=== PATIENT | female | born 1950 | race Caucasian/White ===

== ENCOUNTER → 2018-05-05 | Outpatient (CLI) | payer MEDICARE, OTHER ==
--- NOTE | 2018-05-05 17:38 | Diagnostic Imaging Report ---
INDICATION: Routine screening. COMPARISON: Comparison is made with prior mammograms from 05/06/2016 and 05/01/2015. TECHNIQUE: 2D and 3D bilateral screening mammography was performed with computer-aided detection (CAD) system. FINDINGS: Scattered fibroglandular densities are identified bilaterally. Benign-appearing intraparenchymal lymph node in the outer right breast posterior depth appears stable. No new mass or malignant appearing microcalcifications are seen. The axillae are unremarkable. IMPRESSION: No mammographic features suspicious for malignancy are identified. ACR BI-RADS Category 2: Benign findings. Result letter will be mailed to the patient. Note: At least 10% of breast cancer is not imaged by mammography. Dictated by: Dictated on workstation # [id number]
== END ==
LOC: RAD 10:16
PROVIDERS: ATTEND Nurse Practitioner Family
DX: Z12.31 Encounter for screening mammogram for malignant neoplasm of breast (principal)
CPT/HCPCS: 77067

== ENCOUNTER → 2019-04-18 | Outpatient (CLI) | payer MEDICARE, OTHER ==
--- NOTE | 2019-04-18 11:06 | Diagnostic Imaging Report ---
INDICATION: Low back pain and left hip pain. Time of exam 10:26 a.m. FINDINGS: Three views of the lumbar spine were obtained. Curvature and alignment of the lumbar spine is normal. Vertebral body heights are maintained. No acute compression fracture is seen. There is generalized degenerative disc and facet disease. Abdominal aorta is heavily calcified. IMPRESSION: Lumbar spondylosis. No acute bony abnormality is detected. Dictated by: Dictated on workstation # [id number]
--- NOTE | 2019-04-18 11:06 | Diagnostic Imaging Report ---
INDICATION: Pelvic pain and back and left hip pain. TIME OF EXAM: 10:27 a.m. FINDINGS: AP view of the pelvis and two views of the left hip were obtained. Femoroacetabular alignment is normal bilaterally. There are significant osteoarthritic changes involving bilateral hips. Right hip does show complete loss of the superior joint space. There is moderate narrowing of the superior joint space on the left as well. Femoral heads and necks are intact. No fractures are seen. Rami are intact. SI joints and symphysis are not widened. Both SI joints do demonstrate some degenerative changes with some sclerosis along the inferior aspects bilaterally. IMPRESSION: Degenerative changes. No acute bony abnormality is detected. Dictated by: Dictated on workstation # [id number]
== END ==
LOC: RAD 09:51
PROVIDERS: ATTEND Nurse Practitioner Family
DX: M47.816 Spondylosis without myelopathy or radiculopathy, lumbar region (principal); M16.12 Unilateral primary osteoarthritis, left hip
CPT/HCPCS: 72100

== ENCOUNTER → 2019-05-16 | Outpatient (CLI) | payer MEDICARE, OTHER ==
--- NOTE | 2019-05-17 10:35 | Diagnostic Imaging Report ---
INDICATION: Routine screening. Comparison is made with prior mammogram from 05/05/2018 and 05/06/2016. 2-D and 3-D bilateral screening mammography was performed with CAD. The current study was also evaluated with a Computer Aided Detection (CAD) system. 3-D tomosynthesis was also performed and reviewed. Scattered fibroglandular densities are identified bilaterally. Benign-appearing tiny nodules both breasts again noted and appear stable. No spiculated mass or malignant appearing microcalcifications are seen. Axillae are unremarkable. IMPRESSION: No mammographic features suspicious for malignancy are identified. ACR BI-RADS Category 2: Benign findings. Result letter will be mailed to the patient. Note: At least 10% of breast cancer is not imaged by mammography. Dictated by: Dictated on workstation # [id number]
== END ==
LOC: RAD 14:06
PROVIDERS: ATTEND Nurse Practitioner Family
DX: Z12.31 Encounter for screening mammogram for malignant neoplasm of breast (principal)
CPT/HCPCS: 77067

== ENCOUNTER → 2020-05-19 | Outpatient (CLI) | payer MEDICARE, OTHER ==
--- NOTE | 2020-05-19 16:05 | Diagnostic Imaging Report ---
INDICATION: Routine screening. COMPARISON: 05/16/2019 and 05/05/2018. TECHNIQUE: 2D and 3D bilateral screening mammography was performed with CAD. FINDINGS: Scattered fibroglandular densities are identified bilaterally. A benign nodule in the outer right breast is stable. No new mass or malignant appearing microcalcifications are seen. The axillae are unremarkable. IMPRESSION: No mammographic features suspicious for malignancy are identified. ACR BI-RADS Category 2: Benign findings. Result letter will be mailed to the patient. Note: At least 10% of breast cancer is not imaged by mammography. Dictated by: Dictated on workstation # [id number]
== END ==
LOC: RAD 08:45
PROVIDERS: ATTEND Family Medicine
DX: Z12.31 Encounter for screening mammogram for malignant neoplasm of breast (principal)
CPT/HCPCS: 77063; 77067

== ENCOUNTER 2020-07-04 11:31 | Emergency (ER) | payer MEDICARE, OTHER ==
[~2020-07-04] VITALS: Ht 167.7 cm; Wt 89.8 kg
--- NOTE | 2020-07-04 12:25 | ED Upper Extremity ---
General Chief Complaint: Trauma-Non Activation Nursing Triage Note: PT AMB TO [facility] WITH COMPLAINT OF FALL. STATES WAS SPREADING ICE MELT AND SLIPPED DOWN [employer] STAIRS. PT HAS ABRAISION/SKIN TEAR TO RIGHT ARM. PT IS ALSO COMPLAINING OF LEFT ANKLE. Nursing Sepsis Screen: No Definite Risk Source: patient Exam Limitations: no limitations History of Present Illness Date Seen by Provider: Jul 04, 2020 Time Seen by Provider: 12:10 Initial Comments This is a 70 yo female who presented to the ED with c/o fall just prior to arrival. States she was putting down dry ice and slipped in the slush injuring her right forearm and left ankle. States she was able to get up and walk back inside. Covered wound with a clean kitchen towel. Denies hitting head or LOC. No other injuries reported. Last tetanus greater than 10 years ago. Onset: just prior to arrival Allergies and Home Medications Allergies Coded Allergies: Penicillins (Verified Allergy, Unknown, 07/04/20) hydrocodone (Verified Allergy, Unknown, 07/04/20) Home Medications Cephalexin 500 Mg Capsule, 500 MG PO TID Prescribed by: SHILOH GUTIERREZ on 07/04/20 1328 Patient Home Medication List Home Medication List Reviewed: Yes Review of Systems Constitutional: no symptoms reported EENTM: no symptoms reported Respiratory: no symptoms reported Cardiovascular: no symptoms reported Gastrointestinal: no symptoms reported Genitourinary: no symptoms reported Musculoskeletal: see HPI Skin: see HPI Psychiatric/Neurological: No Symptoms Reported Past Vnendnz-Lvonbb-Sgzpqd Hx Patient Social History Alcohol Use: Denies Use Recreational Drug Use: No Smoking Status: Current Everyday Smoker Type Used: Cigarettes Recent Foreign Travel: No Contact w/Someone Who Travel: No Recent Infectious Disease Expo: No Recent Hopitalizations: No Immunizations Up To Date Tetanus Booster (TDap): More than 5yrs PED Vaccines UTD: Yes Seasonal Allergies Seasonal Allergies: No Past Medical History Surgeries: Yes Hysterectomy Respiratory: No Cardiac: Yes Hypertension Neurological: No Gastrointestinal: No Musculoskeletal: No Endocrine: Yes Hypothyroidsim HEENT: No Cancer: No Psychosocial: No Integumentary: No Blood Disorders: No Physical Exam Vital Signs Vital Signs - First Documented 07/04/20 11:43 Pulse 72 Resp 16 B/P (MAP) 148/78 (101) Pulse Ox 96 O2 Delivery Room Air Capillary Refill : Less Than 3 Seconds Height, Weight, BMI Height: '" Weight: lbs. oz. kg; 31.00 BMI Method: General Appearance: WD/WN, no apparent distress HEENT: PERRL/EOMI, normal ENT inspection, TMs normal, pharynx normal Neck: non-tender, full range of motion, supple, normal inspection Cardiovascular: normal peripheral pulses, regular rate, rhythm, no murmur Respiratory: chest non-tender, lungs clear, normal breath sounds, no res piratory distress Gastrointestinal: normal bowel sounds, non tender, soft Back: normal inspection, no vertebral tenderness; No decreased range of motion Shoulder: normal inspection, non-tender, no evidence of injury, normal ROM Elbow/Forearm: abrasions (2 Skin tears on lateral forearm with softissue swelling and bruising. ), ecchymosis, pain, soft tissue tenderness Wrist: Yes normal inspection, Yes non-tender, Yes no evidence of injury, Yes normal ROM Hand: normal inspection, non-tender, no evidence of injury, normal ROM Neurologic/Tendon: normal sensation, normal motor functions, normal tendon functions, responds to pain Neurologic/Psychiatric: no motor/sensory deficits, alert, normal mood/affect, oriented x 3 Skin: normal color, warm/dry Progress/Results/Core Measures Results/Orders My Orders Orders - SHILOH GUTIERREZ [employer] RES[employer] MANAGER Ankle, Left, 3 Views (07/04/20 12:19) Forearm, Right, 2 Views (07/04/20 12:19) Ketorolac Injection (Toradol Injection) (07/04/20 14:00) Orphenadrine Inj (Ed Only) (Norflex Inje (07/04/20 14:00) Dipht,Pertuss(Acell),Tet Adult (Boostrix (07/04/20 14:00) Medications Given in ED Current Medications Medications Dose Ordered Sig/Laxmi Route Start Time Stop Time Status Last Admin Dose Admin Diphtheria/ Tetanus/Acell Pertussis 0.5 ml ONCE ONCE IM 07/04/20 14:00 07/04/20 14:01 DC 07/04/20 14:06 0.5 ML Ketorolac Tromethamine 30 mg ONCE ONCE IM 07/04/20 14:00 07/04/20 14:01 DC 07/04/20 14:05 30 MG Orphenadrine Citrate 30 mg ONCE ONCE IM 07/04/20 14:00 07/04/20 14:01 DC 07/04/20 14:05 30 MG Vital Signs/I&O 07/04/20 14:47 Pulse 72 Resp 16 B/P (MAP) 148/78 (101) Pulse Ox 96 Blood Pressure Mean: 101 Progress Progress Note : Progress Note Skin tears were cleansed with sterile saline and chlorahexadine wash. Pressure irrigated wounds with 100ml sterile saline. Dried with sterile 4x4. Steri-strips used to approximate skin tears as best as able, close approximation achieved (distal skin tear apx 2cm wide, proximal skin tear apx. 1cm wide) Covered with xeroform, non adherent telfa and casi-bandage. Tolerated well. Reviewed findings of radiographs which no acute fractures. Reviewed her POC and she is agreeable with plan. Applied casi wrap to left ankle. Given Norflex 30mg IM and Toradol 30mg IM for pain. Diagnostic Imaging Diagonstic Imaging: Xray Plain Films/CT/US/NM/MRI: forearm Comments NAME: ALTAGRACIA GORE [email or web address] REC#: [id number] PT STATUS: REG ER : 1950 PHYSICIAN: SHILOH GUTIERREZ APRN ADMIT DATE: 07/04/20/ER Signed Date of Exam:07/04/20 FOREARM, RIGHT, 2 VIEWS INDICATION: Right forearm injury from a fall. 2 views of the right forearm show no fracture or dislocation. IMPRESSION: Negative right forearm Dictated by: Dictated on workstation # [id number] Dict: 07/04/20 1309 Trans: 07/04/20 1352 [facility] [id number] Interpreted by: FEI GRANADOS MD Electronically signed by: FEI GRANADOS MD 07/04/20 1357 Diagonstic Imaging: Xray Plain Films/CT/US/NM/MRI: ankle Comments NAME: ALTAGRACIA GORE [email or web address] REC#: [id number] PT STATUS: DEP ER : 1950 PHYSICIAN: SHILOH GUTIERREZ APRN ADMIT DATE: 07/04/20/ER Signed Date of Exam:07/04/20 ANKLE, LEFT, 3 VIEWS Indication: Fall with left ankle injury. Time of exam: 12:54 PM 3 views of the left ankle were obtained. Alignment is normal. There is some soft tissue swelling about the lateral ankle. Ankle mortise is maintained. No definite fracture or dislocation is seen. Large plantar and posterior calcaneal spurs are noted. IMPRESSION: Lateral soft tissue swelling. No acute bony abnormality is detected. Dictated by: Dictated on workstation # [id number] Dict: 07/04/20 1309 Trans: 07/04/20 1503 CVB [id number] Interpreted by: VIC HARRIS MD Electronically signed by: VIC HARRIS MD 07/04/20 1503 Departure Impression Primary Impression: Fall Additional Impression: Skin tear of forearm without complication Disposition: HOME, SELF-CARE Condition: Improved Departure-Patient Inst. Decision time for Depature: 13:24 Referrals: YVONNE LYNN MD (PCP/Family) Primary Care Physician Patient Instructions: Wound Care Add. Discharge Instructions: Plan: 1. Discharge home. 2. Rest, ice 20 minutes at a time every couple of hours for swelling and pain, use casi wrap over the next 3 days, and keep elevated above your heart as much as possible. The most swelling will occur over the next 48-72 hours. 3. May take Tylenol or Ibuprofen as needed for pain per package directions. Do not take more than directed. 4. Keep dressing in place for the next 24 hours. May remove after 24 hours and change white gauze pain and yellow xeroform dressing. Leave steri-strips in place and allow them to fall off by themselves. Do not twist or pick off. May leave open to air after 72 hours. 5. Monitor or signs of infection such as fevers, redness, yellow greenish drainage. 6. Your tetanus was updated today. Take antibiotics as directed. 7. Follow up with your primary care provider if symptoms persist. All discharge instructions reviewed with patient and/or family. Voiced unders tanding. Scripts Cephalexin (Keflex) 500 Mg Capsule 500 MG PO TID for 5 Days, #15 CAP 0 Refills Prov: SHILOH GUTIERREZ [employer] MANAGER 07/04/20 SHILOH GUTIERREZ [employer] RESOURCES MANAGER Jul 04, 2020 12:25
--- NOTE | 2020-07-04 13:13 | Diagnostic Imaging Report ---
INDICATION: Right forearm injury from a fall. 2 views of the right forearm show no fracture or dislocation. IMPRESSION: Negative right forearm Dictated by: Dictated on workstation # [id number]
--- NOTE | 2020-07-04 13:13 | Diagnostic Imaging Report ---
Indication: Fall with left ankle injury. Time of exam: 12:54 PM 3 views of the left ankle were obtained. Alignment is normal. There is some soft tissue swelling about the lateral ankle. Ankle mortise is maintained. No definite fracture or dislocation is seen. Large plantar and posterior calcaneal spurs are noted. IMPRESSION: Lateral soft tissue swelling. No acute bony abnormality is detected. Dictated by: Dictated on workstation # [id number]
[2020-07-04] MEDS ORDERED: CEPH-507 PO (13:28)
[2020-07-04] MEDS ORDERED: KETOROLAC 60 MG/2 ML VIAL IM ONE (14:00)
[2020-07-04] MEDS ORDERED: ORPHENADRINE 60 MG/2 ML (NORFLEX) AMP (ED ONLY) IM ONE (14:00)
[2020-07-04] MEDS ORDERED: TETANUS,DIPTH,PERTUSS P/F (BOOSTRIX) 0.5 ML VIAL IM ONE (14:00)
[2020-07-04 14:47] VITALS: BP 148/78
== END 2020-07-04 14:47 | disposition home or self-care (01) ==
LOC: EDUNIT# 11:31 → ER 11:34
DX: S51.811A Laceration without foreign body of right forearm, initial encounter (principal); F17.210 Nicotine dependence, cigarettes, uncomplicated; Z88.0 Allergy status to penicillin; Z88.5 Allergy status to narcotic agent; Z23 Encounter for immunization; W01.0XXA Fall on same level from slipping, tripping and stumbling without subsequent striking against object, initial encounter
CPT/HCPCS: 12002; 73090; 73610; 90715

== ENCOUNTER → 2020-07-14 | Outpatient (CLI) | payer MEDICARE, OTHER ==
[~2020-07-14] MED LIST: CEPH-507 PO
--- NOTE | 2020-07-14 15:30 | Diagnostic Imaging Report ---
EXAMINATION: Ultrasound of the head and neck. INDICATION: Lymphadenopathy. There are no prior studies available for comparison. By history the patient has a palpable abnormality just anterior to the mid ear on the right. The ultrasound examination of this area does show a 2.1 x 1.4 x 1.2 cm predominantly cystic lesion. There does appear to be a small solid component to this lesion. This finding is of uncertain etiology. This could be related to an inflammatory/infectious process. A neoplastic lesion would be less likely but still possible. If further imaging is desired, then CT of the neck with intravenous contrast would be recommended. IMPRESSION: There is a complex solid and predominantly cystic mass in the area of the patient's palpable abnormality just superior to the right parotid gland. Considerations and recommendations as above. Dictated by: Dictated on workstation # [id number]
== END ==
LOC: RAD 13:16
PROVIDERS: ATTEND Nurse Practitioner Family
DX: R22.0 Localized swelling, mass and lump, head (principal)
CPT/HCPCS: 76536

== ENCOUNTER → 2020-07-21 | Outpatient (CLI) | payer MEDICARE, OTHER ==
[~2020-07-21] MED LIST changes: +CATHETER FLUSH 10 ML SYR IV PRN; +HOLD METFORMIN - RECEIVED CONTRAST 20 ML VIAL IV SCH; +IOHEXOL 350 MG/ML 100 ML (OMNIPAQUE 350) VIAL IV ONE; +NS 100 ML (IVPB) BAG IV ONE
[2020-07-21 14:49] LABS: BUN/CREATININE RATIO 18; CREATININE SERUM 0.77 MG/DL (0.60-1.30); GFR ESTIMATED > 60
--- NOTE | 2020-07-21 15:46 | Diagnostic Imaging Report ---
PROCEDURE: CT neck soft tissue with contrast. TECHNIQUE: Multiple contiguous axial images were obtained through the neck after the administration of contrast. Auto Exposure Controls were utilized during the CT exam to meet ALARA standards for radiation dose reduction. INDICATION: Mass in the right parotid gland. COMPARISON: 07/14/2020. FINDINGS: A peripherally enhancing mixed hypo and hyperattenuating lesion is seen in the superficial right parotid gland just anterior to the auricle measuring 1.7 x 1.2 cm and 2.0 cm craniocaudal. No masses are seen in the left parotid gland. The submandibular glands and thyroid gland are unremarkable. No pathologically enlarged lymphadenopathy is seen in the neck. The posterior nasopharynx and oropharynx demonstrate appropriate symmetry. There is no displacement of the parapharyngeal fat planes. There is no abnormal process evident within the prevertebral or retropharyngeal space. There is no evidence of abnormal thickening of the epiglottis or aryepiglottic folds. The vocal folds appear symmetric. The vascular structures the neck demonstrate no evidence of high-grade stenosis on this nondedicated exam. The visualized lung apices are clear. The visualized intracranial contents demonstrate no evidence of pathologic intracranial enhancement or intracranial mass effect. Visualized orbital contents are unremarkable. The visualized paranasal sinuses are clear. The mastoids and middle ears are clear. No acute osseous abnormality in the cervical spine. IMPRESSION: 1. Redemonstration of the mass within the right parotid gland. This may represent benign lesions such as pleomorphic adenoma and Warthin tumor or malignant parotid lesions such as adenoid cystic carcinoma or mucoepidermoid carcinoma. ENT consultation for surgical resection is recommended. The left parotid gland is unremarkable. No pathologically enlarged lymphadenopathy is seen in the neck. 2. No evidence of mass or fluid collection in the aerodigestive tract. No evidence of airway compromise. Dictated by: Dictated on workstation # [id number]
== END ==
LOC: RAD 14:20
PROVIDERS: ATTEND Family Medicine
DX: K11.8 Other diseases of salivary glands (principal)
CPT/HCPCS: 36415; 70491; 82565; 84520

== ENCOUNTER → 2021-07-01 | Outpatient (CLI) | payer MEDICARE, OTHER ==
[~2021-07-01] MED LIST changes: -CATHETER FLUSH 10 ML SYR IV PRN; -HOLD METFORMIN - RECEIVED CONTRAST 20 ML VIAL IV SCH; -IOHEXOL 350 MG/ML 100 ML (OMNIPAQUE 350) VIAL IV ONE; -NS 100 ML (IVPB) BAG IV ONE
--- NOTE | 2021-07-01 11:12 | Diagnostic Imaging Report ---
INDICATION: Increasing back pain. TIME OF EXAM: 10:58 AM. TECHNIQUE: Three views of the lumbar spine were obtained. FINDINGS: The curvature and alignment are normal. The vertebral body heights are well-maintained. No acute compression fracture is seen. There is generalized degenerative disc disease with variable disc space narrowing and marginal spurring. There is also lower lumbar facet arthropathy. The overall appearance is similar to the lumbar spine radiographs from 04/18/2019. The aorta is heavily calcified. Calcific densities overlie the right renal shadow, likely representing renal calculi. IMPRESSION: Spondylosis. No acute bony abnormality is detected. Dictated by: Dictated on workstation # [id number]
--- NOTE | 2021-07-01 11:14 | Diagnostic Imaging Report ---
INDICATION: Increasing pelvic pain. TIME OF EXAM: 10:59 AM. TECHNIQUE: An AP view of the pelvis and two views of each hip were obtained. FINDINGS: The femoroacetabular alignment is normal bilaterally. Severe osteoarthritic changes of the right hip are noted with complete loss of the superior joint space. There are fairly significant osteoarthritic changes of the left hip as well. Spurring at the femoral head/neck junctions bilaterally is noted. Both femoral heads and necks are intact without evidence of fracture. The rami are intact. The SI joints and symphysis are not widened. IMPRESSION: Severe osteoarthritic changes involving the bilateral hips. No acute fracture is seen. Dictated by: Dictated on workstation # [id number]
== END ==
LOC: RAD 10:05
PROVIDERS: ATTEND Nurse Practitioner Family
DX: M16.0 Bilateral primary osteoarthritis of hip (principal); M47.816 Spondylosis without myelopathy or radiculopathy, lumbar region
CPT/HCPCS: 72100; 73523

== ENCOUNTER → 2021-07-03 | Outpatient (CLI) | payer MEDICARE, OTHER ==
--- NOTE | 2021-07-03 09:16 | Diagnostic Imaging Report ---
PROCEDURE: MR imaging left lower extremity without contrast. TECHNIQUE: Multiplanar, multisequence non contrast enhanced MR imaging of the left lower extremity was accomplished. INDICATION: Hip pain COMPARISON: There are no prior MRI examinations available for comparison. FINDINGS: The plain film examination of the pelvis and hips performed on 07/01/2021 noted severe osteoarthritic changes involving both hips but failed to show any sign of an acute abnormality. On the coronal STIR series of this exam, there is again evidence of severe degenerative disease involving the left hip. There is marked narrowing of the joint space with subchondral cyst formation throughout the articular surface of the femoral head. There is a little subchondral cyst formation in the acetabulum. The anterior superior labrum is not well visualized and I suspect that the labrum is partially torn. There is also a small joint effusion present. There is no other abnormal signal arising from the bony pelvis to suggest an acute abnormality. The severe degenerative changes involving the right hip joint seen on the MRI right hip exam performed in conjunction with this study are again evident. There is no pelvic mass or free fluid collection noted. The urinary bladder is grossly unremarkable. The uterus is either atrophic or surgically absent. IMPRESSION: There is severe degenerative disease involving the left hip joint. There is no acute abnormality identified nor is there any sign of avascular necrosis. Dictated by: Dictated on workstation # [id number]
--- NOTE | 2021-07-03 09:21 | Diagnostic Imaging Report ---
PROCEDURE: MRI right joint lower extremity without contrast. TECHNIQUE: Multiplanar, multisequence non contrast-enhanced MRI of the right lower extremity was accomplished. INDICATION: Hip pain There are no prior MRI examinations available for comparison. The plain film examination of the hips and pelvis performed on 07/01/2021 did note severe osteoarthritic changes involving the hips. There was no acute abnormality identified. On this study, there is no fracture, dislocation or acute bony abnormality of the right hip. On the coronal STIR series, there is increased signal in the subarticular region of the lateral aspect of the acetabulum. I suspect this is more likely due to degenerative bone edema than to an acute injury or a stress fracture. There is severe degenerative disease of the hip joint. The joint space is narrowed and there are subchondral cysts along the opposing surfaces of the femoral head and acetabulum. The anterosuperior labrum has an indistinct appearance, most likely the labrum has been torn and has partially degenerated. There is also a small joint effusion present. There is no acute bony abnormality of the visualized pelvis noted otherwise. There is severe degenerative disease of the left hip joint. MRI of the left hip is pending for further study. IMPRESSION: There is severe degenerative disease of the right hip but there is no sign of an acute abnormality or of avascular necrosis. Dictated by: Dictated on workstation # [id number]
== END ==
LOC: RAD 08:00
PROVIDERS: ATTEND Nurse Practitioner Family
DX: M16.0 Bilateral primary osteoarthritis of hip (principal)
CPT/HCPCS: 73721

== ENCOUNTER 2021-10-01 15:00 | Outpatient (CLI) | payer MEDICARE, OTHER ==
[~2021-10-01] VITALS: Ht 177 cm; Wt 89.8 kg
[~2021-10-01 15:00] MED LIST changes: +NS IV 1000 ML 1,000 ML IV ONE
[2021-10-01] MEDS ORDERED: ONDANSETRON 4 MG/2 ML (SDV) Z0FRAN ONE (15:17)
[2021-10-01] MEDS ORDERED: NS IV 1000 ML 1,000 ML ONE (15:17)
[2021-10-01 15:40] LABS: HEMATOCRIT 39 % (35-52); HEMOGLOBIN 12.9 g/dL (11.5-16.0); MEAN CORPUSCULAR HEMOGLOBIN 31 pg (25-34); MEAN CORPUSCULAR HGB CONC 33 g/dL (32-36); MEAN CORPUSCULAR VOLUME 93 fL (80-99); MEAN PLATELET VOLUME 10.9 fL (9.0-12.2); PLATELET COUNT 486 10^3/uL (130-400); WHITE BLOOD COUNT 15.9 10^3/uL (4.3-11.0)
[2021-10-01] MEDS ORDERED: PROMETHAZINE INJ 25 MG/ML (PHENERGAN) AMP IV PRN (16:00)
[2021-10-01] MEDS ORDERED: ONDANSETRON 4 MG/2 ML (SDV) Z0FRAN IV ONE (16:00)
[2021-10-01 16:45] VITALS: BP 135/85
[2021-10-01 16:48] LABS: ALBUMIN 3.7 GM/DL (3.2-4.5)
[2021-10-01 16:49] LABS: BILIRUBIN,URINE NEGATIVE (NEGATIVE); CLARITY,URINE CLEAR; COLOR,URINE ORANGE; GLUCOSE, URINE (UA) NEGATIVE (NEGATIVE); KETONES,URINE TRACE (NEGATIVE); LEUKOCYTE ESTERASE ,URINE NEGATIVE (NEGATIVE); NITRITE,URINE NEGATIVE (NEGATIVE); PROTEIN,URINE 1+ (NEGATIVE)
[2021-10-01 16:50] LABS: CALCIUM 9.4 MG/DL (8.5-10.1)
[2021-10-01 16:51] LABS: TOTAL PROTEIN 7.3 GM/DL (6.4-8.2)
[2021-10-01 16:53] LABS: BILIRUBIN,TOTAL 1.2 MG/DL (0.1-1.0)
[2021-10-01 16:55] LABS: CREATININE SERUM 0.92 MG/DL (0.60-1.30)
[2021-10-01 17:02] LABS: AMORPHOUS SEDIMENT,UR FEW AMOR PHOSPHATE /LPF; BACTERIA,URINE FEW /HPF; RBC,URINE 0-2 /HPF; SQUAMOUS EPITHELIAL CELL,UR 0-2 /HPF
== END 2021-10-01 16:45 ==
LOC: SDC 15:00
PROVIDERS: ATTEND Nurse Practitioner Family
DX: Z51.81 Encounter for therapeutic drug level monitoring (principal)
CPT/HCPCS: 36415; 80053; 81000; 85027; 87088; 96360; 96374

== ENCOUNTER → 2021-10-06 | Outpatient (CLI) | payer MEDICARE, OTHER ==
[~2021-10-06] MED LIST changes: -NS IV 1000 ML 1,000 ML IV ONE
[2021-10-06 14:34] LABS: HEMATOCRIT 41 % (35-52); HEMOGLOBIN 13.2 g/dL (11.5-16.0); MEAN CORPUSCULAR HEMOGLOBIN 30 pg (25-34); MEAN CORPUSCULAR HGB CONC 32 g/dL (32-36); MEAN CORPUSCULAR VOLUME 93 fL (80-99); MEAN PLATELET VOLUME 10.4 fL (9.0-12.2); PLATELET COUNT 583 10^3/uL (130-400); WHITE BLOOD COUNT 17.1 10^3/uL (4.3-11.0)
--- NOTE | 2021-10-06 14:45 | Diagnostic Imaging Report ---
PROCEDURE: CT abdomen and pelvis without contrast. TECHNIQUE: Multiple contiguous axial images were obtained through the abdomen and pelvis without the use of intravenous contrast. Auto Exposure Controls were utilized during the CT exam to meet ALARA standards for radiation dose reduction. INDICATION: Abdominal pain with nausea, vomiting, and diarrhea. FINDINGS: The lung bases are clear. There is a moderate-sized pericardial effusion. The liver and gallbladder are unremarkable. No biliary ductal dilatation is seen. The pancreas and spleen are unremarkable. No adrenal mass is detected. Multiple nonobstructing calculi in the right kidney are noted, largest 3-4 mm in size. Aorta is ectatic and calcified but nonaneurysmal. The small and large bowel loops are normal in caliber. There is diverticulosis of the sigmoid but no evidence of acute diverticulitis. There is no free fluid or fluid collection. The bladder is decompressed. The bony structures are nonacute. There are postop changes to the left hip. IMPRESSION: 1. Moderate pericardial effusion. 2. Uncomplicated diverticulosis. 3. Nonobstructing right-sided nephrolithiasis. Dictated by: Dictated on workstation # [id number]
[2021-10-06 15:11] LABS: ALBUMIN 3.8 GM/DL (3.2-4.5)
[2021-10-06 15:12] LABS: POTASSIUM 3.9 MMOL/L (3.6-5.0)
[2021-10-06 15:13] LABS: CALCIUM 9.4 MG/DL (8.5-10.1)
[2021-10-06 15:14] LABS: TOTAL PROTEIN 7.1 GM/DL (6.4-8.2)
[2021-10-06 15:16] LABS: BILIRUBIN,TOTAL 0.9 MG/DL (0.1-1.0)
[2021-10-06 15:18] LABS: CREATININE SERUM 1.22 MG/DL (0.60-1.30)
== END ==
LOC: RAD 14:00
PROVIDERS: ATTEND Nurse Practitioner Family
DX: R10.9 Unspecified abdominal pain (principal); R11.2 Nausea with vomiting, unspecified; R19.7 Diarrhea, unspecified; E87.6 Hypokalemia
CPT/HCPCS: 36415; 74176; 80053; 82150; 83690; 85027

== ENCOUNTER → 2021-10-18 | Outpatient (CLI) | payer OTHER, MEDICARE ==
[~2021-10-18] MED LIST changes: +AMLO-251 PO; +APIX5TAB PO; +IPRA3AMP31 IH; +LEVO25TA5 PO; +LISI20TA26 PO; +NAPR-915 PO; +ONDA-105 PO; +OXYC5TAB PO; +PANT40TA52 PO; +POTA-160 PO; +SIMV20TA26 PO; +SUCR1TAB36 PO; +TRAM50TA3 PO
[2021-10-18 07:30] LABS: ALBUMIN 2.4 GM/DL (3.2-4.5)
[2021-10-18 07:31] LABS: POTASSIUM 3.5 MMOL/L (3.6-5.0)
[2021-10-18 07:32] LABS: CALCIUM 7.9 MG/DL (8.5-10.1)
[2021-10-18 07:33] LABS: TOTAL PROTEIN 4.2 GM/DL (6.4-8.2)
[2021-10-18 07:35] LABS: BILIRUBIN,TOTAL 1.1 MG/DL (0.1-1.0)
[2021-10-18 07:37] LABS: CREATININE SERUM 0.58 MG/DL (0.60-1.30)
== END ==
LOC: LABNPT 07:07
PROVIDERS: ATTEND Internal Medicine
DX: Z01.89 Encounter for other specified special examinations (principal)
CPT/HCPCS: 80053

== ENCOUNTER → 2021-10-19 | Outpatient (CLI) | payer OTHER, MEDICARE ==
[2021-10-19 07:43] LABS: ALBUMIN 2.3 GM/DL (3.2-4.5); BILIRUBIN,TOTAL 0.7 MG/DL (0.1-1.0); CALCIUM 7.7 MG/DL (8.5-10.1); CREATININE SERUM 0.55 MG/DL (0.60-1.30); POTASSIUM 3.7 MMOL/L (3.6-5.0); TOTAL PROTEIN 4.1 GM/DL (6.4-8.2)
== END ==
LOC: LABNPT 07:08
PROVIDERS: ATTEND Internal Medicine
DX: Z01.89 Encounter for other specified special examinations (principal)
CPT/HCPCS: 80053

== ENCOUNTER 2021-10-21 12:28 | Inpatient (IN) | payer MEDICARE, OTHER ==
[~2021-10-21] VITALS: Ht 170 cm; Wt 81.9 kg
--- NOTE | 2021-10-21 12:09 | PM&R Post Admission Assessment ---
PM&R HP Date of Visit: Oct 21, 2021 Time of Visit: 12:30 History of Present Illness Chief complaint: Debility History of present illness: This is a 71-year-old white female of Dr. Clifford who was moved over from [facility] following small bowel obstruction requiring surgical intervention and identifying ischemic bowel with slow but final return of bowel function following postop ileus who is in need of aggressive rehab to build strength and return to independent living at home. She has a recent history of left hip replacement uncomplicated by Dr. Alonso but did have a longer postoperative course with ileus and wheezing both completely resolving at time of discharge but she became more weak and was assessed by PCP to have UTI placed on antibiotic and CT scan obtained due to shortness of breath revealing pericardial effusion requiring transfer to [facility] which did not require any surgical intervention of pericardiocentesis. She then returned back home from [facility] in 1 day later suffered a fall with partial dehiscence of the left hip replacement incision status post incision and drainage per Dr. ALONSO the day after admission. She then suffered from abdominal pain requiring surgical consultation by Dr. Nguyen requiring CT scan and bowel rest but conservative management unsuccessful requiring surgical intervention with resection of ischemic bowel. NG tube was finally discontinued 2 days ago and clear liquid diet has been advanced. Upon arrival she reports she does not feel well and having some vague right-sided chest pain and considering her pericardial effusion recently cardiology was consulted and EKG showed no evidence of any ST elevation but right bundle branch block with no changes from preop in prior EKGs. Past Swqsdrq-Mjgcza-Epznqd Hx Past Med/Social Hx: Reviewed Nursing Past Med/Soc Hx, Reviewed and Corrections made Patient Social History Marrital Status: Employed/Student: retired Alcohol Use: Denies Use Smoking Status: Former Smoker Type Used: Cigarettes Recent Hopitalizations: No Immunizations Up To Date Tetanus Booster (TDap): More than 5yrs Pediatric: Yes Seasonal Allergies Seasonal Allergies: No Past Medical History Surgeries: Abdominal, Hysterectomy, Orthopedic Respiratory: COPD Cardiac: High Cholesterol, Hypertension Gastrointestinal: Obstructive Bowel Musculoskeletal: Arthritis, Chronic Back Pain Endocrine: Hypothyroidsim History of Blood Disorders: No PM&R Allergy/Meds/Data Review Allergies Coded Allergies: Penicillins (Verified Allergy, Unknown, 07/04/20) hydrocodone (Verified Allergy, Unknown, 07/04/20) Uncoded Allergies: LARGE DOSES OF ASPIRIN (Adverse Reaction, Unknown, 10/21/21) LOOP DIURETIC (Adverse Reaction, Unknown, 10/21/21) Home Medications Scheduled Amlodipine Besylate (Amlodipine Besylate), 10 MG PO DAILY, (Reported) Apixaban (Eliquis), 5 MG PO BID, (Reported) Ipratropium/Albuterol Sulfate (Iprat-Albut 0.5-3(2.5) mg/3 ml), 3 ML IH QID, (Reported) Levothyroxine Sodium (Levothyroxine Sodium), 25 MCG PO DAILY, (Reported) Lisinopril (Lisinopril), 20 MG PO DAILY, (Reported) Naproxen (Naproxen), 500 MG PO BID, (Reported) Pantoprazole Sodium (Pantoprazole Sodium), 40 MG PO DAILY, (Reported) Potassium Chloride (Klor-Con 10), 10 MEQ PO BID, (Reported) Simvastatin (Simvastatin), 20 MG PO HS, (Reported) Scheduled PRN Ondansetron HCl (Ondansetron HCl), 4 MG PO Q4H PRN for NAUSEA/VOMITING-1ST LINE, (Reported) Oxycodone HCl (Oxycodone HCl), 5-10 MG PO Q4H PRN for PAIN-SEVERE (8-10), (Reported) Sucralfate (Carafate), 1 GM PO ACHS PRN for ULCERS, (Reported) Tramadol HCl (Tramadol HCl), 50 MG PO Q6H PRN for PAIN-MODERATE (5-7), (Reported) Discontinued Medications Cephalexin (Keflex), 500 MG PO TID Discontinued Reason: No Longer Taking Current Medications Current Medications Reviewed Review of Systems Constitutional: see HPI, dizziness, malaise, weakness EENTM: no symptoms reported Respiratory: no symptoms reported Cardiovascular: no symptoms reported Gastrointestinal: abdominal pain, loss of appetite, nausea Genitourinary: no symptoms reported Musculoskeletal: no symptoms reported Skin: no symptoms reported Psychiatric/Neurological: No Symptoms Reported All Other Systems Reviewed Negative Unless Noted: Yes Physical Exam Physical Exam Vital Signs Capillary Refill : Height, Weight, BMI Height: '" Weight: lbs. oz. kg; 31.00 BMI Method: General Appearance: No Apparent Distress, WD/WN, Chronically ill Eyes: Bilateral Eye Normal Inspection, Bilateral Eye PERRL HEENT: PERRL/EOMI, Normal ENT Inspection, Pharynx Normal Neck: Full Range of Motion, Normal Inspection, Non Tender, Supple, Carotid Bruit Respiratory: Chest Non Tender, Lungs Clear, Normal Breath Sounds, No Accessory Muscle Use, No Respiratory Distress Cardiovascular: Regular Rate, Rhythm, No Edema, No Gallop, No JVD, No Murmur, Normal Peripheral Pulses Gastrointestinal: Normal Bowel Sounds, No Organomegaly, No Pulsatile Mass, Non Tender, Soft Back: Normal Inspection, No CVA Tenderness, No Vertebral Tenderness Extremity: Normal Capillary Refill, Normal Inspection, Normal Range of Motion, Non Tender, No Calf Tenderness, No Pedal Edema Neurologic/Psychiatric: Alert, Oriented x3, production supervisor off shift II-XII Norm as Tested, Abnormal Gait, Depressed Affect, Motor Weakness (Generalized) Skin: Normal Color, Warm/Dry Lymphatic: No Adenopathy PM&R Medical Assessment & Plan REHAB/MEDICAL ASSESSMENT AND PLAN: REHAB IMPAIRMENT GROUP: Debility ETIOLOGIC DIAGNOSIS: Debility The comorbidities that impact the patients function and/or functional outcome by: Recent left hip replacement with small bowel obstruction from ischemic bowel and generalized severe weakness REHAB PLAN: The patient is being admitted to our comprehensive inpatient rehabilitation facility and can tolerate the intensity of service consisting of at least: 180 minutes of therapy a day, 5 out of 7 days a week Rehab treatment will consist of: PT and OT will focus on regaining function with the use of assistive devices in order to regain function for independence in order to return back home The patient/family has a good understanding of our discharge process and will benefit from an interdisciplinary inpatient rehabilitation program. The patient has potential to make improvement and is in need of at least two of the following multidisciplinary therapies including but not limited to physical, occupational, speech, and prosthetics and orthotics. Additionally the patient will need services from respiratory, nutritional services, wound care, psychology, etc. (Customize this to each patient). Given the patients complex condition and risk of further medical complications, rehabilitation services cannot be safely or effectively provided at a lower level of care such as a snf facility. BARRIERS TO DISCHARGE: Severe weakness ESTIMATED LOS: 10 days DISPOSITION: Home RELEVANT CHANGES SINCE PREADMISSION SCREENING: I have compared the patients medical and functional status at the time of the preadmission screening and there are: no changes PROGNOSIS: Good REHABILITATION GOALS: 1. PT and OT will focus on regaining function with the use of assistive devices in order to regain function for independence in order to return back home All the above goals were reviewed with the patient and he/she is in agreement. By signing this document, I acknowledge that I have personally performed a full physical examination on this patient within [facility] and have determined the patient to be able to tolerate the above course of treatment at an intensive level for a reasonable period of time. I will be completing a detailed individualized Plan of Care for this patient by day #4 of the patients stay based upon the Preadmission Screen, the Post-Admission Evaluation, and the therapy evaluations. Admission Dx/Comorbidities: (1) Fall Status: Acute ICD Codes: W19.XXXA - Unspecified fall, initial encounter (2) SBO (small bowel obstruction) ICD Codes: K56.609 - Unspecified intestinal obstruction, unspecified as to partial versus complete obstruction Assessment/Plan Assessment and Plan Assess & Plan/Chief Complaint Assessment: Severe debility Recent small bowel obstruction due to ischemic bowel status post resection by Dr. Patrick Snyder postop ileus COPD Current smoker Recent UTI Pericardial effusion transferred to [facility] but no pericardiocentesis required Hypothyroidism Hypertension Recent fall Hip repair incision dehiscence status post I&D by Dr. Alonso Plan: Inpatient rehab protocol Pain control Monitor bowel function MONIKA TODD DO Oct 21, 2021 12:09
[2021-10-21 12:23] VITALS: BP 131/70
[~2021-10-21 12:28] MED LIST changes: +ACETAMINOPHEN 325 MG TABLET PO PRN; +ALPRAZolam 0.25 MG (XANAX) TAB PO PRN; +BISACODYL 10 MG SUPP (DULCOLAX) PR PRN; +FLEET ENEMA ADULT 1 EA BTL PR PRN; +LACTULOSE SYRUP 10GM/15ML (ENULOSE) 30ML UDC PO PRN; +LOPERAMIDE 2 MG (IMODIUM) TABLET PO PRN; +MELATONIN 3 MG TABLET PO PRN; +ONDANSETRON 4 MG (ZOFRAN) ORAL DISSOLVE TAB PO PRN; +diphenhydrAMINE 25 MG TAB (BENADRYL) PO PRN; +guaiFENesin/CODEINE (ROBITUSSIN AC) 10ML UDC PO PRN
[2021-10-21 12:30] VITALS: BP 131/70
[2021-10-21] MEDS ORDERED: NON-FORMULARY MEDICATION 1 EA EA (Ondansetron HCl 4 MG) PO PRN (12:30)
--- NOTE | 2021-10-21 13:18 | Occupational Therapy Eval ---
OT Evaluation-General/PLF Medical Diagnosis Admission Date Oct 21, 2021 at 12:28 Medical Diagnosis: s/p bowel resection; debility Onset Date: Oct 21, 2021 Therapy Diagnosis Therapy Diagnosis: decreased ADL status, weakness Weight Bear Status Weight Bearing Restriction: Weight Bearing/Tolerated Location Restriction: L LE Referral Physician: Estrada Nguyen Reason: Evaluation/Treatment Medical History Additional Medical History hypothyroidism, HTN, OA, hyperlipidemia Current History L hip replacement 09/26/21, discharge home, admit to [facility] 10/06-10/09 with dehydration and fluid around her heart. Pt discharged home, then had a fall, landing on L hip. dehiscence of incision s/p I&D, diverticulitis/SBO with ex lap resulting in bowel resection. Social History Home: Single Level Current Living Status: Spouse Entry Into Home: Stairs With Railing Steps Into Home: 6 ADL-Prior Level of Function SCALE: Activities may be completed with or without assistive devices. 8-Wofztwauqx-ojzhpcu completes the activity by him/herself with no assistance from a helper. 5-Set-up or Clean-up Assistance-helper sets up or cleans up; patient completes activity. [place] assists only prior to or following the activity. 4-Supervision or Touching Assistance-helper provides verbal cues and/or touching/steadying and/or contact guard assistance as patient completes activit y. Assistance may be provided throughout the activity or intermittently. 3-Partial/Moderate Assistance-helper does LESS THAN HALF the effort. [place] lifts, holds or supports trunk or limbs, but provides less than half the effort. 2-Substantial/Maximal Assistance-helper does MORE THAN HALF the effort. [place] lifts or holds trunk or limbs and provides more than half the effort. 3-Gjrmemssa-jkzxvl does ALL the effort. Patient does none of the effort to complete the activity. Or, the assistance of 2 or more helpers is required for the patient to complete the activity. If activity was not attempted, code reason: 7-Patient Refused. 9-Not Applicable-not attempted and the patient did not perform the activity before the current illness, exacerbation or injury. 10-Not Attempted due to Environmental Limitations-(lack of equipment, weather restraints, etc.). 88-Not Attempted due to Medical Conditions or Safety Concerns. ADL PLOF Comments Prior to hip replacement, pt was independent with ADLs and functional mobility, without AD. After hip replacement, pt has been using FWW, requiring some assistance with ADLs. she has a tub/shower, no SC but plans on using BSC as a SC. Self Care: Independent Functional Cognition: Independent DME/Equipment: Bedside Commode, Shower, Tub/Shower OT Current Status Subjective Pt agreeable to OT evaluation, reports 9/10 pain in stomach and L hip, 3/10 chest pain on R side of chest. Nurse present and aware of situation. Mental Status/Objective Patient Orientation: Person, Place, Time, Situation Current Upper Extremity ROM WFL, BUE shoulder flexion to approx 150 degrees Upper Extremity Coordination WFL Upper Extremity Sensation WFL Upper Extremity Strength grossly 3/5, not formally tested due to abdominal pain. ADL-Treatment Eating (QC): 7 Oral Hygiene (QC): 7 Shower/Bathe Self (QC): 7 Upper Body Dressing (QC): 5 (pt able to doff jacket, set up assist) Lower Body Dressing (QC): 7 On/Off Footwear (QC): 7 Toileting Hygiene (QC): 7 Other Treatments OT evaluation complete, pt provided information about PLOF and home set up and participated in UE screen. Post eval, pt in bed, nurse present, all needs met, call light in reach. Education OT Patient Education: Correct positioning, Energy conservation, Modified ADL techniques, Progress toward Goal/Update tx plan, Purpose of tx/functional activities, Rehab process Teaching Recipient: Patient Teaching Methods: Discussion Response to Teaching: Verbalize Understanding OT Short Term Goals Short Term Goals Time Frame: November 11, 2021 Shower/bathe self: 4 Upper body dressin Lower body dressin Putting on/taking off footwear: 4 OT Correction Goals [employer]els Plant Manager Goals Time Frame: November 20, 2021 Eating (QC): 6 Oral Hygiene (QC): 6 Toileting Hygiene (QC): 6 Shower/Bathe Self (QC): 6 Upper Body Dressing (QC): 6 Lower Body Dressing (QC): 6 On/Off Footwear (QC): 6 Additional Goals: 1-Demonstrate ADL Tasks, 2-Verbalize Understanding, 3-ImproveStrength/Maryann 1=Demonstrate adherence to instructed precautions during ADL tasks. 2=Patient will verbalize/demonstrate understanding of assistive devices/modifications for ADL. 3=Patient will improve strength/tolerance for activity to enable patient to per form ADL's. OT Education/Plan Problem List/Assessment Assessment: Decreased Activ Tolerance, Decreased UE Strength, Impaired Funct Balance, Impaired I ADL's, Impaired Self-Care Skills Discharge Recommendations Plan/Recommendations: Continue POC Treatment Plan/Plan of Care Patient would benefit from OT for education, treatment and training to promote independence in ADL's, mobility, safety and/or upper extremity function for ADL's. Plan of Care: ADL Retraining, Functional Mobility, Group Exercise/Act as Ind, UE Funct Exercise/Act Treatment Duration: November 20, 2021 Frequency: At least 5 of 7 days/Wk (IRF) Estimated Hrs Per Day: 1.5 hours per day Agreement: Yes Rehab Potential: Good Time/GCodes Start Time: 12:15 Stop Time: 12:25 Total Time Billed (hr/min): 10 Billed Treatment Time 1BROCK ADDISON OT Oct 21, 2021 13:18
--- NOTE | 2021-10-21 13:19 | Physical Therapy Evaluation ---
PT Evaluation-General Medical Diagnosis Admission Date Oct 21, 2021 at 12:28 Medical Diagnosis: left MICHELET, SBO with ex lap Onset Date: Sep 26, 2021 Therapy Diagnosis Therapy Diagnosis: impaired mobility, strength, endurance Referral Physician: Arpita Dorado DO Reason for Referral: Evaluation/Treatment Medical History Additional Medical History Past Medical History Surgeries: Hysterectomy Cardiac: Hypertension Endocrine: Hypothyroidsim Reviewed History: Yes Social History Current Living Status: Spouse Entry Into Home: Stairs With Railing PT Steps Into Home: 6 Prior Prior Level of Function SCALE: Activities may be completed with or without assistive devices. 4-Mlqrdsrdfn-isovhrb completes the activity by him/herself with no assistance from a helper. 5-Set-up or Clean-up Assistance-helper sets up or cleans up; patient completes activity. [place] assists only prior to or following the activity. 4-Supervision or Touching Assistance-helper provides verbal cues and/or touc david/steadying and/or contact guard assistance as patient completes activity. Assistance may be provided throughout the activity or intermittently. 3-Partial/Moderate Assistance-helper does LESS THAN HALF the effort. [place] lifts, holds or supports trunk or limbs, but provides less than half the effort. 2-Substantial/Maximal Assistance-helper does MORE THAN HALF the effort. [place] lifts or holds trunk or limbs and provides more than half the effort. 8-Wlgbmcxch-xrsojk does ALL the effort. Patient does none of the effort to complete the activity. Or, the assistance of 2 or more helpers is required for the patient to complete the activity. If activity was not attempted, code reason: 7-Patient Refused. 9-Not Applicable-not attempted and the patient did not perform the activity before the current illness, exacerbation or injury. 10-Not Attempted due to Environmental Limitations-(lack of equipment, weather restraints, etc.). 88-Not Attempted due to Medical Conditions or Safety Concerns. Bed Mobility: 6 Transfers (B,C,W/C): 6 Gait: 6 Stairs: 6 Indoor Mobility (Ambulation): Independent Stairs: Independent Prior Devices Use: None PT Evaluation-Current Subjective Patient in family vehicle pre tx, agrees to PT, has 7/10 pain in left hip and abdomen. Patient states she has been having some chest pain, nurse notified. Patient states she feels very ill also and very tired. Pt/Family Goals to be independent at home Objective Patient Orientation: Person, Place, Situation ROM/Strength ROM Lower Extremities WNL Sensory Hearing: Functional Transfers Roll Left & Right (QC): 3 Sit to Lying (QC): 2 Lying to Sitting/Side of Bed(Q: 2 Sit to Stand (QC): 3 Chair/Lby-km-Fukha Xfer(QC): 3 Toilet Transfer (QC): 3 Car Transfer (QC): 3 Patient performs rolling with min assist, supine <-> sit max assist, sit <-> stand and transfers min assist, car transfer min assist. Gait Does the Patient Walk?: Yes Mode of Locomotion: Walk Anticipated Mode of Locomotion: Walk Walk 10 feet (QC): 88 Walk 50 ft with 2 Turns(QC): 88 Walk 150 ft (QC): 88 Walking 10ft/uneven surface-QC: 88 Distance: 5' Gait Assistive Device: FWW Wheelchair Training Wheel 50 ft with 2 turns (QC): 1 Wheel 150 ft (QC): 1 Stairs 1 Step (curb) (QC): 88 4 Steps (QC): 88 12 Steps (QC): 88 Balance Sitting Static: Normal Sitting Dynamic: Normal Standing Static: Fair Standing Dynamic: Fair Picking up an Object (QC): 88 Assessment/Needs Patient has impaired mobility, strength, endurance. She needs max assist for supine <-> sit but just min assist for transfers. She is having a lot of pain and feels ill, nurse notified. Rehab Potential: Fair PT Short Term Goals Short Term Goals Time Frame: Oct 28, 2021 Roll Left & Right: 4 Sit to lyin Lying to sitting on side of be: 3 Sit to stand: 4 Chair/whh-je-svjnf transfer: 4 Walk 10 feet: 4 Walk 50 feet with two turns: 4 PT Hydraulic Riveter Goals Hydraulic Riveter Goals PT [facility] Goals Time Frame: November 11, 2021 Roll Left & Right (QC): 6 Sit to Lying (QC): 4 Lying-Sitting on Side/Bed(QC): 4 Sit to Stand (QC): 6 Chair/Isf-ld-Geiiv Xfer(QC): 6 Toilet Transfer (QC): 6 Car Transfer (QC): 6 Does the Patient Walk: Yes Walk 10 feet (QC): 6 Walk 50ft with 2 Turns (QC): 6 Walk 150 ft (QC): 6 Walking 10ft on Uneven Surface: 6 1 Step (curb) (QC): 4 4 Steps (QC): 4 12 Steps (QC): 88 Picking up an Object (QC): 4 Wheel 50 feet with 2 turns (QC: 9 Wheel 150 feet: 9 PT Plan Problem List Problem List: Activity Tolerance, Functional Strength, Safety, Balance, Gait, Transfer, Bed Mobility, ROM Treatment/Plan Treatment Plan: Continue Plan of Care Treatment Plan: Bed Mobility, Education, Functional Activity Maryann, Functional Strength, Group Therapy, Gait, Safety, Therapeutic Exercise, Transfers Treatment Duration: November 11, 2021 Frequency: At least 5 of 7 days/Wk (IRF) Estimated Hrs Per Day: 1.5 hours per day Patient and/or Family Agrees t: Yes Safety Risks/Education Patient Education: Gait Training, Transfer Techniques, Correct Positioning, W/C Management, Safety Issues Teaching Recipient: Patient Teaching Methods: Demonstration, Discussion Response to Teaching: Reinforcement Needed Discharge Recommendations Plan Patient will perform bed mobility and transfer training, balance and endurance training, functional strengthening, stair training, gait training, and education, to improve functional mobility and independence at home. Therapy Discharge Recommendati: Home & Family, Post Acute PT Time/GCodes Time In: 1205 Time Out: 1215 Total Billed Treatment Time: 10 Total Billed Treatment 1 visit JULIANA MENDOZA PT Oct 21, 2021 13:19
[2021-10-21] MEDS: SUCRALFATE 1 GM (CARAFATE) TAB PO PRN (13:27)
--- NOTE | 2021-10-21 14:17 | Occupational Ther Daily Note ---
OT Current Status-Daily Note Subjective Pt alert, laying in bed when PEDROZA entered. Pt reported 10/10 pain at beginning of treatment, nursing already notified and meds were taken. senior care through treatment pt pain decreased to 7/10. Mental Status/Objective Patient Orientation: Person, Place, Time, Situation ADL-Treatment Co treat with PT ([id number]) due to skills clinicals required which a rehabilitation supervisor could not perform in order to coordinate UE/LEs, pain management, bed mobility and due to pt's limitations in strength, and safety. PT focusing on LE placement, bed mobility, and LE exercises while OT focuses on ADLs, UE placement, and UE exercises. Due to pt experiencing increase pain, pt completed sponge bath at this date. Pt transferred from supine to EOB with Min A to swing LLE off of bed. Once at EOB, pt demonstrated good dynamic sitting balance. Pt doffed UB dressing with supervision. Pt sit-stand from EOB and required Max A to doff LB dressing due to poor dynamic standing balance. Pt performed sponge bath, was able to cleanse UB, chest, and abdomen. Pt then requested to wear hospital gown at this time. Pt donned hospital gown. Pt requested to lay down in bed, required assist to bring LLE onto bed. Pt then required max A to cleanse upper/lower legs while laying in bed. After set up, pt completed oral care while laying in bed. Therapy Code Descriptions/Definitions Functional [place] Measure: 0=Not Assessed/NA 4=Minimal Assistance 1=Total Assistance 5=Supervision or Setup 2=Maximal Assistance 6=Modified [place] 3=Moderate Assistance 7=Complete IndependenceSCALE: Activities may be completed with or without assistive devices. 4-Mlepdsjhdz-gcqjyvk completes the activity by him/herself with no assistance from a helper. 5-Set-up or Clean-up Assistance-helper sets up or cleans up; patient completes activity. [place] assists only prior to or following the activity. 4-Supervision or Touching Assistance-helper provides verbal cues and/or touching/steadying and/or contact guard assistance as patient completes activity. Assistance may be provided throughout the activity or intermittently. 3-Partial/Moderate Assistance-helper does LESS THAN HALF the effort. [place] lifts, holds or supports trunk or limbs, but provides less than half the effort. 2-Substantial/Maximal Assistance-helper does MORE THAN HALF the effort. [place] lifts or holds trunk or limbs and provides more than half the effort. 6-Qpqbymgha-hlkjos does ALL the effort. Patient does none of the effort to complete the activity. Or, the assistance of 2 or more helpers is required for the patient to complete the activity. If activity was not attempted, code reason: 7-Patient Refused. 9-Not Applicable-not attempted and the patient did not perform the activity before the current illness, exacerbation or injury. 10-Not Attempted due to Environmental Limitations-(lack of equipment, weather restraints, etc.). 88-Not Attempted due to Medical Conditions or Safety Concerns. Oral Hygiene (QC): 5 Bathing Location: L Arm, R Arm, Chest, Abdomen Shower/Bathe Self (QC): 3 Upper Body Dressing (QC): 4 (Pt able to doff UB dressing with supervision.) Lower Body Dressing (QC): 2 (Pt required Max A to doff LB dressing.) Due to increase pain throughout treatment, pt required increase time to complete tasks. Other Treatment Pt required skilled instruction of against gravity BUE exercises. Pt completed x2 sets of 10 reps of BUE against gravity exercises to increase BUE ROM for improved independence in ADLs. Pt completed shoulder flexion, shoulder abduction/adduction, elbow flexion, wrist flexion, and reaching across midline to tap therapist hand. Pt required physical demonstration of each exercise. Post demonstration, pt completed exercises with good technique. Pt required resting break due to decreased activity tolerance. Education OT Patient Education: Correct positioning, Energy conservation, Exercise program, Home exercise program, Modified ADL techniques, Purpose of tx/ functional activities, Reviewed precautions Teaching Recipient: Patient Teaching Methods: Demonstration, Discussion Response to Teaching: Verbalize Understanding, Return Demonstration OT Short Term Goals Short Term Goals Time Frame: November 11, 2021 Shower/bathe self: 4 Upper body dressin Lower body dressin Putting on/taking off footwear: 4 OT Payroll Professional Goals Payroll Professional Goals Time Frame: November 20, 2021 Eating (QC): 6 Oral Hygiene (QC): 6 Toileting Hygiene (QC): 6 Shower/Bathe Self (QC): 6 Upper Body Dressing (QC): 6 Lower Body Dressing (QC): 6 On/Off Footwear (QC): 6 Additional Goals: 1-Demonstrate ADL Tasks, 2-Verbalize Understanding, 3- ImproveStrength/Maryann 1=Demonstrate adherence to instructed precautions during ADL tasks. 2=Patient will verbalize/demonstrate understanding of assistive devices/modifications for ADL. 3=Patient will improve strength/tolerance for activity to enable patient to perform ADL's. OT Education/Plan Problem List/Assessment Assessment: Decreased Activ Tolerance, Decreased UE Strength Discharge Recommendations Plan/Recommendations: Continue POC Treatment Plan/Plan of Care Patient would benefit from OT for education, treatment and training to promote independence in ADL's, mobility, safety and/or upper extremity function for ADL's. Plan of Care: ADL Retraining, Functional Mobility, Group Exercise/Act as Ind, UE Funct Exercise/Act Treatment Duration: November 20, 2021 Frequency: At least 5 of 7 days/Wk (IRF) Estimated Hrs Per Day: 1.5 hours per day Agreement: Yes Rehab Potential: Good Time/GCodes Start Time: 13:00 Stop Time: 14:20 Total Time Billed (hr/min): 80 Billed Treatment Time 1 visit- ADL 3(49 mins) EX 2 (31 mins) Co- treat ([id number]) DENISE COBOS Oct 21, 2021 14:17
--- NOTE | 2021-10-21 14:25 | Physical Therapy Daily Note ---
PT Daily Note-Current Subjective Pt agrees to PT/OT cotreat. Upon arrival of PT/OT, nursing in room performing an EKG on pt due to pt's complaint of chest pain. Pt reported pain at 10/10 beginning of tx, pain decreased to 7/10 by the end of tx after receiving pain medication. Mental Status Patient Orientation: Normal For Age Transfers SCALE: Activities may be completed with or without assistive devices. 0-Mqqsftqrqy-uedowqv completes the activity by him/herself with no assistance from a helper. 5-Set-up or Clean-up Assistance-helper sets up or cleans up; patient completes activity. [place] assists only prior to or following the activity. 4-Supervision or Touching Assistance-helper provides verbal cues and/or touching/steadying and/or contact guard assistance as patient completes activity. Assistance may be provided throughout the activity or intermittently. 3-Partial/Moderate Assistance-helper does LESS THAN HALF the effort. [place] lifts, holds or supports trunk or limbs, but provides less than half the effort. 2-Substantial/Maximal Assistance-helper does MORE THAN HALF the effort. [place] lifts or holds trunk or limbs and provides more than half the effort. 4-Hgwophdbq-pnyohg does ALL the effort. Patient does none of the effort to complete the activity. Or, the assistance of 2 or more helpers is required for the patient to complete the activity. If activity was not attempted, code reason: 7-Patient Refused. 9-Not Applicable-not attempted and the patient did not perform the activity before the current illness, exacerbation or injury. 10-Not Attempted due to Environmental Limitations-(lack of equipment, weather restraints, etc.). 88-Not Attempted due to Medical Conditions or Safety Concerns. Lying to Sitting/Side of Bed(Q: 3 Sit to Stand (QC): 4 Exercises Supine Ex: Ankle pumps, Quad Set, Glut sets, Heel Slides, Straight leg raise, Hip abd/add Supine Reps: 10 (x2 sets) Treatments Co treat with PT ([id number]) due to skills clinicals required which a appraisal technician could not perform in order to coordinate UE/LEs, pain management, bed mobility and due to pt's limitations in strength, and safety. PT focusing on LE placement, bed mobility, and LE exercises while OT focuses on ADLs, UE placement, and UE exercises. Due to pt experiencing increase pain, pt completed sponge bath at this date. Pt TF from supine to EOB with min assist and then performed sit to stand with CGA to phan/doff clothing. Pt completed UE and LE EX with PT and OT. All needs met, call light in hand. Assessment Current Status: Fair Progress Pt complains of a lot of pain and soreness in L hip and abdomen. After receiving pain medication, pt seemed to be getting better while doing EX. PT Short Term Goals Short Term Goals Time Frame: Oct 28, 2021 Roll Left & Right: 4 Sit to lyin Lying to sitting on side of be: 3 Sit to stand: 4 Chair/mmw-pg-tommz transfer: 4 Walk 10 feet: 4 Walk 50 feet with two turns: 4 PT Adobe Developer Goals Intermediate Goals PT Intermediate Goals Time Frame: November 11, 2021 Roll Left & Right (QC): 6 Sit to Lying (QC): 4 Lying-Sitting on Side/Bed(QC): 4 Sit to Stand (QC): 6 Chair/Sox-lt-Nisnu Xfer(QC): 6 Toilet Transfer (QC): 6 Car Transfer (QC): 6 Does the Patient Walk: Yes Walk 10 feet (QC): 6 Walk 50ft with 2 Turns (QC): 6 Walk 150 ft (QC): 6 Walking 10ft on Uneven Surface: 6 1 Step (curb) (QC): 4 4 Steps (QC): 4 12 Steps (QC): 88 Picking up an Object (QC): 4 Wheel 50 feet with 2 turns (QC: 9 Wheel 150 feet: 9 PT Plan Treatment/Plan Treatment Plan: Continue Plan of Care Treatment Plan: Bed Mobility, Education, Functional Activity Maryann, Functional Strength, Group Therapy, Gait, Safety, Therapeutic Exercise, Transfers Treatment Duration: November 11, 2021 Frequency: At least 5 of 7 days/Wk (IRF) Estimated Hrs Per Day: 1.5 hours per day Patient and/or Family Agrees t: Yes Safety Risks/Education Patient Education: Reviewed Precautions Teaching Recipient: Patient Teaching Methods: Discussion Response to Teaching: Verbalize Understanding Time/GCodes Time In: 1300 Time Out: 1420 Total Billed Treatment Time: 80 Total Billed Treatment 1, FA x3 (50 min), EX (30 min) co-treat w/OT for 80m LETY MARTIN ANIMAL CARE SUPERVISOR Oct 21, 2021 14:25
--- NOTE | 2021-10-21 15:25 | Consultation-Cardiology ---
HPI-Cardiology Cardiology Consultation Date of Consultation 10/21/21 Date of Admission Time Seen by Provider: 15:20 Indication: chest pain HPI Patient is a 71 y/o female with history of HTN, HLP. Underwent left hip replacement with Dr. Alonso at end of September 2021. Was discharged home and several days later had some increased dyspnea at home. Underwent CT chest showing pericardial effusion and was transferred to [facility] [place] [facility]. Patient reports no intervention done at [facility], did not need pericardial window, was discharged home. Unfortunately, she sustained a fall at home and had dehiscence of the left hip surgical incision requiring surgical repair. Patient then developed bowel obstruction and underwent small bowel resection with Dr. Nguyen on 10/16/21. Currently in IRF d/t generalized debility/weakness. C/o some right sided chest and shoulder pain. Denies any dyspnea, dizziness or lightheadeness. Home Medications & Allergies Allergies: Coded Allergies: Penicillins (Verified Allergy, Unknown, 07/04/20) hydrocodone (Verified Allergy, Unknown, 07/04/20) Home Medication List Reviewed: Yes OQG-Hmowlp-Vvvfkb Hx Patient Social History Type Used: Cigarettes Recent Hopitalizations: No Immunizations Up To Date Tetanus Booster (TDap): More than 5yrs Past Medical History HTN, HLP, COPD, Tobaccoism Review of Systems-General Review of Systems Constitutional: see HPI; No malaise; weakness EENTM: see HPI; No blurred vision, No double vision Respiratory: see HPI; No cough, No dyspnea on exertion, No short of breath Cardiovascular: see HPI, chest pain (right sided); No Hx of Intervention, No palpitations Gastrointestinal: abdominal pain Musculoskeletal: No joint pain ECG Impression ECG Initial ECG Rhythm: Normal Sinus Physical Exam Physical Exam Vital Signs Vital Signs - First Documented 10/21/21 10/21/21 12:23 15:27 Temp 36.6 Pulse 86 Resp 22 B/P (MAP) 131/70 (90) Pulse Ox 96 O2 Delivery Room Air O2 Flow Rate 0.00 Capillary Refill : Height, Weight, BMI Height: '" Weight: lbs. oz. kg; 31.00 BMI Method: General Appearance: No Apparent Distress, WD/WN HEENT: TMs Normal, Pharynx Normal Neck: Non Tender, Supple Respiratory: Chest Non Tender, Lungs Clear, Normal Breath Sounds, No Accessory Muscle Use, No Respiratory Distress Cardiovascular: Regular Rate, Rhythm, No Edema, No Gallop, No JVD, No Murmur Gastrointestinal: Soft, Tenderness, Other (incision C/D/I) Back: No CVA Tenderness A/P-Cardiology Admission Diagnosis Chest pain Pericardial effusion HTN HLP Assessment/Plan Chest pain, nonspecific etiology, atypical in presentation. C/o right sided chest pain radiating to shoulder, now resolved. EKG showing so acute ST changes, will continue to monitor. Pericardial effusion, reported small pericardial effusion of unknown etiology, discovered during CT abdomen. Workup was done at [place] including 2D Echo. I will try to obtain records for further review. HTN, restart home blood pressure medications and continue to monitor. HLP, maintained on statin. Continue to monitor as outpatient. s/p L hip replacement with Dr. Alonso September 2021 with incisional wound dehiscence secondary to fall, s/p repair. SBO with small bowel resection with Dr. Nguyen. Generalized debility/weakness, continue with PT/OT. Thank you for allowing us to participate in the management of Ms. Murry. This is Raven Salas PA-C, as a scribe for Dr. Butt. This is Dr. Butt, I have seen and evaluated the patient with Raven, examined the patient and discussed the management plan with Raven. I agree with the current scribed note In summary this is a 71-year-old lady transferred for acute rehab after having small bowel obstruction surgery and hip surgery She was reportedly had pericardial effusion noted on CT scan transfer to [facility] and did not require any pericardiocentesis On my evaluation she was feeling better, had some chest pain mainly on the right upper chest. No active shortness of breath. EKG was reviewed did not show any acute abnormality I have reassured her at this time. Restart home medication monitor blood pressure, monitor lipids. RAVEN CALDWELL Oct 21, 2021 15:25 GREGORY BUTT MD Oct 21, 2021 16:01
[2021-10-21] MEDS: RT-ALBUTEROL/IPRATROPIUM 3 ML (DUONEB) VIAL IH SCH ×2 (15:27→18:53)
[2021-10-21] MEDS: DOCUSATE SODIUM 100 MG (COLACE) CAP PO SCH ×2 (17:36→21:34)
[2021-10-21] MEDS: SENNA W/DOCUSATE (SENOKOT S) TABLET PO SCH ×2 (17:36→21:35)
[2021-10-21] MEDS: polyethylene glycoL POWDER 17 GM (MIRALAX) PACK PO SCH ×2 (17:36→21:34)
[2021-10-21] MEDS ORDERED: KCL 10 MEQ TAB (MICRO K) PO SCH (18:00)
[2021-10-21] MEDS: ONDANSETRON 4 MG (ZOFRAN) ORAL DISSOLVE TAB PO PRN ×2 (18:38→23:32)
[2021-10-21 19:55] VITALS: BP 148/70
[2021-10-21] MEDS: APIXABAN 5 MG (ELIQUIS) TABLET PO SCH (21:34)
[2021-10-21] MEDS: SIMvastatin 20 MG (ZOCOR) TAB PO SCH (21:35)
[2021-10-22 06:00] LABS: BASOPHILS % (AUTO) 0 % (0-10); EOSINOPHILS % (AUTO) 0 % (0-10); HEMATOCRIT 30 % (35-52); HEMOGLOBIN 9.6 g/dL (11.5-16.0); LYMPHOCYTES # (AUTO) 0.8 10^3/uL (1.0-4.0); LYMPHOCYTES % (AUTO) 11 % (12-44); MEAN CORPUSCULAR HEMOGLOBIN 30 pg (25-34); MEAN CORPUSCULAR HGB CONC 33 g/dL (32-36); MEAN CORPUSCULAR VOLUME 91 fL (80-99); MEAN PLATELET VOLUME 10.7 fL (9.0-12.2); MONOCYTES # (AUTO) 0.6 10^3/uL (0.0-1.0); MONOCYTES % (AUTO) 7 % (0-12); NEUTROPHILS # (AUTO) 5.9 10^3/uL (1.8-7.8); NEUTROPHILS % (AUTO) 76 % (42-75); PLATELET COUNT 343 10^3/uL (130-400); WHITE BLOOD COUNT 7.7 10^3/uL (4.3-11.0)
[2021-10-22 06:01] LABS: SMEAR SCAN COMMENT YES
[2021-10-22 06:17] LABS: ALBUMIN 2.6 GM/DL (3.2-4.5); POTASSIUM 3.3 MMOL/L (3.6-5.0)
--- NOTE | 2021-10-22 06:19 | Individualized Plan of Care ---
Individualized Plan of Care Rehab Nursing IPOC Order Admission Date Oct 21, 2021 at 12:28 Current Orders Orders Admission Order(Inpt,Obs,Sdc) (10/21/21 06:58) Vital Signs: Per Unit Policy ( 08,16,00 (10/21/21 06:58) Khalif Lin , (10/21/21 06:58) Sequential Compression Device (10/21/21 06:58) Finish Remover-Inpt Rehab Con (10/21/21 06:58) Rehab Nursing Orders-Ipoc (10/21/21 06:58) Physical Therapy Rehab Orders (10/21/21 06:58) Occupational Therapy Rehab Ord (10/21/21 06:58) Speech Therapy Rehab Orders (10/21/21 06:58) Cbc With Automated Diff (10/22/21 06:00) Comprehensive Metabolic Panel (10/22/21 06:00) Precautions (Aru) (10/21/21 06:58) Weekly Weight WEEK (10/21/21 06:58) Rehab-Intensity Of Therapy (10/21/21 06:58) Initiate Admission Nursing Pro .admission (10/21/21 06:58) Alprazolam Tablet (Xanax Tablet) (10/21/21 07:00) Calcium Carbonate Chew Tablet (Antacid C (10/21/21 07:00) Diphenhydramine Tablet (Benadryl Tablet) (10/21/21 07:00) Docusate Sodium Capsule (Colace Capsule) (10/21/21 09:00) Bisacodyl Suppository (Dulcolax Supposit (10/21/21 07:00) Lactulose Oral Solution (Enulose Oral So (10/21/21 07:00) Na Phos/Na Biphos Enema (Fleet Enema Lawson (10/21/21 07:00) Guaifenesin/Codeine Syrup (Robitussin Ac (10/21/21 07:00) Loperamide Tablet (Imodium Tablet) (10/21/21 07:00) Melatonin Tablet (Melatonin Tablet) (10/21/21 07:00) Polyethylene Glycol Powder Pkt (Miralax (10/21/21 09:00) Ondansetron Oral Dissolve Tab (Zofran (10/21/21 07:00) Senna S Tablet (Senokot S Tablet) (10/21/21 09:00) Acetaminophen Tablet/Caplet (Tylenol T (10/21/21 07:00) Code/Resuscitation (10/21/21 06:58) Initiate Admission Nursing Pro .admission (10/21/21 06:58) Admission Arrival Bed Request (10/21/21 12:19) Apixaban Tablet (Eliquis Tablet) (10/21/21 21:00) Albuterol/Ipra Inhalation Soln (Duoneb I (10/21/21 15:00) Levothyroxine Tablet (Synthroid Tablet) (10/22/21 06:30) Oxycodone Immediate Rel Tablet (Oxyir Ta (10/21/21 12:30) Pantoprazole Tablet (Protonix Tablet) (10/22/21 09:00) Potassium Chloride (Tablet) (Klor Con Ta (10/21/21 18:00) Simvastatin Tablet (Zocor Tablet) (10/21/21 21:00) Sucralfate Tablet (Carafate Tablet) (10/21/21 12:30) Rx-Tramadol Hcl (Rx-Ultram) (10/21/21 12:30) (Nf) Ondansetron Hcl (10/21/21 12:30) Admission Arrival Bed Request (10/21/21 12:27) Ekg Tracing (10/21/21 12:52) Ekg-Prn For Chest Pain Or Rhyt (10/21/21 12:52) Ondansetron Oral Dissolve Tab (Zofran (10/21/21 13:15) Tramadol Tablet (Ultram Tablet) (10/21/21 13:15) Patient Visit (10/21/21 ) Pt Eval Moderate Complexity (10/21/21 ) Functional Activities, Ea 15 (10/21/21 ) Exercise Therap, Ea 15 Min (10/21/21 ) Clear Liquid (10/21/21 Dinner) Nursing Communication (Order) (10/21/21 20:19) Potassium Chloride (Tablet) (Klor Con Ta (10/22/21 08:00) Patient Visit (10/22/21 ) Speech Sound Lang Comp (10/22/21 ) Treat. Speech/Lang/Voice (10/22/21 ) Patient Visit (10/22/21 ) Exercise Therap, Ea 15 Min (10/22/21 ) Gait Training, Ea 15 Min (10/22/21 ) Consult General Surgery (10/22/21 12:21) Dys2 Mechanically Altered (10/22/21 Lunch) Patient Visit (10/22/21 ) Functional Activities, Ea 15 (10/22/21 ) Exercise Therap, Ea 15 Min (10/22/21 ) Rehab Nursing Orders: Ongoing Assess. of Cognitive Status, Ongoing Assess. of Function Status, Bladder Management, Bladder Scan, Bladder Training, Bowel Management, Bowel Training, Disease Management & Educaiton, DVT Prophylaxis, Fall Prevention, Fluid/Electrolyte/Nutrition Mgmt, Infection Prevention, Medication Management & Education, Management of Risks & Complications, Management of Skin Intergrity, Nutrition Management, Pain Management, Patient/Family Support, Safety Management, Weight Bearing Precaution, Wound Management Intensity of Therapy to be met Patient to be seen: Min.3h per day/5 of 7d PT IPOC Problem List: Activity Tolerance, Functional Strength, Safety, Balance, Gait, Transfer, Bed Mobility, ROM Treatment Plan: Continue Plan of Care Bed Mobility, Education, Functional Activity Maryann, Functional Strength, Group Therapy, Gait, Safety, Therapeutic Exercise, Transfers Treatment Duration: November 11, 2021 Frequency: At least 5 of 7 days/Wk (IRF) Estimated Hrs Per Day: 1.5 hours per day OT IPOC Problems: Decreased Activ Tolerance, Decreased UE Strength OT Treatment, Training and Edu: Yes Plan of Care: ADL Retraining, Functional Mobility, Group Exercise/Act as Ind, UE Funct Exercise/Act Treatment Duration: November 20, 2021 Frequency: At least 5 of 7 days/Wk (IRF) Estimated Hrs Per Day: 1.[address] IPOC Speech Therapy Treatment Plan: Discontinue ST Treatment Duration: Oct 22, 2021 Frequency: Modified Program (IRF) Estimated Hrs Per Day: Other Finish Remover/Case Mgmt Finish Remover/Case Managemen: Discharge Planning Dietitian/Candy Decorator Dietitian/Candy Decorator to monitor nutritional status and make changes and/or recommendations as needed and work with speech pathology on dietary upgrades as the occur. Physician IPOC Medical Issues being managed closely and that require the 24 hour availability of a physician: Recent complicated hospital courses following left hip replacement will require close monitoring to prevent recurrence of small bowel obstruction and left hip incision dehiscence wound care in order to return back to independent living Medical Issues: Bowel/Bladder Function, DVT Prophylaxis, Falls Precautions, Fluid/Electrolyte/Nutrition Balance, Infection Protection, Pain Management, Wound Care Brief Synthesis of Preadmission Screen, Post-Admission Evaluation, and Therapy Evaluations: PT and OT will focus on regaining function with use of assistive devices to increase stamina in order to return back to independent living with her spouse Medical Prognosis: Good Anticipated Length of Stay: 10 days MONIKA TODD DO Oct 22, 2021 06:19
--- NOTE | 2021-10-22 06:19 | PM&R Progress Note ---
Subjective HPI/CC On Admission Date Seen by Provider: Oct 22, 2021 Time Seen by Provider: 10:00 Subjective/Events-last exam 10/22/21: Patient doing a lot better Nausea is improved Walking with rest breaks Check meds and labs Clear liquid diet may be advanced if okay with Dr. Nguyen Overall improved but slow recovery Review of Systems General: Fatigue, Malaise Objective Exam Vital Signs Vital Signs Date Time Temp Pulse Resp B/P (MAP) Pulse Ox O2 Delivery O2 Flow Rate FiO2 10/22/21 21:30 98 Room Air 0.00 10/22/21 20:10 36.9 79 16 137/70 (92) Capillary Refill : General Appearance: No Apparent Distress, WD/WN, Chronically ill HEENT: PERRL/EOMI, Normal ENT Inspection, Pharynx Normal Neck: Full Range of Motion, Normal Inspection, Non Tender, Supple, Carotid Bruit Respiratory: Chest Non Tender, Lungs Clear, Normal Breath Sounds, No Accessory Muscle Use, No Respiratory Distress Cardiovascular: Regular Rate, Rhythm, No Edema, No Gallop, No JVD, No Murmur, Normal Peripheral Pulses Gastrointestinal: Normal Bowel Sounds, No Organomegaly, No Pulsatile Mass, Non Tender, Soft Back: Normal Inspection, No CVA Tenderness, No Vertebral Tenderness Extremity: Normal Capillary Refill, Normal Inspection, Normal Range of Motion, Non Tender, No Calf Tenderness, No Pedal Edema Neurologic/Psychiatric: Alert, Oriented x3, stable hand II-XII Norm as Tested, Abnormal Gait, Depressed Affect, Motor Weakness (Generalized) Skin: Normal Color, Warm/Dry Lymphatic: No Adenopathy Results/Procedures Lab Laboratory Tests 10/22/21 05:46 Patient resulted labs reviewed. FIM Transfers Therapy Code Descriptions/Definitions Functional [place] Measure: 0=Not Assessed/NA 4=Minimal Assistance 1=Total Assistance 5=Supervision or Setup 2=Maximal Assistance 6=Modified [place] 3=Moderate Assistance 7=Complete IndependenceSCALE: Activities may be completed with or without assistive devices. 7-Fvtsttfbcg-kqpkpyu completes the activity by him/herself with no assistance from a helper. 5-Set-up or Clean-up Assistance-helper sets up or cleans up; patient completes activity. [place] assists only prior to or following the activity. 4-Supervision or Touching Assistance-helper provides verbal cues and/or touching/steadying and/or contact guard assistance as patient completes activity. Assistance may be provided throughout the activity or intermittently. 3-Partial/Moderate Assistance-helper does LESS THAN HALF the effort. [place] lifts, holds or supports trunk or limbs, but provides less than half the effort. 2-Substantial/Maximal Assistance-helper does MORE THAN HALF the effort. [place] lifts or holds trunk or limbs and provides more than half the effort. 1-Tmbiygkhp-nvrywb does ALL the effort. Patient does none of the effort to complete the activity. Or, the assistance of 2 or more helpers is required for the patient to complete the activity. If activity was not attempted, code reason: 7-Patient Refused. 9-Not Applicable-not attempted and the patient did not perform the activity before the current illness, exacerbation or injury. 10-Not Attempted due to Environmental Limitations-(lack of equipment, weather restraints, etc.). 88-Not Attempted due to Medical Conditions or Safety Concerns. Roll Left to Right (QC): 3 Sit to Lying (QC): 2 Sit to Stand (QC): 4 Chair/Aef-ia-Qbbeg Xfer(QC): 3 Car Transfer (QC): 3 Gait Training Does the Patient Walk?: Yes Walk 10 feet (QC): 88 Walk 50 ft with 2 Turns(QC): 88 Walk 150 ft (QC): 88 Walking 10ft/uneven surface-QC: 88 Gait Assistive Device: FWW Wheelchair Training Wheel 50 ft with 2 turns (QC): 1 Wheel 150 ft (QC): 1 Stair Training 1 Step (curb) (QC): 88 4 Steps (QC): 88 12 Steps (QC): 88 Balance Picking up an Object (QC): 88 ADL-Treatment Eating (QC): 7 Oral Hygiene (QC): 5 Bathing Location: L Arm, R Arm, Chest, Abdomen Shower/Bathe Self (QC): 3 Upper Body Dressing (QC): 4 (Pt able to doff UB dressing with supervision.) Lower Body Dressing (QC): 2 (Pt required Max A to doff LB dressing.) On/Off Footwear (QC): 7 Toileting Hygiene (QC): 7 Assessment/Plan Assessment and Plan Assess & Plan/Chief Complaint Assessment: Severe debility Recent small bowel obstruction due to ischemic bowel status post resection by Dr. Patrick Snyder postop ileus COPD Current smoker Recent UTI Pericardial effusion transferred to [place] but no pericardiocentesis required Hypothyroidism Hypertension Recent fall Hip repair incision dehiscence status post I&D by Dr. Alonso Plan: Inpatient rehab protocol Pain control Monitor bowel function 10/22/2021: Supportive care Aggressive rehab Advance diet (1) Fall Status: Acute (2) SBO (small bowel obstruction) MONIKA TODD DO Oct 22, 2021 06:19
[2021-10-22 06:20] LABS: TOTAL PROTEIN 4.9 GM/DL (6.4-8.2)
[2021-10-22 06:21] LABS: BILIRUBIN,TOTAL 0.7 MG/DL (0.1-1.0)
[2021-10-22 06:23] LABS: CREATININE SERUM 0.53 MG/DL (0.60-1.30)
[2021-10-22] MEDS: LEVOTHYROXINE 25 MCG (LEVOTHROID) TAB PO SCH (06:47)
[2021-10-22] MEDS: ONDANSETRON 4 MG (ZOFRAN) ORAL DISSOLVE TAB PO PRN (06:48)
[2021-10-22] MEDS: RT-ALBUTEROL/IPRATROPIUM 3 ML (DUONEB) VIAL IH SCH ×4 (07:04→21:10)
[2021-10-22 07:31] VITALS: BP 134/66
--- NOTE | 2021-10-22 08:28 | Occupational Ther Daily Note ---
OT Current Status-Daily Note Subjective Pt up in recliner, agreeable to OT Tx. Pt reports she has been nauseous over night and unsure how her breakfast will sit. Mental Status/Objective Patient Orientation: Normal For Age ADL-Treatment Therapy Code Descriptions/Definitions Functional [place] Measure: 0=Not Assessed/NA 4=Minimal Assistance 1=Total Assistance 5=Supervision or Setup 2=Maximal Assistance 6=Modified [place] 3=Moderate Assistance 7=Complete IndependenceSCALE: Activities may be completed with or without assistive devices. 4-Vopbvysqpu-yuxoauf completes the activity by him/herself with no assistance from a helper. 5-Set-up or Clean-up Assistance-helper sets up or cleans up; patient completes activity. [place] assists only prior to or following the activity. 4-Supervision or Touching Assistance-helper provides verbal cues and/or touching/steadying and/or contact guard assistance as patient completes activity. Assistance may be provided throughout the activity or intermittently. 3-Partial/Moderate Assistance-helper does LESS THAN HALF the effort. [place] li fts, holds or supports trunk or limbs, but provides less than half the effort. 2-Substantial/Maximal Assistance-helper does MORE THAN HALF the effort. [place] lifts or holds trunk or limbs and provides more than half the effort. 9-Fnmqnttyc-ctgsta does ALL the effort. Patient does none of the effort to complete the activity. Or, the assistance of 2 or more helpers is required for the patient to complete the activity. If activity was not attempted, code reason: 7-Patient Refused. 9-Not Applicable-not attempted and the patient did not perform the activity before the current illness, exacerbation or injury. 10-Not Attempted due to Environmental Limitations-(lack of equipment, weather restraints, etc.). 88-Not Attempted due to Medical Conditions or Safety Concerns. Eating (QC): 6 (IND with clear liquid diet) On/Off Footwear: 2 (Pt able to doff gripper socks using cement mixer driver, unable to recall how to use sock aide, requiring total assist to don TedHose and compression socks.) Toileting Hygiene (QC): 4 (SBA, pt able to manage hygiene and clothing) Toilet Transfer (QC): 4 (SBA on/off BSC over toilet.) Other Treatment Pt up in recliner, agreeable to OT Tx. Pt completed footwear at recliner, then SBA transfer from recliner to w/c. Pt propelled w/c to therapy gym, SBA. OT tx focused on increasing BUE strength and activity tolerance. Pt completed x10 mins on arm bike, 10 Watt resistance, 1 rest break. Pt then removed beads from moderate resistance (red) theraputty, able to locate all beads without cues. Pt completed pegboard task, placing/removing 1" pegs from foam pegboard, alternating hands, x100 pegs. Pt propelled w/c back to her room, transferred to [facility] over toilet using FWW, SBA. Pt completed toileting, then used FWW to transfer from bathroom to EOB. Min A sit to supine (assistance LLE). Post tx, pt in bed, call light in reach and all needs met. Education OT Patient Education: Correct positioning, Energy conservation, Exercise program, Modified ADL techniques, Progress toward Goal/Update tx plan, Purpose of tx/functional activities, Rehab process Teaching Recipient: Patient Teaching Methods: Discussion Response to Teaching: Verbalize Understanding OT Short Term Goals Short Term Goals Time Frame: November 11, 2021 Shower/bathe self: 4 Upper body dressin Lower body dressin Putting on/taking off footwear: 4 OT Network Administrator Goals [facility] Goals Time Frame: November 20, 2021 Eating (QC): 6 Oral Hygiene (QC): 6 Toileting Hygiene (QC): 6 Shower/Bathe Self (QC): 6 Upper Body Dressing (QC): 6 Lower Body Dressing (QC): 6 On/Off Footwear (QC): 6 Additional Goals: 1-Demonstrate ADL Tasks, 2-Verbalize Understanding, 3- ImproveStrength/Maryann 1=Demonstrate adherence to instructed precautions during ADL tasks. 2=Patient will verbalize/demonstrate understanding of assistive devices/modifications for ADL. 3=Patient will improve strength/tolerance for activity to enable patient to perform ADL's. OT Education/Plan Problem List/Assessment Assessment: Decreased Activ Tolerance, Decreased UE Strength, Impaired Funct Balance, Impaired I ADL's, Impaired Self-Care Skills Discharge Recommendations Plan/Recommendations: Continue POC Treatment Plan/Plan of Care Patient would benefit from OT for education, treatment and training to promote independence in ADL's, mobility, safety and/or upper extremity function for ADL's. Plan of Care: ADL Retraining, Functional Mobility, Group Exercise/Act as Ind, UE Funct Exercise/Act Treatment Duration: November 20, 2021 Frequency: At least 5 of 7 days/Wk (IRF) Estimated Hrs Per Day: 1.5 hours per day Agreement: Yes Rehab Potential: Good Time/GCodes Start Time: 08:00 Stop Time: 09:15 Total Time Billed (hr/min): 75 Billed Treatment Time 1, ADL (15'), EX (15'), FA 3 (45') AILYN MITCHELL OT Oct 22, 2021 08:28
--- NOTE | 2021-10-22 08:48 | Cardiology Progress Note ---
Subjective Date Seen by Provider: Oct 22, 2021 Time Seen by Provider: 08:15 Subjective/Events-last exam Patient with PT, c/o nausea this morning. Denies any chest pain Objective-Cardiology Exam Last Set of Vital Signs Vital Signs 10/22/21 10/22/21 10/22/21 07:31 09:55 10:33 Temp 36.6 Pulse 79 Resp 18 B/P (MAP) 134/66 (88) Pulse Ox 91 O2 Delivery Room Air O2 Flow Rate 0.00 General: Alert, Oriented X3 Lungs: Clear to Auscultation, Normal Air Movement Heart: Regular Rate, Normal S1, Normal S2 Abdomen: Normal Bowel Sounds, Soft Skin: No Rashes, No Breakdown Results Lab Laboratory Tests 10/22/21 05:46 A/P-Cardiology Admission Diagnosis Chest pain Pericardial effusion HTN HLP Assessment/Plan Chest pain, nonspecific etiology, atypical in presentation. C/o right sided chest pain radiating to shoulder, now resolved. EKG showing so acute ST changes, will continue to monitor. Pericardial effusion, reported small pericardial effusion of unknown etiology, discovered during CT abdomen. Workup was done at [facility] including 2D Echo. I will try to obtain records for further review. HTN, controlled, continue to monitor. HLP, maintained on statin. Continue to monitor as outpatient. s/p L hip replacement with Dr. Alonso September 2021 with incisional wound dehiscence secondary to fall, s/p repair. SBO with small bowel resection with Dr. Nguyen. Generalized debility/weakness, continue with PT/OT. Hypokalemia, replace and continue to monitor. Supervisory-Addendum Brief Supervisory Addendum Participated in pt care: history, MDM, physical Personally performed: exam, history, MDM Care discussed with: ANJELICA Results interpretation: Verified all documentation Notes: Patient was seen and evaluated with Kelsey, examination performed, management plan was discussed, agree with the current scribed note, I made few changes to the note using Italic font Patient was seen during physical therapy session, she was doing well. No chest pain was reported Had some nausea earlier, reporting improvement Continue on current medications and monitor KELSEY CALDWELL Oct 22, 2021 08:48 GREGORY BOYER MD Oct 22, 2021 12:34
[2021-10-22] MEDS: polyethylene glycoL POWDER 17 GM (MIRALAX) PACK PO SCH ×2 (09:24→21:25)
[2021-10-22] MEDS: APIXABAN 5 MG (ELIQUIS) TABLET PO SCH ×2 (09:24→21:18)
[2021-10-22] MEDS: DOCUSATE SODIUM 100 MG (COLACE) CAP PO SCH ×2 (09:24→21:25)
[2021-10-22] MEDS: PANTOPRAZOLE 40 MG (PROTONIX) TAB PO SCH (09:24)
[2021-10-22] MEDS: KCL 10 MEQ TAB (MICRO K) PO SCH ×3 (09:24→17:40)
[2021-10-22] MEDS: SENNA W/DOCUSATE (SENOKOT S) TABLET PO SCH ×2 (09:24→21:25)
--- NOTE | 2021-10-22 10:31 | ST Cognitive Linguistic Eval ---
Speech Evaluation-General Medical Diagnosis s/p bowel resection; debility Onset Date: Oct 21, 2021 Therapy Diagnosis Therapy Diagnosis: Intact Neurocognitive Skills Precautions Precautions: Fall Precautions/Isolations: Fall Prevention, Standard Precautions Referral Referring Physician: Dr. Dorado Reason for Referral: Evaluation/Treatment Medical History Current History The patient is a 71 year-old female with a past medical history of COPD, high cholesterol and HTN, who presented to the acute rehabilitation unit following a fall with partial dehiscence of a left hip replacement incision. Additionally, the patient recently underwent a small bowel resection and is receiving a clear liquid diet. Reviewed History: Yes Social History Current Living Status: Spouse Speech PLF-Current Status Prior Level of Function The patient denied prior or current concerns with her speech, language, or cognition. Subjective The patient was seated upright in bed, awake and alert upon entrance to her room by the clinician. The patient greeted the clinician appropriately and was agreeable to participation in the cognitive linguistic assessment. Language Eval: Auditory Comprehends Simple Yes/No Ques: Functional Indent/Objects Multiple Iss[place]: Functional Ident/Pics in Multiple Issa: Functional Follows 1-Step Commands: Functional Follows Complex Directions: Functional Follows General Conversations: Functional Language Eval: Verbal Language Completes Spontaneous Greeting: Functional Produces Auto, Serial Info: Functional Imitates Simple Words/Phrases: Functional Word Finding: Functional Requests Basic Needs: Functional States Basic Personal Info: Functional Expresses Complex Ideas: Functional Language Evaluation: Reading Follows Simple Written Direct: Functional Language Evaluation: Writing Writes to Simple Dictation: Functional Cognitive Patient Orientation The patient was independently oriented to self, location, month, day of week, date, and year. Objective Cognitive Domain Attention: WNL Memory: WNL Problem Solving: Functional Executive Functions: WNL Visuospatial Skills: WNL Composite Severity Rating: WNL Clock Drawing Severity Rating: WNL Objective Formal/Standardized Tests [facility] Mental Status Exam (UMS) Results The patient demonstrated a result of +30/30 on the SLUMS correlating to neurocognitive skills within normal limits. Oral Motor/Speech Production The patient does not display dysarthria or apraxia of speech. The patient is 100% intelligible in known and unknown contexts. Impression The patient demonstrated neurocognitive skills within normal limits. Speech Patient Assess Expression of Ideas/Wants: Expression (4) Understanding Verbal Content: Understands (4) Brief Interview-Mental Status: Yes Repetition of Three Words: Three (3) Temporal Orientation: Year: Correct (3) Temporal Orientation: Month: Accurate within 5 days(2) Temporal Orientation: Day: Correct (1) Recall : Wear to say "Sock": Yes, no cue required (2) Recall : Color: Yes, no cue required (2) Recall : Bed: Yes, no cue required (2) Memory/Recall Ability: Current season, Staff names and faces, That he or she is in a hsp/hsp unit Speech-Plan Treatment Plan Speech Therapy Treatment Plan: Discontinue ST Treatment Duration: Oct 22, 2021 Frequency: 1 time per week Estimated Hrs Per Day: .5 hour per day Rehab Potential: Good Pt/Family Agrees to Plan: Yes Safety Risks/Education Teaching Recipient: Patient Teaching Methods: Discussion Response to Teaching: Verbalize Understanding Education Topics Provided: Results of ZARA, Plan of Care Time Speech Therapy Time In: 09:30 Speech Therapy Time Out: 10:00 Total Billed Time: 30 Billed Treatment Time 1, ELSA SANTILLAN [facility] Oct 22, 2021 10:31
--- NOTE | 2021-10-22 10:56 | Physical Therapy Daily Note ---
PT Daily Note-Current Subjective Pt agrees to PT. Pt states she had pain medication about 20 minutes before PT arrived. Pt doesn't complain of much pain today and does not rate it. Mental Status Patient Orientation: Normal For Age Transfers SCALE: Activities may be completed with or without assistive devices. 4-Fprnefmcsb-hpfizuu completes the activity by him/herself with no assistance from a helper. 5-Set-up or Clean-up Assistance-helper sets up or cleans up; patient completes activity. [place] assists only prior to or following the activity. 4-Supervision or Touching Assistance-helper provides verbal cues and/or touching/steadying and/or contact guard assistance as patient completes activity. Assistance may be provided throughout the activity or intermittently. 3-Partial/Moderate Assistance-helper does LESS THAN HALF the effort. [place] lifts, holds or supports trunk or limbs, but provides less than half the effort. 2-Substantial/Maximal Assistance-helper does MORE THAN HALF the effort. [place] lifts or holds trunk or limbs and provides more than half the effort. 7-Eyvepnzdu-rhqluw does ALL the effort. Patient does none of the effort to complete the activity. Or, the assistance of 2 or more helpers is required for the patient to complete the activity. If activity was not attempted, code reason: 7-Patient Refused. 9-Not Applicable-not attempted and the patient did not perform the activity before the current illness, exacerbation or injury. 10-Not Attempted due to Environmental Limitations-(lack of equipment, weather restraints, etc.). 88-Not Attempted due to Medical Conditions or Safety Concerns. Roll Left & Right (QC): 5 Sit to Lying (QC): 3 Lying to Sitting/Side of Bed(Q: 3 Sit to Stand (QC): 4 Gait Training Does the Patient Walk?: Yes Distance: 175' Walk 10 feet (QC): 4 Walk 50 ft with 2 Turns(QC): 4 Walk 150 ft (QC): 4 Gait Persons Needed: 1 Gait Assistive Device: FWW Exercises Supine Ex: Ankle pumps, Quad Set, Glut sets, Heel Slides, Straight leg raise, Hip abd/add Supine Reps: 10 Seated Therapy Exercises: Ankle pumps, Sit to stand, Long arc quads, Hip flexion Seated Reps: 10 Treatments Pt laying supine in bed upon arrival of PT. Pt completes supine EX then TF to EOB to perform sit to stand TF. Pt amb. in hallway and returns to room to use BR. Pt sits EOB to perform seated EX then TF to laying supine in bed. All needs met, call light in hand. Assessment Current Status: Fair Progress Pt gets fatigued very quickly while walking. Pt does not complain of as much pain today compared to yesterday. PT Short Term Goals Short Term Goals Time Frame: Oct 28, 2021 Roll Left & Right: 4 Sit to lyin Lying to sitting on side of be: 3 Sit to stand: 4 Chair/jmo-tm-kcwpp transfer: 4 Walk 10 feet: 4 Walk 50 feet with two turns: 4 PT Longterm Goals Longterm Goals PT Acetylene Torch Solderer Goals Time Frame: November 11, 2021 Roll Left & Right (QC): 6 Sit to Lying (QC): 4 Lying-Sitting on Side/Bed(QC): 4 Sit to Stand (QC): 6 Chair/Nvl-ox-Wfsrq Xfer(QC): 6 Toilet Transfer (QC): 6 Car Transfer (QC): 6 Does the Patient Walk: Yes Walk 10 feet (QC): 6 Walk 50ft with 2 Turns (QC): 6 Walk 150 ft (QC): 6 Walking 10ft on Uneven Surface: 6 1 Step (curb) (QC): 4 4 Steps (QC): 4 12 Steps (QC): 88 Picking up an Object (QC): 4 Wheel 50 feet with 2 turns (QC: 9 Wheel 150 feet: 9 PT Plan Treatment/Plan Treatment Plan: Continue Plan of Care Treatment Plan: Bed Mobility, Education, Functional Activity Maryann, Functional Strength, Group Therapy, Gait, Safety, Therapeutic Exercise, Transfers Treatment Duration: November 11, 2021 Frequency: At least 5 of 7 days/Wk (IRF) Estimated Hrs Per Day: 1.5 hours per day Patient and/or Family Agrees t: Yes Time/GCodes Time In: 1000 Time Out: 1045 Total Billed Treatment Time: 45 Total Billed Treatment 1, EX x2 (30 min) GT (15 min) LETY MARTIN FIREBOAT OPERATOR Oct 22, 2021 10:56
--- NOTE | 2021-10-22 13:36 | Consultation - Surgery ---
CYRIL BYRD 10/22/21 1336: History of Present Illness History of Present Illness Patient Consulted On(sarah/time) 10/22/21 13:31 Date Seen by Provider: Oct 22, 2021 Time Seen by Provider: 13:31 Reason for Visit: s/p bowel resection History of Present Illness Ms. Murry is 6 days s/p exploratory laparotomy with small bowel resection due to ischemic bowel. She is at inpatient rehab here at [facility]. She is tolerating her diet well. She reports a bowel movement yesterday and has passed flatus today. She says her abdomen and incision is sore but is not nearly as painful as it was before surgery. Before her abdominal surgery she had a hip replacement and I&D at [facility]. Allergies and Home Medications Allergies Coded Allergies: Penicillins (Verified Allergy, Unknown, 07/04/20) hydrocodone (Verified Allergy, Unknown, 07/04/20) Uncoded Allergies: LARGE DOSES OF ASPIRIN (Adverse Reaction, Unknown, 10/21/21) LOOP DIURETIC (Adverse Reaction, Unknown, 10/21/21) Patient Home Medication List Amlodipine Besylate (Amlodipine Besylate) 10 Mg Tablet, 10 MG PO DAILY, (Reported) Entered as Reported by: GER ABDULLAHI on 10/21/211210 Last Action: Held Apixaban (Eliquis) 5 Mg Tablet, 5 MG PO BID, (Reported) Entered as Reported by: GER ABDULLAHI on 10/21/211210 Last Action: Continued Ipratropium/Albuterol Sulfate (Iprat-Albut 0.5-3(2.5) mg/3 ml) 0.5 Mg-3 Mg (2.5 Mg Base)/3 Ml Ampul.neb, 3 ML IH QID, (Reported) Entered as Reported by: GER ABDULLAHI on 10/21/211210 Last Action: Continued Levothyroxine Sodium (Levothyroxine Sodium) 25 Mcg Tablet, 25 MCG PO DAILY, (Reported) Entered as Reported by: GER ABDULLAHI on 10/21/211210 Last Action: Continued Lisinopril (Lisinopril) 20 Mg Tablet, 20 MG PO DAILY, (Reported) Entered as Reported by: GER ABDULLAHI on 10/21/211210 Last Action: Held Naproxen (Naproxen) 500 Mg Tablet, 500 MG PO BID, (Reported) Entered as Reported by: GER ABDULLAHI on 10/21/211210 Last Action: Held Ondansetron HCl (Ondansetron HCl) 4 Mg Tablet, 4 MG PO Q4H PRN for NAUSEA/VOMITING-1ST LINE, (Reported) Entered as Reported by: GER ABDULLAHI on 10/21/211210 Last Action: Converted Oxycodone HCl (Oxycodone HCl) 5 Mg Tablet, 5-10 MG PO Q4H PRN for PAIN-SEVERE (8-10), (Reported) Entered as Reported by: GER ABDULLAHI on 10/21/211210 Last Action: Continued Pantoprazole Sodium (Pantoprazole Sodium) 40 Mg Tablet.dr, 40 MG PO DAILY, (Reported) Entered as Reported by: GER ABDULLAHI on 10/21/211210 Last Action: Continued Potassium Chloride (Klor-Con 10) 10 Meq Tablet.er, 10 MEQ PO BID, (Reported) Entered as Reported by: GER ABDULLAHI on 10/21/211210 Last Action: Continued Simvastatin (Simvastatin) 20 Mg Tablet, 20 MG PO HS, (Reported) Entered as Reported by: GER ABDULLAHI on 10/21/211210 Last Action: Continued Sucralfate (Carafate) 1 Gram Tablet, 1 GM PO ACHS PRN for ULCERS, (Reported) Entered as Reported by: GER ABDULLAHI on 10/21/211210 Last Action: Continued Tramadol HCl (Tramadol HCl) 50 Mg Tablet, 50 MG PO Q6H PRN for PAIN-MODERATE (5- 7), (Reported) Entered as Reported by: GER ABDULLAHI on 10/21/211210 Last Action: Continued Discontinued Medications Cephalexin (Keflex) 500 Mg Capsule, 500 MG PO TID Discontinued Reason: No Longer Taking Prescribed by: SHILOH GUTIERREZ on 07/04/20 1328 Last Action: Discontinued Past Tecjjff-Eipslj-Vbcthh Hx Patient Social History Smoking Status: Former Smoker Type Used: Cigarettes Recent Hopitalizations: No Alcohol Use?: No Have you traveled recently?: No Immunizations Up To Date Tetanus Booster (TDap): More than 5yrs PED Vaccines UTD: Yes Seasonal Allergies Seasonal Allergies: No Surgeries History of Surgeries: Yes Surgeries: Abdominal, Hysterectomy, Orthopedic Respiratory History of Respiratory Disorde: No Cardiovascular History of Cardiac Disorders: Yes Cardiac Disorders: High Cholesterol, Hypertension Neurological History of Neurological Disord: No Gastrointestinal History of Gastrointestinal Di: No Gastrointestinal Disorders: Obstructive Bowel Musculoskeletal History of Musculoskeletal Dis: No Musculoskeletal Disorders: Arthritis, Chronic Back Pain Endocrine History of Endocrine Disorders: Yes Endocrine Disorders: Hypothyroidsim HEENT History of HEENT Disorders: No Cancer History of Cancer: No Psychosocial History of Psychiatric Problem: No Integumentary History of Skin or Integumenta: No Blood Transfusions History of Blood Disorders: No Review of Systems-General Constitutional: No chills, No fever Respiratory: No cough, No dyspnea on exertion Cardiovascular: chest pain; No palpitations Gastrointestinal: abdominal pain; No constipation Psychiatric/Neurological: Denies Numbness, Denies Paresthesia Physical Exam-General Problems Physical Exam Vital Signs Vital Signs - First Documented 10/21/21 10/21/21 12:23 15:27 Temp 36.6 Pulse 86 Resp 22 B/P (MAP) 131/70 (90) Pulse Ox 96 O2 Delivery Room Air O2 Flow Rate 0.00 Capillary Refill : General Appearance: WD/WN, no apparent distress HEENT: PERRL/EOMI, normal ENT inspection Neck: supple, normal inspection Respiratory: chest non-tender, no respiratory distress, no accessory muscle use Cardiovascular: no edema, no JVD Gastrointestinal: soft, other (Abdominal dressing in tact. Wound is clean with moody and without drainage.) Extremities: non-tender, normal inspection Neurologic/Psychiatric: alert, normal mood/affect, oriented x 3 Skin: normal color, warm/dry Data Review Labs Laboratory Tests 10/22/21 05:46: White Blood Count 7.7, Red Blood Count 3.24L, Hemoglobin 9.6L, Hematocrit 30L, Mean Corpuscular Volume 91, Mean Corpuscular Hemoglobin 30, Mean Corpuscular Hemoglobin Concent 33, Red Cell Distribution Width 13.4, Platelet Count 343, Mean Platelet Volume 10.7, Immature Granulocyte % (Auto) 6, Neutrophils (%) (Auto) 76H, Lymphocytes (%) (Auto) 11L, Monocytes (%) (Auto) 7, Eosinophils (%) (Auto) 0, Basophils (%) (Auto) 0, Neutrophils # (Auto) 5.9, Lymphocytes # (Auto) 0.8L, Monocytes # (Auto) 0.6, Eosinophils # (Auto) 0.0, Basophils # (Auto) 0.0, Immature Granulocyte # (Auto) 0.4H, Sodium Level 137, Potassium Level 3.3L, Chloride Level 101, Carbon Dioxide Level 23, Anion Gap 13, Blood Urea Nitrogen 6L, Creatinine 0.53L, Estimat Glomerular Filtration Rate 98, BUN/Creatinine Ratio 11, Glucose Level 97, Calcium Level 8.0L, Corrected Calcium 9.1, Total Bi lirubin 0.7, Aspartate Amino Transf (AST/SGOT) 18, Alanine Aminotransferase (ALT/SGPT) 25, Alkaline Phosphatase 88, Total Protein 4.9L, Albumin 2.6L, Smear Scan YES Assessment/Plan Assessment/Plan Assessment/Plan Assessment: Severe debility - s/p 3 recent surgeries - Hip replacement, wound I&D, and ex-lap Abdominal pain - s/p exploratory laparotomy with small bowel resection d/t ischemic bowel on 10/16/2021 at [facility] Recent fall Hip repair incision dehiscence - s/p I&D with Dr. Celeste Snyder postop ileus COPD Current smoker Recent UTI Pericardial effusion Hypothyroidism Hypertension Plan: Work with PT/OT Supportive care and pain control as needed Cardiology following for chest pain Monitor bowel function. Advance diet as tolerated and continue to monitor KARL CHAIREZ DO 10/23/211917: History of Present Illness History of Present Illness History of Present Illness Patient s/p exlap with small bowel resection from [facility]. Doing well. Having bowel function. Tolerating clear liquids. Pain controlled. No new complaints. Denies n/v fever sweats chills shortness of breath or chest pain. Allergies and Home Medications Allergies Coded Allergies: Penicillins (Verified Allergy, Unknown, 07/04/20) hydrocodone (Verified Allergy, Unknown, 07/04/20) Uncoded Allergies: LARGE DOSES OF ASPIRIN (Adverse Reaction, Unknown, 10/21/21) LOOP DIURETIC (Adverse Reaction, Unknown, 10/21/21) Patient Home Medication List Home Medication List Reviewed: Yes Amlodipine Besylate (Amlodipine Besylate) 10 Mg Tablet, 10 MG PO DAILY, (Reported) Entered as Reported by: GER ABDULLAHI on 10/21/21 1211 Last Action: Held Apixaban (Eliquis) 5 Mg Tablet, 5 MG PO BID, (Reported) Entered as Reported by: GER ABDULLAHI on 10/21/211210 Last Action: Continued Ipratropium/Albuterol Sulfate (Iprat-Albut 0.5-3(2.5) mg/3 ml) 0.5 Mg-3 Mg (2.5 Mg Base)/3 Ml Ampul.neb, 3 ML IH QID, (Reported) Entered as Reported by: GER ABDULLAHI on 10/21/211210 Last Action: Continued Levothyroxine Sodium (Levothyroxine Sodium) 25 Mcg Tablet, 25 MCG PO DAILY, (Reported) Entered as Reported by: GER ABDULLAHI on 10/21/211210 Last Action: Continued Lisinopril (Lisinopril) 20 Mg Tablet, 20 MG PO DAILY, (Reported) Entered as Reported by: GER ABDULLAHI on 10/21/211210 Last Action: Held Naproxen (Naproxen) 500 Mg Tablet, 500 MG PO BID, (Reported) Entered as Reported by: GER ABDULLAHI on 10/21/211210 Last Action: Held Ondansetron HCl (Ondansetron HCl) 4 Mg Tablet, 4 MG PO Q4H PRN for NAUSEA/VOMITING-1ST LINE, (Reported) Entered as Reported by: GER ABDULLAHI on 10/21/211210 Last Action: Converted Oxycodone HCl (Oxycodone HCl) 5 Mg Tablet, 5-10 MG PO Q4H PRN for PAIN-SEVERE (8-10), (Reported) Entered as Reported by: GER ABDULLAHI on 10/21/211210 Last Action: Continued Pantoprazole Sodium (Pantoprazole Sodium) 40 Mg Tablet.dr, 40 MG PO DAILY, (Reported) Entered as Reported by: GER ABDULLAHI on 10/21/211210 Last Action: Continued Potassium Chloride (Klor-Con 10) 10 Meq Tablet.er, 10 MEQ PO BID, (Reported) Entered as Reported by: GER ABDULLAHI on 10/21/211210 Last Action: Continued Simvastatin (Simvastatin) 20 Mg Tablet, 20 MG PO HS, (Reported) Entered as Reported by: GER ABDULLAHI on 10/21/211210 Last Action: Continued Sucralfate (Carafate) 1 Gram Tablet, 1 GM PO ACHS PRN for ULCERS, (Reported) Entered as Reported by: GER ABDULLAHI on 10/21/21 1211 Last Action: Continued Tramadol HCl (Tramadol HCl) 50 Mg Tablet, 50 MG PO Q6H PRN for PAIN-MODERATE (5- 7), (Reported) Entered as Reported by: GER ABDULLAHI on 10/21/21 1211 Last Action: Continued Discontinued Medications Cephalexin (Keflex) 500 Mg Capsule, 500 MG PO TID Discontinued Reason: No Longer Taking Prescribed by: SHILOH GUTIERREZ on 07/04/20 1328 Last Action: Discontinued Past Qhzvdnt-Wwomal-Wafuco Hx Reviewed Nursing Assessment Reviewed/Agree w Nursing PMH: Yes Family Medical History Significant Family History: No Pertinent Family Hx Review of Systems-General Constitutional: No chills, No fever EENTM: No blurred vision, No double vision Respiratory: No cough, No dyspnea on exertion Cardiovascular: No chest pain, No palpitations Gastrointestinal: abdominal pain; No constipation, No nausea, No vomiting Genitourinary: No decreased output, No discharge Musculoskeletal: No back pain; joint pain (s/p left hip replacement) Skin: No change in color, No change in hair/nails Psychiatric/Neurological: Denies Anxiety, Denies Depressed, Denies Numbness, Denies Paresthesia All Other Systems Reviewed Negative Unless Noted: Yes (Negative excepted noted.) Physical Exam-General Problems Physical Exam General Appearance: WD/WN, no apparent distress HEENT: PERRL/EOMI, normal ENT inspection Neck: non-tender, supple, normal inspection Respiratory: chest non-tender, no respiratory distress, no accessory muscle use Cardiovascular: regular rate, rhythm, no JVD Gastrointestinal: soft, other ( Wound is clean with moody and without drainage on abdomen) Rectal: deferred Back: no CVA tenderness Extremities: non-tender, normal inspection Neurologic/Psychiatric: alert, normal mood/affect, oriented x 3 Skin: normal color, warm/dry Lymphatic: no adenopathy Assessment/Plan Assessment/Plan Assessment/Plan Severe debility - s/p 3 recent surgeries - Hip replacement, wound I&D, and ex-lap with small bowel resection Abdominal pain - s/p exploratory laparotomy with small bowel resection d/t ischemic bowel on 10/16/2021 at [facility] Recent fall Hip repair incision dehiscence - s/p I&D with Dr. Celeste Snyder postop ileus COPD Current smoker Recent UTI Pericardial effusion Hypothyroidism Hypertension Plan: Work with PT/OT Supportive care and pain control as needed Cardiology following for chest pain Monitor bowel function. Advance diet as tolerated and continue to monitor Supervisory-Addendum Brief Verification & Attestation Participated in pt care: history, MDM, physical Personally performed: exam, history, MDM, supervision of care Care discussed with: Medical Student Procedures: n/a Results interpretation: Verified all documentation Verification and Attestation of Medical Student E/M Service A medical student performed and documented this service in my presence. I reviewed and verified all information documented by the medical student and made modifications to such information, when appropriate. I personally performed the physical exam and medical decision making. Karl Chairez, Oct 22, 2021,19:18 CYRIL BYRD Oct 22, 2021 13:36 KARL CHAIREZ DO Oct 23, 2021 19:18
--- NOTE | 2021-10-22 14:20 | Physical Therapy Daily Note ---
PT Daily Note-Current Subjective Pt and family agree to PT. Pt has no complaints of pain this afternoon. Mental Status Patient Orientation: Normal For Age Transfers SCALE: Activities may be completed with or without assistive devices. 6-Ziynzlfszb-teackbs completes the activity by him/herself with no assistance from a helper. 5-Set-up or Clean-up Assistance-helper sets up or cleans up; patient completes activity. [place] assists only prior to or following the activity. 4-Supervision or Touching Assistance-helper provides verbal cues and/or touching/steadying and/or contact guard assistance as patient completes activity. Assistance may be provided throughout the activity or intermittently. 3-Partial/Moderate Assistance-helper does LESS THAN HALF the effort. [place] lifts, holds or supports trunk or limbs, but provides less than half the effort. 2-Substantial/Maximal Assistance-helper does MORE THAN HALF the effort. [place] lifts or holds trunk or limbs and provides more than half the effort. 0-Vievurria-gyihwu does ALL the effort. Patient does none of the effort to complete the activity. Or, the assistance of 2 or more helpers is required for the patient to complete the activity. If activity was not attempted, code reason: 7-Patient Refused. 9-Not Applicable-not attempted and the patient did not perform the activity before the current illness, exacerbation or injury. 10-Not Attempted due to Environmental Limitations-(lack of equipment, weather restraints, etc.). 88-Not Attempted due to Medical Conditions or Safety Concerns. Roll Left & Right (QC): 5 Sit to Lying (QC): 4 Lying to Sitting/Side of Bed(Q: 5 Sit to Stand (QC): 4 Toilet Transfer (QC): 4 Gait Training Does the Patient Walk?: Yes Distance: 10' x2 Walk 10 feet (QC): 4 Gait Assistive Device: Cane Large Base Quad Exercises Supine Ex: Ankle pumps, Quad Set, Glut sets, Heel Slides, Straight leg raise, Hip abd/add Supine Reps: 10 Seated Therapy Exercises: Ankle pumps, Long arc quads, Hip flexion, Glut set Seated Reps: 10 Treatments Pt laying supine in bed upon arrival of PT. Pt TF from supine to EOB then amb. to BR. Pt amb. back to EOB to perform seated EX then supine EX. All needs met, call light in hand. Assessment Current Status: Fair Progress Pt does not complain of much pain today during tx. Pt is motivated and pushes herself. PT Short Term Goals Short Term Goals Time Frame: Oct 28, 2021 Roll Left & Right: 4 Sit to lyin Lying to sitting on side of be: 3 Sit to stand: 4 Chair/dqe-ri-melhz transfer: 4 Walk 10 feet: 4 Walk 50 feet with two turns: 4 PT Linecasting Machine Keyboard Operator Goals Alf Goals PT Alf Goals Time Frame: November 11, 2021 Roll Left & Right (QC): 6 Sit to Lying (QC): 4 Lying-Sitting on Side/Bed(QC): 4 Sit to Stand (QC): 6 Chair/See-sj-Pnnqe Xfer(QC): 6 Toilet Transfer (QC): 6 Car Transfer (QC): 6 Does the Patient Walk: Yes Walk 10 feet (QC): 6 Walk 50ft with 2 Turns (QC): 6 Walk 150 ft (QC): 6 Walking 10ft on Uneven Surface: 6 1 Step (curb) (QC): 4 4 Steps (QC): 4 12 Steps (QC): 88 Picking up an Object (QC): 4 Wheel 50 feet with 2 turns (QC: 9 Wheel 150 feet: 9 PT Plan Treatment/Plan Treatment Plan: Continue Plan of Care Treatment Plan: Bed Mobility, Education, Functional Activity Maryann, Functional Strength, Group Therapy, Gait, Safety, Therapeutic Exercise, Transfers Treatment Duration: November 11, 2021 Frequency: At least 5 of 7 days/Wk (IRF) Estimated Hrs Per Day: 1.5 hours per day Patient and/or Family Agrees t: Yes Time/GCodes Time In: 1345 Time Out: 1415 Total Billed Treatment Time: 30 Total Billed Treatment 1, FA (10 min), EX (20 min) LETY MARTIN BODY WIRER Oct 22, 2021 14:20
[2021-10-22] MEDS: CALCIUM CARBONATE 500 MG (TUMS) TAB.CHEW PO PRN (17:44)
[2021-10-22 20:10] VITALS: BP 137/70
[2021-10-22] MEDS: SIMvastatin 20 MG (ZOCOR) TAB PO SCH (21:19)
[2021-10-23] MEDS: LEVOTHYROXINE 25 MCG (LEVOTHROID) TAB PO SCH (06:40)
--- NOTE | 2021-10-23 06:52 | PM&R Progress Note ---
Subjective HPI/CC On Admission Date Seen by Provider: Oct 23, 2021 Time Seen by Provider: 10:00 Subjective/Events-last exam 10/23/21: Patient improved except abdominal pain after a lot of gas and BM Updated Dr Nguyen and he will see the patient No falls Pain controlled Improved overall 10/22/21: Patient doing a lot better Nausea is improved Walking with rest breaks Check meds and labs Clear liquid diet may be advanced if okay with Dr. Nguyen Overall improved but slow recovery Review of Systems General: Fatigue, Malaise Pulmonary: Dyspnea Gastrointestinal: Abdominal Pain Objective Exam Vital Signs Vital Signs Date Time Temp Pulse Resp B/P (MAP) Pulse Ox O2 Delivery O2 Flow Rate FiO2 10/23/21 19:22 36.8 82 20 143/81 (101) 97 Room Air 10/22/21 21:30 0.00 Capillary Refill : General Appearance: No Apparent Distress, WD/WN, Chronically ill HEENT: PERRL/EOMI, Normal ENT Inspection, Pharynx Normal Neck: Full Range of Motion, Normal Inspection, Non Tender, Supple, Carotid Bruit Respiratory: Chest Non Tender, Lungs Clear, Normal Breath Sounds, No Accessory Muscle Use, No Respiratory Distress Cardiovascular: Regular Rate, Rhythm, No Edema, No Gallop, No JVD, No Murmur, Normal Peripheral Pulses Gastrointestinal: Normal Bowel Sounds, No Organomegaly, No Pulsatile Mass, Non Tender, Soft Back: Normal Inspection, No CVA Tenderness, No Vertebral Tenderness Extremity: Normal Capillary Refill, Normal Inspection, Normal Range of Motion, Non Tender, No Calf Tenderness, No Pedal Edema Neurologic/Psychiatric: Alert, Oriented x3, commercial or institutional cleaner II-XII Norm as Tested, Abnormal Gait, Depressed Affect, Motor Weakness (Generalized) Skin: Normal Color, Warm/Dry Lymphatic: No Adenopathy Results/Procedures Lab Patient resulted labs reviewed. FIM Transfers Therapy Code Descriptions/Definitions Functional Malin Measure: 0=Not Assessed/NA 4=Minimal Assistance 1=Total Assistance 5=Supervision or Setup 2=Maximal Assistance 6=Modified Malin 3=Moderate Assistance 7=Complete IndependenceSCALE: Activities may be completed with or without assistive devices. 5-Fsznvcfcxw-ilgguxu completes the activity by him/herself with no assistance from a helper. 5-Set-up or Clean-up Assistance-helper sets up or cleans up; patient completes activity. [place] assists only prior to or following the activity. 4-Supervision or Touching Assistance-helper provides verbal cues and/or touching/steadying and/or contact guard assistance as patient completes activity. Assistance may be provided throughout the activity or intermittently. 3-Partial/Moderate Assistance-helper does LESS THAN HALF the effort. [place] lifts, holds or supports trunk or limbs, but provides less than half the effort. 2-Substantial/Maximal Assistance-helper does MORE THAN HALF the effort. [place] lifts or holds trunk or limbs and provides more than half the effort. 7-Mtsacevjg-ueprbr does ALL the effort. Patient does none of the effort to complete the activity. Or, the assistance of 2 or more helpers is required for the patient to complete the activity. If activity was not attempted, code reason: 7-Patient Refused. 9-Not Applicable-not attempted and the patient did not perform the activity before the current illness, exacerbation or injury. 10-Not Attempted due to Environmental Limitations-(lack of equipment, weather restraints, etc.). 88-Not Attempted due to Medical Conditions or Safety Concerns. Roll Left to Right (QC): 5 Sit to Lying (QC): 4 Sit to Stand (QC): 4 Chair/Pdj-wf-Nzdgq Xfer(QC): 3 Car Transfer (QC): 3 Gait Training Does the Patient Walk?: Yes Distance: 10' x2 Walk 10 feet (QC): 4 Walk 50 ft with 2 Turns(QC): 4 Walk 150 ft (QC): 4 Walking 10ft/uneven surface-QC: 88 Gait Persons Needed: 1 Gait Assistive Device: Cane Large Base Quad Wheelchair Training Wheel 50 ft with 2 turns (QC): 1 Wheel 150 ft (QC): 1 Stair Training 1 Step (curb) (QC): 88 4 Steps (QC): 88 12 Steps (QC): 88 Balance Picking up an Object (QC): 88 ADL-Treatment Eating (QC): 6 (IND with clear liquid diet) Oral Hygiene (QC): 5 Bathing Location: L Arm, R Arm, Chest, Abdomen Shower/Bathe Self (QC): 3 Upper Body Dressing (QC): 4 (Pt able to doff UB dressing with supervision.) Lower Body Dressing (QC): 2 (Pt required Max A to doff LB dressing.) On/Off Footwear (QC): 2 (Pt able to doff gripper socks using hole puncher strap, unable to recall how to use sock aide, requiring total assist to don TedHose and compression socks.) Toileting Hygiene (QC): 4 (SBA, pt able to manage hygiene and clothing) Toilet Transfer (QC): 4 (SBA on/off BSC over toilet.) Assessment/Plan Assessment and Plan Assess & Plan/Chief Complaint Assessment: Severe debility Recent small bowel obstruction due to ischemic bowel status post resection by Dr. Nguyen Long postop ileus COPD Current smoker Recent UTI Pericardial effusion transferred to [place] but no pericardiocentesis required Hypothyroidism Hypertension Recent fall Hip repair incision dehiscence status post I&D by Dr. Alonso Plan: Inpatient rehab protocol Pain control Monitor bowel function 10/22/2021: Supportive care Aggressive rehab Advance diet 10/23/21: Improved overall Dr Nguyen to check on her (1) Fall Status: Acute (2) SBO (small bowel obstruction) MONIKA TODD DO Oct 23, 2021 06:52
[2021-10-23] MEDS: RT-ALBUTEROL/IPRATROPIUM 3 ML (DUONEB) VIAL IH SCH ×4 (07:27→19:03)
[2021-10-23] MEDS: CALCIUM CARBONATE 500 MG (TUMS) TAB.CHEW PO PRN (07:51)
[2021-10-23 07:53] VITALS: BP 128/66
[2021-10-23] MEDS: DOCUSATE SODIUM 100 MG (COLACE) CAP PO SCH ×2 (07:53→19:39)
[2021-10-23] MEDS: PANTOPRAZOLE 40 MG (PROTONIX) TAB PO SCH (07:53)
[2021-10-23] MEDS: SENNA W/DOCUSATE (SENOKOT S) TABLET PO SCH ×2 (07:53→19:40)
[2021-10-23] MEDS: APIXABAN 5 MG (ELIQUIS) TABLET PO SCH ×2 (07:53→20:29)
[2021-10-23] MEDS: KCL 10 MEQ TAB (MICRO K) PO SCH ×3 (07:54→17:37)
[2021-10-23] MEDS: polyethylene glycoL POWDER 17 GM (MIRALAX) PACK PO SCH ×2 (07:56→19:39)
[2021-10-23] MEDS: ONDANSETRON 4 MG (ZOFRAN) ORAL DISSOLVE TAB PO PRN (08:12)
--- NOTE | 2021-10-23 08:42 | Occupational Ther Daily Note ---
OT Current Status-Daily Note Subjective Pt rates pain 5/10 in her stomach area. She is agreeable to OT Tx Mental Status/Objective Patient Orientation: Person, Place, Time, Situation ADL-Treatment Therapy Code Descriptions/Definitions Functional [place] Measure: 0=Not Assessed/NA 4=Minimal Assistance 1=Total Assistance 5=Supervision or Setup 2=Maximal Assistance 6=Modified [place] 3=Moderate Assistance 7=Complete IndependenceSCALE: Activities may be completed with or without assistive devices. 0-Iuzkpwzicf-fzwxixs completes the activity by him/herself with no assistance from a helper. 5-Set-up or Clean-up Assistance-helper sets up or cleans up; patient completes activity. [place] assists only prior to or following the activity. 4-Supervision or Touching Assistance-helper provides verbal cues and/or touching/steadying and/or contact guard assistance as patient completes activity. Assistance may be provided throughout the activity or intermittently. 3-Partial/Moderate Assistance-helper does LESS THAN HALF the effort. [place] lifts, holds or supports trunk or limbs, but provides less than half the effort. 2-Substantial/Maximal Assistance-helper does MORE THAN HALF the effort. [place] lifts or holds trunk or limbs and provides more than half the effort. 3-Ueepajxnp-ttluik does ALL the effort. Patient does none of the effort to complete the activity. Or, the assistance of 2 or more helpers is required for the patient to complete the activity. If activity was not attempted, code reason: 7-Patient Refused. 9-Not Applicable-not attempted and the patient did not perform the activity before the current illness, exacerbation or injury. 10-Not Attempted due to Environmental Limitations-(lack of equipment, weather restraints, etc.). 88-Not Attempted due to Medical Conditions or Safety Concerns. Oral Hygiene (QC): 6 (IND seated at sink.) Shower/Bathe Self (QC): 4 (SBA, pt able to use LH sponge to wash LEs) Toileting Hygiene (QC): 4 (SBA, pt able to manage clothing and perform hygiene) Toilet Transfer (QC): 4 (SBA on/off [facility] over toilet. ) Other Treatment Pt in bed, transferred supine to sit EOB, min A with LLE. Pt used FWW to go into bathroom and transfer to [facility] over toilet, SBA. Pt completed toileting, then transferred to w/c, SBA. Pt completed sponge bath and grooming tasks seated at sink, declines putting on anything but a hospital gown due to not feeling well. OT tx focused on increasing BUE strength and activity tolerance. Pt propelled w/c to therapy gym, SBA. Pt completed arm bike, x10 raymundo, x10 mins, 1 rest break. Pt removed beads from moderate resistance (red) theraputty, able to locate all beads without cues. Pt c/o pain in abdominal area, but states it is better than it was this morning. Pt placed/removed x100 pegs from foam pegboard, alternating hands. Pt propelled w/c back to her room, SBA using FWW to transfer to EOB. Min A sit to supine, assist with LLE. Post tx, pt in bed, call light in reach and all needs met. Education OT Patient Education: Correct positioning, Energy conservation, Modified ADL techniques, Progress toward Goal/Update tx plan, Purpose of tx/functional activities, Rehab process Teaching Recipient: Patient Teaching Methods: Discussion Response to Teaching: Verbalize Understanding OT Short Term Goals Short Term Goals Time Frame: November 11, 2021 Shower/bathe self: 4 Upper body dressin Lower body dressin Putting on/taking off footwear: 4 OT Correction Goals Manager Database Goals Time Frame: November 20, 2021 Eating (QC): 6 Oral Hygiene (QC): 6 Toileting Hygiene (QC): 6 Shower/Bathe Self (QC): 6 Upper Body Dressing (QC): 6 Lower Body Dressing (QC): 6 On/Off Footwear (QC): 6 Additional Goals: 1-Demonstrate ADL Tasks, 2-Verbalize Understanding, 3- ImproveStrength/Maryann 1=Demonstrate adherence to instructed precautions during ADL tasks. 2=Patient will verbalize/demonstrate understanding of assistive devices/modifications for ADL. 3=Patient will improve strength/tolerance for activity to enable patient to perform ADL's. OT Education/Plan Problem List/Assessment Assessment: Decreased Activ Tolerance, Decreased UE Strength, Impaired Funct Balance, Impaired I ADL's, Impaired Self-Care Skills Discharge Recommendations Plan/Recommendations: Continue POC Treatment Plan/Plan of Care Patient would benefit from OT for education, treatment and training to promote independence in ADL's, mobility, safety and/or upper extremity function for ADL's. Plan of Care: ADL Retraining, Functional Mobility, Group Exercise/Act as Ind, UE Funct Exercise/Act Treatment Duration: November 20, 2021 Frequency: At least 5 of 7 days/Wk (IRF) Estimated Hrs Per Day: 1.5 hours per day Agreement: Yes Rehab Potential: Good Time/GCodes Start Time: 08:00 Stop Time: 09:30 Total Time Billed (hr/min): 90 Billed Treatment Time 1, ADL 2 (30'), EX (15'), FA 3 (45') AILYN MITCHELL OT Oct 23, 2021 08:42
--- NOTE | 2021-10-23 10:49 | Physical Therapy Daily Note ---
PT Daily Note-Current Subjective Pt agrees to PT. Pt complains of nausea and increase pain in her abdomen. Pt states she feels worse today compared to yesterday. Mental Status Patient Orientation: Normal For Age Transfers SCALE: Activities may be completed with or without assistive devices. 6-Prdhmsspmr-dlmgejk completes the activity by him/herself with no assistance from a helper. 5-Set-up or Clean-up Assistance-helper sets up or cleans up; patient completes activity. [place] assists only prior to or following the activity. 4-Supervision or Touching Assistance-helper provides verbal cues and/or touching/steadying and/or contact guard assistance as patient completes activity. Assistance may be provided throughout the activity or intermittently. 3-Partial/Moderate Assistance-helper does LESS THAN HALF the effort. [place] lifts, holds or supports trunk or limbs, but provides less than half the effort. 2-Substantial/Maximal Assistance-helper does MORE THAN HALF the effort. [place] lifts or holds trunk or limbs and provides more than half the effort. 6-Eiuztvqma-qzymrc does ALL the effort. Patient does none of the effort to complete the activity. Or, the assistance of 2 or more helpers is required for the patient to complete the activity. If activity was not attempted, code reason: 7-Patient Refused. 9-Not Applicable-not attempted and the patient did not perform the activity before the current illness, exacerbation or injury. 10-Not Attempted due to Environmental Limitations-(lack of equipment, weather restraints, etc.). 88-Not Attempted due to Medical Conditions or Safety Concerns. Roll Left & Right (QC): 6 Sit to Lying (QC): 4 Lying to Sitting/Side of Bed(Q: 4 Sit to Stand (QC): 4 Toilet Transfer (QC): 6 Gait Training Does the Patient Walk?: Yes Distance: 150' Walk 10 feet (QC): 4 Walk 50 ft with 2 Turns(QC): 4 Walk 150 ft (QC): 4 Gait Persons Needed: 1 Gait Assistive Device: FWW Treatments Pt laying supine in bed upon arrival of PT. Pt states she does not feel good today and will see how much she can do. Pt TF from supine to EOB then amb. to BR. Pt amb. in hallway and returns back to room in WC. Pt TF from WC to EOB then to supine in bed. SCHOOL COORDINATOR educates pt on EX she can do in bed. All needs met, call light in hand. Assessment Current Status: Fair Progress Pt's pain in abdomen and nausea limited her in therapy today. Pt is still motivated and wants to get better. PT Short Term Goals Short Term Goals Time Frame: Oct 28, 2021 Roll Left & Right: 4 Sit to lyin Lying to sitting on side of be: 3 Sit to stand: 4 Chair/ipo-cj-efyza transfer: 4 Walk 10 feet: 4 Walk 50 feet with two turns: 4 PT Software Engineering Specialist Goals Software Engineering Specialist Goals PT Software Engineering Specialist Goals Time Frame: November 11, 2021 Roll Left & Right (QC): 6 Sit to Lying (QC): 4 Lying-Sitting on Side/Bed(QC): 4 Sit to Stand (QC): 6 Chair/Ckr-cg-Ahlls Xfer(QC): 6 Toilet Transfer (QC): 6 Car Transfer (QC): 6 Does the Patient Walk: Yes Walk 10 feet (QC): 6 Walk 50ft with 2 Turns (QC): 6 Walk 150 ft (QC): 6 Walking 10ft on Uneven Surface: 6 1 Step (curb) (QC): 4 4 Steps (QC): 4 12 Steps (QC): 88 Picking up an Object (QC): 4 Wheel 50 feet with 2 turns (QC: 9 Wheel 150 feet: 9 PT Plan Treatment/Plan Treatment Plan: Continue Plan of Care Treatment Plan: Bed Mobility, Education, Functional Activity Maryann, Functional Strength, Group Therapy, Gait, Safety, Therapeutic Exercise, Transfers Treatment Duration: November 11, 2021 Frequency: At least 5 of 7 days/Wk (IRF) Estimated Hrs Per Day: 1.5 hours per day Patient and/or Family Agrees t: Yes Time/GCodes Time In: 1000 Time Out: 1100 Total Billed Treatment Time: 60 Total Billed Treatment 1, GT (15 min) FA x3 (45 min) LETY MARTIN SCHOOL COORDINATOR Oct 23, 2021 10:49
--- NOTE | 2021-10-23 14:26 | Physical Therapy Daily Note ---
PT Daily Note-Current Subjective Pt agrees to PT stating feeling much better than this morning. Pt laying supine in bed. Mental Status Patient Orientation: Person, Place, Time, Situation Transfers SCALE: Activities may be completed with or without assistive devices. 3-Cncusfomys-jufgboy completes the activity by him/herself with no assistance from a helper. 5-Set-up or Clean-up Assistance-helper sets up or cleans up; patient completes activity. [place] assists only prior to or following the activity. 4-Supervision or Touching Assistance-helper provides verbal cues and/or touching/steadying and/or contact guard assistance as patient completes activity. Assistance may be provided throughout the activity or intermittently. 3-Partial/Moderate Assistance-helper does LESS THAN HALF the effort. [place] lifts, holds or supports trunk or limbs, but provides less than half the effort. 2-Substantial/Maximal Assistance-helper does MORE THAN HALF the effort. [place] lifts or holds trunk or limbs and provides more than half the effort. 9-Dwsyvfugq-lhyhrh does ALL the effort. Patient does none of the effort to complete the activity. Or, the assistance of 2 or more helpers is required for the patient to complete the activity. If activity was not attempted, code reason: 7-Patient Refused. 9-Not Applicable-not attempted and the patient did not perform the activity before the current illness, exacerbation or injury. 10-Not Attempted due to Environmental Limitations-(lack of equipment, weather restraints, etc.). 88-Not Attempted due to Medical Conditions or Safety Concerns. Gait Training Does the Patient Walk?: Yes Distance: 10' Walk 10 feet (QC): 4 Gait Assistive Device: FWW Exercises Supine Ex: Ankle pumps, Quad Set, Glut sets, Heel Slides, Hip abd/add Supine Reps: 10 Treatments Pt laying supine upon arrival of PT. Pt completed supine EX the TF to EOB to amb. to BR. Pt amb. back to bed. All needs met, call light in hand. Assessment Current Status: Fair Progress Pt states she feels better this afternoon and is motivated to EX. PT Short Term Goals Short Term Goals Time Frame: Oct 28, 2021 Roll Left & Right: 4 Sit to lyin Lying to sitting on side of be: 3 Sit to stand: 4 Chair/jie-br-rofrn transfer: 4 Walk 10 feet: 4 Walk 50 feet with two turns: 4 PT Forest Fire Prevention Manager Goals Forest Fire Prevention Manager Goals PT Fdc Goals Time Frame: November 11, 2021 Roll Left & Right (QC): 6 Sit to Lying (QC): 4 Lying-Sitting on Side/Bed(QC): 4 Sit to Stand (QC): 6 Chair/Tyk-bh-Iugcx Xfer(QC): 6 Toilet Transfer (QC): 6 Car Transfer (QC): 6 Does the Patient Walk: Yes Walk 10 feet (QC): 6 Walk 50ft with 2 Turns (QC): 6 Walk 150 ft (QC): 6 Walking 10ft on Uneven Surface: 6 1 Step (curb) (QC): 4 4 Steps (QC): 4 12 Steps (QC): 88 Picking up an Object (QC): 4 Wheel 50 feet with 2 turns (QC: 9 Wheel 150 feet: 9 PT Plan Treatment/Plan Treatment Plan: Continue Plan of Care Treatment Plan: Bed Mobility, Education, Functional Activity Maryann, Functional Strength, Group Therapy, Gait, Safety, Therapeutic Exercise, Transfers Treatment Duration: November 11, 2021 Frequency: At least 5 of 7 days/Wk (IRF) Estimated Hrs Per Day: 1.5 hours per day Patient and/or Family Agrees t: Yes Time/GCodes Time In: 1400 Time Out: 1430 Total Billed Treatment Time: 30 Total Billed Treatment 1, FA (15 min) EX (15 min) LETY MARTIN BASKET TURNER Oct 23, 2021 14:26
--- NOTE | 2021-10-23 14:46 | Cardiology Progress Note ---
Subjective Date Seen by Provider: Oct 23, 2021 Time Seen by Provider: 14:44 Subjective/Events-last exam Patient was seen at bedside, feeling better at this afternoon, was complaining of generalized weakness. Complaining of abdominal discomfort Review of Systems General: No Chills, No Night Sweats; Fatigue, Malaise; No Appetite, No Other HEENT: No Head Aches, No Visual Changes, No Eye Pain, No Ear Pain, No Dysphasia, No Sinus Congestion, No Post Nasal Drip, No Sore Throat, No Other Pulmonary: No Dyspnea, No Cough, No Pleuritic Chest Pain, No Other Cardiovascular: No: Chest Pain, Palpitations, Orthopnea, Paroxysmal Noc. Dyspnea, Edema, Lt Headedness, Other Objective-Cardiology Exam Last Set of Vital Signs Vital Signs 10/22/21 10/23/21 21:30 07:53 Temp 36.4 Pulse 74 Resp 16 B/P (MAP) 128/66 (86) Pulse Ox 93 O2 Delivery Room Air O2 Flow Rate 0.00 General: Alert, Oriented X3 HEENT: Atraumatic Neck: Supple, No JVD Lungs: Clear to Auscultation, Normal Air Movement Heart: Regular Rate, Normal S1, Normal S2 Abdomen: Normal Bowel Sounds, Soft Skin: No Rashes, No Breakdown A/P-Cardiology Admission Diagnosis Chest pain Pericardial effusion HTN HLP Assessment/Plan Chest pain, nonspecific etiology, atypical in presentation. C/o right sided chest pain radiating to shoulder, now resolved. EKG showing so acute ST changes, will continue to monitor. Pericardial effusion, reported small pericardial effusion of unknown etiology, discovered during CT abdomen. Workup was done at [facility] including 2D Echo. I will try to obtain records for further review. HTN, controlled, continue to monitor. HLP, maintained on statin. Continue to monitor as outpatient. s/p L hip replacement with Dr. Alonso September 2021 with incisional wound dehiscence secondary to fall, s/p repair. SBO with small bowel resection with Dr. Nguyen. Generalized debility/weakness, continue with PT/OT. Hypokalemia, replace and continue to monitor. GREGORY BOYER MD Oct 23, 2021 14:46
[2021-10-23 19:22] VITALS: BP 143/81
--- NOTE | 2021-10-23 19:24 | Progress Note - Surgery ---
Subjective Date Seen by a Provider: Oct 23, 2021 Time Seen by a Provider: 19:19 Subjective/Events-last exam Had abdominal pain this morning. Patient had multiple bowel movements and then improved. Denies any new complaints. Feeling better. Denies n/v fever sweats chills shortness of breath or chest pain. Objective Exam Vital Signs Date Time Temp Pulse Resp B/P (MAP) Pulse Ox O2 Delivery O2 Flow Rate FiO2 10/23/21 19:03 98 Room Air 10/23/21 15:02 97 Room Air 10/23/21 08:14 Room Air 10/23/21 07:53 36.4 74 16 128/66 (86) 93 Room Air 10/23/21 07:29 97 Room Air 10/22/21 21:30 98 Room Air 0.00 10/22/21 21:10 95 Room Air 10/22/21 20:10 36.9 79 16 137/70 (92) 94 Room Air Capillary Refill : General Appearance: No Apparent Distress, WD/WN, Chronically ill HEENT: PERRL/EOMI, Normal ENT Inspection Neck: Normal Inspection, Non Tender, Supple Respiratory: Chest Non Tender, No Accessory Muscle Use, No Respiratory Distress Cardiovascular: Regular Rate, Rhythm, No JVD Gastrointestinal: soft, other ( Wound is clean with moody and without drainage on abdomen) Extremity: Normal Capillary Refill, Normal Inspection, Normal Range of Motion, Non Tender, No Calf Tenderness, No Pedal Edema Neurologic/Psychiatric: Alert, Oriented x3, Abnormal Gait, Depressed Affect Skin: Normal Color, Warm/Dry Lymphatic: No Adenopathy Assessment/Plan Assessment/Plan Assessment/Plan Severe debility - s/p 3 recent surgeries - Hip replacement, wound I&D, and ex-lap with small bowel resection Abdominal pain - s/p exploratory laparotomy with small bowel resection d/t ischemic bowel on 10/16/2021 at [facility] [place] Recent [place] Hip repair incision dehiscence - s/p I&D with Dr. Celeste Snyder postop ileus COPD Current smoker Recent UTI Pericardial effusion Hypothyroidism Hypertension Plan: Work with PT/OT Supportive care and pain control as needed Cardiology following for chest pain Monitor bowel function. Advance diet as tolerated and continue to monitor KARL CHAIREZ DO Oct 23, 2021 19:24
[2021-10-23] MEDS: SIMvastatin 20 MG (ZOCOR) TAB PO SCH (20:29)
[2021-10-24] MEDS: LEVOTHYROXINE 25 MCG (LEVOTHROID) TAB PO SCH (04:25)
--- NOTE | 2021-10-24 05:53 | PM&R Progress Note ---
Subjective HPI/CC On Admission Date Seen by Provider: Oct 24, 2021 Time Seen by Provider: 06:00 Subjective/Events-last exam 10/24/2021: Patient doing much better today Has crossed the threshold to improvement in recovery No pain reported Bowels are moving Slowly eating and advancing diet 10/23/21: Patient improved except abdominal pain after a lot of gas and BM Updated Dr Nguyen and he will see the patient No falls Pain controlled Improved overall 10/22/21: Patient doing a lot better Nausea is improved Walking with rest breaks Check meds and labs Clear liquid diet may be advanced if okay with Dr. Nguyen Overall improved but slow recovery Review of Systems General: Fatigue, Malaise Gastrointestinal: Nausea, Abdominal Pain Objective Exam Vital Signs Vital Signs Date Time Temp Pulse Resp B/P (MAP) Pulse Ox O2 Delivery O2 Flow Rate FiO2 10/24/21 11:26 97 Room Air 10/24/21 07:30 37.4 71 18 120/63 (82) 10/22/21 21:30 0.00 Capillary Refill : General Appearance: No Apparent Distress, WD/WN, Chronically ill HEENT: PERRL/EOMI, Normal ENT Inspection, Pharynx Normal Neck: Full Range of Motion, Normal Inspection, Non Tender, Supple, Carotid Bruit Respiratory: Chest Non Tender, Lungs Clear, Normal Breath Sounds, No Accessory Muscle Use, No Respiratory Distress Cardiovascular: Regular Rate, Rhythm, No Edema, No Gallop, No JVD, No Murmur, Normal Peripheral Pulses Gastrointestinal: Normal Bowel Sounds, No Organomegaly, No Pulsatile Mass, Non Tender, Soft Back: Normal Inspection, No CVA Tenderness, No Vertebral Tenderness Extremity: Normal Capillary Refill, Normal Inspection, Normal Range of Motion, Non Tender, No Calf Tenderness, No Pedal Edema Neurologic/Psychiatric: Alert, Oriented x3, manager dialysis II-XII Norm as Tested, Abnormal Gait, Depressed Affect, Motor Weakness (Generalized) Skin: Normal Color, Warm/Dry Lymphatic: No Adenopathy Results/Procedures Lab Patient resulted labs reviewed. FIM Transfers Therapy Code Descriptions/Definitions Functional [place] Measure: 0=Not Assessed/NA 4=Minimal Assistance 1=Total Assistance 5=Supervision or Setup 2=Maximal Assistance 6=Modified [place] 3=Moderate Assistance 7=Complete IndependenceSCALE: Activities may be completed with or without assistive devices. 6-Tnvjumllvl-xpguenz completes the activity by him/herself with no assistance from a helper. 5-Set-up or Clean-up Assistance-helper sets up or cleans up; patient completes activity. [place] assists only prior to or following the activity. 4-Supervision or Touching Assistance-helper provides verbal cues and/or touching/steadying and/or contact guard assistance as patient completes activity. Assistance may be provided throughout the activity or intermittently. 3-Partial/Moderate Assistance-helper does LESS THAN HALF the effort. [place] lifts, holds or supports trunk or limbs, but provides less than half the effort. 2-Substantial/Maximal Assistance-helper does MORE THAN HALF the effort. [place] lifts or holds trunk or limbs and provides more than half the effort. 8-Obalsyhfl-kiregg does ALL the effort. Patient does none of the effort to complete the activity. Or, the assistance of 2 or more helpers is required for the patient to complete the activity. If activity was not attempted, code reason: 7-Patient Refused. 9-Not Applicable-not attempted and the patient did not perform the activity before the current illness, exacerbation or injury. 10-Not Attempted due to Environmental Limitations-(lack of equipment, weather restraints, etc.). 88-Not Attempted due to Medical Conditions or Safety Concerns. Roll Left to Right (QC): 6 Sit to Lying (QC): 4 Sit to Stand (QC): 4 Chair/Umy-kt-Psbja Xfer(QC): 3 Car Transfer (QC): 3 Gait Training Does the Patient Walk?: Yes Distance: 10' Walk 10 feet (QC): 4 Walk 50 ft with 2 Turns(QC): 4 Walk 150 ft (QC): 4 Walking 10ft/uneven surface-QC: 88 Gait Persons Needed: 1 Gait Assistive Device: FWW Wheelchair Training Wheel 50 ft with 2 turns (QC): 1 Wheel 150 ft (QC): 1 Stair Training 1 Step (curb) (QC): 88 4 Steps (QC): 88 12 Steps (QC): 88 Balance Picking up an Object (QC): 88 ADL-Treatment Eating (QC): 6 (IND with clear liquid diet) Oral Hygiene (QC): 6 (IND seated at sink.) Bathing Location: L Arm, R Arm, Chest, Abdomen Shower/Bathe Self (QC): 4 (SBA, pt able to use LH sponge to wash LEs) Upper Body Dressing (QC): 4 (Pt able to doff UB dressing with supervision.) Lower Body Dressing (QC): 2 (Pt required Max A to doff LB dressing.) On/Off Footwear (QC): 2 (Pt able to doff gripper socks using consumer affairs director, unable to recall how to use sock aide, requiring total assist to don TedHose and compression socks.) Toileting Hygiene (QC): 4 (SBA, pt able to manage clothing and perform hygiene) Toilet Transfer (QC): 4 (SBA on/off BSC over toilet. ) Assessment/Plan Assessment and Plan Assess & Plan/Chief Complaint Assessment: Severe debility Recent small bowel obstruction due to ischemic bowel status post resection by Dr Farida Nguyen Long postop ileus COPD Current smoker Recent UTI Pericardial effusion transferred to [place] but no pericardiocentesis required Hypothyroidism Hypertension Recent fall Hip repair incision dehiscence status post I&D by Dr. Alonso Plan: Inpatient rehab protocol Pain control Monitor bowel function 10/22/2021: Supportive care Aggressive rehab Advance diet 10/23/21: Improved overall Dr Nguyen to check on her 10/24/2021: Advance diet Supportive care (1) Fall Status: Acute (2) SBO (small bowel obstruction) MONIKA TODD DO Oct 24, 2021 05:53
[2021-10-24 07:30] VITALS: BP 120/63
[2021-10-24] MEDS: RT-ALBUTEROL/IPRATROPIUM 3 ML (DUONEB) VIAL IH SCH ×4 (08:05→19:52)
[2021-10-24] MEDS: APIXABAN 5 MG (ELIQUIS) TABLET PO SCH ×2 (08:19→20:34)
[2021-10-24] MEDS: PANTOPRAZOLE 40 MG (PROTONIX) TAB PO SCH (08:20)
[2021-10-24] MEDS: SENNA W/DOCUSATE (SENOKOT S) TABLET PO SCH ×2 (08:23→20:36)
[2021-10-24] MEDS: polyethylene glycoL POWDER 17 GM (MIRALAX) PACK PO SCH ×2 (08:23→20:36)
[2021-10-24] MEDS: DOCUSATE SODIUM 100 MG (COLACE) CAP PO SCH ×2 (08:23→20:35)
[2021-10-24] MEDS: KCL 10 MEQ TAB (MICRO K) PO SCH ×3 (08:38→17:23)
--- NOTE | 2021-10-24 08:46 | Progress Note - Surgery ---
CYRIL BYRD 10/24/21 0846: Subjective Date Seen by a Provider: Oct 24, 2021 Time Seen by a Provider: 07:19 Subjective/Events-last exam Ms. Murry is 8 days s/p exploratory laparotomy with small bowel resection due to ischemic bowel. She is at inpatient rehab here at [facility]. She is tolerating her d iet well. She had an episode of abdominal pain yesterday but that has resolved. She reports bowel movements that are mostly liquid. She asked if she can have food that isn't cut up into small pieces. She says her moody do itch a little bit. She has no other complaints or concerns at this time. Review of Systems General: No Chills, No Fatigue HEENT: No Head Aches, No Visual Changes Pulmonary: No Dyspnea, No Cough Cardiovascular: No: Chest Pain, Palpitations Gastrointestinal: No: Nausea, Vomiting, Abdominal Pain Neurological: No: Weakness, Confusion Objective Exam Vital Signs Date Time Temp Pulse Resp B/P (MAP) Pulse Ox O2 Delivery O2 Flow Rate FiO2 10/24/21 08:24 Room Air 10/24/21 08:05 94 Room Air 10/24/21 07:30 37.4 71 18 120/63 (82) 97 Room Air 10/23/21 20:00 97 Room Air 10/23/21 19:22 36.8 82 20 143/81 (101) 97 Room Air 10/23/21 19:03 98 Room Air 10/23/21 15:02 97 Room Air I & O 10/24/21 07:00 Intake Total 1300 ml Balance 1300 ml Capillary Refill : General Appearance: No Apparent Distress, WD/WN HEENT: PERRL/EOMI; No Scleral Icterus (L), No Scleral Icterus (R) Neck: Normal Inspection, Non Tender, Supple Respiratory: Chest Non Tender, Lungs Clear, Normal Breath Sounds, No Accessory Muscle Use, No Respiratory Distress Cardiovascular: Regular Rate, Rhythm, No Edema, Normal Peripheral Pulses Peripheral Pulses: 2+ Radial Pulses (R), 2+ Radial Pulses (L) Gastrointestinal: non tender, soft, other ( Wound is clean with moody and without drainage on abdomen) Extremity: Normal Range of Motion, Non Tender, No Pedal Edema Neurologic/Psychiatric: Alert, Oriented x3, Normal Mood/Affect Skin: Normal Color, Warm/Dry Lymphatic: No Adenopathy (Head and neck) Assessment/Plan Assessment/Plan Assessment/Plan Severe debility - s/p 3 recent surgeries - Hip replacement, wound I&D, and ex-lap with small bowel resection Abdominal pain - s/p exploratory laparotomy with small bowel [place] [facility] [place] Hip repair incision dehiscence - s/p I&D with Dr. Celeste Snyder postop ileus COPD Current smoker Recent UTI Pericardial effusion Hypothyroidism Hypertension Plan: Work with PT/OT Supportive care and pain control as needed Cardiology following for chest pain Monitor bowel function. Advance diet as tolerated and continue to monitor KARL CHAIREZ DO 10/24/21 1657: Subjective Subjective/Events-last exam Patient states she is tolerating diet. Patient abdominal pain resolved. She is still with bowel function. Denies any new complaints. Denies nausea vomiting fever sweats chills shortness of breath or chest pain. Objective Exam General Appearance: No Apparent Distress, WD/WN HEENT: PERRL/EOMI Neck: Normal Inspection, Non Tender Respiratory: Chest Non Tender, No Accessory Muscle Use, No Respiratory Distress Cardiovascular: Regular Rate, Rhythm, No JVD Gastrointestinal: non tender, soft, other ( Wound is clean with moody and without drainage on abdomen) Neurologic/Psychiatric: Alert, Oriented x3 Skin: Normal Color, Warm/Dry Lymphatic: No Adenopathy (Head and neck) Assessment/Plan Assessment/Plan Assessment/Plan Severe debility - s/p 3 recent surgeries - Hip replacement, wound I&D, and ex-lap with small bowel resection Abdominal pain - s/p exploratory laparotomy with small bowel resection [place] [facility] [place] Hip repair incision dehiscence - s/p I&D with Dr. Celeste Snyder postop ileus COPD Current smoker Recent UTI Pericardial effusion Hypothyroidism Hypertension Work with PT/OT Supportive care and pain control as needed Cardiology following for chest pain Monitor bowel function. diet as tolerated Supervisory-Addendum Brief Verification & Attestation Participated in pt care: history, MDM, physical Personally performed: exam, history, MDM, supervision of care Care discussed with: Medical Student Procedures: n/a Results interpretation: Verified all documentation Verification and Attestation of Medical Student E/M Service A medical student performed and documented this service in my presence. I reviewed and verified all information documented by the medical student and made modifications to such information, when appropriate. I personally performed the physical exam and medical decision making. Karl Chairez, Oct 24, 2021,16:56 CYRIL BYRD Oct 24, 2021 08:46 KARL CHAIREZ DO Oct 24, 2021 16:57
[2021-10-24] MEDS: CALCIUM CARBONATE 500 MG (TUMS) TAB.CHEW PO PRN ×3 (09:48→18:16)
--- NOTE | 2021-10-24 09:52 | Physical Therapy Daily Note ---
PT Daily Note-Current Subjective Pt. in bed, states "my sausage is talking to me." Pt. requests a tums from nursing. Pt. says she is having a better day today than yesterday. She does agree to walk, "I need a few days of rest." Mental Status Patient Orientation: Person, Place, Time, Situation Transfers SCALE: Activities may be completed with or without assistive devices. 1-Flbsfpeuji-fqdvbqq completes the activity by him/herself with no assistance from a helper. 5-Set-up or Clean-up Assistance-helper sets up or cleans up; patient completes activity. [place] assists only prior to or following the activity. 4-Supervision or Touching Assistance-helper provides verbal cues and/or touching/steadying and/or contact guard assistance as patient completes activity. Assistance may be provided throughout the activity or intermittently. 3-Partial/Moderate Assistance-helper does LESS THAN HALF the effort. [place] lifts, holds or supports trunk or limbs, but provides less than half the effort. 2-Substantial/Maximal Assistance-helper does MORE THAN HALF the effort. [place] lifts or holds trunk or limbs and provides more than half the effort. 3-Gkrqmitdc-orngel does ALL the effort. Patient does none of the effort to complete the activity. Or, the assistance of 2 or more helpers is required for the patient to complete the activity. If activity was not attempted, code reason: 7-Patient Refused. 9-Not Applicable-not attempted and the patient did not perform the activity before the current illness, exacerbation or injury. 10-Not Attempted due to Environmental Limitations-(lack of equipment, weather restraints, etc.). 88-Not Attempted due to Medical Conditions or Safety Concerns. Sit to Lying (QC): 4 Lying to Sitting/Side of Bed(Q: 4 Sit to Stand (QC): 4 Gait Training Does the Patient Walk?: Yes Distance: 200 ft Walk 150 ft (QC): 4 Gait Persons Needed: 1 Gait Assistive Device: FWW Treatments transfers and gait training Assessment Current Status: Good Progress Pt. needs min A with L LE during supine to/from sit transfers, otherwise is SBA with transfers and ambulation using FWW. Pt. declined additional PT but states she is working on the leg exercises in bed during the day. Pt. in bed with call light and all needs met. PT Short Term Goals Short Term Goals Time Frame: Oct 28, 2021 Roll Left & Right: 4 Sit to lyin Lying to sitting on side of be: 3 Sit to stand: 4 Chair/tox-bm-yopks transfer: 4 Walk 10 feet: 4 Walk 50 feet with two turns: 4 PT Heat Treater Apprentice Goals Heat Treater Apprentice Goals PT Heat Treater Apprentice Goals Time Frame: November 11, 2021 Roll Left & Right (QC): 6 Sit to Lying (QC): 4 Lying-Sitting on Side/Bed(QC): 4 Sit to Stand (QC): 6 Chair/Rfb-qd-Eekei Xfer(QC): 6 Toilet Transfer (QC): 6 Car Transfer (QC): 6 Does the Patient Walk: Yes Walk 10 feet (QC): 6 Walk 50ft with 2 Turns (QC): 6 Walk 150 ft (QC): 6 Walking 10ft on Uneven Surface: 6 1 Step (curb) (QC): 4 4 Steps (QC): 4 12 Steps (QC): 88 Picking up an Object (QC): 4 Wheel 50 feet with 2 turns (QC: 9 Wheel 150 feet: 9 PT Plan Treatment/Plan Treatment Plan: Continue Plan of Care Treatment Plan: Bed Mobility, Education, Functional Activity Maryann, Functional Strength, Group Therapy, Gait, Safety, Therapeutic Exercise, Transfers Treatment Duration: November 11, 2021 Frequency: At least 5 of 7 days/Wk (IRF) Estimated Hrs Per Day: 1.5 hours per day Patient and/or Family Agrees t: Yes Time/GCodes Time In: 934 Time Out: 946 Total Billed Treatment Time: 12 Total Billed Treatment 1, GT 12' JOSEFINA BOUDREAUX PT Oct 24, 2021 09:52
[2021-10-24 20:29] VITALS: BP 122/76
[2021-10-24] MEDS: SUCRALFATE 1 GM (CARAFATE) TAB PO PRN (20:33)
[2021-10-24] MEDS: SIMvastatin 20 MG (ZOCOR) TAB PO SCH (20:34)
[2021-10-25] MEDS: ONDANSETRON 4 MG (ZOFRAN) ORAL DISSOLVE TAB PO PRN ×2 (01:06→17:50)
--- NOTE | 2021-10-25 06:02 | PM&R Progress Note ---
Subjective HPI/CC On Admission Date Seen by Provider: Oct 25, 2021 Time Seen by Provider: 06:00 Subjective/Events-last exam 10/25/21: Patient doing well Abdominal pain will be managed by general surgery Has good and bad days Lungs remain clear 10/24/2021: Patient doing much better today Has crossed the threshold to improvement in recovery No pain reported Bowels are moving Slowly eating and advancing diet 10/23/21: Patient improved except abdominal pain after a lot of gas and BM Updated Dr Nguyen and he will see the patient No falls Pain controlled Improved overall 10/22/21: Patient doing a lot better Nausea is improved Walking with rest breaks Check meds and labs Clear liquid diet may be advanced if okay with Dr. Nguyen Overall improved but slow recovery Review of Systems Gastrointestinal: Abdominal Pain Objective Exam Vital Signs Vital Signs Date Time Temp Pulse Resp B/P (MAP) Pulse Ox O2 Delivery O2 Flow Rate FiO2 10/25/21 11:24 98 Room Air 10/25/21 07:18 37.0 73 20 118/76 (90) 10/22/21 21:30 0.00 Capillary Refill : General Appearance: No Apparent Distress, WD/WN HEENT: PERRL/EOMI Neck: Normal Inspection, Non Tender Respiratory: Chest Non Tender, No Accessory Muscle Use, No Respiratory Distress Cardiovascular: Regular Rate, Rhythm, No JVD Gastrointestinal: Normal Bowel Sounds, No Organomegaly, No Pulsatile Mass, Non Tender, Soft Back: Normal Inspection, No CVA Tenderness, No Vertebral Tenderness Extremity: Normal Capillary Refill, Normal Inspection, Normal Range of Motion, Non Tender, No Calf Tenderness, No Pedal Edema Neurologic/Psychiatric: Alert, Oriented x3 Skin: Normal Color, Warm/Dry Lymphatic: No Adenopathy (Head and neck) Results/Procedures Lab Patient resulted labs reviewed. FIM Transfers Therapy Code Descriptions/Definitions Functional [place] Measure: 0=Not Assessed/NA 4=Minimal Assistance 1=Total Assistance 5=Supervision or Setup 2=Maximal Assistance 6=Modified [place] 3=Moderate Assistance 7=Complete IndependenceSCALE: Activities may be completed with or without assistive devices. 9-Kbencgokeu-bpmjzls completes the activity by him/herself with no assistance from a helper. 5-Set-up or Clean-up Assistance-helper sets up or cleans up; patient completes activity. [place] assists only prior to or following the activity. 4-Supervision or Touching Assistance-helper provides verbal cues and/or touching/steadying and/or contact guard assistance as patient completes activity. Assistance may be provided throughout the activity or intermittently. 3-Partial/Moderate Assistance-helper does LESS THAN HALF the effort. [place] lifts, holds or supports trunk or limbs, but provides less than half the effort. 2-Substantial/Maximal Assistance-helper does MORE THAN HALF the effort. [place] lifts or holds trunk or limbs and provides more than half the effort. 8-Ipetvgrtd-laockw does ALL the effort. Patient does none of the effort to complete the activity. Or, the assistance of 2 or more helpers is required for the patient to complete the activity. If activity was not attempted, code reason: 7-Patient Refused. 9-Not Applicable-not attempted and the patient did not perform the activity before the current illness, exacerbation or injury. 10-Not Attempted due to Environmental Limitations-(lack of equipment, weather restraints, etc.). 88-Not Attempted due to Medical Conditions or Safety Concerns. Roll Left to Right (QC): 6 Sit to Lying (QC): 4 Sit to Stand (QC): 4 Chair/Tzm-an-Reolv Xfer(QC): 3 Car Transfer (QC): 3 Gait Training Does the Patient Walk?: Yes Distance: 200 ft Walk 10 feet (QC): 4 Walk 50 ft with 2 Turns(QC): 4 Walk 150 ft (QC): 4 Walking 10ft/uneven surface-QC: 88 Gait Persons Needed: 1 Gait Assistive Device: FWW Wheelchair Training Wheel 50 ft with 2 turns (QC): 1 Wheel 150 ft (QC): 1 Stair Training 1 Step (curb) (QC): 88 4 Steps (QC): 88 12 Steps (QC): 88 Balance Picking up an Object (QC): 88 ADL-Treatment Eating (QC): 6 (IND with clear liquid diet) Oral Hygiene (QC): 6 (IND seated at sink.) Bathing Location: L Arm, R Arm, Chest, Abdomen Shower/Bathe Self (QC): 4 (SBA, pt able to use LH sponge to wash LEs) Upper Body Dressing (QC): 4 (Pt able to doff UB dressing with supervision.) Lower Body Dressing (QC): 2 (Pt required Max A to doff LB dressing.) On/Off Footwear (QC): 2 (Pt able to doff gripper socks using ophthalmic aide, unable to recall how to use sock aide, requiring total assist to don TedHose and compression socks.) Toileting Hygiene (QC): 4 (SBA, pt able to manage clothing and perform hygiene) Toilet Transfer (QC): 4 (SBA on/off BSC over toilet. ) Assessment/Plan Assessment and Plan Assess & Plan/Chief Complaint Assessment: Severe debility Recent small bowel obstruction due to ischemic bowel status post resection by Dr. Nguyen Long postop ileus COPD Current smoker Recent UTI Pericardial effusion transferred to [place] but no pericardiocentesis required Hypothyroidism Hypertension Recent fall Hip repair incision dehiscence status post I&D by Dr. Alonso Plan: Inpatient rehab protocol Pain control Monitor bowel function 10/22/2021: Supportive care Aggressive rehab Advance diet 10/23/21: Improved overall Dr Nguyen to check on her 10/24/2021: Advance diet Supportive care 10/25/2021: General surgery appreciated (1) Fall Status: Acute (2) SBO (small bowel obstruction) MONIKA TODD DO Oct 25, 2021 06:02
[2021-10-25] MEDS: LEVOTHYROXINE 25 MCG (LEVOTHROID) TAB PO SCH (06:51)
[2021-10-25 07:18] VITALS: BP 118/76
[2021-10-25] MEDS: RT-ALBUTEROL/IPRATROPIUM 3 ML (DUONEB) VIAL IH SCH ×4 (07:31→19:17)
[2021-10-25] MEDS: PANTOPRAZOLE 40 MG (PROTONIX) TAB PO SCH (08:58)
[2021-10-25] MEDS: APIXABAN 5 MG (ELIQUIS) TABLET PO SCH ×2 (08:58→20:51)
[2021-10-25] MEDS: KCL 10 MEQ TAB (MICRO K) PO SCH ×3 (08:58→17:41)
[2021-10-25] MEDS: CALCIUM CARBONATE 500 MG (TUMS) TAB.CHEW PO PRN ×2 (08:58→17:39)
[2021-10-25] MEDS: SENNA W/DOCUSATE (SENOKOT S) TABLET PO SCH ×2 (11:23→20:51)
[2021-10-25] MEDS: polyethylene glycoL POWDER 17 GM (MIRALAX) PACK PO SCH ×2 (11:23→20:51)
[2021-10-25] MEDS: DOCUSATE SODIUM 100 MG (COLACE) CAP PO SCH ×2 (11:23→20:51)
[2021-10-25 20:01] VITALS: BP 147/67
[2021-10-25] MEDS: SIMvastatin 20 MG (ZOCOR) TAB PO SCH (20:51)
[2021-10-26 05:37] LABS: BASOPHILS % (AUTO) 0 % (0-10); EOSINOPHILS # (AUTO) 0.1 10^3/uL (0.0-0.3); EOSINOPHILS % (AUTO) 1 % (0-10); HEMATOCRIT 27 % (35-52); HEMOGLOBIN 8.9 g/dL (11.5-16.0); LYMPHOCYTES # (AUTO) 1.5 10^3/uL (1.0-4.0); LYMPHOCYTES % (AUTO) 17 % (12-44); MEAN CORPUSCULAR HEMOGLOBIN 30 pg (25-34); MEAN CORPUSCULAR HGB CONC 33 g/dL (32-36); MEAN CORPUSCULAR VOLUME 91 fL (80-99); MEAN PLATELET VOLUME 10.8 fL (9.0-12.2); MONOCYTES # (AUTO) 0.6 10^3/uL (0.0-1.0); MONOCYTES % (AUTO) 7 % (0-12); NEUTROPHILS # (AUTO) 6.2 10^3/uL (1.8-7.8); NEUTROPHILS % (AUTO) 73 % (42-75); PLATELET COUNT 390 10^3/uL (130-400); WHITE BLOOD COUNT 8.5 10^3/uL (4.3-11.0)
[2021-10-26 05:49] LABS: ALBUMIN 2.6 GM/DL (3.2-4.5); POTASSIUM 3.9 MMOL/L (3.6-5.0)
[2021-10-26 05:50] LABS: CALCIUM 8.1 MG/DL (8.5-10.1)
[2021-10-26 05:51] LABS: TOTAL PROTEIN 4.8 GM/DL (6.4-8.2)
[2021-10-26 05:53] LABS: BILIRUBIN,TOTAL 0.6 MG/DL (0.1-1.0)
[2021-10-26 05:55] LABS: CREATININE SERUM 0.54 MG/DL (0.60-1.30)
--- NOTE | 2021-10-26 06:13 | PM&R Progress Note ---
Subjective HPI/CC On Admission Date Seen by Provider: Oct 26, 2021 Time Seen by Provider: 09:30 Subjective/Events-last exam 10/26/21: Having more abdominal pain Dr Nguyen and I discussed the issue so CT completed revealing significant stenosis of mesenteric arteries which needs intervention and stenting 60 years of smoking has caused severe PVD issues Andrew declined transfer so reaching out to No urgent but will need addressed tomorrow Patient on NOAC 10/25/21: Patient doing well Abdominal pain will be managed by general surgery Has good and bad days Lungs remain clear 10/24/2021: Patient doing much better today Has crossed the threshold to improvement in recovery No pain reported Bowels are moving Slowly eating and advancing diet 10/23/21: Patient improved except abdominal pain after a lot of gas and BM Updated Dr Nguyen and he will see the patient No falls Pain controlled Improved overall 10/22/21: Patient doing a lot better Nausea is improved Walking with rest breaks Check meds and labs Clear liquid diet may be advanced if okay with Dr. Nguyen Overall improved but slow recovery Review of Systems General: Fatigue, Malaise Gastrointestinal: Abdominal Pain Objective Exam Vital Signs Vital Signs Date Time Temp Pulse Resp B/P (MAP) Pulse Ox O2 Delivery O2 Flow Rate FiO2 10/26/21 21:15 Room Air 10/26/21 19:51 37.4 72 16 147/79 (101) 96 10/26/21 15:38 21 10/22/21 21:30 0.00 Capillary Refill : General Appearance: No Apparent Distress, WD/WN HEENT: PERRL/EOMI Neck: Normal Inspection, Non Tender Respiratory: Chest Non Tender, No Accessory Muscle Use, No Respiratory Distress Cardiovascular: Regular Rate, Rhythm, No JVD Gastrointestinal: Normal Bowel Sounds, No Organomegaly, No Pulsatile Mass, Non Tender, Soft Back: Normal Inspection, No CVA Tenderness, No Vertebral Tenderness Extremity: Normal Capillary Refill, Normal Inspection, Normal Range of Motion, Non Tender, No Calf Tenderness, No Pedal Edema Neurologic/Psychiatric: Alert, Oriented x3 Skin: Normal Color, Warm/Dry Lymphatic: No Adenopathy (Head and neck) Results/Procedures Lab Patient resulted labs reviewed. FIM Transfers Therapy Code Descriptions/Definitions Functional [place] Measure: 0=Not Assessed/NA 4=Minimal Assistance 1=Total Assistance 5=Supervision or Setup 2=Maximal Assistance 6=Modified [place] 3=Moderate Assistance 7=Complete IndependenceSCALE: Activities may be completed with or without assistive devices. 3-Lgiorhzxyn-jsaogir completes the activity by him/herself with no assistance from a helper. 5-Set-up or Clean-up Assistance-helper sets up or cleans up; patient completes activity. [place] assists only prior to or following the activity. 4-Supervision or Touching Assistance-helper provides verbal cues and/or touching/steadying and/or contact guard assistance as patient completes activity. Assistance may be provided throughout the activity or intermittently. 3-Partial/Moderate Assistance-helper does LESS THAN HALF the effort. [place] lifts, holds or supports trunk or limbs, but provides less than half the effort. 2-Substantial/Maximal Assistance-helper does MORE THAN HALF the effort. [place] lifts or holds trunk or limbs and provides more than half the effort. 2-Dibvspbwl-rzmyik does ALL the effort. Patient does none of the effort to complete the activity. Or, the assistance of 2 or more helpers is required for the patient to complete the activity. If activity was not attempted, code reason: 7-Patient Refused. 9-Not Applicable-not attempted and the patient did not perform the activity before the current illness, exacerbation or injury. 10-Not Attempted due to Environmental Limitations-(lack of equipment, weather restraints, etc.). 88-Not Attempted due to Medical Conditions or Safety Concerns. Roll Left to Right (QC): 6 Sit to Lying (QC): 4 Sit to Stand (QC): 4 Chair/Hha-st-Temje Xfer(QC): 3 Car Transfer (QC): 3 Gait Training Does the Patient Walk?: Yes Distance: 200 ft Walk 10 feet (QC): 4 Walk 50 ft with 2 Turns(QC): 4 Walk 150 ft (QC): 4 Walking 10ft/uneven surface-QC: 88 Gait Persons Needed: 1 Gait Assistive Device: FWW Wheelchair Training Wheel 50 ft with 2 turns (QC): 1 Wheel 150 ft (QC): 1 Stair Training 1 Step (curb) (QC): 88 4 Steps (QC): 88 12 Steps (QC): 88 Balance Picking up an Object (QC): 88 ADL-Treatment Eating (QC): 6 (IND with clear liquid diet) Oral Hygiene (QC): 6 (IND seated at sink.) Bathing Location: L Arm, R Arm, Chest, Abdomen Shower/Bathe Self (QC): 4 (SBA, pt able to use LH sponge to wash LEs) Upper Body Dressing (QC): 4 (Pt able to doff UB dressing with supervision.) Lower Body Dressing (QC): 2 (Pt required Max A to doff LB dressing.) On/Off Footwear (QC): 2 (Pt able to doff gripper socks using manufacturing coordinator, unable to recall how to use sock aide, requiring total assist to don TedHose and compression socks.) Toileting Hygiene (QC): 4 (SBA, pt able to manage clothing and perform hygiene) Toilet Transfer (QC): 4 (SBA on/off BSC over toilet. ) Assessment/Plan Assessment and Plan Assess & Plan/Chief Complaint Assessment: Severe debility Recent small bowel obstruction due to ischemic bowel status post resection by Dr. Nguyen then abdominal pain worsened prompting CT angiogram on 10/26/21 revealing significant mesenteric stenosis in need of intervention prompting transfer process currently pending Long postop ileus COPD Current smoker Recent UTI Pericardial effusion transferred to [place] but no pericardiocentesis required Hypothyroidism Hypertension Recent fall Hip repair incision dehiscence status post I&D by Dr. Alonso Plan: Inpatient rehab protocol Pain control Monitor bowel function 10/22/2021: Supportive care Aggressive rehab Advance diet 10/23/21: Improved overall Dr Nguyen to check on her 10/24/2021: Advance diet Supportive care 10/25/2021: General surgery appreciated 10/26/21: Transfer for mesenteric catherization with stenting (1) Fall Status: Acute (2) SBO (small bowel obstruction) MONIKA TODD DO Oct 26, 2021 06:12
[2021-10-26] MEDS: LEVOTHYROXINE 25 MCG (LEVOTHROID) TAB PO SCH (06:41)
[2021-10-26] MEDS: RT-ALBUTEROL/IPRATROPIUM 3 ML (DUONEB) VIAL IH SCH ×3 (07:10→14:37)
--- NOTE | 2021-10-26 08:14 | Progress Note - Surgery ---
CYRIL BYRD 10/26/21 0814: Subjective Date Seen by a Provider: Oct 26, 2021 Time Seen by a Provider: 07:05 Subjective/Events-last exam Ms. Murry is 10 days s/p exploratory laparotomy with small bowel resection due to ischemic bowel. She is at inpatient rehab here at [facility]. Over the weekend she has had periods of abdominal pain after eating meals. She is continuing to have liquid bowel movements. She denies pain around her incision. She reports her incision is slightly itchy at times. Review of Systems General: No Chills, No Fatigue HEENT: No Head Aches, No Visual Changes Pulmonary: No Dyspnea, No Cough Cardiovascular: No: Chest Pain, Palpitations Gastrointestinal: Abdominal Pain; No: Nausea, Vomiting Neurological: No: Weakness, Confusion Objective Exam Vital Signs Date Time Temp Pulse Resp B/P (MAP) Pulse Ox O2 Delivery O2 Flow Rate FiO2 10/25/21 20:52 Room Air 10/25/21 20:01 36.8 83 18 147/67 (93) 97 Room Air 10/25/21 19:18 97 Room Air 10/25/21 11:24 98 Room Air 10/25/21 08:47 Room Air Capillary Refill : General Appearance: No Apparent Distress, WD/WN HEENT: PERRL/EOMI; No Scleral Icterus (L), No Scleral Icterus (R) Neck: Normal Inspection, Non Tender Respiratory: Chest Non Tender, Lungs Clear, Normal Breath Sounds, No Accessory Muscle Use, No Respiratory Distress Cardiovascular: Regular Rate, Rhythm, No Edema, Normal Peripheral Pulses Peripheral Pulses: 2+ Radial Pulses (R), 2+ Radial Pulses (L) Gastrointestinal: non tender, soft, other ( Wound is clean with moody and without drainage on abdomen) Extremity: Normal Inspection, Normal Range of Motion Neurologic/Psychiatric: Alert, Oriented x3, No Motor/Sensory Deficits, Normal Mood/Affect Skin: Normal Color, Warm/Dry Lymphatic: No Adenopathy (Head and neck) Results Lab Laboratory Tests 10/26/21 05:19: White Blood Count 8.5, Red Blood Count 2.99L, Hemoglobin 8.9L, Hematocrit 27L, Mean Corpuscular Volume 91, Mean Corpuscular Hemoglobin 30, Mean Corpuscular Hemoglobin Concent 33, Red Cell Distribution Width 14.1, Platelet Count 390, Mean Platelet Volume 10.8, Immature Granulocyte % (Auto) 2, Neutrophils (%) (Auto) 73, Lymphocytes (%) (Auto) 17, Monocytes (%) (Auto) 7, Eosinophils (%) (Auto) 1, Basophils (%) (Auto) 0, Neutrophils # (Auto) 6.2, Lymphocytes # (Auto) 1.5, Monocytes # (Auto) 0.6, Eosinophils # (Auto) 0.1, Basophils # (Auto) 0.0, Immature Granulocyte # (Auto) 0.1, Sodium Level 137, Potassium Level 3.9, Chloride Level 107, Carbon Dioxide Level 19L, Anion Gap 11, Blood Urea Nitrogen 6L, Creatinine 0.54L, Estimat Glomerular Filtration Rate 97, BUN/Creatinine Ratio 11, Glucose Level 90, Calcium Level 8.1L, Corrected Calcium 9.2, Total Bilirubin 0.6, Aspartate Amino Transf (AST/SGOT) 11, Alanine Aminotransferase (ALT/SGPT) 18, Alkaline Phosphatase 79, Total Protein 4.8L, Albumin 2.6L Assessment/Plan Assessment/Plan Assessment/Plan Severe debility - s/p 3 recent surgeries - Hip replacement, wound I&D, and ex-lap with small bowel resection Abdominal pain - s/p exploratory laparotomy with small bowel resection d/t ischemic bowel on 10/16/2021 at [facility] Recent fall Hip repair incision dehiscence - s/p I&D with Dr. Celeste Snyder postop ileus COPD Current smoker Recent UTI Pericardial effusion Hypothyroidism Hypertension Plan: Work with PT/OT Supportive care and pain control as needed Cardiology following for chest pain Monitor bowel function. Diet as tolerated KARL CHAIREZ DO 10/26/212057: Subjective Subjective/Events-last exam Patient with worsening abdominal pain across lower portion of her abdomen. Worse after eating. Not wanting to eat or drink anything due to the pain. Pat ient states is continuing to worsen over the last day or 2. She is having bowel movements. Had some nausea no emesis. Feeling more distended. KUB demonstrating adynamic ileus with distended colonic and small bowel. Objective Exam General Appearance: No Apparent Distress, Anxious HEENT: PERRL/EOMI, Normal ENT Inspection Neck: Normal Inspection, Non Tender Respiratory: Chest Non Tender, No Accessory Muscle Use, No Respiratory Distress Cardiovascular: Regular Rate, Rhythm, No JVD Gastrointestinal: distended, tenderness (Increasing tenderness in the lower abdomen bilateral since my last exam), other ( Wound is clean with moody and without drainage on abdomen) Extremity: Normal Inspection (Incision left hip) Neurologic/Psychiatric: Alert, Oriented x3, Normal Mood/Affect Skin: Normal Color, Warm/Dry Lymphatic: No Adenopathy (Head and neck) Assessment/Plan Assessment/Plan Assessment/Plan Severe debility - s/p 3 recent surgeries - Hip replacement, wound I&D, and ex-lap with small bowel resection Abdominal pain - s/p exploratory laparotomy with small bowel resection d/t ischemic bowel on 10/16/2021 at [facility] Recent fall Hip repair incision dehiscence - s/p I&D with Dr. Celeste Snyder postop ileus COPD Current smoker Recent UTI Pericardial effusion Hypothyroidism Hypertension Work with PT/OT Supportive care and pain control as needed Cardiology following for chest pain Clear liquids at this time. Patient with worsening abdominal pain and consistent with exam. Due to recent ischemic bowel we will get a CTA of the abdomen pelvis to further evaluate. CTA obtained: 1. 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 2. 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 The inferior mesenteric artery is patent. 3. Diffuse abnormally dilated segments of both small and large bowel without pneumatosis or portal venous gas to specifically diagnose intestinal ischemia. 4. Single focus of free intraperitoneal air. There are midline anterior skin moody. Correlation with timing of any recent surgery is recommended. 5. Small to moderate pericardial effusion and bilateral pleural effusions. I feel due to the occlusion of the superior mesenteric artery this is likely causing a significant portion of her symptoms. I feel this is likely causing intermittent decreased blood flow causing ischemia which is likely causing her pain. If blood flow becomes compromised would cause entire bowel to be ischemic which no surgical intervention would be able to fix and patient would . Therefore we will try to transfer patient for angiography and possible intervention. I did discuss with Dr. Dorado who agrees with plan. I contacted [facility] feel she needs to be at a tertiary center since no one is available for this present leave there.. I have contacted [facility] and awaiting their input. Supervisory-Addendum Brief Verification & Attestation Participated in pt care: history, MDM, physical Personally performed: exam, history, MDM, supervision of care Care discussed with: Medical Student Procedures: n/a Results interpretation: Verified all documentation Verification and Attestation of Medical Student E/M Service A medical student performed and documented this service in my presence. I reviewed and verified all information documented by the medical student and made modifications to such information, when appropriate. I personally performed the physical exam and medical decision making. Karl Chairez, Oct 26, 2021,20:58 CYRIL BYRD Oct 26, 2021 08:14 KARL CHAIREZ DO Oct 26, 2021 20:58
[2021-10-26] MEDS: APIXABAN 5 MG (ELIQUIS) TABLET PO SCH ×2 (08:35→21:20)
[2021-10-26] MEDS: PANTOPRAZOLE 40 MG (PROTONIX) TAB PO SCH (08:35)
[2021-10-26] MEDS: KCL 10 MEQ TAB (MICRO K) PO SCH ×3 (08:35→17:35)
[2021-10-26] MEDS: SENNA W/DOCUSATE (SENOKOT S) TABLET PO SCH ×2 (08:36→21:21)
[2021-10-26] MEDS: polyethylene glycoL POWDER 17 GM (MIRALAX) PACK PO SCH ×2 (08:36→21:21)
[2021-10-26] MEDS: DOCUSATE SODIUM 100 MG (COLACE) CAP PO SCH ×2 (08:36→21:21)
[2021-10-26 09:28] VITALS: BP 96/58
--- NOTE | 2021-10-26 09:49 | Cardiology Progress Note ---
Subjective Date Seen by Provider: Oct 26, 2021 Time Seen by Provider: 08:15 Subjective/Events-last exam Patient is sitting up in bed, complaing of some diffuse abdominal discomfort, worse after BM. Denies any chest pain or dyspnea. Objective-Cardiology Exam Last Set of Vital Signs Vital Signs 10/22/21 10/26/21 10/26/21 10/26/21 21:30 09:28 10:02 15:38 Temp 36.8 Pulse 79 Resp 18 B/P (MAP) 139/62 (87) Pulse Ox 98 O2 Delivery Room Air O2 Flow Rate 0.00 FiO2 21 General: Alert, Oriented X3 HEENT: Atraumatic Neck: Supple, No JVD Lungs: Clear to Auscultation, Normal Air Movement Heart: Regular Rate, Normal S1, Normal S2 Abdomen: Normal Bowel Sounds, Soft Skin: No Rashes, No Breakdown Results Lab Laboratory Tests 10/26/21 05:19 A/P-Cardiology Admission Diagnosis Chest pain Pericardial effusion HTN HLP Assessment/Plan Chest pain, nonspecific etiology, atypical in presentation. C/o right sided chest pain radiating to shoulder, now resolved. EKG showing so acute ST changes, will continue to monitor. Pericardial effusion, reported small pericardial effusion of unknown etiology, discovered during CT abdomen. Workup was done at [facility] including 2D Echo. I will try to obtain records for further review. HTN, controlled, continue to monitor. HLP, maintained on statin. Continue to monitor as outpatient. s/p L hip replacement with Dr. Alonso September 2021 with incisional wound dehiscence secondary to fall, s/p repair. SBO with small bowel resection, complaining of some abdominal discomfort. Management by Dr. Nguyen. Generalized debility/weakness, continue with PT/OT. Hypokalemia, replaced, continue to monitor. Supervisory-Addendum Brief Supervisory Addendum Participated in pt care: history, MDM, physical Personally performed: exam, history, MDM Care discussed with: ANJELICA Results interpretation: Verified all documentation Notes: Patient was seen and evaluated with Kelsey, no new complaint, on examination lungs were clear to auscultation bilaterally, heart is regular rate and rhythm. I will continue on current medication, monitor blood pressure and lipids Patient was seen at bedside, laying down comfortably, still having mild abdominal discomfort No chest pain was noted. Continue current medication monitor KELSEY CALDWELL Oct 26, 2021 09:49 GREGORY OBYER MD Oct 26, 2021 16:39
--- NOTE | 2021-10-26 09:56 | Occupational Ther Daily Note ---
OT Current Status-Daily Note Subjective Pt in bed, agreeable to OT Tx. She indicates she had felt a little better this weekend, but then began having nausea and abdominal pain again. 4/10 pain in abdominal area during tx. Mental Status/Objective Patient Orientation: Normal For Age ADL-Treatment Therapy Code Descriptions/Definitions Functional [place] Measure: 0=Not Assessed/NA 4=Minimal Assistance 1=Total Assistance 5=Supervision or Setup 2=Maximal Assistance 6=Modified [place] 3=Moderate Assistance 7=Complete IndependenceSCALE: Activities may be completed with or without assistive devices. 8-Cckoayebyt-xhzgjmj completes the activity by him/herself with no assistance from a helper. 5-Set-up or Clean-up Assistance-helper sets up or cleans up; patient completes activity. [place] assists only prior to or following the activity. 4-Supervision or Touching Assistance-helper provides verbal cues and/or touching/steadying and/or contact guard assistance as patient completes activity. Assistance may be provided throughout the activity or intermittently. 3-Partial/Moderate Assistance-helper does LESS THAN HALF the effort. [place] lifts, holds or supports trunk or limbs, but provides less than half the effort. 2-Substantial/Maximal Assistance-helper does MORE THAN HALF the effort. [place] lifts or holds trunk or limbs and provides more than half the effort. 1-Rxccfklgh-lygdqd does ALL the effort. Patient does none of the effort to complete the activity. Or, the assistance of 2 or more helpers is required for the patient to complete the activity. If activity was not attempted, code reason: 7-Patient Refused. 9-Not Applicable-not attempted and the patient did not perform the activity before the current illness, exacerbation or injury. 10-Not Attempted due to Environmental Limitations-(lack of equipment, weather restraints, etc.). 88-Not Attempted due to Medical Conditions or Safety Concerns. Eating (QC): 6 Oral Hygiene (QC): 6 (seated at sink) Shower/Bathe Self (QC): 4 (SBA sponge bath) Upper Body Dressing (QC): 5 (set up anchor tack puller shirt.) Lower Body Dressing (QC): 4 (SBA LB dressing using AE) On/Off Footwear: 3 (Pt able to doff gripper socks using AE with set up, min A to don using sock aide.) Toileting Hygiene (QC): 4 (SBA, pt able to manage hygiene and complete toileting.) Toilet Transfer (QC): 4 (SBA on/off BSC over toilet.) Other Treatment Pt in bed, transferred supine to sit EOB, SBA. Pt used FWW to transfer into bathroom and onto toilet. Pt completed toileting, transferred to w/c to complete grooming, sponge bath, and dressing at w/c level. Pt declined full shower today due to not feeling well. Pt requests to use bathroom again, transferring to BSC over toilet, completed toileting, then transferred to recliner. Post tx, pt in recliner, call light in reach and all needs met. Education OT Patient Education: Correct positioning, Energy conservation, Modified ADL techniques, Progress toward Goal/Update tx plan, Purpose of tx/functional activities, Rehab process Teaching Recipient: Patient Teaching Methods: Discussion Response to Teaching: Verbalize Understanding OT Short Term Goals Short Term Goals Time Frame: November 11, 2021 Shower/bathe self: 4 Upper body dressin Lower body dressin Putting on/taking off footwear: 4 OT Halfway Goals Halfway Goals Time Frame: November 20, 2021 Eating (QC): 6 Oral Hygiene (QC): 6 Toileting Hygiene (QC): 6 Shower/Bathe Self (QC): 6 Upper Body Dressing (QC): 6 Lower Body Dressing (QC): 6 On/Off Footwear (QC): 6 Additional Goals: 1-Demonstrate ADL Tasks, 2-Verbalize Understanding, 3- ImproveStrength/Maryann 1=Demonstrate adherence to instructed precautions during ADL tasks. 2=Patient will verbalize/demonstrate understanding of assistive devices/modifications for ADL. 3=Patient will improve strength/tolerance for activity to enable patient to perform ADL's. OT Education/Plan Problem List/Assessment Assessment: Decreased Activ Tolerance, Decreased UE Strength, Impaired Funct Balance, Impaired I ADL's, Impaired Self-Care Skills Discharge Recommendations Plan/Recommendations: Continue POC Treatment Plan/Plan of Care Patient would benefit from OT for education, treatment and training to promote independence in ADL's, mobility, safety and/or upper extremity function for ADL's. Plan of Care: ADL Retraining, Functional Mobility, Group Exercise/Act as Ind, UE Funct Exercise/Act Treatment Duration: November 20, 2021 Frequency: At least 5 of 7 days/Wk (IRF) Estimated Hrs Per Day: 1.5 hours per day Agreement: Yes Rehab Potential: Good Time/GCodes Start Time: 09:00 Stop Time: 10:00 Total Time Billed (hr/min): 60 Billed Treatment Time 1, ADL 4 AILYN MITCHELL OT Oct 26, 2021 09:56
[2021-10-26 10:02] VITALS: BP 139/62
[2021-10-26] MEDS ORDERED: HYDROcodone/APAP 5 MG/325 MG (LORTAB) TAB PO PRN (10:45)
[2021-10-26] MEDS: ONDANSETRON 4 MG (ZOFRAN) ORAL DISSOLVE TAB PO PRN ×2 (10:53→16:25)
--- NOTE | 2021-10-26 10:58 | Physical Therapy Daily Note ---
PT Daily Note-Current Subjective Pt agrees to PT. Pt states her pain got worse tuesday night and hasn't got better. She states the pain is in her abdomen and she is still nauseous sometimes. Mental Status Patient Orientation: Person, Place, Time, Situation Transfers SCALE: Activities may be completed with or without assistive devices. 6-Ujpdbsigqt-pirpmjo completes the activity by him/herself with no assistance from a helper. 5-Set-up or Clean-up Assistance-helper sets up or cleans up; patient completes activity. [place] assists only prior to or following the activity. 4-Supervision or Touching Assistance-helper provides verbal cues and/or touching/steadying and/or contact guard assistance as patient completes activity. Assistance may be provided throughout the activity or intermittently. 3-Partial/Moderate Assistance-helper does LESS THAN HALF the effort. [place] lifts, holds or supports trunk or limbs, but provides less than half the effort. 2-Substantial/Maximal Assistance-helper does MORE THAN HALF the effort. [place] lifts or holds trunk or limbs and provides more than half the effort. 1-Cekfhrexc-urwmzv does ALL the effort. Patient does none of the effort to complete the activity. Or, the assistance of 2 or more helpers is required for the patient to complete the activity. If activity was not attempted, code reason: 7-Patient Refused. 9-Not Applicable-not attempted and the patient did not perform the activity before the current illness, exacerbation or injury. 10-Not Attempted due to Environmental Limitations-(lack of equipment, weather restraints, etc.). 88-Not Attempted due to Medical Conditions or Safety Concerns. Roll Left & Right (QC): 6 Sit to Lying (QC): 6 Lying to Sitting/Side of Bed(Q: 6 Sit to Stand (QC): 4 Chair/Kaa-gc-Ikzzm Xfer(QC): 6 Toilet Transfer (QC): 4 Car Transfer (QC): 5 Gait Training Does the Patient Walk?: Yes Distance: 150' x2 Walk 10 feet (QC): 4 Walk 50 ft with 2 Turns(QC): 4 Walk 150 ft (QC): 4 Walking 10ft/uneven surface-QC: 4 Gait Persons Needed: 1 Gait Assistive Device: FWW Wheelchair Training Does the Pt Use a Wheelchair?: Yes Wheel 50 ft with 2 turns (QC): 6 Wheel 150 ft (QC): 6 Type of Wheelchair: Manual Stair Training Stair Training: Handrails/: 2 handrails #of Steps: 4 1 Step (curb) (QC): 4 4 Steps (QC): 4 12 Steps (QC): 7 Stairs: Pattern: Step to Balance Picking up an Object (QC): 5 Treatments Pt sitting in chair upon arrival of PT. Pt completes QCs in room then amb. to gym to finish QCs. Pt performs WC mobility back to room and TF to BR then TF to laying supine in bed. All needs met, call light in hand. Assessment Current Status: Fair Progress Pt is motivated to get better but her pain limits her activity. PT Short Term Goals Short Term Goals Time Frame: Oct 28, 2021 Roll Left & Right: 4 Sit to lyin Lying to sitting on side of be: 3 Sit to stand: 4 Chair/paq-kd-vxvfm transfer: 4 Walk 10 feet: 4 Walk 50 feet with two turns: 4 PT Motion Picture Cameraman Goals Intermediate Goals PT Motion Picture Cameraman Goals Time Frame: November 11, 2021 Roll Left & Right (QC): 6 Sit to Lying (QC): 4 Lying-Sitting on Side/Bed(QC): 4 Sit to Stand (QC): 6 Chair/Mvy-wp-Sjlyq Xfer(QC): 6 Toilet Transfer (QC): 6 Car Transfer (QC): 6 Does the Patient Walk: Yes Walk 10 feet (QC): 6 Walk 50ft with 2 Turns (QC): 6 Walk 150 ft (QC): 6 Walking 10ft on Uneven Surface: 6 1 Step (curb) (QC): 4 4 Steps (QC): 4 12 Steps (QC): 88 Picking up an Object (QC): 4 Wheel 50 feet with 2 turns (QC: 9 Wheel 150 feet: 9 PT Plan Treatment/Plan Treatment Plan: Continue Plan of Care Treatment Plan: Bed Mobility, Education, Functional Activity Maryann, Functional Strength, Group Therapy, Gait, Safety, Therapeutic Exercise, Transfers Treatment Duration: November 11, 2021 Frequency: At least 5 of 7 days/Wk (IRF) Estimated Hrs Per Day: 1.5 hours per day Patient and/or Family Agrees t: Yes Safety Risks/Education Patient Education: Gait Training, Safety Issues Teaching Recipient: Patient Teaching Methods: Discussion Response to Teaching: Verbalize Understanding Time/GCodes Time In: 1000 Time Out: 1100 Total Billed Treatment Time: 60 Total Billed Treatment 1, FA x2 (30 min) GT x2 (30 min) LETY MARTIN OILER BANDER Oct 26, 2021 10:58
--- NOTE | 2021-10-26 11:09 | Progress Note ---
[place] AARON MED STUDENT 10/26/21 1109: Progress Note Miss Li is feeling better after having a rough weekend of feeling sick, nauseated and having abdominal pain. Overall, the improvement that she has noticed is her strength. She feels stronger, even though it is a very slow process. She is also seeing improvement in her eating. She ate one bite of chavez, one bite of pancakes and a fruit cup, this has been the most since she has been here. ARPITA TODD DO 10/26/212049: Supervisory-Addendum Brief Verification & Attestation Participated in pt care: history, MDM, physical Personally performed: exam, history, MDM, supervision of care Care discussed with: Medical Student Procedures: n/a Results interpretation: Verified all documentation Verification and Attestation of Medical Student E/M Service A medical student performed and documented this service in my presence. I reviewed and verified all information documented by the medical student and made modifications to such information, when appropriate. I personally performed the physical exam and medical decision making. Arpita Todd, Oct 26, 2021,20:50 [place] AARON MED STUDENT Oct 26, 2021 11:09 ARPITA TODD DO Oct 26, 2021 20:50
--- NOTE | 2021-10-26 12:14 | Diagnostic Imaging Report ---
INDICATION: Abdominal pain and distention. Postop. Comparison with previous CT scan abdomen for 10/06/2021. FINDINGS: Midline incision has been performed since previous CT. There is gaseous distention of several loops of small bowel as well as gaseous distention of the colon. No organomegaly. The lungs suggest hyperaeration with chronic interstitial disease. IMPRESSION: KUB suggesting adynamic ileus with distended large and small bowel loops. Dictated by: Dictated on workstation # [id number]
--- NOTE | 2021-10-26 13:22 | Occupational Ther Daily Note ---
OT Current Status-Daily Note Subjective Pt in bed, agreeable to OT tx. ADL-Treatment Therapy Code Descriptions/Definitions Functional [place] Measure: 0=Not Assessed/NA 4=Minimal Assistance 1=Total Assistance 5=Supervision or Setup 2=Maximal Assistance 6=Modified [place] 3=Moderate Assistance 7=Complete IndependenceSCALE: Activities may be completed with or without assistive devices. 3-Rwipuciorc-zweekek completes the activity by him/herself with no assistance from a helper. 5-Set-up or Clean-up Assistance-helper sets up or cleans up; patient completes activity. [place] assists only prior to or following the activity. 4-Supervision or Touching Assistance-helper provides verbal cues and/or touching/steadying and/or contact guard assistance as patient completes activity. Assistance may be provided throughout the activity or intermittently. 3-Partial/Moderate Assistance-helper does LESS THAN HALF the effort. Center lifts, holds or supports trunk or limbs, but provides less than half the effort. 2-Substantial/Maximal Assistance-helper does MORE THAN HALF the effort. [place] lifts or holds trunk or limbs and provides more than half the effort. 3-Ssnauwcnc-xkrfni does ALL the effort. Patient does none of the effort to complete the activity. Or, the assistance of 2 or more helpers is required for the patient to complete the activity. If activity was not attempted, code reason: 7-Patient Refused. 9-Not Applicable-not attempted and the patient did not perform the activity befo re the current illness, exacerbation or injury. 10-Not Attempted due to Environmental Limitations-(lack of equipment, weather re straints, etc.). 88-Not Attempted due to Medical Conditions or Safety Concerns. Other Treatment OT tx with focus on UE exercises in order to increase BUE strength and activity tolerance, pt completed 2x15 reps each: shoulder flexion, shoulder abduction/adduction, front punch, elbow flexion/extension. Post tx, pt in bed, nursing present providing medication, all needs met, call light in reach Education OT Patient Education: Correct positioning, Energy conservation, Modified ADL techniques, Progress toward Goal/Update tx plan, Purpose of tx/functional activities, Rehab process Teaching Recipient: Patient Teaching Methods: Discussion Response to Teaching: Verbalize Understanding OT Short Term Goals Short Term Goals Time Frame: November 11, 2021 Shower/bathe self: 4 Upper body dressin Lower body dressin Putting on/taking off footwear: 4 OT Mcc Goals Flocculator Operator Goals Time Frame: November 20, 2021 Eating (QC): 6 Oral Hygiene (QC): 6 Toileting Hygiene (QC): 6 Shower/Bathe Self (QC): 6 Upper Body Dressing (QC): 6 Lower Body Dressing (QC): 6 On/Off Footwear (QC): 6 Additional Goals: 1-Demonstrate ADL Tasks, 2-Verbalize Understanding, 3- ImproveStrength/Maryann 1=Demonstrate adherence to instructed precautions during ADL tasks. 2=Patient will verbalize/demonstrate understanding of assistive devices/lorna fications for ADL. 3=Patient will improve strength/tolerance for activity to enable patient to perform ADL's. OT Education/Plan Problem List/Assessment Assessment: Decreased Activ Tolerance, Decreased UE Strength, Impaired Funct Balance, Impaired I ADL's, Impaired Self-Care Skills Discharge Recommendations Plan/Recommendations: Continue POC Treatment Plan/Plan of Care Patient would benefit from OT for education, treatment and training to promote independence in ADL's, mobility, safety and/or upper extremity function for ADL's. Plan of Care: ADL Retraining, Functional Mobility, Group Exercise/Act as Ind, UE Funct Exercise/Act Treatment Duration: November 20, 2021 Frequency: At least 5 of 7 days/Wk (IRF) Estimated Hrs Per Day: 1.5 hours per day Agreement: Yes Rehab Potential: Good Time/GCodes Start Time: 13:00 Stop Time: 13:30 Total Time Billed (hr/min): 30 Billed Treatment Time 1, EX 2 AILYN MITCHELL OT Oct 26, 2021 13:22
[2021-10-26] MEDS ORDERED: ACET-2267 PO (13:38)
--- NOTE | 2021-10-26 15:10 | Physical Therapy Daily Note ---
PT Daily Note-Current Subjective Pt agrees to PT. Pt states she is feeling better this afternoon. Mental Status Patient Orientation: Person, Place, Time, Situation Transfers SCALE: Activities may be completed with or without assistive devices. 6-Rwrskqzcba-klwnpjp completes the activity by him/herself with no assistance from a helper. 5-Set-up or Clean-up Assistance-helper sets up or cleans up; patient completes activity. [place] assists only prior to or following the activity. 4-Supervision or Touching Assistance-helper provides verbal cues and/or touching/steadying and/or contact guard assistance as patient completes activity. Assistance may be provided throughout the activity or intermittently. 3-Partial/Moderate Assistance-helper does LESS THAN HALF the effort. [place] lifts, holds or supports trunk or limbs, but provides less than half the effort. 2-Substantial/Maximal Assistance-helper does MORE THAN HALF the effort. [place] lifts or holds trunk or limbs and provides more than half the effort. 7-Pitayglkt-kjntvc does ALL the effort. Patient does none of the effort to complete the activity. Or, the assistance of 2 or more helpers is required for the patient to complete the activity. If activity was not attempted, code reason: 7-Patient Refused. 9-Not Applicable-not attempted and the patient did not perform the activity before the current illness, exacerbation or injury. 10-Not Attempted due to Environmental Limitations-(lack of equipment, weather restraints, etc.). 88-Not Attempted due to Medical Conditions or Safety Concerns. Roll Left & Right (QC): 6 Sit to Lying (QC): 6 Lying to Sitting/Side of Bed(Q: 6 Sit to Stand (QC): 6 Toilet Transfer (QC): 6 Weight Bearing Full Weight Bearing Full Weight Bearing Gait Training Does the Patient Walk?: Yes Distance: 15' x2 Walk 10 feet (QC): 5 Gait Persons Needed: 1 Gait Assistive Device: FWW Treatments Pt laying supine in bed upon arrival of PT. Pt TF to EOB then amb. to BR. Pt amb. back to bed to lay supine. All needs met, call light in hand. Assessment Current Status: Good Progress Pt is motivated but pain in her abdomen sets her back during tx. PT Short Term Goals Short Term Goals Time Frame: Oct 28, 2021 Roll Left & Right: 4 Sit to lyin Lying to sitting on side of be: 3 Sit to stand: 4 Chair/syu-um-panvj transfer: 4 Walk 10 feet: 4 Walk 50 feet with two turns: 4 PT Care Home Goals Informatics Analyst Goals PT Care Home Goals Time Frame: November 11, 2021 Roll Left & Right (QC): 6 Sit to Lying (QC): 4 Lying-Sitting on Side/Bed(QC): 4 Sit to Stand (QC): 6 Chair/Xog-pr-Qlwep Xfer(QC): 6 Toilet Transfer (QC): 6 Car Transfer (QC): 6 Does the Patient Walk: Yes Walk 10 feet (QC): 6 Walk 50ft with 2 Turns (QC): 6 Walk 150 ft (QC): 6 Walking 10ft on Uneven Surface: 6 1 Step (curb) (QC): 4 4 Steps (QC): 4 12 Steps (QC): 88 Picking up an Object (QC): 4 Wheel 50 feet with 2 turns (QC: 9 Wheel 150 feet: 9 PT Plan Treatment/Plan Treatment Plan: Continue Plan of Care Treatment Plan: Bed Mobility, Education, Functional Activity Maryann, Functional Strength, Group Therapy, Gait, Safety, Therapeutic Exercise, Transfers Treatment Duration: November 11, 2021 Frequency: At least 5 of 7 days/Wk (IRF) Estimated Hrs Per Day: 1.5 hours per day Patient and/or Family Agrees t: Yes Time/GCodes Time In: 1400 Time Out: 1430 Total Billed Treatment Time: 30 Total Billed Treatment 1, FA x2 (30 min) LETY MARTIN CONTRACT ACCOUNTANT Oct 26, 2021 15:10
[2021-10-26 15:38] VITALS: BP 96/58
[2021-10-26] MEDS ORDERED: RT-ALBUTEROL/IPRATROPIUM 3 ML (DUONEB) VIAL IH PRN (15:45)
[2021-10-26] MEDS ORDERED: NS 100 ML (IVPB) BAG IV ONE (17:45)
[2021-10-26] MEDS ORDERED: IOHEXOL 350 MG/ML 100 ML (OMNIPAQUE 350) VIAL IV ONE (17:45)
--- NOTE | 2021-10-26 19:16 | Diagnostic Imaging Report ---
Exam: CT angiography abdomen and pelvis without and with intravenous contrast. Date: October 26, 2021. Indication: 71-year-old female, abdominal pain. Concern for mesenteric ischemia. Comparison: CT abdomen pelvis October 06, 2021. Technique: Axial CT images of the abdomen and pelvis were obtained without and with intravenous contrast. Coronal and sagittal as well as 3-dimensional reformats were obtained and provided. Findings: There is a small right pleural effusion. There is a small left pleural effusion. There is adjacent dependent atelectasis in the left lower lobe and minimal dependent atelectasis in the right lower lobe. There is a small to moderate-sized pericardial effusion. There are atherosclerotic calcifications. There is very high-grade stenosis and potential occlusion at the origin of the celiac axis with quick reconstitution of flow distally. This is likely a 99% or 100% focal stenosis or occlusion. There is complete occlusion of the proximal aspect of the superior mesenteric artery with reconstitution of flow distally. The inferior mesenteric artery does appear to be patent. There is an infrarenal abdominal aortic aneurysm measuring 2.9 x 2.7 cm in diameter. There are 2 right-sided renal arteries. There is no identified high-grade renal artery stenosis. The liver is unremarkable in size and contour. There is no identified liver lesion. The main, right, and left portal veins are patent. The gallbladder is distended. There is no CT apparent gallstone. There is no identified intrahepatic or extrahepatic bile duct dilation. The main pancreatic duct is not abnormally dilated. Unremarkable appearance of the pancreatic parenchyma. The spleen is normal in size. The adrenal glands are unremarkable. There are calcifications adjacent to the right kidney which may reflect nonobstructing stones versus vascular related calcifications. The urinary collecting systems are not distended. There is no identified ureteral stone. The urinary bladder is not particularly well-evaluated. There is distention of the rectum and distal sigmoid colon measuring up to 7.9 cm in diameter. There are additional abnormally dilated segments of both small and large bowel. There is no identified pneumatosis. There is no portal venous gas or gas in the mesenteric vasculature. There is a small focus of free intraperitoneal air on axial image 85. There are anterior skin moody with mild underlying inflammatory stranding in the subcutaneous tissues. There is a left total hip prosthesis. There is severe osteoarthritis of the right hip. There are multilevel degenerative changes of the spine. Impression: 1. 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 2. 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 The inferior mesenteric artery is patent. 3. Diffuse abnormally dilated segments of both small and large bowel without pneumatosis or portal venous gas to specifically diagnose intestinal ischemia. 4. Single focus of free intraperitoneal air. There are midline anterior skin moody. Correlation with timing of any recent surgery is recommended. 5. Small to moderate pericardial effusion and bilateral pleural effusions. Dictated by: Dictated on workstation # [id number]
[2021-10-26 19:51] VITALS: BP 147/79
[2021-10-26] MEDS ORDERED: IPRA3AMP31 IH (21:03)
[2021-10-26] MEDS ORDERED: APIX5TAB PO (21:03)
[2021-10-26] MEDS ORDERED: SUCR1TAB PO (21:03)
[2021-10-26] MEDS ORDERED: PANT40TA52 PO (21:03)
[2021-10-26] MEDS ORDERED: OXC5T PO (21:03)
[2021-10-26] MEDS ORDERED: POTA-160 PO (21:03)
[2021-10-26] MEDS: SIMvastatin 20 MG (ZOCOR) TAB PO SCH (21:21)
[2021-10-27] MEDS: LEVOTHYROXINE 25 MCG (LEVOTHROID) TAB PO SCH (06:23)
--- NOTE | 2021-10-27 06:39 | PM&R Progress Note ---
Subjective HPI/CC On Admission Date Seen by Provider: Oct 27, 2021 Time Seen by Provider: 09:30 Subjective/Events-last exam 10/26/21: Having more abdominal pain Dr Nguyen and I discussed the issue so CT completed revealing significant stenosis of mesenteric arteries which needs intervention and stenting 60 years of smoking has caused severe PVD issues Andrew declined transfer so reaching out to No urgent but will need addressed tomorrow Patient on NOAC 10/25/21: Patient doing well Abdominal pain will be managed by general surgery Has good and bad days Lungs remain clear 10/24/2021: Patient doing much better today Has crossed the threshold to improvement in recovery No pain reported Bowels are moving Slowly eating and advancing diet 10/23/21: Patient improved except abdominal pain after a lot of gas and BM Updated Dr Nguyen and he will see the patient No falls Pain controlled Improved overall 10/22/21: Patient doing a lot better Nausea is improved Walking with rest breaks Check meds and labs Clear liquid diet may be advanced if okay with Dr. Nguyen Overall improved but slow recovery Objective Exam Vital Signs Vital Signs Date Time Temp Pulse Resp B/P (MAP) Pulse Ox O2 Delivery O2 Flow Rate FiO2 10/27/21 17:31 97 Room Air 0.00 10/27/21 07:25 37.0 60 18 142/64 (90) 10/26/21 15:38 21 Capillary Refill : General Appearance: No Apparent Distress, WD/WN HEENT: PERRL/EOMI Neck: Normal Inspection, Non Tender Respiratory: Chest Non Tender, No Accessory Muscle Use, No Respiratory Distress Cardiovascular: Regular Rate, Rhythm, No JVD Gastrointestinal: Normal Bowel Sounds, No Organomegaly, No Pulsatile Mass, Non Tender, Soft Back: Normal Inspection, No CVA Tenderness, No Vertebral Tenderness Extremity: Normal Capillary Refill, Normal Inspection, Normal Range of Motion, Non Tender, No Calf Tenderness, No Pedal Edema Neurologic/Psychiatric: Alert, Oriented x3 Skin: Normal Color, Warm/Dry Lymphatic: No Adenopathy (Head and neck) Results/Procedures Lab Patient resulted labs reviewed. FIM Transfers Therapy Code Descriptions/Definitions Functional [place] Measure: 0=Not Assessed/NA 4=Minimal Assistance 1=Total Assistance 5=Supervision or Setup 2=Maximal Assistance 6=Modified [place] 3=Moderate Assistance 7=Complete IndependenceSCALE: Activities may be completed with or without assistive devices. 6-Guvpheylrf-ykejyym completes the activity by him/herself with no assistance from a helper. 5-Set-up or Clean-up Assistance-helper sets up or cleans up; patient completes activity. [place] assists only prior to or following the activity. 4-Supervision or Touching Assistance-helper provides verbal cues and/or touching/steadying and/or contact guard assistance as patient completes activity. Assistance may be provided throughout the activity or intermittently. 3-Partial/Moderate Assistance-helper does LESS THAN HALF the effort. [place] lifts, holds or supports trunk or limbs, but provides less than half the effort. 2-Substantial/Maximal Assistance-helper does MORE THAN HALF the effort. [place] lifts or holds trunk or limbs and provides more than half the effort. 2-Artrhogpq-edafmu does ALL the effort. Patient does none of the effort to complete the activity. Or, the assistance of 2 or more helpers is required for the patient to complete the activity. If activity was not attempted, code reason: 7-Patient Refused. 9-Not Applicable-not attempted and the patient did not perform the activity before the current illness, exacerbation or injury. 10-Not Attempted due to Environmental Limitations-(lack of equipment, weather restraints, etc.). 88-Not Attempted due to Medical Conditions or Safety Concerns. Roll Left to Right (QC): 6 Sit to Lying (QC): 6 Sit to Stand (QC): 6 Chair/Lgu-nb-Scegx Xfer(QC): 6 Car Transfer (QC): 5 Gait Training Does the Patient Walk?: Yes Distance: 15' x2 Walk 10 feet (QC): 5 Walk 50 ft with 2 Turns(QC): 4 Walk 150 ft (QC): 4 Walking 10ft/uneven surface-QC: 4 Gait Persons Needed: 1 Gait Assistive Device: FWW Wheelchair Training Does the Pt Use a Wheelchair?: Yes Wheel 50 ft with 2 turns (QC): 6 Wheel 150 ft (QC): 6 Type of Wheelchair: Manual Stair Training Stair Training: Handrails/: 2 handrails #of Steps: 4 1 Step (curb) (QC): 4 4 Steps (QC): 4 12 Steps (QC): 7 Stairs: Pattern: Step to Balance Picking up an Object (QC): 5 ADL-Treatment Eating (QC): 6 Oral Hygiene (QC): 6 (seated at sink) Bathing Location: L Arm, R Arm, Chest, Abdomen Shower/Bathe Self (QC): 4 (SBA sponge bath) Upper Body Dressing (QC): 5 (set up pulley worker shirt.) Lower Body Dressing (QC): 4 (SBA LB dressing using AE) On/Off Footwear (QC): 3 (Pt able to doff gripper socks using AE with set up, min A to don using sock aide.) Toileting Hygiene (QC): 4 (SBA, pt able to manage hygiene and complete toileting.) Toilet Transfer (QC): 4 (SBA on/off BSC over toilet.) Assessment/Plan Assessment and Plan Assess & Plan/Chief Complaint Assessment: Severe debility Recent small bowel obstruction due to ischemic bowel status post resection by Dr. Nguyen then abdominal pain worsened prompting CT angiogram on 10/26/21 revealing significant mesenteric stenosis in need of intervention prompting transfer process currently pending Long postop ileus COPD Current smoker Recent UTI Pericardial effusion transferred to [facility] but no pericardiocentesis required Hypothyroidism Hypertension Recent fall Hip repair incision dehiscence status post I&D by Dr. Alonso Plan: Inpatient rehab protocol Pain control Monitor bowel function 10/22/2021: Supportive care Aggressive rehab Advance diet 10/23/21: Improved overall Dr Nguyen to check on her 10/24/2021: Advance diet Supportive care 10/25/2021: General surgery appreciated 10/26/21: Transfer for mesenteric catherization with stenting (1) Fall Status: Acute (2) SBO (small bowel obstruction) MONIKA TODD DO Oct 27, 2021 06:39
[2021-10-27 07:25] VITALS: BP 142/64
--- NOTE | 2021-10-27 07:28 | Progress Note - Surgery ---
CYRIL BYRD 10/27/21 0728: Subjective Date Seen by a Provider: Oct 27, 2021 Time Seen by a Provider: 07:05 Subjective/Events-last exam Ms. Murry is 11 days s/p exploratory laparotomy with small bowel resection due to ischemic bowel. She is at inpatient rehab here at [facility]. She has continued to have postprandial pain. A CTA was performed yesterday which showed complete occlusion of the proximal SMA with distal flow reconstitution, high-grade stensos of the celiac trunk with distal flow reconstitution, and the LINDA is patent. This morning she denies abdominal pain; she is on a clear liquid diet at this time. Review of Systems General: No Chills, No Fatigue HEENT: No Head Aches, No Visual Changes Pulmonary: No Dyspnea, No Cough Cardiovascular: No: Chest Pain, Palpitations Gastrointestinal: No: Nausea, Vomiting, Abdominal Pain Neurological: No: Weakness, Confusion Objective Exam Vital Signs Date Time Temp Pulse Resp B/P (MAP) Pulse Ox O2 Delivery O2 Flow Rate FiO2 10/26/21 21:15 Room Air 10/26/21 19:51 37.4 72 16 147/79 (101) 96 Room Air 10/26/21 15:38 36.8 79 98 21 10/26/21 10:02 139/62 (87) 10/26/21 09:28 36.8 79 18 96/58 (71) 98 Room Air 10/26/21 09:00 Room Air 10/26/21 08:00 Room Air Capillary Refill : General Appearance: No Apparent Distress, WD/WN HEENT: PERRL/EOMI; No Scleral Icterus (L), No Scleral Icterus (R) Neck: Normal Inspection, Non Tender; No Lymphadenopathy (L), No Lymphadenopathy (R) Respiratory: Chest Non Tender, Lungs Clear, Normal Breath Sounds, No Accessory Muscle Use, No Respiratory Distress Cardiovascular: Regular Rate, Rhythm, No Murmur, Normal Peripheral Pulses Peripheral Pulses: 2+ Radial Pulses (R), 2+ Radial Pulses (L) Gastrointestinal: non tender, distended, other ( Wound is clean with moody and without drainage on abdomen) Extremity: Non Tender, No Pedal Edema Neurologic/Psychiatric: Alert, Oriented x3, No Motor/Sensory Deficits Skin: Normal Color, Warm/Dry Lymphatic: No Adenopathy (Head and neck) Results Lab Microbiology 10/26/21 C. difficile GDH Antigen & Toxins - Final, Resulted 10/26/21 Stool Culture, Resulted Pending Assessment/Plan Assessment/Plan Assessment/Plan Assessment: Chronic mesenteric ischemia - occlusion of SMA and celiac trunk Severe debility - s/p 3 recent surgeries - Hip replacement, wound I&D, and ex-lap with small bowel resection Abdominal pain - s/p exploratory laparotomy with small bowel resection d/t ischemic bowel on 10/16/2021 at [facility] Recent fall Hip repair incision dehiscence - s/p I&D with Dr. Celeste Snyder postop ileus COPD Current smoker Recent UTI Pericardial effusion Hypothyroidism Hypertension Plan: Work with PT/OT Supportive care and pain control as needed Cardiology following for chest pain Clear liquids at this time. CTA shows occlusions of SMA and celiac trunk most likely causing symptoms. [facility] and contacted for possible transfer. KARL CHAIREZ DO 10/27/211941: Subjective Subjective/Events-last exam Patient states her pain is a little bit better today. Worse with eating. She is on liquid diet which is not causing her to have pain. And she is taking pain medication to relieve the pain which is made it better. Patient with no other complaints at this time. I did attempt to transfer the patient to last night which they had no beds and I did start notifying this morning to begin arranging transfer. No beds present this morning but they are awaiting some discharges. Patient maintained on clear liquids. Objective Exam General Appearance: No Apparent Distress, WD/WN HEENT: PERRL/EOMI, Normal ENT Inspection Neck: Normal Inspection, Non Tender Respiratory: Chest Non Tender, No Accessory Muscle Use, No Respiratory Distress Cardiovascular: Regular Rate, Rhythm, No JVD Gastrointestinal: distended, other ( Wound is clean with moody and without drainage on abdomen signs of infection) Extremity: Non Tender, Other (Left thigh status post left hip replacement) Neurologic/Psychiatric: Alert, Oriented x3 Skin: Normal Color, Warm/Dry Lymphatic: No Adenopathy (Head and neck) Assessment/Plan Assessment/Plan Assessment/Plan Chronic mesenteric ischemia - occlusion of SMA and celiac trunk Severe debility - s/p 3 recent surgeries - Hip replacement, wound I&D, and ex-lap with small bowel resection Abdominal pain - s/p exploratory laparotomy with small bowel resection d/t ischemic bowel on 10/16/2021 at [facility] Recent fall Hip repair incision dehiscence - s/p I&D with Dr. Celeste Snyder postop ileus COPD Current smoker Recent UTI Pericardial effusion Hypothyroidism Hypertension Work with PT/OT Supportive care and pain control as needed Cardiology following for chest pain Clear liquids at this time. CTA shows occlusions of SMA and celiac trunk most likely causing symptoms. Arranged transfer to for further intervention. Discussed this with patient. She understands. Await transfer by EMS. Supervisory-Addendum Brief Verification & Attestation Participated in pt care: history, MDM, physical Personally performed: exam, history, MDM, supervision of care Care discussed with: Medical Student Procedures: n/a Results interpretation: Verified all documentation Verification and Attestation of Medical Student E/M Service A medical student performed and documented this service in my presence. I reviewed and verified all information documented by the medical student and made modifications to such information, when appropriate. I personally performed the physical exam and medical decision making. Karl Chairez, Oct 27, 2021,19:42 CYRIL BYRD Oct 27, 2021 07:28 KARL CHAIREZ DO Oct 27, 2021 19:42
[2021-10-27] MEDS: PANTOPRAZOLE 40 MG (PROTONIX) TAB PO SCH (08:32)
[2021-10-27] MEDS: APIXABAN 5 MG (ELIQUIS) TABLET PO SCH (08:32)
[2021-10-27] MEDS: KCL 10 MEQ TAB (MICRO K) PO SCH ×3 (08:32→17:49)
[2021-10-27] MEDS: DOCUSATE SODIUM 100 MG (COLACE) CAP PO SCH (08:33)
[2021-10-27] MEDS: polyethylene glycoL POWDER 17 GM (MIRALAX) PACK PO SCH (08:33)
[2021-10-27] MEDS: SENNA W/DOCUSATE (SENOKOT S) TABLET PO SCH (08:33)
--- NOTE | 2021-10-27 08:36 | Cardiology Progress Note ---
Subjective Date Seen by Provider: Oct 27, 2021 Time Seen by Provider: 08:05 Subjective/Events-last exam Patient is bed, complaining of abdominal pain. Objective-Cardiology Exam Last Set of Vital Signs Vital Signs 10/22/21 10/26/21 10/27/21 10/27/21 21:30 15:38 07:25 09:00 Temp 37.0 Pulse 60 Resp 18 B/P (MAP) 142/64 (90) Pulse Ox 97 O2 Delivery Room Air O2 Flow Rate 0.00 FiO2 21 General: Alert, Oriented X3 HEENT: Atraumatic Neck: Supple, No JVD Lungs: Clear to Auscultation, Normal Air Movement Heart: Regular Rate, Normal S1, Normal S2 Abdomen: Normal Bowel Sounds, Soft Skin: No Rashes, No Breakdown A/P-Cardiology Admission Diagnosis Chest pain Pericardial effusion HTN HLP Assessment/Plan Chest pain, nonspecific etiology, atypical in presentation. C/o right sided chest pain radiating to shoulder, now resolved. EKG showing so acute ST changes, will continue to monitor. Pericardial effusion, small to moderate pericardial effusion of unknown etiology, noted on CTA. Workup was done at [place] including 2D Echo. I will try to obtain records for further review. HTN, controlled, continue to monitor. HLP, maintained on statin. Continue to monitor as outpatient. s/p L hip replacement with Dr. Alonso September 2021 with incisional wound dehiscence secondary to fall, s/p repair. SBO with small bowel resection, complaining of some abdominal discomfort. Management by Dr. Nguyen. 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 Planning for transfer to , currently awaiting bed. Small infrarenal AAA noted on CTA measuring 2.9 x2.7cm Generalized debility/weakness, continue with PT/OT. Hypokalemia, replaced, continue to monitor. Supervisory-Addendum Brief Supervisory Addendum Participated in pt care: history, MDM, physical Personally performed: exam, history, MDM Care discussed with: ANJELICA Results interpretation: Verified all documentation Notes: Patient was evaluated with Kelsey, no changes Arrangement to transfer to was made. KELSEY CALDWELL Oct 27, 2021 08:36 GREGORY BOYER MD Oct 27, 2021 15:54
--- NOTE | 2021-10-27 09:33 | Discharge Summary ---
Diagnosis/Chief Complaint Date of Admission Oct 21, 2021 at 12:28 Date of Discharge Discharge Date: Oct 27, 2021 Discharge Diagnosis Assessment: Severe debility Recent small bowel obstruction due to ischemic bowel status post resection by Dr. Nguyen then abdominal pain worsened prompting CT angiogram on 10/26/21 revealing significant mesenteric stenosis in need of intervention prompting transfer to by Dr. Nguyen Long postop ileus COPD Current smoker Recent UTI Pericardial effusion transferred to [place] but no pericardiocentesis required Hypothyroidism Hypertension Recent fall Hip repair incision dehiscence status post I&D by Dr. Alonso Plan: Inpatient rehab protocol Pain control Monitor bowel function 10/22/2021: Supportive care Aggressive rehab Advance diet 10/23/21: Improved overall Dr Nguyen to check on her 10/24/2021: Advance diet Supportive care 10/25/2021: General surgery appreciated 10/26/21: Transfer for mesenteric catherization with stenting (1) Fall Status: Acute (2) SBO (small bowel obstruction) Discharge Summary Discharge Physical Examination Allergies: Coded Allergies: Penicillins (Verified Allergy, Unknown, 07/04/20) hydrocodone (Verified Allergy, Unknown, 07/04/20) Uncoded Allergies: LARGE DOSES OF ASPIRIN (Adverse Reaction, Unknown, 10/21/21) LOOP DIURETIC (Adverse Reaction, Unknown, 10/21/21) Vitals & I&Os Vital Signs Date Time Temp Pulse Resp B/P (MAP) Pulse Ox O2 Delivery O2 Flow Rate FiO2 10/27/21 19:42 37.2 72 18 134/63 98 Room Air 10/27/21 17:31 0.00 10/26/21 15:38 21 General Appearance: Alert, Oriented X3, Cooperative Respiratory: Clear to Auscultation Cardiovascular: Regular Rate Hospital Course Was the Problem List Reviewed?: Yes Hospital course: Patient had an uneventful hospital course for the most part after she was moved to her center to inpatient rehab after multiple issues following an uncomplicated left total hip replacement. She ultimately required exploratory laparoscopy with ischemic bowel small intestine being resected by Dr. Nguyen due to continued abdominal pain and had a long postop ileus course with the NG tube but finally recovered and was sent to inpatient rehab for structured therapy but began having more abdominal pain the more active she became and more pain when eating so CT angiogram showed stenosis of the mesenteric arteries. High risk for complete block of circulatory support so she was notified and ultimately accepted in transfer for interventional radiology. Labs (last 24 hrs) Laboratory Tests 10/22/21 05:46: White Blood Count 7.7, Red Blood Count 3.24L, Hemoglobin 9.6L, Hematocrit 30L, M ryanne Corpuscular Volume 91, Mean Corpuscular Hemoglobin 30, Mean Corpuscular Hemoglobin Concent 33, Red Cell Distribution Width 13.4, Platelet Count 343, Mean Platelet Volume 10.7, Immature Granulocyte % (Auto) 6, Neutrophils (%) (Auto) 76H, Lymphocytes (%) (Auto) 11L, Monocytes (%) (Auto) 7, Eosinophils (%) (Auto) 0, Basophils (%) (Auto) 0, Neutrophils # (Auto) 5.9, Lymphocytes # (Auto) 0.8L, Monocytes # (Auto) 0.6, Eosinophils # (Auto) 0.0, Basophils # (Auto) 0.0, Immature Granulocyte # (Auto) 0.4H, Sodium Level 137, Potassium Level 3.3L, Chloride Level 101, Carbon Dioxide Level 23, Anion Gap 13, Blood Urea Nitrogen 6L, Creatinine 0.53L, Estimat Glomerular Filtration Rate 98, BUN/Creatinine Ratio 11, Glucose Level 97, Calcium Level 8.0L, Corrected Calcium 9.1, Total Bilirubin 0.7, Aspartate Amino Transf (AST/SGOT) 18, Alanine Aminotransferase (ALT/SGPT) 25, Alkaline Phosphatase 88, Total Protein 4.9L, Albumin 2.6L, Smear Scan YES 10/26/21 05:19: White Blood Count 8.5, Red Blood Count 2.99L, Hemoglobin 8.9L, Hematocrit 27L, Mean Corpuscular Volume 91, Mean Corpuscular Hemoglobin 30, Mean Corpuscular Hemoglobin Concent 33, Red Cell Distribution Width 14.1, Platelet Count 390, Mean Platelet Volume 10.8, Immature Granulocyte % (Auto) 2, Neutrophils (%) (Auto) 73, Lymphocytes (%) (Auto) 17, Monocytes (%) (Auto) 7, Eosinophils (%) (Auto) 1, Basophils (%) (Auto) 0, Neutrophils # (Auto) 6.2, Lymphocytes # (Auto) 1.5, Monocytes # (Auto) 0.6, Eosinophils # (Auto) 0.1, Basophils # (Auto) 0.0, Immature Granulocyte # (Auto) 0.1, Sodium Level 137, Potassium Level 3.9, Chloride Level 107, Carbon Dioxide Level 19L, Anion Gap 11, Blood Urea Nitrogen 6L, Creatinine 0.54L, Estimat Glomerular Filtration Rate 97, BUN/Creatinine Ratio 11, Glucose Level 90, Calcium Level 8.1L, Corrected Calcium 9.2, Total Bilirubin 0.6, Aspartate Amino Transf (AST/SGOT) 11, Alanine Aminotransferase (ALT/SGPT) 18, Alkaline Phosphatase 79, Total Protein 4.8L, Albumin 2.6L, Iron Level 21L, Vitamin B12 Level 250 Microbiology 10/26/21 C. difficile GDH Antigen & Toxins - Final, Resulted 10/26/21 Stool Culture - Preliminary, Resulted Slight Growth Present Pending Labs Microbiology Date/Time Source Procedure Growth Status 10/26/21 16:15 Stool C. difficile GDH Antigen & Toxins - Final Resulted 10/26/21 16:15 Stool Culture - Preliminary Slight Growth Present Resulted Laboratory Tests 10/22/21 05:46: White Blood Count 7.7, Red Blood Count 3.24, Hemoglobin 9.6, Hematocrit 30, Mean Corpuscular Volume 91, Mean Corpuscular Hemoglobin 30, Mean Corpuscular Hemoglobin Concent 33, Red Cell Distribution Width 13.4, Platelet Count 343, Mean Platelet Volume 10.7, Immature Granulocyte % (Auto) 6, Neutrophils (%) (Auto) 76, Lymphocytes (%) (Auto) 11, Monocytes (%) (Auto) 7, Eosinophils (%) (Auto) 0, Basophils (%) (Auto) 0, Neutrophils # (Auto) 5.9, Lymphocytes # (Auto) 0.8, Monocytes # (Auto) 0.6, Eosinophils # (Auto) 0.0, Basophils # (Auto) 0.0, Immature Granulocyte # (Auto) 0.4, Sodium Level 137, Potassium Level 3.3, Chloride Level 101, Carbon Dioxide Level 23, Anion Gap 13, Blood Urea Nitrogen 6, Creatinine 0.53, Estimat Glomerular Filtration Rate 98, BUN/Creatinine Ratio 11, Glucose Level 97, Calcium Level 8.0, Corrected Calcium 9.1, Total Bilirubin 0.7, Aspartate Amino Transf (AST/SGOT) 18, Alanine Aminotransferase (ALT/SGPT) 25, Alkaline Phosphatase 88, Total Protein 4.9, Albumin 2.6, Smear Scan YES 10/26/21 05:19: White Blood Count 8.5, Red Blood Count 2.99, Hemoglobin 8.9, Hematocrit 27, Mean Corpuscular Volume 91, Mean Corpuscular Hemoglobin 30, Mean Corpuscular Hemoglobin Concent 33, Red Cell Distribution Width 14.1, Platelet Count 390, Mean Platelet Volume 10.8, Immature Granulocyte % (Auto) 2, Neutrophils (%) (Auto) 73, Lymphocytes (%) (Auto) 17, Monocytes (%) (Auto) 7, Eosinophils (%) (Auto) 1, Basophils (%) (Auto) 0, Neutrophils # (Auto) 6.2, Lymphocytes # (Auto) 1.5, Monocytes # (Auto) 0.6, Eosinophils # (Auto) 0.1, Basophils # (Auto) 0.0, Immature Granulocyte # (Auto) 0.1, Sodium Level 137, Potassium Level 3.9, Chloride Level 107, Carbon Dioxide Level 19, Anion Gap 11, Blood Urea Nitrogen 6, Creatinine 0.54, Estimat Glomerular Filtration Rate 97, BUN/Creatinine Ratio 11, Glucose Level 90, Calcium Level 8.1, Corrected Calcium 9.2, Total Bilirubin 0.6, Aspartate Amino Transf (AST/SGOT) 11, Alanine Aminotransferase (ALT/SGPT) 18, Alkaline Phosphatase 79, Total Protein 4.8, Albumin 2.6, Iron Level 21, Vitamin B12 Level 250 Discharge Home Medications: Active Scripts Active Pantoprazole Sodium 40 Mg Tablet.dr 40 Mg PO DAILY 7 Days Sucralfate 1 Gram Tablet 1 Gm PO ACHS PRN 7 Days Klor-Con 10 (Potassium Chloride) 10 Meq Tablet.er 20 Meq PO TIDWM 7 Days Oxyir Tablet (Oxycodone HCl) 5 Mg Tab 5-10 Mg PO Q4H PRN 7 Days Iprat-Albut 0.5-3(2.5) mg/3 ml (Ipratropium/Albuterol Sulfate) 0.5 Mg-3 Mg (2.5 Mg Base)/3 Ml Ampul.neb 3 Ml IH RTQ4HR PRN 7 Days Eliquis (Apixaban) 5 Mg Tablet 5 Mg PO BID 7 Days Reported Tylenol Extra Strength (Acetaminophen) 500 Mg Tablet 500-1,000 Mg PO Q8H PRN TAKES 1 TO 2 (500MG) TAB Simvastatin 20 Mg Tablet 20 Mg PO HS Levothyroxine Sodium 25 Mcg Tablet 25 Mcg PO DAILY Instructions to patient/family Please see electronic discharge instructions given to patient. Diagnosis/Problems Diagnosis/Problems (1) Fall Status: Acute (2) SBO (small bowel obstruction) MONIKA TODD DO Oct 27, 2021 09:33
--- NOTE | 2021-10-27 10:26 | Physical Therapy Progress Note ---
Therapy Progress Note Patient is being admitted to another facility due to medical reasons but hasn't been accepted yet. Patient is refusing therapies at this time. JULIANA DIMAS PT Oct 27, 2021 10:26
--- NOTE | 2021-10-27 10:55 | Occ Therapy Progress Note ---
Therapy Progress Note Pt is planning on transferring to another facility for medical reasons, but hasn't been accepted yet. Pt is refusing all therapy attempts at this time. AILYN MITCHELL OT Oct 27, 2021 10:55
[2021-10-27 19:00] VITALS: BP 134/63
[2021-10-27 19:42] VITALS: BP 134/63
--- NOTE | 2021-10-28 13:11 | Therapy Team Discharge Summary ---
Therapy Discharge Summary Discharge Recommendations Date of Discharge Oct 27, 2021 at 19:00 Physical Therapy Roll Left to Right (QC): 6 Sit to Lying (QC): 6 Lying to Sitting/Side of Bed(Q: 6 Sit to Stand (QC): 6 Chair/Civ-pt-Gujej Xfer(QC): 6 Toilet Transfer (QC): 4 Car Transfer (QC): 5 Does the Patient Walk: Yes Mode of Locomotion: Walk Anticipated Mode of Locomotion: Walk Walk 10 feet (QC): 5 Walk 50 ft with 2 Turns(QC): 4 Walk 150 ft (QC): 4 Walking 10ft on uneven surface: 4 Distance: 5' Gait Assistive Device: FWW Does the Pt Use a Wheelchair: Yes Wheel 50 ft with 2 turns (QC): 6 Wheel 150 ft (QC): 6 Type of Wheelchair: Manual #of Steps: 4 1 Step (curb) (QC): 4 4 Steps (QC): 4 12 Steps (QC): 7 Balance Sitting Static: Normal Balance Sitting Dynamic: Normal Balance-Standing Static: Fair Picking up an Object (QC): 5 Occupational Therapy Pt admitted to [facility] s/p bowel resection and debility. At [facility], pt was independent with ADLs and functional mobility, no AD prior to hip replacement. After hip replacement, pt has required some assistance with ADLs and uses FWW. Upon initial evaluation, pt was independent with eating, set up oral care, mod A showering, set up upper body dressing, max A LB dressing, max A footwear and SBA toileting. OT Tx focused on increasing BUE strength and activity tolerance, and increasing safety and independence with ADLs. Pt made progress towards goals, but did not attain all goals. Pt transferred to another facility for higher level of care, d/c from OT. Decreased Activ Tolerance, Decreased UE Strength, Impaired Funct Balance, Impaired I ADL's, Impaired Self-Care Skills Eating (QC): 6 Oral Hygiene (QC): 6 (seated at sink) Shower/Bathe Self (QC): 4 (SBA sponge bath) Upper Body Dressing (QC): 5 (set up puller through shirt.) Lower Body Dressing (QC): 4 (SBA LB dressing using AE) On/Off Footwear (QC): 3 (Pt able to doff gripper socks using AE with set up, min A to don using sock aide.) Toileting Hygiene (QC): 4 (SBA, pt able to manage hygiene and complete toileting.) PT Respiratory Care Specialist Goals Snf Goals PT Snf Goals Time Frame: November 11, 2021 Roll Left to Right (QC): 6 Sit to Lying (QC): 4 Lying-Sitting on Side/Bed(QC): 4 Sit to Stand (QC): 6 Chair/Joy-mf-Yygxc Xfer(QC): 6 Car Transfer (QC): 6 Does the Patient Walk: Yes Walk 10 feet (QC): 6 Walk 10ft-Uneven Surface(QC): 6 Walk 50ft with 2 Turns (QC): 6 Walk 150 ft (QC): 6 Wheel 50 feet with 2 turns (QC: 9 1 Step (curb) (QC): 4 4 Steps (QC): 4 12 Steps (QC): 88 Picking up an Object (QC): 4 OT Respiratory Care Specialist Goals Respiratory Care Specialist Goals Time Frame: November 20, 2021 Eating (QC): 6 (met) Oral Hygiene (QC): 6 (met) Shower/Bathe Self (QC): 6 (not met) Upper Body Dressing (QC): 6 (not met) Lower Body Dressing (QC): 6 (not met) On/Off Footwear (QC): 6 (not met) Toileting Hygiene (QC): 6 (not met) Toilet/Commode Transfer (QC): 6 (not met) Additional Goals: 1-Demonstrate ADL Tasks, 2-Verbalize Understanding, 3- ImproveStrength/Maryann 1=Demonstrate adherence to instructed precautions during ADL tasks. 2=Patient will verbalize/demonstrate understanding of assistive devices/modifications for ADL. 3=Patient will improve strength/tolerance for activity to enable patient to perform ADL's. AILYN MITCHELL OT Oct 28, 2021 13:11
--- NOTE | 2021-10-28 14:28 | Therapy Team Discharge Summary ---
Therapy Discharge Summary Discharge Recommendations Date of Discharge Oct 27, 2021 at 19:00 Physical Therapy Patient came to rehab with left MICHELET, SBO with ex lap. Upon evaluation patient performs rolling with min assist, supine <-> sit max assist, sit <-> stand and transfers min assist, car transfer min assist, ambulated 5' with a rolling walker with CGA, dependent for WC mobility. Patient has been performing bed mobility and transfer training, balance and endurance training, functional strengthening, gait training, and education. Patient has made fair progress and has met all of her equipment operator intermodal yard goals except for car transfer, toilet transfer, sit <-> stand, and ambulation. Now, patient performs rolling and supine <-> sit with independence, sit <-> stand CGA, transfers independent, car transfer setup, ambulates 150' with a rolling walker with CGA (including 50' with at least 2 turns of 90 degrees and 10' over an uneven surface), can go up and down 4 steps using 2 handrails with CGA, propels a manual WC 150' with independence, and can sampler pickup an object from the floor using a bilingual student tutor with setup. Patient was discharged to another medical facility due to medical complications. She will be discharged from PT at this time. Roll Left to Right (QC): 6 Sit to Lying (QC): 6 Lying to Sitting/Side of Bed(Q: 6 Sit to Stand (QC): 6 Chair/Dnv-gy-Qjlox Xfer(QC): 6 Toilet Transfer (QC): 4 Car Transfer (QC): 5 Does the Patient Walk: Yes Mode of Locomotion: Walk Anticipated Mode of Locomotion: Walk Walk 10 feet (QC): 5 Walk 50 ft with 2 Turns(QC): 4 Walk 150 ft (QC): 4 Walking 10ft on uneven surface: 4 Distance: 5' Gait Assistive Device: FWW Does the Pt Use a Wheelchair: Yes Wheel 50 ft with 2 turns (QC): 6 Wheel 150 ft (QC): 6 Type of Wheelchair: Manual #of Steps: 4 1 Step (curb) (QC): 4 4 Steps (QC): 4 12 Steps (QC): 7 Balance Sitting Static: Normal Balance Sitting Dynamic: Normal Balance-Standing Static: Fair Picking up an Object (QC): 5 Occupational Therapy Decreased Activ Tolerance, Decreased UE Strength, Impaired Funct Balance, Impaired I ADL's, Impaired Self-Care Skills Eating (QC): 6 Oral Hygiene (QC): 6 (seated at sink) Shower/Bathe Self (QC): 4 (SBA sponge bath) Upper Body Dressing (QC): 5 (set up cloth covered helmet puller shirt.) Lower Body Dressing (QC): 4 (SBA LB dressing using AE) On/Off Footwear (QC): 3 (Pt able to doff gripper socks using AE with set up, min A to don using sock aide.) Toileting Hygiene (QC): 4 (SBA, pt able to manage hygiene and complete toileting.) PT Half-Way Goals Half-Way Goals PT Television Host Goals Time Frame: November 11, 2021 Roll Left to Right (QC): 6 Sit to Lying (QC): 4 Lying-Sitting on Side/Bed(QC): 4 Sit to Stand (QC): 6 Chair/Scx-mu-Onfdc Xfer(QC): 6 Car Transfer (QC): 6 Does the Patient Walk: Yes Walk 10 feet (QC): 6 Walk 10ft-Uneven Surface(QC): 6 Walk 50ft with 2 Turns (QC): 6 Walk 150 ft (QC): 6 Wheel 50 feet with 2 turns (QC: 9 1 Step (curb) (QC): 4 4 Steps (QC): 4 12 Steps (QC): 88 Picking up an Object (QC): 4 OT Television Host Goals Television Host Goals Time Frame: November 20, 2021 Eating (QC): 6 (met) Oral Hygiene (QC): 6 (met) Shower/Bathe Self (QC): 6 (not met) Upper Body Dressing (QC): 6 (not met) Lower Body Dressing (QC): 6 (not met) On/Off Footwear (QC): 6 (not met) Toileting Hygiene (QC): 6 (not met) Toilet/Commode Transfer (QC): 6 (not met) Additional Goals: 1-Demonstrate ADL Tasks, 2-Verbalize Understanding, 3- ImproveStrength/Maryann 1=Demonstrate adherence to instructed precautions during ADL tasks. 2=Patient will verbalize/demonstrate understanding of assistive devices/modifications for ADL. 3=Patient will improve strength/tolerance for activity to enable patient to perform ADL's. JULIANA DIMAS PT Oct 28, 2021 14:28
== END 2021-10-27 19:00 | disposition short-term general hospital (02) | DRG 948 ==
PROVIDERS: ADMIT Internal Medicine; ATTEND Internal Medicine
DX: R53.81 Other malaise (principal); K55.1 Chronic vascular disorders of intestine; R53.1 Weakness; Z48.815 Encounter for surgical aftercare following surgery on the digestive system; I10 Essential (primary) hypertension; J44.9 Chronic obstructive pulmonary disease, unspecified; F17.210 Nicotine dependence, cigarettes, uncomplicated; E78.00 Pure hypercholesterolemia, unspecified; E78.5 Hyperlipidemia, unspecified; M19.91 Primary osteoarthritis, unspecified site; E03.9 Hypothyroidism, unspecified; R07.89 Other chest pain; Z91.81 History of falling; Z79.01 Long term (current) use of anticoagulants; Z79.1 Long term (current) use of non-steroidal anti-inflammatories (NSAID); Z88.5 Allergy status to narcotic agent; Z88.0 Allergy status to penicillin; Z96.642 Presence of left artificial hip joint
CPT/HCPCS: 36415; 74019; 74174; 80053; 82607; 83540; 85025; 87015; 87045; 87046; 87324; 87449; 87899; 93005; 94640; 94760

== ENCOUNTER 2022-08-09 00:32 | Inpatient (IN) | payer MEDICARE, OTHER ==
[2022-08-09] VITALS (12 sets, daily range): BP systolic 110–145; BP diastolic 55–77
[~2022-08-09] VITALS: Ht 170.5 cm; Wt 63.5 kg
[~2022-08-09 00:32] MED LIST changes: +ACET-2267 PO; -ACETAMINOPHEN 325 MG TABLET PO PRN; -ALPRAZolam 0.25 MG (XANAX) TAB PO PRN; -BISACODYL 10 MG SUPP (DULCOLAX) PR PRN; -FLEET ENEMA ADULT 1 EA BTL PR PRN; -LACTULOSE SYRUP 10GM/15ML (ENULOSE) 30ML UDC PO PRN; -LOPERAMIDE 2 MG (IMODIUM) TABLET PO PRN; -MELATONIN 3 MG TABLET PO PRN; -ONDANSETRON 4 MG (ZOFRAN) ORAL DISSOLVE TAB PO PRN; +OXC5T PO; +SUCR1TAB PO; -diphenhydrAMINE 25 MG TAB (BENADRYL) PO PRN; -guaiFENesin/CODEINE (ROBITUSSIN AC) 10ML UDC PO PRN
[2022-08-09 00:55] LABS: BASOPHILS # (AUTO) 0.1 10^3/uL (0.0-0.1); BASOPHILS % (AUTO) 0 % (0-10); EOSINOPHILS % (AUTO) 0 % (0-10); HEMATOCRIT 24 % (35-52); HEMOGLOBIN 7.4 g/dL (11.5-16.0); LYMPHOCYTES % (AUTO) 7 % (12-44); MEAN CORPUSCULAR HEMOGLOBIN 28 pg (25-34); MEAN CORPUSCULAR HGB CONC 30 g/dL (32-36); MEAN CORPUSCULAR VOLUME 91 fL (80-99); MEAN PLATELET VOLUME 10.8 fL (9.0-12.2); MONOCYTES # (AUTO) 1.1 10^3/uL (0.0-1.0); MONOCYTES % (AUTO) 8 % (0-12); NEUTROPHILS # (AUTO) 11.7 10^3/uL (1.8-7.8); NEUTROPHILS % (AUTO) 84 % (42-75); PLATELET COUNT 365 10^3/uL (130-400); WHITE BLOOD COUNT 13.9 10^3/uL (4.3-11.0)
--- NOTE | 2022-08-09 01:03 | ED Abdominal Pain ---
General Chief Complaint: Rect Problems Stated Complaint: BLOOD IN STOOL SINCE 08.06.22 Nursing Triage Note: PT TO RM 7 VIA WC W C/O DARK BLOODY STOOLS SX 08/06/22. PT REPORTS ABD DISCOMFORT, WEAKNESS, AND N/V. PT A&OX4. Source of Information: Patient, Family, Old Records Exam Limitations: No Limitations History of Present Illness Date Seen by Provider: Aug 09, 2022 Time Seen by Provider: 00:44 Initial Comments This 72-year-old woman presents to the emergency room with complaints of dark bloody stools for the past 3 to 4 days. She has since become weak and lighth eaded. She has also had some nausea with an episode of vomiting this evening. She has a mild generalized abdominal pain. She has history of a small bowel resection due to ischemic bowel in October of last year. She went to [facility] for mesenteric stent placement. Patient recently had a bout of pneumonia for which she was treated with steroids and Levaquin. Allergies and Home Medications Allergies Coded Allergies: Penicillins (Verified Allergy, Unknown, 07/04/20) hydrocodone (Verified Allergy, Unknown, 07/04/20) Uncoded Allergies: LARGE DOSES OF ASPIRIN (Adverse Reaction, Unknown, 10/21/21) LOOP DIURETIC (Adverse Reaction, Unknown, 10/21/21) Patient Home Medication List Home Medication List Reviewed: Yes Acetaminophen (Tylenol Extra Strength) 500 Mg Tablet, 500-1,000 MG PO Q8H PRN for PAIN-MILD (1-4), (Reported) Entered as Reported by: [place] on 10/26/21 1338 Apixaban (Eliquis) 5 Mg Tablet, 5 MG PO BID Prescribed by: MONIKA TODD on 10/26/212102 Ipratropium/Albuterol Sulfate (Iprat-Albut 0.5-3(2.5) mg/3 ml) 0.5 Mg-3 Mg (2.5 Mg Base)/3 Ml Ampul.neb, 3 ML IH RTQ4HR PRN for SHORTNESS OF BREATH Prescribed by: MONIKA TODD on 10/26/212102 Levothyroxine Sodium (Levothyroxine Sodium) 25 Mcg Tablet, 25 MCG PO DAILY, (Reported) Entered as Reported by: GER ABDULLAHI on 10/21/21 1211 Oxycodone Hcl (Oxyir Tablet) 5 Mg Tab, 5-10 MG PO Q4H PRN for PAIN-SEVERE (8-10) Prescribed by: MONIKA TODD on 10/26/212102 Pantoprazole Sodium (Pantoprazole Sodium) 40 Mg Tablet.dr, 40 MG PO DAILY Prescribed by: MONIKA TODD on 10/26/212102 Potassium Chloride (Klor-Con 10) 10 Meq Tablet.er, 20 MEQ PO TIDWM Prescribed by: MONIKA TODD on 10/26/212102 Simvastatin (Simvastatin) 20 Mg Tablet, 20 MG PO HS, (Reported) Entered as Reported by: GER ABDULLAHI on 10/21/21 121 Sucralfate (Sucralfate) 1 Gram Tablet, 1 GM PO ACHS PRN for ULCERS Prescribed by: MONIKA TODD on 10/26/212102 Review of Systems Review of Systems Constitutional: see HPI, weakness EENTM: No Symptoms Reported Respiratory: No Symptoms Reported Cardiovascular: See HPI Gastrointestinal: See HPI Genitourinary: No Symptoms Reported Musculoskeletal: no symptoms reported Skin: no symptoms reported Psychiatric/Neurological: No Symptoms Reported Endocrine: No Symptoms Reported Past Hhustih-Nkhnmt-Rvymsd Hx Patient Social History Tobacco Use?: Yes Tobacco type used: Cigarettes Smoking Status: Current Everyday Smoker Use of E-Cig and/or Vaping dev: No Substance use?: No Alcohol Use?: No Immunizations Up To Date Tetanus Booster (TDap): More than 5yrs PED Vaccines UTD: Yes Influenza Vaccine Up-to-Date: Yes; Up-to-Date First/Initial COVID19 Vaccinat: 2020 Second COVID19 Vaccination Tod: 2020 Third COVID19 Vaccination Date: 2021 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 Alonso, I&D of Lt THR by Dr. Alonso on 10/15/21 after pt fell & dehisced, Expl Lap w bowel resection on 10/16/[address] Nguyen d/t bowel obstruction Surgeries: Yes Abdominal, Hysterectomy, Orthopedic Respiratory: No Cardiac: Yes High Cholesterol, Hypertension, Peripheral Vascular (Ischemic bowel) Neurological: No : No Genitourinary: No Gastrointestinal: Yes Obstructive Bowel Musculoskeletal: Yes Arthritis, Chronic Back Pain Endocrine: Yes Hypothyroidsim HEENT: No Cancer: No Psychosocial: No Integumentary: No Blood Disorders: No Family Medical History No Pertinent Family Hx Physical Exam Vital Signs Vital Signs - First Documented 08/09/22 00:41 Temp 36.2 Pulse 86 Resp 18 B/P (MAP) 122/64 (83) Pulse Ox 99 O2 Delivery Room Air Capillary Refill : Less Than 3 Seconds Height/Weight/BMI Height: '" Weight: lbs. oz. kg; 21.00 BMI Method: General Appearance: WD/WN, no apparent distress HEENT: PERRL/EOMI, normal ENT inspection, other (Oropharynx somewhat dry) Neck: normal inspection Respiratory: lungs clear, normal breath sounds, no respiratory distress Cardiovascular: regular rate, rhythm, no edema, no murmur Gastrointestinal: normal bowel sounds, soft; No distended; tenderness (Mild, generalized) Extremities: normal inspection, no pedal edema Neurologic/Psychiatric: cherry dipper II-XII nml as tested, no motor/sensory deficits, alert, normal mood/affect, oriented x 3 Skin: normal color, warm/dry Progress/Results/Core Measures Results/Orders Lab Results Laboratory Tests Test 08/09/22 00:47 Range/Units White Blood Count 13.9 H 4.3-11.0 10^3/uL Red Blood Count 2.67 L 3.80-5.11 10^6/uL Hemoglobin 7.4 L 11.5-16.0 g/dL Hematocrit 24 L 35-52 % Mean Corpuscular Volume 91 80-99 fL Mean Corpuscular Hemoglobin 28 25-34 pg Mean Corpuscular Hemoglobin Concent 30 L 32-36 g/dL Red Cell Distribution Width 15.9 H 10.0-14.5 % Platelet Count 365 130-400 10^3/uL Mean Platelet Volume 10.8 9.0-12.2 fL Immature Granulocyte % (Auto) 1 % Neutrophils (%) (Auto) 84 H 42-75 % Lymphocytes (%) (Auto) 7 L 12-44 % Monocytes (%) (Auto) 8 0-12 % Eosinophils (%) (Auto) 0 0-10 % Basophils (%) (Auto) 0 0-10 % Neutrophils # (Auto) 11.7 H 1.8-7.8 10^3/uL Lymphocytes # (Auto) 1.0 1.0-4.0 10^3/uL Monocytes # (Auto) 1.1 H 0.0-1.0 10^3/uL Eosinophils # (Auto) 0.0 0.0-0.3 10^3/uL Basophils # (Auto) 0.1 0.0-0.1 10^3/uL Immature Granulocyte # (Auto) 0.1 0.0-0.1 10^3/uL Neutrophils % (Manual) 87 % Lymphocytes % (Manual) 7 % Monocytes % (Manual) 6 % Blood Morphology Comment NORMAL Prothrombin Time 14.1 12.2-14.7 SEC INR Comment 1.0 0.8-1.4 Activated Partial Thromboplast Time 30 24-35 SEC Sodium Level 142 135-145 MMOL/L Potassium Level 4.0 3.6-5.0 MMOL/L Chloride Level 110 H 98-107 MMOL/L Carbon Dioxide Level 20 L 21-32 MMOL/L Anion Gap 12 5-14 MMOL/L Blood Urea Nitrogen 34 H 7-18 MG/DL Creatinine 0.69 0.60-1.30 MG/DL Estimat Glomerular Filtration Rate 91 BUN/Creatinine Ratio 49 Glucose Level 114 H 70-105 MG/DL Calcium Level 9.4 8.5-10.1 MG/DL Corrected Calcium 9.6 8.5-10.1 MG/DL Total Bilirubin 0.3 0.1-1.0 MG/DL Aspartate Amino Transf (AST/SGOT) 19 5-34 U/L Alanine Aminotransferase (ALT/SGPT) 27 0-55 U/L Alkaline Phosphatase 66 40-136 U/L Lactate Dehydrogenase 128 125-220 U/L C-Reactive Protein High Sensitivity 0.24 0.00-0.50 MG/DL Total Protein 6.0 L 6.4-8.2 GM/DL Albumin 3.7 3.2-4.5 GM/DL Lipase 29 8-78 U/L My Orders Orders - XI LE MD Ed Iv/Invasive Line Start (08/09/22 00:44) Cbc With Automated Diff (08/09/22 00:44) Manual Differential (08/09/22 00:47) Comprehensive Metabolic Panel (08/09/22 01:00) Lipase (08/09/22 01:00) Ua Culture If Indicated (08/09/22 01:00) Protime With Inr (08/09/22 01:00) Partial Thromboplastin Time (08/09/22 01:00) Pantoprazole Injection (Protonix Injecti (08/09/22 01:15) Hs C Reactive Protein (08/09/22 01:13) Ondansetron Injection (Zofran Injectio (08/09/22 01:15) Red Cells Leukocytes Reduced (08/09/22 01:13) Type And Screen (08/09/22 01:13) Ct Abdomen/Pelvis W (08/09/22 01:47) Ns Iv 500 Ml (Sodium Chloride 0.9%) (08/09/22 02:00) Iohexol Injection (Omnipaque 350 Mg/Ml 1 (08/09/22 02:15) Received Contrast (Hold Metformin- Contr (08/09/22 02:15) Ns (Ivpb) (Sodium Chloride 0.9% Ivpb Bag (08/09/22 02:15) LDH (08/09/22 03:16) Medications Given in ED Current Medications Medications Dose Ordered Sig/Laxmi Route Start Time Stop Time Status Last Admin Dose Admin Iohexol 100 ml ONCE ONCE IV 08/09/22 02:15 08/09/22 02:22 DC 08/09/22 02:16 73 ML Ondansetron HCl 4 mg ONCE ONCE IVP 08/09/22 01:15 08/09/22 01:17 DC 08/09/22 01:26 4 MG Pantoprazole 80 mg ONCE ONCE IV 08/09/22 01:15 08/09/22 01:17 DC 08/09/22 01:26 80 MG Sodium Chloride 100 ml ONCE ONCE IV 08/09/22 02:15 08/09/22 02:22 DC 08/09/22 02:16 80 ML Sodium Chloride 500 ml @ 0 mls/hr Q0M ONCE IV 08/09/22 02:00 08/09/22 02:02 DC 08/09/22 02:11 0 MLS/HR Vital Signs/I&O 08/09/22 00:41 Temp 36.2 Pulse 86 Resp 18 B/P (MAP) 122/64 (83) Pulse Ox 99 O2 Delivery Room Air Blood Pressure Mean: 83 Progress Progress Note : Progress Note Patient was interviewed and examined. Hemoglobin was only 7.2. Leukocytosis was noted on the CBC. Imaging of the abdomen was sought to rule out inflamma tory or infectious process. There was question of chronic mesenteric artery obstruction on the CT. No inflammatory conditions were identified. Due to patient's marginal hemoglobin, a unit of packed red blood cells was crossmatched for potential later transfusion. Hemoglobin will be trended. Due to her comorbidities and marginal hemoglobin, admission was felt necessary. Patient did describe notable symptoms with her anemia. Diagnostic Imaging Diagonstic Imaging: CT Plain Films/CT/US/NM/MRI: abdomen, pelvis Comments Was reviewed by me and report reviewed. See report below: NAME: ALTAGRACIA GORE [facility] REC#: [id number] PT STATUS: ADM Ashlie : 1950 PHYSICIAN: XI LE MD ADMIT DATE: 08/09/22 Signed Date of Exam:08/09/22 CT ABDOMEN/PELVIS W EXAMINATION: CT abdomen and pelvis with intravenous contrast. TECHNIQUE: Multiple contiguous axial images were obtained through the abdomen and pelvis after the uneventful administration of intravenous contrast. All CT scans use one or more of the following dose optimizing techniques: automated exposure control, MA and/or KvP adjustment based on patient size and exam type or iterative reconstruction. HISTORY: Abdominal pain, rectal bleeding COMPARISON: 10/26/2021 FINDINGS: Lung bases: The lung bases are clear. There may be a large pericardial effusion. Solid organs: The liver is normal without focal lesion. The gallbladder is normal. There is no biliary ductal dilation. Pancreas is normal. Spleen is normal. Adrenal glands are normal. There are nonobstructing renal calculi measuring up to 0.4 cm. No hydronephrosis. Bowel: The stomach and small bowel are normal without obstruction. The colon and appendix are normal. Peritoneum: There is no intraperitoneal free fluid or free air. No suspicious lymphadenopathy. Vasculature: Vascular calcifications of the aorta with mild aneurysmal dilatation measuring up to 3.0 cm. Chronic appearing stenosis of the proximal SMA. Musculoskeletal: Degenerative changes of the spine without suspicious osseous lesion or compression fracture. Surgical changes from left hip arthroplasty. Pelvis: The uterus is surgically absent. No adnexal mass. The urinary bladder is normal. IMPRESSION: 1. No acute abnormality in the abdomen or pelvis. 2. 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 3. Agree with preliminary interpretation. Dictated by: Dictated on workstation # [id number] Dict: 08/09/22630 Trans: 08/09/22803 CVB [id number] Interpreted by: SCARLET GRANADOS DO Electronically signed by: SCARLET GRANADOS DO 08/09/22803 Departure Communication (Admissions) Time/Spoke to Admitting Phy: 03:30 Dr. Todd Time/Spoke to Consulting Phy: 03:[address] Nguyen Impression Primary Impression: GI bleed Qualified Codes: K92.2 - Gastrointestinal hemorrhage, unspecified Additional Impressions: Melena Abdominal discomfort Nausea & vomiting Qualified Codes: R11.2 - Nausea with vomiting, unspecified Abdominal aortic aneurysm Qualified Codes: I71.40 - Abdominal aortic aneurysm, without rupture, unspecified Disposition: ADMITTED INPATIENT Condition: Stable Admissions Decision to Admit Reason: Admit from ER (General) Decision to Admit/Date: Aug 09, 2022 Time/Decision to Admit Time: 03:30 Departure-Patient Inst. Referrals: YVONNE LYNN MD (PCP/Family) Primary Care Physician XI LE MD Aug 09, 2022 01:03
[2022-08-09 01:12] LABS: ALBUMIN 3.7 GM/DL (3.2-4.5); PROTHROMBIN TIME PATIENT 14.1 SEC (12.2-14.7)
[2022-08-09 01:14] LABS: CALCIUM 9.4 MG/DL (8.5-10.1)
[2022-08-09] MEDS ORDERED: PANTOPRAZOLE 40 MG (PROTONIX) VIAL IV ONE (01:15)
[2022-08-09] MEDS ORDERED: ONDANSETRON 4 MG/2 ML (SDV) Z0FRAN IVP ONE (01:15)
[2022-08-09 01:16] LABS: BILIRUBIN,TOTAL 0.3 MG/DL (0.1-1.0)
[2022-08-09 01:18] LABS: CREATININE SERUM 0.69 MG/DL (0.60-1.30)
[2022-08-09 01:26] LABS: LYMPHOCYTES % (MANUAL) 7 %; MONOCYTES % (MANUAL) 6 %; NEUTROPHILS % (MANUAL) 87 %; RBC MORPH NORMAL
[2022-08-09] MEDS ORDERED: NS IV 500 ML 500 ML IV ONE ×2 (02:00→06:45)
[2022-08-09] MEDS ORDERED: NS 100 ML (IVPB) BAG IV ONE (02:15)
[2022-08-09] MEDS ORDERED: IOHEXOL 350 MG/ML 100 ML (OMNIPAQUE 350) VIAL IV ONE (02:15)
[2022-08-09] MEDS ORDERED: HOLD METFORMIN - RECEIVED CONTRAST 20 ML VIAL IV SCH (02:15)
[2022-08-09 04:28] LABS: BILIRUBIN,URINE NEGATIVE (NEGATIVE); CLARITY,URINE CLEAR; COLOR,URINE YELLOW; GLUCOSE, URINE (UA) NEGATIVE (NEGATIVE); KETONES,URINE NEGATIVE (NEGATIVE); LEUKOCYTE ESTERASE ,URINE NEGATIVE (NEGATIVE); NITRITE,URINE NEGATIVE (NEGATIVE); PROTEIN,URINE NEGATIVE (NEGATIVE)
[2022-08-09] MEDS ORDERED: LACTATED RINGERS 1,000 ML IV ONE (04:28)
[2022-08-09] MEDS ORDERED: ONDANSETRON 4 MG/2 ML (SDV) Z0FRAN IV PRN (04:30)
[2022-08-09] MEDS ORDERED: fentaNYL INJ 100 MCG/2 ML AMP IV PRN (04:30)
[2022-08-09 04:36] LABS: BACTERIA,URINE NEGATIVE /HPF
[2022-08-09] MEDS: LACTATED RINGERS 1,000 ML IV SCH ×3 (04:37→18:10)
[2022-08-09 06:21] LABS: BASOPHILS # (AUTO) 0.1 10^3/uL (0.0-0.1); BASOPHILS % (AUTO) 0 % (0-10); CALCIUM 8.7 MG/DL (8.5-10.1); CREATININE SERUM 0.59 MG/DL (0.60-1.30); EOSINOPHILS % (AUTO) 0 % (0-10); HEMATOCRIT 22 % (35-52); LYMPHOCYTES # (AUTO) 0.9 10^3/uL (1.0-4.0); LYMPHOCYTES % (AUTO) 7 % (12-44); MEAN CORPUSCULAR HEMOGLOBIN 27 pg (25-34); MEAN CORPUSCULAR HGB CONC 30 g/dL (32-36); MEAN CORPUSCULAR VOLUME 92 fL (80-99); MEAN PLATELET VOLUME 11.2 fL (9.0-12.2); MONOCYTES # (AUTO) 1.2 10^3/uL (0.0-1.0); MONOCYTES % (AUTO) 9 % (0-12); NEUTROPHILS # (AUTO) 10.6 10^3/uL (1.8-7.8); NEUTROPHILS % (AUTO) 83 % (42-75); PLATELET COUNT 275 10^3/uL (130-400); POTASSIUM 3.6 MMOL/L (3.6-5.0); WHITE BLOOD COUNT 12.9 10^3/uL (4.3-11.0)
--- NOTE | 2022-08-09 06:36 | Consultation - Surgery ---
SANTIAGO BERNAL 08/09/22 0636: History of Present Illness History of Present Illness Patient Consulted On(sarah/time) 08/09/22 06:31 Date Seen by Provider: Aug 09, 2022 Time Seen by Provider: 05:50 History of Present Illness Surgery Consultation: GI Bleed Jen Murry is a Postmenopausal 72yo female presenting with an acute GI bleed. Pt states she's been passing dark red colored stools consistently since Tuesday afternoon w/ associated diarrhea and lower abdominal pressure. Pt experienced an episode of vomiting and dizziness at home which prompted her visit to [facility] ED. Pt states that this has never occurred before and denies anything that makes the bleeding better or worse. Pt states that she doesn't take any pain medications at home currently, but does take daily 65mg iron. Pt states last week she had an episode of constipation, but hasn't had any episodes since bleeding has begun. Pt denies fever, chills, headache, current dizziness. Pt endorses nausea and vomiting. Palpation of LLQ elicited pain. Allergies and Home Medications Allergies Coded Allergies: Penicillins (Verified Allergy, Unknown, 07/04/20) hydrocodone (Verified Allergy, Unknown, 07/04/20) Uncoded Allergies: LARGE DOSES OF ASPIRIN (Adverse Reaction, Unknown, 10/21/21) LOOP DIURETIC (Adverse Reaction, Unknown, 10/21/21) Patient Home Medication List Acetaminophen (Tylenol Extra Strength) 500 Mg Tablet, 500-1,000 MG PO Q8H PRN for PAIN-MILD (1-4), (Reported) Entered as Reported by: GER ABDULLAHI on 08/09/221509 Last Action: Reviewed Albuterol Sulfate (Ventolin Hfa) 90 Mcg Hfa.aer.ad, 2 PUFF INH Q6H PRN for SHORTNESS OF BREATH, (Reported) Entered as Reported by: GER ABDULLAHI on 08/09/221509 Last Action: Reviewed Aspirin (Aspirin EC) 81 Mg Tablet.dr, 81 MG PO DAILY, (Reported) Entered as Reported by: GER ABDULLAHI on 08/09/221509 Last Action: Reviewed Budesonide/Glycopyr/Formoterol (Breztri Aerosphere Inhaler) 160 Mcg-9 Mcg-4.8 Mcg/Actuation Hfa.aer.ad, 2 PUFF IH BID, (Reported) Entered as Reported by: GER ABDULLAHI on 08/09/221509 Last Action: Reviewed Cholecalciferol (Vitamin D3) (Vitamin D3) 1,250 Mcg (15719 Unit) Capsule, 1,250 MCG PO MO,FR, (Reported) Entered as Reported by: GER ABDULLAHI on 08/09/221509 Last Action: Reviewed Clopidogrel Bisulfate (Clopidogrel) 75 Mg Tablet, 75 MG PO DAILY, (Reported) Entered as Reported by: GER ABDULLAHI on 08/09/221509 Last Action: Reviewed Cyanocobalamin (Vitamin B-12) (Vitamin B-12) 1,000 Mcg Tablet, 1,000 MCG PO DAILY, (Reported) Entered as Reported by: GER ABDULLAHI on 08/09/221509 Last Action: Reviewed Ferrous Sulfate (Ferrous Sulfate) 325 Mg (65 Mg Iron) Tablet, 325 MG PO DAILY, (Reported) Entered as Reported by: GER ABDULLAHI on 08/09/221509 Last Action: Reviewed Levothyroxine Sodium (Levothyroxine Sodium) 25 Mcg Tablet, 25 MCG PO DAILY, (Reported) Entered as Reported by: GER ABDULLAHI on 10/21/21 121 Last Action: Reviewed Lisinopril (Lisinopril) 20 Mg Tablet, 20 MG PO DAILY, (Reported) Entered as Reported by: GER ABDULLAHI on 08/09/221509 Last Action: Reviewed Pantoprazole Sodium (Pantoprazole Sodium) 20 Mg Tablet.dr, 20 MG PO DAILY, (Rep orted) Entered as Reported by: GER ABDULLAHI on 08/09/221509 Last Action: Reviewed Simvastatin (Simvastatin) 80 Mg Tablet, 80 MG PO DAILY, (Reported) Entered as Reported by: GER ABDULLAHI on 08/09/221509 Last Action: Reviewed Zinc Sulfate (Zinc) 50 Mg Zinc (220 Mg) Tablet, 50 MG PO DAILY, (Reported) Entered as Reported by: GER ABDULLAHI on 08/09/221509 Last Action: Reviewed Discontinued Medications Acetaminophen (Tylenol Extra Strength) 500 Mg Tablet, 500-1,000 MG PO Q8H PRN for PAIN-MILD (1-4), (Reported) Discontinued Reason: No Longer Taking Entered as Reported by: SANTA COTTO on 10/26/21 1338 Last Action: Discontinued Apixaban (Eliquis) 5 Mg Tablet, 5 MG PO BID Discontinued Reason: No Longer Taking Prescribed by: MONIKA TODD on 10/26/212102 Last Action: Discontinued Ipratropium/Albuterol Sulfate (Iprat-Albut 0.5-3(2.5) mg/3 ml) 0.5 Mg-3 Mg (2.5 Mg Base)/3 Ml Ampul.neb, 3 ML IH RTQ4HR PRN for SHORTNESS OF BREATH Discontinued Reason: No Longer Taking Prescribed by: MONIKA TODD on 10/26/212102 Last Action: Discontinued Oxycodone Hcl (Oxyir Tablet) 5 Mg Tab, 5-10 MG PO Q4H PRN for PAIN-SEVERE (8-10) Discontinued Reason: No Longer Taking Prescribed by: MONIKA TODD on 10/26/212102 Last Action: Discontinued Pantoprazole Sodium (Pantoprazole Sodium) 40 Mg Tablet.dr, 40 MG PO DAILY Discontinued Reason: No Longer Taking Prescribed by: MONIKA TODD on 10/26/212102 Last Action: Discontinued Potassium Chloride (Klor-Con 10) 10 Meq Tablet.er, 20 MEQ PO TIDWM Discontinued Reason: No Longer Taking Prescribed by: MONIKA TODD on 10/26/212102 Last Action: Discontinued Simvastatin (Simvastatin) 20 Mg Tablet, 20 MG PO HS, (Reported) Discontinued Reason: No Longer Taking Entered as Reported by: GER ABDULLAHI on 10/21/21 1211 Last Action: Discontinued Sucralfate (Sucralfate) 1 Gram Tablet, 1 GM PO ACHS PRN for ULCERS Discontinued Reason: No Longer Taking Prescribed by: MONIKA TODD on 10/26/212102 Last Action: Discontinued Past Gndserl-Jtiqhn-Xvrfgx Hx Patient Social History Smoking Status: Current Someday Smoker Type Used: Cigarettes Recent Hopitalizations: No Alcohol Use?: No Have you traveled recently?: No Immunizations Up To Date Tetanus Booster (TDap): More than 5yrs PED Vaccines UTD: Yes Seasonal Allergies Seasonal Allergies: No Surgeries History of Surgeries: Yes Surgeries: Abdominal, Hysterectomy, Orthopedic Respiratory History of Respiratory Disorde: No Cardiovascular History of Cardiac Disorders: Yes Cardiac Disorders: High Cholesterol, Hypertension Neurological History of Neurological Disord: No Gastrointestinal History of Gastrointestinal Di: No Gastrointestinal Disorders: Obstructive Bowel Musculoskeletal History of Musculoskeletal Dis: No Musculoskeletal Disorders: Arthritis, Chronic Back Pain Endocrine History of Endocrine Disorders: Yes Endocrine Disorders: Hypothyroidsim HEENT History of HEENT Disorders: No Cancer History of Cancer: No Psychosocial History of Psychiatric Problem: No Integumentary History of Skin or Integumenta: No Blood Transfusions History of Blood Disorders: No Family Medical History Significant Family History: No Pertinent Family Hx, Cancer (Mother: Uterine; Father: Liver and Splenic ), Other Conditions/Hx (Father: Lupus) Review of Systems-General Constitutional: No chills, No fever Respiratory: No cough, No dyspnea on exertion, No short of breath Cardiovascular: No chest pain, No palpitations Gastrointestinal: abdominal pain (LLQ), diarrhea, melena, nausea, vomiting, other (Abdominal Pressure ) Genitourinary: No dysuria, No frequency Psychiatric/Neurological: Denies Headache, Denies Numbness, Denies Tingling Physical Exam-General Problems Physical Exam Vital Signs Vital Signs - First Documented 08/09/22 00:41 Temp 36.2 Pulse 86 Resp 18 B/P (MAP) 122/64 (83) Pulse Ox 99 O2 Delivery Room Air Capillary Refill : Less Than 3 Seconds General Appearance: no apparent distress HEENT: PERRL/EOMI Neck: non-tender, full range of motion, supple, normal inspection Respiratory: chest non-tender, lungs clear, normal breath sounds, no respiratory distress, no accessory muscle use Cardiovascular: regular rate, rhythm, no edema, no gallop, no JVD, no murmur Peripheral Pulses: 2+ Radial Pulses (R), 2+ Radial Pulses (L) Gastrointestinal: normal bowel sounds, soft, tenderness (LLQ) Extremities: normal range of motion, non-tender, normal inspection, swelling Neurologic/Psychiatric: no motor/sensory deficits, alert, normal mood/affect, oriented x 3 Skin: normal color, warm/dry Lymphatic: no adenopathy Data Review Labs Laboratory Tests 08/09/22 00:47: White Blood Count 13.9H, Red Blood Count 2.67L, Hemoglobin 7.4L, Hematocrit 24L, Mean Corpuscular Volume 91, Mean Corpuscular Hemoglobin 28, Mean Corpuscular Hemoglobin Concent 30L, Red Cell Distribution Width 15.9H, Platelet Count 365, Mean Platelet Volume 10.8, Immature Granulocyte % (Auto) 1, Neutrophils (%) (Auto) 84H, Lymphocytes (%) (Auto) 7L, Monocytes (%) (Auto) 8, Eosinophils (%) (Auto) 0, Basophils (%) (Auto) 0, Neutrophils # (Auto) 11.7H, Lymphocytes # (Auto) 1.0, Monocytes # (Auto) 1.1H, Eosinophils # (Auto) 0.0, Basophils # (Auto) 0.1, Immature Granulocyte # (Auto) 0.1, Neutrophils % (Manual) 87, Lymphocytes % (Manual) 7, Monocytes % (Manual) 6, Blood Morphology Comment NORMAL, Prothrombin Time 14.1, INR Comment 1.0, Activated Partial Thromboplast Time 30, Sodium Level 142, Potassium Level 4.0, Chloride Level 110H, Carbon Dioxide Level 20L, Anion Gap 12, Blood Urea Nitrogen 34H, Creatinine 0.69, Estimat Glomerular Filtration Rate 91, BUN/Creatinine Ratio 49, Glucose Level 114H, Calcium Level 9.4, Corrected Calcium 9.6, Total Bilirubin 0.3, Aspartate Amino Transf (AST/SGOT) 19, Alanine Aminotransferase (ALT/SGPT) 27, Alkaline Phosphatase 66, Lactate Dehydrogenase 128, C-Reactive Protein High Sensitivity 0.24, Total Protein 6.0L, Albumin 3.7, Lipase 29 08/09/22 04:22: Urine Color YELLOW, Urine Clarity CLEAR, Urine pH 5.0, Urine Specific [place] 1.015L, Urine Protein NEGATIVE, Urine Glucose (UA) NEGATIVE, Urine Ketones NEGATIVE, Urine Nitrite NEGATIVE, Urine Bilirubin NEGATIVE, Urine Urobilinogen 0.2, Urine Leukocyte Esterase NEGATIVE, Urine RBC (Auto) NEGATIVE, Urine RBC NONE, Urine WBC NONE, Urine Crystals NONE, Urine Bacteria NEGATIVE, Urine Casts NONE, Urine Mucus NEGATIVE, Urine Culture Indicated NO 08/09/22 05:45: Sodium Level 142, Potassium Level 3.6, Chloride Level 111H, Carbon Dioxide Level 20L, Anion Gap 11, Blood Urea Nitrogen 31H, Creatinine 0.59L, Estimat Glomerular Filtration Rate 95, BUN/Creatinine Ratio 53, Glucose Level 96, Calcium Level 8.7 Radiology Date of Exam:08/09/22 CT ABDOMEN/PELVIS W EXAMINATION: CT abdomen and pelvis with intravenous contrast. TECHNIQUE: Multiple contiguous axial images were obtained through the abdomen and pelvis after the uneventful administration of intravenous contrast. All CT scans use one or more of the following dose optimizing techniques: automated exposure control, MA and/or KvP adjustment based on patient size and exam type or iterative reconstruction. HISTORY: Abdominal pain, rectal bleeding COMPARISON: 10/26/2021 FINDINGS: Lung bases: The lung bases are clear. There may be a large pericardial effusion. Solid organs: The liver is normal without focal lesion. The gallbladder is normal. There is no biliary ductal dilation. Pancreas is normal. Spleen is normal. Adrenal glands are normal. There are nonobstructing renal calculi measuring up to 0.4 cm. No hydronephrosis. Bowel: The stomach and small bowel are normal without obstruction. The colon and appendix are normal. Peritoneum: There is no intraperitoneal free fluid or free air. No suspicious lymphadenopathy. Vasculature: Vascular calcifications of the aorta with mild aneurysmal dilatation measuring up to 3.0 cm. Chronic appearing stenosis of the proximal SMA. Musculoskeletal: Degenerative changes of the spine without suspicious osseous lesion or compression fracture. Surgical changes from left hip arthroplasty. Pelvis: The uterus is surgically absent. No adnexal mass. The urinary bladder is normal. IMPRESSION: 1. No acute abnormality in the abdomen or pelvis. 2. 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 3. Agree with preliminary interpretation. Assessment/Plan Assessment/Plan Assessment/Plan Acute GI Bleed- Melena LLQ Abdominal Pain Leukocytosis Anemia Generalized Lower Extremity Edema Consider NPO IV fluids Monitor Hgb; Blood Transfusion as if under 7g/dl Protonix Consider EGD/Colonoscopy to ID source of bleed; If negative Consider small bowel evaluation KARL CHAIREZ DO 08/09/22 2016: History of Present Illness History of Present Illness History of Present Illness Consult requested by Dr. Todd for gi bleed. Patient is a 72 year old female who has been having dark stools since Andre. Diarrhea and slight lower abomdinal pain that she states is a pressure type pain. She rates it at about a 2-3 /10. Patient has had continued blood with each bowel movemnet. SHe does report taking iron, but stools are different. She was also found to be anemic Patient had ct scan demonstratin. No acute abnormality in the abdomen or pelvis. 2. Atherosclerosis with chronic stenosis of the SMA and aneurysmal dilatation of the infrarenal aorta measuring up to 3.0 cm.. Allergies and Home Medications Allergies Coded Allergies: Penicillins (Verified Allergy, Unknown, 07/04/20) hydrocodone (Verified Allergy, Unknown, 07/04/20) Uncoded Allergies: LARGE DOSES OF ASPIRIN (Adverse Reaction, Unknown, 10/21/21) LOOP DIURETIC (Adverse Reaction, Unknown, 10/21/21) Patient Home Medication List Home Medication List Reviewed: Yes Acetaminophen (Tylenol Extra Strength) 500 Mg Tablet, 500-1,000 MG PO Q8H PRN for PAIN-MILD (1-4), (Reported) Entered as Reported by: GER ABDULLAHI on 08/09/221509 Last Action: Reviewed Albuterol Sulfate (Ventolin Hfa) 90 Mcg Hfa.aer.ad, 2 PUFF INH Q6H PRN for SHORTNESS OF BREATH, (Reported) Entered as Reported by: GER ABDULLAHI on 08/09/221509 Last Action: Reviewed Aspirin (Aspirin EC) 81 Mg Tablet.dr, 81 MG PO DAILY, (Reported) Entered as Reported by: GER ABDULLAHI on 08/09/221509 Last Action: Reviewed Budesonide/Glycopyr/Formoterol (Breztri Aerosphere Inhaler) 160 Mcg-9 Mcg-4.8 Mcg/Actuation Hfa.aer.ad, 2 PUFF IH BID, (Reported) Entered as Reported by: GER ABDULLAHI on 08/09/221509 Last Action: Reviewed Cholecalciferol (Vitamin D3) (Vitamin D3) 1,250 Mcg (52978 Unit) Capsule, 1,250 MCG PO MO,FR, (Reported) Entered as Reported by: GER ABDULLAHI on 08/09/221509 Last Action: Reviewed Clopidogrel Bisulfate (Clopidogrel) 75 Mg Tablet, 75 MG PO DAILY, (Reported) Entered as Reported by: GER ABDULLAHI on 08/09/221509 Last Action: Reviewed Cyanocobalamin (Vitamin B-12) (Vitamin B-12) 1,000 Mcg Tablet, 1,000 MCG PO DAILY, (Reported) Entered as Reported by: GER ABDULLAHI on 08/09/221509 Last Action: Reviewed Ferrous Sulfate (Ferrous Sulfate) 325 Mg (65 Mg Iron) Tablet, 325 MG PO DAILY, (Reported) Entered as Reported by: GER ABDULLAHI on 08/09/221509 Last Action: Reviewed Levothyroxine Sodium (Levothyroxine Sodium) 25 Mcg Tablet, 25 MCG PO DAILY, (Reported) Entered as Reported by: GER ABDULLHAI on 10/21/21 1211 Last Action: Reviewed Lisinopril (Lisinopril) 20 Mg Tablet, 20 MG PO DAILY, (Reported) Entered as Reported by: GER ABDULLAHI on 08/09/221509 Last Action: Reviewed Pantoprazole Sodium (Pantoprazole Sodium) 20 Mg Tablet.dr, 20 MG PO DAILY, (Reported) Entered as Reported by: GER ABDULLAHI on 08/09/221509 Last Action: Reviewed Simvastatin (Simvastatin) 80 Mg Tablet, 80 MG PO DAILY, (Reported) Entered as Reported by: GER ABDULLAHI on 08/09/221509 Last Action: Reviewed Zinc Sulfate (Zinc) 50 Mg Zinc (220 Mg) Tablet, 50 MG PO DAILY, (Reported) Entered as Reported by: GER ABDULLAHI on 08/09/221509 Last Action: Reviewed Discontinued Medications Acetaminophen (Tylenol Extra Strength) 500 Mg Tablet, 500-1,000 MG PO Q8H PRN for PAIN-MILD (1-4), (Reported) Discontinued Reason: No Longer Taking Entered as Reported by: SANTA COTTO on 10/26/21 1338 Last Action: Discontinued Apixaban (Eliquis) 5 Mg Tablet, 5 MG PO BID Discontinued Reason: No Longer Taking Prescribed by: MONIKA TODD on 10/26/212102 Last Action: Discontinued Ipratropium/Albuterol Sulfate (Iprat-Albut 0.5-3(2.5) mg/3 ml) 0.5 Mg-3 Mg (2.5 Mg Base)/3 Ml Ampul.neb, 3 ML IH RTQ4HR PRN for SHORTNESS OF BREATH Discontinued Reason: No Longer Taking Prescribed by: MONIKA TODD on 10/26/212102 Last Action: Discontinued Oxycodone Hcl (Oxyir Tablet) 5 Mg Tab, 5-10 MG PO Q4H PRN for PAIN-SEVERE (8-10) Discontinued Reason: No Longer Taking Prescribed by: MONIKA TODD on 10/26/212102 Last Action: Discontinued Pantoprazole Sodium (Pantoprazole Sodium) 40 Mg Tablet.dr, 40 MG PO DAILY Discontinued Reason: No Longer Taking Prescribed by: MONIKA TODD on 10/26/212102 Last Action: Discontinued Potassium Chloride (Klor-Con 10) 10 Meq Tablet.er, 20 MEQ PO TIDWM Discontinued Reason: No Longer Taking Prescribed by: MONIKA TODD on 10/26/212102 Last Action: Discontinued Simvastatin (Simvastatin) 20 Mg Tablet, 20 MG PO HS, (Reported) Discontinued Reason: No Longer Taking Entered as Reported by: GER ABDULLAHI on 10/21/21 1211 Last Action: Discontinued Sucralfate (Sucralfate) 1 Gram Tablet, 1 GM PO ACHS PRN for ULCERS Discontinued Reason: No Longer Taking Prescribed by: MONIKA TODD on 10/26/212102 Last Action: Discontinued Past Ofmnvqq-Jazmmk-Kmumvb Hx Reviewed Nursing Assessment Reviewed/Agree w Nursing PMH: Yes Family Medical History Significant Family History: Cancer (Mother: Uterine; Father: Liver and Splenic ), Other Conditions/Hx (Father: Lupus) Review of Systems-General Constitutional: No chills, No fever Respiratory: No cough, No dyspnea on exertion, No short of breath Cardiovascular: No chest pain, No palpitations Gastrointestinal: abdominal pain (LLQ), melena, other (Abdominal Pressure ) Genitourinary: No dysuria, No frequency Musculoskeletal: No back pain, No joint pain Skin: No change in color Psychiatric/Neurological: Denies Depressed, Denies Emotional Problems All Other Systems Reviewed Negative Unless Noted: Yes (Negative excepted noted.) Physical Exam-General Problems Physical Exam General Appearance: no apparent distress, other (chronically ill appearing) HEENT: PERRL/EOMI, normal ENT inspection Neck: non-tender, supple Respiratory: chest non-tender, no respiratory distress, no accessory muscle use Cardiovascular: regular rate, rhythm, no JVD Gastrointestinal: soft, tenderness (LLQ minimal) Rectal: deferred (at this time) Back: no CVA tenderness, no vertebral tenderness Extremities: non-tender, swelling Neurologic/Psychiatric: alert, normal mood/affect, oriented x 3 Skin: normal color, warm/dry Lymphatic: no adenopathy Assessment/Plan Assessment/Plan Assessment/Plan Acute GI Bleed- Melena LLQ Abdominal Pain Leukocytosis Anemia Generalized Lower Extremity Edema NPO IV fluids Monitor Hgb; Blood Transfusion as needed Protonix Consider EGD/Colonoscopy to ID source of bleed; If negative Consider small bowel evaluation. Inpatient vs outpatient since was on plavix/asa want held 5 days unless emergent. Supervisory-Addendum Brief Verification & Attestation Participated in pt care: history, MDM, physical Personally performed: exam, history, MDM, supervision of care Care discussed with: Medical Student Procedures: n/a Results interpretation: Verified all documentation Verification and Attestation of Medical Student E/M Service A medical student performed and documented this service in my presence. I reviewed and verified all information documented by the medical student and made modifications to such information, when appropriate. I personally performed the physical exam and medical decision making. Karl Chairez, Aug 09, 2022,20:20 SANTIAGO BERNAL Aug 09, 2022 06:36 KARL CHAIREZ DO Aug 09, 2022 20:16
[2022-08-09 06:38] LABS: HEMOGLOBIN 6.5 g/dL (11.5-16.0)
--- NOTE | 2022-08-09 06:45 | Diagnostic Imaging Report ---
EXAMINATION: CT abdomen and pelvis with intravenous contrast. TECHNIQUE: Multiple contiguous axial images were obtained through the abdomen and pelvis after the uneventful administration of intravenous contrast. All CT scans use one or more of the following dose optimizing techniques: automated exposure control, MA and/or KvP adjustment based on patient size and exam type or iterative reconstruction. HISTORY: Abdominal pain, rectal bleeding COMPARISON: 10/26/2021 FINDINGS: Lung bases: The lung bases are clear. There may be a large pericardial effusion. Solid organs: The liver is normal without focal lesion. The gallbladder is normal. There is no biliary ductal dilation. Pancreas is normal. Spleen is normal. Adrenal glands are normal. There are nonobstructing renal calculi measuring up to 0.4 cm. No hydronephrosis. Bowel: The stomach and small bowel are normal without obstruction. The colon and appendix are normal. Peritoneum: There is no intraperitoneal free fluid or free air. No suspicious lymphadenopathy. Vasculature: Vascular calcifications of the aorta with mild aneurysmal dilatation measuring up to 3.0 cm. Chronic appearing stenosis of the proximal SMA. Musculoskeletal: Degenerative changes of the spine without suspicious osseous lesion or compression fracture. Surgical changes from left hip arthroplasty. Pelvis: The uterus is surgically absent. No adnexal mass. The urinary bladder is normal. IMPRESSION: 1. No acute abnormality in the abdomen or pelvis. 2. 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 3. Agree with preliminary interpretation. Dictated by: Dictated on workstation # [id number]
--- NOTE | 2022-08-09 10:30 | History & Physical ---
BENSON KHAN 08/09/22 1030: History of Present Illness History of Present Illness Reason for visit/HPI Jen Murry is a pleasant 72y/o female who presented to the ER on 08/08 with bloody stools that began sunday 08/06. She states she ate some chocolate on 08/06 and was not sure if this had changed her stool. She began to feel progressively fatigued over the weekend and the stools became looser with blood in each BM. She also had an episode of dark emesis tuesday night, has not had emesis since. She initially had some LLQ fullness/tenderness that is improving. She had a BM this morning before my visit that the patient said was still dark, but less in volume and bloodiness than over the weekend. She has no hx of colon cancer, Chron's, or UC and has never had colonoscopy as far as she remembers. Her weakness feels improved but she does not feel back to her baseline level of strength. She is receiving 2 units of blood this AM due to a Hgb of 6.5. Date of Admission Aug 09, 2022 at 09:35 I consulted on this patient on 08/09/22 10:23 Attending Physician Arpita Todd DO Admitting Physician Admitting Physician: Arpita Todd DO Attending Physician: Arpita Todd DO Consult Allergies and Home Medications Allergies Coded Allergies: Penicillins (Verified Allergy, Unknown, 07/04/20) hydrocodone (Verified Allergy, Unknown, 07/04/20) Uncoded Allergies: LARGE DOSES OF ASPIRIN (Adverse Reaction, Unknown, 10/21/21) LOOP DIURETIC (Adverse Reaction, Unknown, 10/21/21) Patient Home Medication List Home Medication List Reviewed: Yes Acetaminophen (Tylenol Extra Strength) 500 Mg Tablet, 500-1,000 MG PO Q8H PRN for PAIN-MILD (1-4), (Reported) Entered as Reported by: GER ABDULLAHI on 08/09/221509 Last Action: Reviewed Albuterol Sulfate (Ventolin Hfa) 90 Mcg Hfa.aer.ad, 2 PUFF INH Q6H PRN for SHORTNESS OF BREATH, (Reported) Entered as Reported by: GER ABDULLAHI on 08/09/221509 Last Action: Reviewed Aspirin (Aspirin EC) 81 Mg Tablet.dr, 81 MG PO DAILY, (Reported) Entered as Reported by: GER ABDULLAHI on 08/09/221509 Last Action: Reviewed Budesonide/Glycopyr/Formoterol (Breztri Aerosphere Inhaler) 160 Mcg-9 Mcg-4.8 Mcg/Actuation Hfa.aer.ad, 2 PUFF IH BID, (Reported) Entered as Reported by: GER ABDULLAHI on 08/09/221509 Last Action: Reviewed Cholecalciferol (Vitamin D3) (Vitamin D3) 1,250 Mcg (69290 Unit) Capsule, 1,250 MCG PO MO,FR, (Reported) Entered as Reported by: GER ABDULLAHI on 08/09/221509 Last Action: Reviewed Clopidogrel Bisulfate (Clopidogrel) 75 Mg Tablet, 75 MG PO DAILY, (Reported) Entered as Reported by: GER ABDULLAHI on 08/09/221509 Last Action: Reviewed Cyanocobalamin (Vitamin B-12) (Vitamin B-12) 1,000 Mcg Tablet, 1,000 MCG PO DAILY, (Reported) Entered as Reported by: GER ABDULLAHI on 08/09/221509 Last Action: Reviewed Ferrous Sulfate (Ferrous Sulfate) 325 Mg (65 Mg Iron) Tablet, 325 MG PO DAILY, (Reported) Entered as Reported by: GER ABDULLAHI on 08/09/221509 Last Action: Reviewed Levothyroxine Sodium (Levothyroxine Sodium) 25 Mcg Tablet, 25 MCG PO DAILY, (Reported) Entered as Reported by: GER ABDULLAHI on 10/21/21 1211 Last Action: Reviewed Lisinopril (Lisinopril) 20 Mg Tablet, 20 MG PO DAILY, (Reported) Entered as Reported by: GER ABDULLAHI on 08/09/221509 Last Action: Reviewed Pantoprazole Sodium (Pantoprazole Sodium) 20 Mg Tablet.dr, 20 MG PO DAILY, (Reported) Entered as Reported by: GER ABDULLAHI on 08/09/221509 Last Action: Reviewed Simvastatin (Simvastatin) 80 Mg Tablet, 80 MG PO DAILY, (Reported) Entered as Reported by: GER ABDULLAHI on 08/09/221509 Last Action: Reviewed Zinc Sulfate (Zinc) 50 Mg Zinc (220 Mg) Tablet, 50 MG PO DAILY, (Reported) Entered as Reported by: GER ABDLULAHI on 2/6/23 1510 Last Action: Reviewed Discontinued Medications Acetaminophen (Tylenol Extra Strength) 500 Mg Tablet, 500-1,000 MG PO Q8H PRN for PAIN-MILD (1-4), (Reported) Discontinued Reason: No Longer Taking Entered as Reported by: SANTA COTTO on 10/26/21 1338 Last Action: Discontinued Apixaban (Eliquis) 5 Mg Tablet, 5 MG PO BID Discontinued Reason: No Longer Taking Prescribed by: ARPITA TODD on 10/26/212102 Last Action: Discontinued Ipratropium/Albuterol Sulfate (Iprat-Albut 0.5-3(2.5) mg/3 ml) 0.5 Mg-3 Mg (2.5 Mg Base)/3 Ml Ampul.neb, 3 ML IH RTQ4HR PRN for SHORTNESS OF BREATH Discontinued Reason: No Longer Taking Prescribed by: ARPITA TODD on 10/26/212102 Last Action: Discontinued Oxycodone Hcl (Oxyir Tablet) 5 Mg Tab, 5-10 MG PO Q4H PRN for PAIN-SEVERE (8-10) Discontinued Reason: No Longer Taking Prescribed by: ARPITA TODD on 10/26/212102 Last Action: Discontinued Pantoprazole Sodium (Pantoprazole Sodium) 40 Mg Tablet.dr, 40 MG PO DAILY Discontinued Reason: No Longer Taking Prescribed by: ARPITA TODD on 10/26/212102 Last Action: Discontinued Potassium Chloride (Klor-Con 10) 10 Meq Tablet.er, 20 MEQ PO TIDWM Discontinued Reason: No Longer Taking Prescribed by: ARPITA TODD on 10/26/212102 Last Action: Discontinued Simvastatin (Simvastatin) 20 Mg Tablet, 20 MG PO HS, (Reported) Discontinued Reason: No Longer Taking Entered as Reported by: GER ABDULLAHI on 10/21/21 1211 Last Action: Discontinued Sucralfate (Sucralfate) 1 Gram Tablet, 1 GM PO ACHS PRN for ULCERS Discontinued Reason: No Longer Taking Prescribed by: ARPITA TODD on 10/26/212102 Last Action: Discontinued Past Rauhkpi-Eerlqf-Pgtqyg Hx Patient Social History Marrital Status: Tobacco Use?: Yes Tobacco type used: Cigarettes Smoking Status: Current Someday Smoker Smokeless Tobacco Frequency: Never a User Use of E-Cig and/or Vaping dev: No Substance use?: No Alcohol Use?: No Pt feels they are or have been: No Immunizations Up To Date First/Initial COVID19 Vaccinat: 2020 Second COVID19 Vaccination Tod: 2020 Tetanus Booster (TDap): Unknown PED Vaccines UTD: Yes Seasonal Allergies Seasonal Allergies: No Current Status Advance Directives: No Advance Directive Location: Home Communicates: Verbally Primary Language: Thai Preferred Spoken Language: Thai Is interpretation needed?: No Sensory deficits: Vision impairment Implanted or Applied Medical D: Orthopedic hardware Past Medical History Surgeries: Abdominal (exp lap done due to bowel ischemia), Hysterectomy, Orthopedic High Cholesterol, Hypertension, Peripheral Vascular (Ischemic bowel) Obstructive Bowel Arthritis, Chronic Back Pain Hypothyroidsim Blood Disorders: No Family Medical History Cancer (Mother: Uterine; Father: Liver), Other Conditions/Hx (Father: Lupus) Review of Systems Constitutional: No chills; weakness EENTM: No epistaxis Respiratory: No cough, No hemoptysis, No short of breath Cardiovascular: No chest pain, No palpitations Gastrointestinal: LLQ (fullness/tenderness) Genitourinary: No dysuria Physical Exam Vital Signs Vital Signs - First Documented 08/09/22 00:41 Temp 36.2 Pulse 86 Resp 18 B/P (MAP) 122/64 (83) Pulse Ox 99 O2 Delivery Room Air Capillary Refill : Less Than 3 Seconds Height, Weight, BMI Height: '" Weight: lbs. oz. kg; 21.84 BMI Method: General Appearance: No Apparent Distress, WD/WN HEENT: PERRL/EOMI Respiratory: Chest Non Tender, Lungs Clear, No Accessory Muscle Use Cardiovascular: Regular Rate, Rhythm, No Murmur Gastrointestinal: Soft, Tenderness (llq) Extremity: No Calf Tenderness, No Pedal Edema Neurologic/Psychiatric: Alert, Oriented x3 Comments Date of Exam:08/09/22 CT ABDOMEN/PELVIS W EXAMINATION: CT abdomen and pelvis with intravenous contrast. TECHNIQUE: Multiple contiguous axial images were obtained through the abdomen and pelvis after the uneventful administration of intravenous contrast. All CT scans use one or more of the following dose optimizing techniques: automated exposure control, MA and/or KvP adjustment based on patient size and exam type or iterative reconstruction. HISTORY: Abdominal pain, rectal bleeding COMPARISON: 10/26/2021 FINDINGS: Lung bases: The lung bases are clear. There may be a large pericardial effusion. Solid organs: The liver is normal without focal lesion. The gallbladder is normal. There is no biliary ductal dilation. Pancreas is normal. Spleen is normal. Adrenal glands are normal. There are nonobstructing renal calculi measuring up to 0.4 cm. No hydronephrosis. Bowel: The stomach and small bowel are normal without obstruction. The colon and appendix are normal. Peritoneum: There is no intraperitoneal free fluid or free air. No suspicious lymphadenopathy. Vasculature: Vascular calcifications of the aorta with mild aneurysmal dilatation measuring up to 3.0 cm. Chronic appearing stenosis of the proximal SMA. Musculoskeletal: Degenerative changes of the spine without suspicious osseous lesion or compression fracture. Surgical changes from left hip arthroplasty. Pelvis: The uterus is surgically absent. No adnexal mass. The urinary bladder is normal. IMPRESSION: 1. No acute abnormality in the abdomen or pelvis. 2. 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 3. Agree with preliminary interpretation. Assessment/Plan Assessment and Plan GI bleed Anemia 2 units given today, will monitor hemoglobin. Surgery consulted- will likely need upper and lower scope to ID bleed source. Patient is NPO last meal evening of 08/08. Apixaban held LLQ pain improving, pain medication as needed. Continue to monitor BMs for change in color/consistency N/V zofran prn. patient has not vomitted since Tuesday evening Clinical Quality Measures DVT/VTE Risk/Contraindication: Contraindications-Pharm: Other *list below* Other: ARPITA RICHARDSON DO 08/10/22 0453: History of Present Illness History of Present Illness Date Seen by a Provider: Aug 09, 2022 Time Seen by a Provider: 10:00 Allergies and Home Medications Allergies Coded Allergies: Penicillins (Verified Allergy, Unknown, 07/04/20) hydrocodone (Verified Allergy, Unknown, 07/04/20) Uncoded Allergies: LARGE DOSES OF ASPIRIN (Adverse Reaction, Unknown, 10/21/21) LOOP DIURETIC (Adverse Reaction, Unknown, 10/21/21) Patient Home Medication List Home Medication List Reviewed: Yes Acetaminophen (Tylenol Extra Strength) 500 Mg Tablet, 500-1,000 MG PO Q8H PRN for PAIN-MILD (1-4), (Reported) Entered as Reported by: GER ABDULLAHI on 08/09/221509 Last Action: Reviewed Albuterol Sulfate (Ventolin Hfa) 90 Mcg Hfa.aer.ad, 2 PUFF INH Q6H PRN for SHORTNESS OF BREATH, (Reported) Entered as Reported by: GER ABDULLAHI on 08/09/221509 Last Action: Reviewed Aspirin (Aspirin EC) 81 Mg Tablet.dr, 81 MG PO DAILY, (Reported) Entered as Reported by: GER ABDULLAHI on 08/09/221509 Last Action: Reviewed Budesonide/Glycopyr/Formoterol (Breztri Aerosphere Inhaler) 160 Mcg-9 Mcg-4.8 Mcg/Actuation Hfa.aer.ad, 2 PUFF IH BID, (Reported) Entered as Reported by: GER ABDULLAHI on 08/09/221509 Last Action: Reviewed Cholecalciferol (Vitamin D3) (Vitamin D3) 1,250 Mcg (02453 Unit) Capsule, 1,250 MCG PO MO,FR, (Reported) Entered as Reported by: GER ABDULLAHI on 08/09/221509 Last Action: Reviewed Clopidogrel Bisulfate (Clopidogrel) 75 Mg Tablet, 75 MG PO DAILY, (Reported) Entered as Reported by: GER ABDULLAHI on 08/09/221509 Last Action: Reviewed Cyanocobalamin (Vitamin B-12) (Vitamin B-12) 1,000 Mcg Tablet, 1,000 MCG PO DAILY, (Reported) Entered as Reported by: GER ABDULLAHI on 08/09/221509 Last Action: Reviewed Ferrous Sulfate (Ferrous Sulfate) 325 Mg (65 Mg Iron) Tablet, 325 MG PO DAILY, (Reported) Entered as Reported by: GER ABDULLAHI on 08/09/221509 Last Action: Reviewed Levothyroxine Sodium (Levothyroxine Sodium) 25 Mcg Tablet, 25 MCG PO DAILY, (Reported) Entered as Reported by: GER ABDULLAHI on 10/21/21 121 Last Action: Reviewed Lisinopril (Lisinopril) 20 Mg Tablet, 20 MG PO DAILY, (Reported) Entered as Reported by: GER ABDULLAHI on 08/09/221509 Last Action: Reviewed Pantoprazole Sodium (Pantoprazole Sodium) 20 Mg Tablet.dr, 20 MG PO DAILY, (Reported) Entered as Reported by: GER ABDULLAHI on 08/09/221509 Last Action: Reviewed Simvastatin (Simvastatin) 80 Mg Tablet, 80 MG PO DAILY, (Reported) Entered as Reported by: GER ABDULLAHI on 08/09/221509 Last Action: Reviewed Zinc Sulfate (Zinc) 50 Mg Zinc (220 Mg) Tablet, 50 MG PO DAILY, (Reported) Entered as Reported by: GER ABDULLAHI on 08/09/221509 Last Action: Reviewed Discontinued Medications Acetaminophen (Tylenol Extra Strength) 500 Mg Tablet, 500-1,000 MG PO Q8H PRN for PAIN-MILD (1-4), (Reported) Discontinued Reason: No Longer Taking Entered as Reported by: SANTA COTTO on 10/26/21 1338 Last Action: Discontinued Apixaban (Eliquis) 5 Mg Tablet, 5 MG PO BID Discontinued Reason: No Longer Taking Prescribed by: ARPITA TODD on 10/26/212102 Last Action: Discontinued Ipratropium/Albuterol Sulfate (Iprat-Albut 0.5-3(2.5) mg/3 ml) 0.5 Mg-3 Mg (2.5 Mg Base)/3 Ml Ampul.neb, 3 ML IH RTQ4HR PRN for SHORTNESS OF BREATH Discontinued Reason: No Longer Taking Prescribed by: ARPITA TODD on 10/26/212102 Last Action: Discontinued Oxycodone Hcl (Oxyir Tablet) 5 Mg Tab, 5-10 MG PO Q4H PRN for PAIN-SEVERE (8-10) Discontinued Reason: No Longer Taking Prescribed by: ARPITA TODD on 10/26/212102 Last Action: Discontinued Pantoprazole Sodium (Pantoprazole Sodium) 40 Mg Tablet.dr, 40 MG PO DAILY Discontinued Reason: No Longer Taking Prescribed by: ARPITA TODD on 10/26/212102 Last Action: Discontinued Potassium Chloride (Klor-Con 10) 10 Meq Tablet.er, 20 MEQ PO TIDWM Discontinued Reason: No Longer Taking Prescribed by: ARPITA TODD on 10/26/212102 Last Action: Discontinued Simvastatin (Simvastatin) 20 Mg Tablet, 20 MG PO HS, (Reported) Discontinued Reason: No Longer Taking Entered as Reported by: GER ABDULLAHI on 10/21/21 1211 Last Action: Discontinued Sucralfate (Sucralfate) 1 Gram Tablet, 1 GM PO ACHS PRN for ULCERS Discontinued Reason: No Longer Taking Prescribed by: ARPITA TODD on 10/26/212102 Last Action: Discontinued Past Dsysmwk-Gztgqc-Wcppjk Hx Patient Social History Marrital Status: Employed/Student: retired Smoking Status: Current Everyday Smoker Past Medical History COPD Chronic Edema/Swelling, High Cholesterol, Hypertension, Peripheral Vascular Review of Systems Constitutional: see HPI Gastrointestinal: see HPI Physical Exam General Appearance: No Apparent Distress, WD/WN, Chronically ill Respiratory: Lungs Clear, Normal Breath Sounds Neurologic/Psychiatric: Alert, Oriented x3 Assessment/Plan Assessment and Plan Assessment: GIB Symptomatic anemia Mesenteric stent then bypass at [facility] Smoker Chronic edema COPD HTN HLP Plan: Transfuse Dr Nguyen consult Dr Ny consult Problems: (1) GI bleed Status: Acute Qualifiers: Qualified Codes: K92.2 - Gastrointestinal hemorrhage, unspecified (2) Severe anemia (3) Fall Status: Acute Admission Diagnosis Admission Status: Inpatient Order (span 2 midnights) Reason for Inpatient Admission: GIB Supervisory-Addendum Brief Verification & Attestation Participated in pt care: history, MDM, physical Personally performed: exam, history, MDM, supervision of care Care discussed with: Medical Student Procedures: n/a Results interpretation: Verified all documentation Verification and Attestation of Medical Student E/M Service A medical student performed and documented this service in my presence. I reviewed and verified all information documented by the medical student and made modifications to such information, when appropriate. I personally performed the physical exam and medical decision making. Arpita Todd Aug 10, 2022,04:54 BENSON KHAN Aug 09, 2022 10:30 ARPITA TODD DO Aug 10, 2022 04:53
--- NOTE | 2022-08-09 11:11 | Physical Therapy Evaluation ---
PT Evaluation-General Medical Diagnosis Admission Date Aug 09, 2022 at 09:35 Medical Diagnosis: GI Bleed/severe anemia Onset Date: Aug 08, 2022 Therapy Diagnosis Therapy Diagnosis: generalized weakness/debility Precautions Precautions/Isolations: Fall Prevention, Standard Precautions Referral Physician: Estrada Reason for Referral: Evaluation/Treatment Medical History Pertinent Medical History: HTN, PVD, Smoking Current History ER secondary to dark stool x 3-4 days with weakness Reviewed History: Yes Social History Home: Single Level Current Living Status: Alone Prior Prior Level of Function SCALE: Activities may be completed with or without assistive devices. 6-Gdwmklqhqa-whrfomk completes the activity by him/herself with no assistance from a helper. 5-Set-up or Clean-up Assistance-helper sets up or cleans up; patient completes activity. Arco assists only prior to or following the activity. 4-Supervision or Touching Assistance-helper provides verbal cues and/or touching/steadying and/or contact guard assistance as patient completes activity. Assistance may be provided throughout the activity or intermittently. 3-Partial/Moderate Assistance-helper does LESS THAN HALF the effort. Arco lifts, holds or supports trunk or limbs, but provides less than half the effort. 2-Substantial/Maximal Assistance-helper does MORE THAN HALF the effort. Arco lifts or holds trunk or limbs and provides more than half the effort. 7-Zpjviwlhq-dezkkq does ALL the effort. Patient does none of the effort to complete the activity. Or, the assistance of 2 or more helpers is required for the patient to complete the activity. If activity was not attempted, code reason: 7-Patient Refused. 9-Not Applicable-not attempted and the patient did not perform the activity b efore the current illness, exacerbation or injury. 10-Not Attempted due to Environmental Limitations-(lack of equipment, weather restraints, etc.). 88-Not Attempted due to Medical Conditions or Safety Concerns. Bed Mobility: 6 Transfers (B,C,W/C): 6 Gait: 6 Stairs: 6 Indoor Mobility (Ambulation): Independent Stairs: Independent Prior Devices Use: Walker, Other-see list below Prior Device Use: cane PT Evaluation-Current Subjective Patient agrees to PT. Currently receiving PRBC. Objective Patient Orientation: Normal For Age Attachments: IV ROM/Strength ROM Lower Extremities bilateral LE WFL Strength Lower Extremities 4/5 grossly bilateral LE all planes Integumentary/Posture Bowel Incontinence: No Bladder Incontinence: No Posture WFL Neuromuscular (Tone, Coordination, Reflexes) grossly intact Sensory Vision: Functional Hearing: Functional Transfers Sit to Lying (QC): 6 Lying to Sitting/Side of Bed(Q: 6 Sit to Stand (QC): 4 Gait Mode of Locomotion: Walk Anticipated Mode of Locomotion: Walk Walk 10 feet (QC): 4 Gait Assistive Device: FWW Balance Sitting Static: Normal Sitting Dynamic: Normal Standing Static: Normal Standing Dynamic: Normal Assessment/Needs Treatment ceased with RN in to place another unit of [facility]. Patient will benefit from skilled PT to address functional mobility to ensure safe return to home at maximum LOF. Rehab Potential: Fair PT Long-Term Goals Acid Blower Goals PT Long-Term Goals Time Frame: Aug 21, 2022 Roll Left & Right (QC): 6 Sit to Lying (QC): 6 Lying-Sitting on Side/Bed(QC): 6 Sit to Stand (QC): 6 Chair/Iio-io-Wjyxa Xfer(QC): 6 Toilet Transfer (QC): 6 Walk 10 feet (QC): 6 Walk 50ft with 2 Turns (QC): 6 Walk 150 ft (QC): 6 PT Plan Problem List Problem List: Activity Tolerance, Functional Strength, Balance, Transfer Treatment/Plan Treatment Plan: Continue Plan of Care Treatment Plan: Bed Mobility, Education, Functional Activity Maryann, Functional Strength, Gait, Safety, Therapeutic Exercise, Transfers Treatment Duration: Aug 21, 2022 Frequency: 6 times per week Estimated Hrs Per Day: .25 hour per day Patient and/or Family Agrees t: Yes Time Time In: 1011 Time Out: 1021 DATE: Aug 09, 2022 Total Billed Treatment Time: 10 Total Billed Treatment 1 visit EVMod 10 min LARRY GLORIA PT Aug 09, 2022 11:10
[2022-08-09] MEDS: PANTOPRAZOLE 40 MG (PROTONIX) VIAL IV SCH (13:35)
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
[2022-08-09] MEDS ORDERED: CHOL500049 PO (15:10)
[2022-08-09] MEDS ORDERED: ALBU18HF2 INH (15:10)
[2022-08-09] MEDS ORDERED: FERR325T18 PO (15:10)
[2022-08-09] MEDS ORDERED: PANT20TA18 PO (15:10)
[2022-08-09] MEDS ORDERED: LISI20TA26 PO (15:10)
[2022-08-09] MEDS ORDERED: SIMV80TA21 PO (15:10)
[2022-08-09] MEDS ORDERED: ASPI-1238 PO (15:10)
[2022-08-09] MEDS ORDERED: BUDE10.7 IH (15:10)
[2022-08-09] MEDS ORDERED: CLOP75TA28 PO (15:10)
[2022-08-09] MEDS ORDERED: ZINC220T3 PO (15:10)
[2022-08-09] MEDS ORDERED: CYAN-41 PO (15:10)
[2022-08-09] MEDS ORDERED: ACET-2267 PO (15:10)
[2022-08-10] VITALS (7 sets, daily range): BP systolic 141–178; BP diastolic 67–79
[2022-08-10] MEDS: LACTATED RINGERS 1,000 ML IV SCH ×2 (01:48→09:51)
--- NOTE | 2022-08-10 06:44 | Progress Note - Surgery ---
GABESANTIAGO 08/10/22 0644: Subjective Date Seen by a Provider: Aug 10, 2022 Time Seen by a Provider: 06:15 Subjective/Events-last exam Pt was seen and interviewed today. Yesterday pt received 2units of blood due to 6.5 hemoglobin. Pt has not had any bowel movements since admission but is passing gas; no pain noted. Pt states that she feel great and is ready to go home. PT states that she would benefit from from rehab; when asked nurse about ability to complete ADL's, nurse states that she is does everything independently w/ person standby and thinks she would be okay w/o out inpatient rehab. Pt received EKG yesterday that was sinus rhythm w/ possible RBBB and Septal UT of indeterminate age. ECHO recieved yesterday showed normal systolic function with moderae pericardial effusion (1.5-2cm) circumferential to heart. Pt does have chronic cough and SOB, states due to smoking. Review of Systems HEENT: No Head Aches Pulmonary: Dyspnea, Cough Cardiovascular: No: Chest Pain, Palpitations Gastrointestinal: No: Nausea, Vomiting, Abdominal Pain, Diarrhea Genitourinary: No Dysuria, No Frequency Neurological: No: Weakness, Numbness Objective Exam Vital Signs Date Time Temp Pulse Resp B/P (MAP) Pulse Ox O2 Delivery O2 Flow Rate FiO2 08/10/22 03:30 37.0 63 18 141/72 (95) 93 Room Air 08/09/22 23:45 35.1 63 18 116/74 (88) 93 Room Air 08/09/22 20:00 93 Room Air 08/09/22 20:00 36.6 67 18 115/77 (90) 93 Room Air 08/09/22 15:48 36.9 66 18 115/58 (77) 97 Room Air 08/09/22 12:56 37.2 71 117/57 08/09/22 12:17 36.7 72 18 111/57 (75) 95 Room Air 08/09/22 10:35 37.0 70 16 113/59 08/09/22 10:22 37.1 83 110/55 08/09/22 10:19 95 Room Air 08/09/22 10:19 37.1 76 16 110/55 92 08/09/22 08:16 36.6 82 18 119/59 (79) 93 Room Air 08/09/22 08:05 36.8 75 18 122/57 93 Room Air 08/09/22 08:00 92 Room Air 08/09/22 07:42 36.7 80 18 119/59 94 Room Air I & O 08/10/22 07:00 Intake Total 2100 ml Output Total 900 ml Balance 1200 ml Capillary Refill : Less Than 3 Seconds General Appearance: No Apparent Distress, WD/WN, Chronically ill HEENT: PERRL/EOMI, Pharynx Normal Neck: Non Tender, Supple Respiratory: Chest Non Tender, Lungs Clear, Normal Breath Sounds Cardiovascular: Regular Rate, Rhythm, No Edema, No JVD, No Murmur Peripheral Pulses: 2+ Radial Pulses (R), 2+ Radial Pulses (L) Gastrointestinal: normal bowel sounds, non tender, soft; No tenderness Extremity: No Calf Tenderness, No Pedal Edema Neurologic/Psychiatric: Alert, Oriented x3 Skin: Normal Color, Warm/Dry Lymphatic: No Adenopathy Assessment/Plan Assessment/Plan Assessment/Plan Acute GI Bleed- Melena LLQ Abdominal Pain Leukocytosis Anemia Generalized Lower Extremity Edema Consider advancing Diet from NPO IV fluids Monitor Hgb; Blood Transfusion as needed Protonix Consider EGD/Colonoscopy to ID source of bleed; If negative Consider small bowel evaluation. Inpatient vs outpatient since was on plavix/asa want held 5 days unless emergent. Pt seems status seems to be improved; Pt is not currently in pain, no new episodes of bloody stools and is passing gas, pt is able to complete daily activities without aid and minimal supervision. Consider pt for discharge if Hgb has improved past pt's baseline from admission. Clinical Quality Measures DVT/VTE Risk/Contraindication: Contraindications-Pharm: Other *list below* Other: ALPESH CHAN DO 08/10/22 2009: Subjective Subjective/Events-last exam Patient hgb up. Has not had any dark or bloody bowel movements. NOt having any abdominal pain currently. Was started on clears. Denies n/v fever sweats chills shortness of breath or chest pain. Objective Exam General Appearance: No Apparent Distress, Chronically ill HEENT: PERRL/EOMI, Normal ENT Inspection Neck: Non Tender, Supple Respiratory: Chest Non Tender, No Accessory Muscle Use, No Respiratory Distress Cardiovascular: Regular Rate, Rhythm, No JVD Gastrointestinal: non tender, soft Extremity: Non Tender, No Calf Tenderness Neurologic/Psychiatric: Alert, Oriented x3 Skin: Normal Color, Warm/Dry Lymphatic: No Adenopathy Assessment/Plan Assessment/Plan Assessment/Plan Acute GI Bleed- Melena LLQ Abdominal Pain Leukocytosis Anemia Generalized Lower Extremity Edema Clear liquids today. Plavix held IV fluids Monitor Hgb; Blood Transfusion as needed Protonix Discussed risks and benefits of EGD/Colonoscopy all other indicated procedures to ID source of bleed; If negative Consider small bowel evaluation. PLavix held so will do Supervisory-Addendum Brief Verification & Attestation Participated in pt care: history, MDM, physical Personally performed: exam, history, MDM, supervision of care Care discussed with: Medical Student Procedures: n/a Results interpretation: Verified all documentation Verification and Attestation of Medical Student E/M Service A medical student performed and documented this service in my presence. I reviewed and verified all information documented by the medical student and made modifications to such information, when appropriate. I personally performed the physical exam and medical decision making. Alpesh Nguyen, Aug 10, 2022,20:09 SANTIAGO BERNAL Aug 10, 2022 06:44 ALPESH NGUYEN DO Aug 10, 2022 20:09
--- NOTE | 2022-08-10 09:46 | Occupational Ther Daily Note ---
OT Current Status-Daily Note Subjective Up walking halls w/ AD and additional person for IV pole Mental Status/Objective Patient Orientation: Normal For Age Attachments: IV ADL-Treatment Therapy Code Descriptions/Definitions Functional Leslie Measure: 0=Not Assessed/NA 4=Minimal Assistance 1=Total Assistance 5=Supervision or Setup 2=Maximal Assistance 6=Modified Leslie 3=Moderate Assistance 7=Complete IndependenceSCALE: Activities may be completed with or without assistive devices. 1-Undeznarku-xxgrusw completes the activity by him/herself with no assistance from a helper. 5-Set-up or Clean-up Assistance-helper sets up or cleans up; patient completes activity. [place] assists only prior to or following the activity. 4-Supervision or Touching Assistance-helper provides verbal cues and/or touching /steadying and/or contact guard assistance as patient completes activity. Assistance may be provided throughout the activity or intermittently. 3-Partial/Moderate Assistance-helper does LESS THAN HALF the effort. [place] lifts, holds or supports trunk or limbs, but provides less than half the effort. 2-Substantial/Maximal Assistance-helper does MORE THAN HALF the effort. [place] lifts or holds trunk or limbs and provides more than half the effort. 6-Cvpaqvype-kadiys does ALL the effort. Patient does none of the effort to complete the activity. Or, the assistance of 2 or more helpers is required for the patient to complete the activity. If activity was not attempted, code reason: 7-Patient Refused. 9-Not Applicable-not attempted and the patient did not perform the activity before the current illness, exacerbation or injury. 10-Not Attempted due to Environmental Limitations-(lack of equipment, weather restraints, etc.). 88-Not Attempted due to Medical Conditions or Safety Concerns. Eating (QC): 88 (NPO) Oral Hygiene (QC): 5 (may use sponge) Shower/Bathe Self (QC): 7 (declines) Upper Body Dressing (QC): 4 Lower Body Dressing (QC): 4 On/Off Footwear: 5 Toileting Hygiene (QC): 4 Toilet Transfer (QC): 4 (pt reports legs feel weak) Other Treatment obstacle navigation w/ ADS. Activity to increase endurance and balance Education OT Patient Education: Energy conservation, Exercise program, Modified ADL techn iques, Progress toward Goal/Update tx plan, Purpose of tx/functional activities, Reviewed precautions, Rehab process, Use of adapted equipment Teaching Recipient: Patient Teaching Methods: Demonstration, Discussion Response to Teaching: Return Demonstration, Reinforcement Needed OT Senior Behavioral Scientist Goals Senior Behavioral Scientist Goals Eating (QC): 6 Oral Hygiene (QC): 6 Toileting Hygiene (QC): 6 Shower/Bathe Self (QC): 6 Upper Body Dressing (QC): 6 Lower Body Dressing (QC): 6 On/Off Footwear (QC): 6 1=Demonstrate adherence to instructed precautions during ADL tasks. 2=Patient will verbalize/demonstrate understanding of assistive devices/modifications for ADL. 3=Patient will improve strength/tolerance for activity to enable patient to perform ADL's. OT Education/Plan Problem List/Assessment Assessment: Decreased Activ Tolerance, Impaired Coordination, Impaired Funct Balance, Impaired I ADL's, Impaired Self-Care Skills Discharge Recommendations Plan/Recommendations: Continue POC Therapy Discharge Recommendati: Post Acute OT Comment Lives alone, plan for IADL training in simulated set up Treatment Plan/Plan of Care Patient would benefit from OT for education, treatment and training to promote independence in ADL's, mobility, safety and/or upper extremity function for ADL's. Plan of Care: ADL Retraining, Concurrent Therapy, Functional Mobility, Group Exercise/Act as Ind, UE Funct Exercise/Act Treatment Duration: Aug 21, 2022 Frequency: 3 times per week (3-5 times per week) Estimated Hrs Per Day: .25 hour per day Agreement: Yes Rehab Potential: Fair Patient remains up in chair w/ blanket on lap, IV connected, call light in reach all needs met Time Start Time: 09:25 Stop Time: 09:45 DATE: Aug 10, 2022 Total Time Billed (hr/min): 20 Billed Treatment Time 1 visit, FA 1 20 minutes LINDA HOWARD OT Aug 10, 2022 09:46
[2022-08-10] MEDS: PANTOPRAZOLE 40 MG (PROTONIX) VIAL IV SCH (09:51)
[2022-08-10 10:30] LABS: BASOPHILS # (AUTO) 0.1 10^3/uL (0.0-0.1); BASOPHILS % (AUTO) 1 % (0-10); EOSINOPHILS # (AUTO) 0.1 10^3/uL (0.0-0.3); EOSINOPHILS % (AUTO) 1 % (0-10); HEMATOCRIT 26 % (35-52); LYMPHOCYTES # (AUTO) 0.6 10^3/uL (1.0-4.0); LYMPHOCYTES % (AUTO) 9 % (12-44); MEAN CORPUSCULAR HGB CONC 31 g/dL (32-36); MEAN CORPUSCULAR VOLUME 93 fL (80-99); MEAN PLATELET VOLUME 10.8 fL (9.0-12.2); MONOCYTES # (AUTO) 0.6 10^3/uL (0.0-1.0); MONOCYTES % (AUTO) 9 % (0-12); NEUTROPHILS # (AUTO) 5.4 10^3/uL (1.8-7.8); NEUTROPHILS % (AUTO) 81 % (42-75); PLATELET COUNT 245 10^3/uL (130-400); WHITE BLOOD COUNT 6.7 10^3/uL (4.3-11.0)
[2022-08-10] MEDS ORDERED: IRON DEXTRAN INJECTION 1,000 MG in NS (IVPB) 250 ML IV NR (10:30)
[2022-08-10] MEDS ORDERED: amLODIPine 5 MG (NORVASC) TAB PO NR (10:30)
[2022-08-10] MEDS ORDERED: IRON DEXTRAN INJECTION 25 MG in NS (IVPB) 5.75 ML, SYRINGE-IVPB 1 SYRINGE IV NR ×3 (10:30)
[2022-08-10] MEDS ORDERED: FUROSEMIDE 40 MG/4 ML INJ (LASIX) IVP NR (10:30)
[2022-08-10] MEDS ORDERED: amLODIPine 10 MG (NORVASC) TAB PO NR (10:30)
[2022-08-10 10:31] LABS: MEAN CORPUSCULAR HEMOGLOBIN 28 pg (25-34)
--- NOTE | 2022-08-10 10:33 | Physical Therapy Daily Note ---
PT Daily Note-Current Subjective Patient reports she is feeling much better on this date. States, "When can I go home?" PT instructed patient to discuss plan with physician. Pain Section J - Health Conditions 1. Rarely or not at all 2. Occasionally 3. Frequently 4. Almost constantly 8. Unable to answer Pain Effect on Sleep: 1 Pain Interference with Therapy: 1 Pain Interference w/Day-to-Day: 1 Mental Status Attachments: IV Transfers SCALE: Activities may be completed with or without assistive devices. 9-Ngxamlieqq-jjvzmzp completes the activity by him/herself with no assistance from a helper. 5-Set-up or Clean-up Assistance-helper sets up or cleans up; patient completes activity. [place] assists only prior to or following the activity. 4-Supervision or Touching Assistance-helper provides verbal cues and/or touching/steadying and/or contact guard assistance as patient completes activity. Assistance may be provided throughout the activity or intermittently. 3-Partial/Moderate Assistance-helper does LESS THAN HALF the effort. [place] lifts, holds or supports trunk or limbs, but provides less than half the effort. 2-Substantial/Maximal Assistance-helper does MORE THAN HALF the effort. [place] lifts or holds trunk or limbs and provides more than half the effort. 7-Mgdcxjfkp-jwpund does ALL the effort. Patient does none of the effort to complete the activity. Or, the assistance of 2 or more helpers is required for the patient to complete the activity. If activity was not attempted, code reason: 7-Patient Refused. 9-Not Applicable-not attempted and the patient did not perform the activity before the current illness, exacerbation or injury. 10-Not Attempted due to Environmental Limitations-(lack of equipment, weather restraints, etc.). 88-Not Attempted due to Medical Conditions or Safety Concerns. Sit to Stand (QC): 6 Gait Training Distance: >600' Walk 10 feet (QC): 5 Walk 50 ft with 2 Turns(QC): 5 Walk 150 ft (QC): 5 Gait Assistive Device: FWW safe and functional with no deviation Assessment Patient tolerated treatment well and PT left patient with OT for session. PT Bun Panner Goals Longterm Goals PT Bun Panner Goals Time Frame: Aug 21, 2022 Roll Left & Right (QC): 6 Sit to Lying (QC): 6 Lying-Sitting on Side/Bed(QC): 6 Sit to Stand (QC): 6 Chair/Ccv-xj-Qalvo Xfer(QC): 6 Toilet Transfer (QC): 6 Walk 10 feet (QC): 6 Walk 50ft with 2 Turns (QC): 6 Walk 150 ft (QC): 6 PT Plan Treatment/Plan Treatment Plan: Continue Plan of Care Treatment Plan: Bed Mobility, Education, Functional Activity Maryann, Functional Strength, Gait, Safety, Therapeutic Exercise, Transfers Treatment Duration: Aug 21, 2022 Frequency: 6 times per week Estimated Hrs Per Day: .25 hour per day Patient and/or Family Agrees t: Yes Time Time In: 914 Time Out: 925 DATE: Aug 10, 2022 Total Billed Treatment Time: 11 Total Billed Treatment 1 visit FA 11 min LARRY GLORIA PT Aug 10, 2022 10:33
[2022-08-10 10:58] LABS: ALBUMIN 3.3 GM/DL (3.2-4.5)
[2022-08-10 10:59] LABS: POTASSIUM 3.9 MMOL/L (3.6-5.0)
[2022-08-10 11:00] LABS: CALCIUM 8.4 MG/DL (8.5-10.1)
[2022-08-10 11:01] LABS: TOTAL PROTEIN 5.3 GM/DL (6.4-8.2)
[2022-08-10 11:03] LABS: BILIRUBIN,TOTAL 0.7 MG/DL (0.1-1.0)
[2022-08-10 11:04] LABS: CREATININE SERUM 0.6 MG/DL (0.60-1.30)
--- NOTE | 2022-08-10 11:12 | Cardiology Progress Note ---
Subjective Date Seen by Provider: Aug 10, 2022 Time Seen by Provider: 10:45 Subjective/Events-last exam NO acute issues overnight. Pt will be scheduled for EGD-colo in the coming days. Holding for now given recent anti-platelet administration. ECHO with demonstration of a moderate pericardial effusion. Objective-Cardiology Exam Last Set of Vital Signs Vital Signs 08/10/22 10:32 Temp 36.4 Pulse 58 Resp 18 B/P (MAP) 178/79 (112) Pulse Ox 94 O2 Delivery Room Air I&O Intake and Output 08/10/22 00:00 Intake Total 1600 ml Output Total 750 ml Balance 850 ml Intake Oral 0 ml IV Total 1600 ml Output Urine Total 750 ml # Voids 3 Daily Weight Change Unsure General: Alert, Oriented X3, No Acute Distress HEENT: Atraumatic Neck: Supple, No JVD Lungs: Clear to Auscultation, Normal Air Movement Heart: Regular Rate, Normal S1, Normal S2, No Murmurs Abdomen: Normal Bowel Sounds Extremities: No Clubbing, No Cyanosis, No Edema Neuro: Normal Speech Psych/Mental Status: Mental Status NL Results Lab Laboratory Tests 08/10/22 10:21 A/P-Cardiology Assessment/Plan 72F with PVD s/p stent to SMA, HTN, HLD and now anemia with associated GIB and hematemesis who presents for evaluation of fatigue and hematemesis, etc. ## HTN: SBP 110-178; - increase norvasc 10mg po QD. ## PVD: cont to hold ASA-plavix. 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 - recommend repeat Abd CTA to clarify whether SMA artery occluded at site of previously placed stent - would recommend restarting anti-platelet monotherapy (ASA or plavix) ## Anemia: Hgb 6.8, - now up to 8.0 after 2u PRBC- suggestive of some ongoing loss - plan for GI evaluation (EGD-colo) as per Gen surg ## HLD: restart statin - on simva 80 at home, transition to atorva 40 qhs here in house ## Chronic pericardial effusion: Pt reports that she has known about this effusion since Sep 2021 and had it evaluated in [place], [place] in the past. No intervention at that time and recommended conservative management. No signs of hemodynamic compromise from the moderate sized effusion, (no RA-RV collapse, no respirophasic variation accross valves, no hypotension, or tachycardia) - cont to monitor ## hx of Edema - BNP is 12. No recent requirements for diuretics. ECHO demonstrates normal Lv- RV function. - cont to monitor ## Dispo: - can follow up with learning support aide of your choice upon discharge MOUNA VERGARA MD Aug 10, 2022 11:12
--- NOTE | 2022-08-10 13:51 | Progress Note ---
BENSON KHAN 08/10/22 1351: Subjective Subjective/Events-last exam Jen Murry is a 72y/o female being evaluated/managed for an acute GI bleed with symptomatic anemia. She feels better today after receiving 2 units of LRRBCs yesterday. Her energy is better and she does not feel dizzy upon standing. Her LLQ discomfort has resolved and she denies any pain or distention. She did not have any acute issues overnight. She has not had a BM since prior to her visit to the ER. Not passing flatus. She is still NPO. Review of Systems General: No Chills; Appetite (wishes to advance her diet) HEENT: No Head Aches Pulmonary: No Dyspnea, No Cough Cardiovascular: No: Chest Pain, Palpitations Gastrointestinal: No: Nausea, Vomiting, Abdominal Pain Genitourinary: No Dysuria Neurological: No: Confusion Objective Exam Last Set of Vital Signs Vital Signs Date Time Temp Pulse Resp B/P (MAP) Pulse Ox O2 Delivery O2 Flow Rate FiO2 08/10/22 12:17 36.8 67 18 149/67 (94) 96 Room Air Capillary Refill : Less Than 3 Seconds I&O Intake and Output 08/10/22 00:00 Intake Total 1600 ml Output Total 750 ml Balance 850 ml Intake Oral 0 ml IV Total 1600 ml Output Urine Total 750 ml # Voids 3 Daily Weight Change Unsure General: Alert, Oriented X3, Cooperative HEENT: EOMI Lungs: Clear to Auscultation Heart: Regular Rate Abdomen: Soft, No Tenderness Extremities: No Cyanosis, No Edema Neuro: Normal Speech Psych/Mental Status: Mental Status NL Results Lab Laboratory Tests 08/10/22 10:21: White Blood Count 6.7, Red Blood Count 2.81L, Hemoglobin 8.0#L, Hematocrit 26L, Mean Corpuscular Volume 93, Mean Corpuscular Hemoglobin 28, Mean Corpuscular Hemoglobin Concent 31L, Red Cell Distribution Width 15.9H, Platelet Count 245, Mean Platelet Volume 10.8, Immature Granulocyte % (Auto) 0, Neutrophils (%) (Auto) 81H, Lymphocytes (%) (Auto) 9L, Monocytes (%) (Auto) 9, Eosinophils (%) (Auto) 1, Basophils (%) (Auto) 1, Neutrophils # (Auto) 5.4, Lymphocytes # (Auto) 0.6L, Monocytes # (Auto) 0.6, Eosinophils # (Auto) 0.1, Basophils # (Auto) 0.1, Immature Granulocyte # (Auto) 0.0, Sodium Level 140, Potassium Level 3.9, Chloride Level 110H, Carbon Dioxide Level 24, Anion Gap 6, Blood Urea Nitrogen 18, Creatinine 0.60, Estimat Glomerular Filtration Rate 94, BUN/Creatinine Ratio 30, Glucose Level 84, Calcium Level 8.4L, Corrected Calcium 9.0, Total Bilirubin 0.7, Aspartate Amino Transf (AST/SGOT) 18, Alanine Aminotransferase (ALT/SGPT) 21, Alkaline Phosphatase 54, Total Protein 5.3L, Albumin 3.3 Assessment/Plan Assessment/Plan Assess & Plan/Chief Complaint GI Bleed Anemia Received 2 units of LRRBCs yesterday. Repeat Hgb today was 8.0 up from 6.5. Clopidogrel and aspirin held. Surgery consulted awaiting upper and lower endoscopy when off antiplatelets for long enough. No more bloody stools overnight or this morning. IV iron started today. N/V Abdominal pain resolved. Pain control and antiemesis as needed. Not requiring pain medication or zofran at this time. HTN 178/79 this AM. Lasix 10mg IV and norvasc 5mgPO given. Will continue to monitor. HLD Will get 40mgPO atorvastatin tonight PVD s/p stent to SMA Ct ab/pelv showed SMA athersclerosis and 3.2cm infrarenal aneurysm. Hx of stent to SMA. Cardiology recommends CTA to evaluate SMA occlusion and antiplatelet monotherapy after scopes are done. Pericardial effusion chronic and stable without signs of cardiovascular compromise. Cardiology does not recommend pericadiocentesis at this time. Clinical Quality Measures Admission Status Admission Dx GI bleed Anemia 2 units given today, will monitor hemoglobin. Surgery consulted- will likely need upper and lower scope to ID bleed source. Patient is NPO last meal evening of 08/08. Apixaban held LLQ pain improving, pain medication as needed. Continue to monitor BMs for change in color/consistency N/V zofran prn. patient has not vomitted since Tuesday evening DVT/VTE Risk/Contraindication: Contraindications-Pharm: Other *list below* Other: ARPITA RICHARDSON DO 08/11/22 0513: Supervisory-Addendum Brief Verification & Attestation Participated in pt care: history, MDM, physical Personally performed: exam, history, MDM, supervision of care Care discussed with: Medical Student Procedures: n/a Results interpretation: Verified all documentation Verification and Attestation of Medical Student E/M Service A medical student performed and documented this service in my presence. I reviewed and verified all information documented by the medical student and made modifications to such information, when appropriate. I personally performed the physical exam and medical decision making. Arpita Todd, Aug 11, 2022,05:13 BENSON KHAN Aug 10, 2022 13:51 ARPITA TODD DO Aug 11, 2022 05:13
[2022-08-11] MEDS: LACTATED RINGERS 1,000 ML IV SCH (02:19)
[2022-08-11 03:42] VITALS: BP 140/63
[2022-08-11 06:52] LABS: BASOPHILS % (AUTO) 1 % (0-10); EOSINOPHILS # (AUTO) 0.1 10^3/uL (0.0-0.3); EOSINOPHILS % (AUTO) 2 % (0-10); HEMATOCRIT 27 % (35-52); HEMOGLOBIN 8.6 g/dL (11.5-16.0); LYMPHOCYTES # (AUTO) 0.9 10^3/uL (1.0-4.0); LYMPHOCYTES % (AUTO) 15 % (12-44); MEAN CORPUSCULAR HEMOGLOBIN 29 pg (25-34); MEAN CORPUSCULAR HGB CONC 32 g/dL (32-36); MEAN CORPUSCULAR VOLUME 92 fL (80-99); MEAN PLATELET VOLUME 10.7 fL (9.0-12.2); MONOCYTES # (AUTO) 0.7 10^3/uL (0.0-1.0); MONOCYTES % (AUTO) 11 % (0-12); NEUTROPHILS # (AUTO) 4.4 10^3/uL (1.8-7.8); NEUTROPHILS % (AUTO) 72 % (42-75); PLATELET COUNT 252 10^3/uL (130-400); WHITE BLOOD COUNT 6.1 10^3/uL (4.3-11.0)
--- NOTE | 2022-08-11 07:06 | Progress Note - Surgery ---
GABESANTIAGO 08/11/22 0706: Subjective Date Seen by a Provider: Aug 11, 2022 Time Seen by a Provider: 06:26 Subjective/Events-last exam Pt was seen and interviewed today. Upon arrival pt was sitting in chair watching TV. Pt states that she was not able to sleep last night due to the "unknown". Pt seems to be a little anxious about the procedure. Pt hasn't had a bowel movement yet, but is passing gas. Pt states she's not currently in any pain and tolerated her clear liquid diet yesterday. I discussed w/ her about being NPO for the procedure tomorrow which is starting after midnight, and pt seemed to understand. Pt stated that she would like anesthesia to be notified that she wa kes up throwing up after anesthesia. Review of Systems General: No Chills, No Night Sweats HEENT: No Head Aches Pulmonary: Dyspnea (Chronic), Cough (Chronic) Cardiovascular: No: Chest Pain, Palpitations Gastrointestinal: No: Nausea, Vomiting, Diarrhea Genitourinary: No Dysuria, No Frequency Neurological: No: Weakness Objective Exam Vital Signs Date Time Temp Pulse Resp B/P (MAP) Pulse Ox O2 Delivery O2 Flow Rate FiO2 08/11/22 03:42 37.5 61 18 140/63 (88) 95 Room Air 08/10/22 23:24 36.7 62 18 162/79 (106) 91 Room Air 08/10/22 19:40 95 Room Air 08/10/22 19:33 36.4 67 19 155/74 (101) 95 Room Air 08/10/22 15:35 36.3 67 18 145/74 (97) 94 Room Air 08/10/22 12:17 36.8 67 18 149/67 (94) 96 Room Air 08/10/22 10:32 36.4 58 18 178/79 (112) 94 Room Air 08/10/22 08:00 94 Room Air 08/10/22 07:25 36.4 58 18 178/79 (112) 94 Room Air I & O 08/11/22 07:00 Intake Total 2840 ml Output Total 3650 ml Balance -810 ml Capillary Refill : Less Than 3 Seconds General Appearance: Anxious, Chronically ill HEENT: PERRL/EOMI, Normal ENT Inspection Neck: Non Tender, Supple Respiratory: Chest Non Tender, No Accessory Muscle Use, No Respiratory Distress Cardiovascular: Regular Rate, Rhythm, No JVD Peripheral Pulses: 2+ Radial Pulses (R), 2+ Radial Pulses (L) Gastrointestinal: non tender, soft Extremity: Non Tender, No Calf Tenderness Neurologic/Psychiatric: Alert, Oriented x3 Skin: Normal Color, Warm/Dry Lymphatic: No Adenopathy Results Lab Laboratory Tests 08/10/22 10:21: White Blood Count 6.7, Red Blood Count 2.81L, Hemoglobin 8.0#L, Hematocrit 26L, Mean Corpuscular Volume 93, Mean Corpuscular Hemoglobin 28, Mean Corpuscular Hemoglobin Concent 31L, Red Cell Distribution Width 15.9H, Platelet Count 245, Mean Platelet Volume 10.8, Immature Granulocyte % (Auto) 0, Neutrophils (%) (Auto) 81H, Lymphocytes (%) (Auto) 9L, Monocytes (%) (Auto) 9, Eosinophils (%) (Auto) 1, Basophils (%) (Auto) 1, Neutrophils # (Auto) 5.4, Lymphocytes # (Auto) 0.6L, Monocytes # (Auto) 0.6, Eosinophils # (Auto) 0.1, Basophils # (Auto) 0.1, Immature Granulocyte # (Auto) 0.0, Sodium Level 140, Potassium Level 3.9, Chloride Level 110H, Carbon Dioxide Level 24, Anion Gap 6, Blood Urea Nitrogen 18, Creatinine 0.60, Estimat Glomerular Filtration Rate 94, BUN/Creatinine Ratio 30, Glucose Level 84, Calcium Level 8.4L, Corrected Calcium 9.0, Total Bilirubin 0.7, Aspartate Amino Transf (AST/SGOT) 18, Alanine Aminotransferase (ALT/SGPT) 21, Alkaline Phosphatase 54, Total Protein 5.3L, Albumin 3.3 08/10/22 16:02: Lab Scanned Report Transfusion Reaction Form 08/11/22 06:30: White Blood Count 6.1, Red Blood Count 2.95L, Hemoglobin 8.6L, Hematocrit 27L, Mean Corpuscular Volume 92, Mean Corpuscular Hemoglobin 29, Mean Corpuscular Hemoglobin Concent 32, Red Cell Distribution Width 15.9H, Platelet Count 252, Mean Platelet Volume 10.7, Immature Granulocyte % (Auto) 0, Neutrophils (%) (Auto) 72, Lymphocytes (%) (Auto) 15, Monocytes (%) (Auto) 11, Eosinophils (%) (Auto) 2, Basophils (%) (Auto) 1, Neutrophils # (Auto) 4.4, Lymphocytes # (Auto) 0.9L, Monocytes # (Auto) 0.7, Eosinophils # (Auto) 0.1, Basophils # (Auto) 0.0, Immature Granulocyte # (Auto) 0.0 Assessment/Plan Assessment/Plan Assessment/Plan Acute GI Bleed- Melena LLQ Abdominal Pain Leukocytosis Anemia Generalized Lower Extremity Edema Bowel Prep; NPO after midnight, plan for EGD/colonoscopy and all other indicated procedure tomorrow to ID source of bleed Plavix held IV fluids Monitor Hgb; Blood Transfusion as needed Protonix Clinical Quality Measures DVT/VTE Risk/Contraindication: Contraindications-Pharm: Other *list below* Other: KARL CHAN DO 08/11/222133: Subjective Subjective/Events-last exam Paitent having dome dark liquid stools. Tolerating prep. Hgb stable. On clear liquids. NPO after midnight. No abdominal pain. Denies n/v fever sweats chills shortness of breath or chest pain. Objective Exam General Appearance: No Apparent Distress, Anxious, Chronically ill HEENT: PERRL/EOMI, Normal ENT Inspection Neck: Normal Inspection, Non Tender Respiratory: Chest Non Tender, No Accessory Muscle Use Cardiovascular: Regular Rate, Rhythm, No JVD Gastrointestinal: non tender, soft Extremity: Non Tender, No Calf Tenderness Neurologic/Psychiatric: Alert, Oriented x3 Skin: Normal Color, Warm/Dry Lymphatic: No Adenopathy Assessment/Plan Assessment/Plan Assessment/Plan Acute GI Bleed- Melena LLQ Abdominal Pain Leukocytosis Anemia Generalized Lower Extremity Edema Bowel Prep; NPO after midnight, plan for EGD/colonoscopy and all other indicated procedure tomorrow to ID source of bleed Antiplatelets held IV fluids Monitor Hgb; Blood Transfusion as needed Protonix Patient understands risks and benefits of procedures and wishes to proceed aaron rrow. Supervisory-Addendum Brief Verification & Attestation Participated in pt care: history, MDM, physical Personally performed: exam, history, MDM, supervision of care Care discussed with: Medical Student Procedures: n/a Results interpretation: Verified all documentation Verification and Attestation of Medical Student E/M Service A medical student performed and documented this service in my presence. I reviewed and verified all information documented by the medical student and made modifications to such information, when appropriate. I personally performed the physical exam and medical decision making. Karl Nguyen, Aug 11, 2022,21:34 SANTIAGO BERNAL Aug 11, 2022 07:06 KARL NGUYEN DO Aug 11, 2022 21:34
[2022-08-11 07:09] VITALS: BP 142/67
[2022-08-11 07:22] LABS: ALBUMIN 3.4 GM/DL (3.2-4.5); POTASSIUM 3.4 MMOL/L (3.6-5.0)
[2022-08-11 07:23] LABS: CALCIUM 8.8 MG/DL (8.5-10.1)
[2022-08-11 07:25] LABS: TOTAL PROTEIN 5.7 GM/DL (6.4-8.2)
[2022-08-11 07:26] LABS: BILIRUBIN,TOTAL 0.7 MG/DL (0.1-1.0)
[2022-08-11 07:28] LABS: CREATININE SERUM 0.64 MG/DL (0.60-1.30)
[2022-08-11] MEDS: amLODIPine 10 MG (NORVASC) TAB PO SCH (08:44)
[2022-08-11] MEDS: PANTOPRAZOLE 40 MG (PROTONIX) VIAL IV SCH (08:45)
--- NOTE | 2022-08-11 09:43 | Occupational Ther Daily Note ---
OT Current Status-Daily Note Subjective Up in recliner, c/o APU stage 1, nurse aware and is to apply barrier cream per patient Mental Status/Objective Patient Orientation: Person, Place, Time, Situation (Aware of procedure tomorrow) Attachments: IV ADL-Treatment toileting tasks, simulated IADLS for laundry tasks Therapy Code Descriptions/Definitions Functional [place] Measure: 0=Not Assessed/NA 4=Minimal Assistance 1=Total Assistance 5=Supervision or Setup 2=Maximal Assistance 6=Modified [place] 3=Moderate Assistance 7=Complete IndependenceSCALE: Activities may be completed with or without assistive devices. 0-Fzkwfgcqaa-pfimwqr completes the activity by him/herself with no assistance from a helper. 5-Set-up or Clean-up Assistance-helper sets up or cleans up; patient completes activity. [place] assists only prior to or following the activity. 4-Supervision or Touching Assistance-helper provides verbal cues and/or touching/steadying and/or contact guard assistance as patient completes activity. Assistance may be provided throughout the activity or intermittently. 3-Partial/Moderate Assistance-helper does LESS THAN HALF the effort. [place] lifts, holds or supports trunk or limbs, but provides less than half the effort. 2-Substantial/Maximal Assistance-helper does MORE THAN HALF the effort. [place] lifts or holds trunk or limbs and provides more than half the effort. 2-Eyyfvkyef-ieeweb does ALL the effort. Patient does none of the effort to complete the activity. Or, the assistance of 2 or more helpers is required for the patient to complete the activity. If activity was not attempted, code reason: 7-Patient Refused. 9-Not Applicable-not attempted and the patient did not perform the activity before the current illness, exacerbation or injury. 10-Not Attempted due to Environmental Limitations-(lack of equipment, weather restraints, etc.). 88-Not Attempted due to Medical Conditions or Safety Concerns. Eating (QC): 88 (clear liquids, NPO at midnight) Oral Hygiene (QC): 5 Shower/Bathe Self (QC): 7 (caregiver is bringing clean clothes this afternoon) Upper Body Dressing (QC): 5 Lower Body Dressing (QC): 6 On/Off Footwear: 6 Toileting Hygiene (QC): 5 Toilet Transfer (QC): 5 Other Treatment IADL simulation of hanging, retrieving and folding clothes, positioning IV lines overhead from left to right and reverse Education OT Patient Education: Correct positioning, Disease process, Energy conservation, Exercise program (instructed patient to stand several time during day and lay on side to offload borttom) Teaching Recipient: Patient Teaching Methods: Demonstration, Discussion Response to Teaching: Verbalize Understanding, Return Demonstration, Reinforcement Needed OT Office Services Manager Goals Office Services Manager Goals Eating (QC): 6 Oral Hygiene (QC): 6 Toileting Hygiene (QC): 6 Shower/Bathe Self (QC): 6 Upper Body Dressing (QC): 6 Lower Body Dressing (QC): 6 On/Off Footwear (QC): 6 1=Demonstrate adherence to instructed precautions during ADL tasks. 2=Patient will verbalize/demonstrate understanding of assistive devices/modifications for ADL. 3=Patient will improve strength/tolerance for activity to enable patient to perform ADL's. OT Education/Plan Problem List/Assessment Assessment: Decreased Activ Tolerance, Impaired Coordination, Impaired Funct Balance, Impaired I ADL's, Impaired Self-Care Skills Discharge Recommendations Plan/Recommendations: Continue POC Treatment Plan/Plan of Care Treatment,Training & Education: Yes Patient would benefit from OT for education, treatment and training to promote independence in ADL's, mobility, safety and/or upper extremity function for ADL's. Plan of Care: ADL Retraining, Concurrent Therapy, Functional Mobility, Group Exercise/Act as Ind, UE Funct Exercise/Act Treatment Duration: Aug 21, 2022 Frequency: 3 times per week (3-5 times per week) Estimated Hrs Per Day: .25 hour per day Agreement: Yes Rehab Potential: Fair Patient resting in bed w/ all needs met Time Start Time: 08:59 Stop Time: 09:18 DATE: Aug 11, 2022 Total Time Billed (hr/min): 19 Billed Treatment Time 1 visit ADL 19 min LINDA HOWARD OT Aug 11, 2022 09:43
--- NOTE | 2022-08-11 11:04 | Physical Therapy Daily Note ---
PT Daily Note-Current Subjective Patient in bed pre tx, agrees to PT, has no complaints of pain. Pain Section J - Health Conditions 1. Rarely or not at all 2. Occasionally 3. Frequently 4. Almost constantly 8. Unable to answer Pain Effect on Sleep: 1 Pain Interference with Therapy: 1 Pain Interference w/Day-to-Day: 1 Appearance Patient sitting EOB post tx with nurse call, phone, tray, all needs met. Mental Status Patient Orientation: Person, Place, Situation, Normal For Age Attachments: IV Transfers SCALE: Activities may be completed with or without assistive devices. 8-Mybiqnukar-haabfys completes the activity by him/herself with no assistance from a helper. 5-Set-up or Clean-up Assistance-helper sets up or cleans up; patient completes activity. [place] assists only prior to or following the activity. 4-Supervision or Touching Assistance-helper provides verbal cues and/or touching/steadying and/or contact guard assistance as patient completes activity. Assistance may be provided throughout the activity or intermittently. 3-Partial/Moderate Assistance-helper does LESS THAN HALF the effort. [place] lifts, holds or supports trunk or limbs, but provides less than half the effort. 2-Substantial/Maximal Assistance-helper does MORE THAN HALF the effort. [place] lifts or holds trunk or limbs and provides more than half the effort. 5-Hqwuqndcy-mblrtq does ALL the effort. Patient does none of the effort to complete the activity. Or, the assistance of 2 or more helpers is required for the patient to complete the activity. If activity was not attempted, code reason: 7-Patient Refused. 9-Not Applicable-not attempted and the patient did not perform the activity before the current illness, exacerbation or injury. 10-Not Attempted due to Environmental Limitations-(lack of equipment, weather restraints, etc.). 88-Not Attempted due to Medical Conditions or Safety Concerns. Roll Left & Right (QC): 6 Lying to Sitting/Side of Bed(Q: 6 Sit to Stand (QC): 6 Gait Training Distance: 500' Walk 10 feet (QC): 5 Walk 50 ft with 2 Turns(QC): 5 Walk 150 ft (QC): 5 Gait Assistive Device: FWW slow but steady ambulation Treatments bed mobility and transfers, ambulation Assessment Current Status: Fair Progress patient would be independent with ambulation if she didn't have the IV pole to push PT Grinder Set Up Operator Jig Goals Assisted Goals PT Grinder Set Up Operator Jig Goals Time Frame: Aug 21, 2022 Roll Left & Right (QC): 6 Sit to Lying (QC): 6 Lying-Sitting on Side/Bed(QC): 6 Sit to Stand (QC): 6 Chair/Qvw-uc-Etmaz Xfer(QC): 6 Toilet Transfer (QC): 6 Walk 10 feet (QC): 6 Walk 50ft with 2 Turns (QC): 6 Walk 150 ft (QC): 6 PT Plan Problem List Problem List: Activity Tolerance, Functional Strength, Safety, Balance, Gait, Transfer, ROM Treatment/Plan Treatment Plan: Continue Plan of Care Treatment Plan: Bed Mobility, Education, Functional Activity Maryann, Functional Strength, Gait, Safety, Therapeutic Exercise, Transfers Treatment Duration: Aug 21, 2022 Frequency: 6 times per week Estimated Hrs Per Day: .25 hour per day Patient and/or Family Agrees t: Yes Safety Risks/Education Patient Education: Gait Training, Transfer Techniques, Correct Positioning, Safety Issues Teaching Recipient: Patient Teaching Methods: Demonstration, Discussion Response to Teaching: Reinforcement Needed Time Time In: 1041 Time Out: 1053 DATE: Aug 11, 2022 Total Billed Treatment Time: 12 Total Billed Treatment 1 visit FA JULIANA PEDROZA PT Aug 11, 2022 11:04
[2022-08-11 11:44] VITALS: BP 173/76
[2022-08-11] MEDS ORDERED: GOLYTELY POWDER 4000 ML BTL PO ONE (12:00)
--- NOTE | 2022-08-11 13:13 | Progress Note - Cardiology ---
Cardiology SOAP Progress Note Objective: I&O/Vital Signs 08/11/22 08/12/22 08/12/22 23:31 03:51 07:17 Temp 36.6 37.2 37.1 Pulse 73 70 68 Resp 16 16 18 B/P (MAP) 132/87 (102) 112/53 (72) 142/63 (89) Pulse Ox 96 94 94 O2 Delivery Room Air Room Air Room Air 08/12/22 00:00 Intake Total 5505 ml Output Total 500 ml Balance 5005 ml Constitutional: AAO x 3, well-developed, well-nourished Cardiovascular: regular rate-rhythm; No JVD; S1 and S2 Gastrointestional: audible bowel sounds Extremities: no lower extremity edema bilateral Neurologic/Psychiatric: grossly intact (moves all extremities) Skin: No rash on exposed areas, No ulcerations on exposed areas Results/Procedures: Labs Laboratory Tests 08/12/22 05:30: White Blood Count 5.1, Red Blood Count 2.73L, Hemoglobin 7.9L, Hematocrit 25L, Mean Corpuscular Volume 92, Mean Corpuscular Hemoglobin 29, Mean Corpuscular Hemoglobin Concent 32, Red Cell Distribution Width 16.2H, Platelet Count 238, Mean Platelet Volume 10.9, Immature Granulocyte % (Auto) 0, Neutrophils (%) (Auto) 72, Lymphocytes (%) (Auto) 14, Monocytes (%) (Auto) 12, Eosinophils (%) (Auto) 2, Basophils (%) (Auto) 1, Neutrophils # (Auto) 3.7, Lymphocytes # (Auto) 0.7L, Monocytes # (Auto) 0.6, Eosinophils # (Auto) 0.1, Basophils # (Auto) 0.0, Immature Granulocyte # (Auto) 0.0, Sodium Level 143, Potassium Level 3.3L, Chloride Level 109H, Carbon Dioxide Level 22, Anion Gap 12, Blood Urea Nitrogen 9, Creatinine 0.61, Estimat Glomerular Filtration Rate 94, BUN/Creatinine Ratio 15, Glucose Level 69L, Calcium Level 8.7, Corrected Calcium 9.3, Total Bilirubin 0.7, Aspartate Amino Transf (AST/SGOT) 22, Alanine Aminotransferase (ALT/SGPT) 20, Alkaline Phosphatase 65, Total Protein 5.4L, Albumin 3.3 A/P: Assessment: GIB - management per surgical services Pericardial effusion - History of small pericardial effusion seen on echo of 10-14-21 - followed by Dr. Butt - Echocardiogram of 08-09-[address] Ny showed LVEF 60-65%. PASP 37 mmHg. Mod pericardial effusion. 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 Patient reporting second attempt on October 30, 2021 reporting that she had a 1 or 2 stents in her mesenteric artery per Dr. Butt's office note Carotid dz - mild bilat dz per u/s of 12-24-[address] Butt History of small infrarenal abdominal aortic aneurysm 2.9 x 2.7. Following with the vascular services at [facility] per Dr. Butt HTN - uncontrolled HL - maintained on statin s/p L hip replacement with Dr. Alosno September 2021 with incisional wound dehiscence secondary to fall, s/p repair. H/O small bowel resection in October [address] Nguyen Abdominal pain, CTA showing occlusion of superior mesenteric artery and near occlusion of celiac artery Small infrarenal AAA noted on CTA measuring 2.9 x2.7cm Generalized debility/weakness, continue with PT/OT. Plan: Suspected GIB - management per surgical services - endo is planned for tomorrow per Dr. Nguyen BP is not well controlled - restart home dose of Lisinopril Monitor lab Further recs will be based on her hospital course JAYCOB GODOY Aug 11, 2022 13:13
[2022-08-11] MEDS ORDERED: lisINopril 10 MG (PRINIVIL) TABLET PO NR (13:30)
--- NOTE | 2022-08-11 14:43 | Progress Note ---
BENSON KHAN 08/11/22 1443: Subjective Subjective/Events-last exam Jen Murry is a 72F admitted for GI bleed with symptomatic anemia. Today she is seen at bedside with no acute complaints. Her abd pain is resolved and she denies any distention or discomfort. She has still not had a BM since admission, but she is passing flatus. Started on clear liquid diet today and she is happy about this. Plan is to be made NPO at midnight for upper and lower endoscopy tomorrow by Dr Nguyen. Her energy level is good and she feels improved after her transfusion and IV iron. Review of Systems General: No Chills, No Fatigue HEENT: No Head Aches Pulmonary: No Dyspnea, No Cough Cardiovascular: No: Chest Pain, Lt Headedness Gastrointestinal: No: Vomiting, Abdominal Pain Genitourinary: No Dysuria Neurological: No: Change in speech, Confusion Objective Exam Last Set of Vital Signs Vital Signs Date Time Temp Pulse Resp B/P (MAP) Pulse Ox O2 Delivery O2 Flow Rate FiO2 08/11/22 11:44 36.0 59 18 173/76 (108) 92 Room Air Capillary Refill : Less Than 3 Seconds I&O Intake and Output 08/11/22 00:00 Intake Total 2490 ml Output Total 2650 ml Balance -160 ml Intake Oral 1490 ml IV Total 1000 ml Output Urine Total 2650 ml # Voids 1 General: Alert, Oriented X3 Lungs: Clear to Auscultation, Normal Air Movement Heart: Regular Rate, No Murmurs Abdomen: Soft, No Tenderness Extremities: No Cyanosis Psych/Mental Status: Mental Status NL Results Lab Laboratory Tests 08/10/22 16:02: Lab Scanned Report Transfusion Reaction Form 08/11/22 06:30: White Blood Count 6.1, Red Blood Count 2.95L, Hemoglobin 8.6L, Hematocrit 27L, Mean Corpuscular Volume 92, Mean Corpuscular Hemoglobin 29, Mean Corpuscular Hemoglobin Concent 32, Red Cell Distribution Width 15.9H, Platelet Count 252, Mean Platelet Volume 10.7, Immature Granulocyte % (Auto) 0, Neutrophils (%) (Auto) 72, Lymphocytes (%) (Auto) 15, Monocytes (%) (Auto) 11, Eosinophils (%) (Auto) 2, Basophils (%) (Auto) 1, Neutrophils # (Auto) 4.4, Lymphocytes # (Auto) 0.9L, Monocytes # (Auto) 0.7, Eosinophils # (Auto) 0.1, Basophils # (Auto) 0.0, Immature Granulocyte # (Auto) 0.0, Sodium Level 142, Potassium Level 3.4L, Chloride Level 108H, Carbon Dioxide Level 24, Anion Gap 10, Blood Urea Nitrogen 10, Creatinine 0.64, Estimat Glomerular Filtration Rate 93, BUN/Creatinine Ratio 16, Glucose Level 74, Calcium Level 8.8, Corrected Calcium 9.3, Total Bilirubin 0.7, Aspartate Amino Transf (AST/SGOT) 27, Alanine Aminotransferase (ALT/SGPT) 26, Alkaline Phosphatase 62, Total Protein 5.7L, Albumin 3.4 Assessment/Plan Assessment/Plan Assess & Plan/Chief Complaint GI Bleed Anemia Received 2 units of LRRBCs 08/09. Repeat Hgb today was 8.6up from 6.5 before transfusion. Clopidogrel and aspirin held. Surgery consulted awaiting upper and lower endoscopy when off antiplatelets for long enough, plan on tomorrow. No more bloody stools overnight or this morning. IV iron given yesterday. N/V Abdominal pain resolved. Pain control and antiemesis as needed. Not requiring pain medication or zofran at this time. HTN BP has remained elevated today, cardiology started lisinopril 10mgPO . Will continue to monitor. HLD 40mgPO atorvastatin PVD s/p stent to SMA Ct ab/pelv showed SMA athersclerosis and 3.2cm infrarenal aneurysm. Hx of stent to SMA. Cardiology recommends CTA to evaluate SMA occlusion and antiplatelet monotherapy after scopes are done. Pericardial effusion chronic and stable without signs of cardiovascular compromise. Cardiology does not recommend pericadiocentesis at this time. Clinical Quality Measures Admission Status Admission Dx GI bleed Anemia 2 units given today, will monitor hemoglobin. Surgery consulted- will likely need upper and lower scope to ID bleed source. Patient is NPO last meal evening of 08/08. Apixaban held LLQ pain improving, pain medication as needed. Continue to monitor BMs for change in color/consistency N/V zofran prn. patient has not vomitted since Tuesday evening DVT/VTE Risk/Contraindication: Contraindications-Pharm: Other *list below* Other: ARPITA RICHARDSON DO 08/12/22 0516: Supervisory-Addendum Brief Verification & Attestation Participated in pt care: history, MDM, physical Personally performed: exam, history, MDM, supervision of care Care discussed with: Medical Student Procedures: n/a Results interpretation: Verified all documentation Verification and Attestation of Medical Student E/M Service A medical student performed and documented this service in my presence. I reviewed and verified all information documented by the medical student and made modifications to such information, when appropriate. I personally performed the physical exam and medical decision making. Arpita Todd, Aug 12, 2022,05:16 BENSON KHAN Aug 11, 2022 14:43 ARPITA TODD DO Aug 12, 2022 05:16
--- NOTE | 2022-08-11 14:44 | CONSULTATION REPORT ---
DATE OF SERVICE: 08/09/2022 REASON FOR CONSULTATION: History of anasarca, requiring diuresis as per Dr. Dorado. HISTORY OF PRESENT ILLNESS: The patient is a 72-year-old female with a history of peripheral vascular disease, status post mesenteric artery stent at [facility], history of small bowel resection secondary to ischemic bowel in October of 2021, hyperlipidemia, hypertension, tobacco abuse, who presents for evaluation of dark stools and bloody stools. The patient reports that she had bloody stools approximately 3-4 days prior to admission. She also notes that her stools have been dark over the past several weeks. She also comments that she had an episode of dark emesis on the night prior to admission. She reports feeling fatigued, weak and lightheaded. She also notes some associated nausea and vomiting. She also reports some left lower quadrant tenderness. Upon arrival, she did undergo an abdominal pelvic CT, which did not demonstrate any acute process. There was comment on chronic SMA stenting and a 3.0 cm infrarenal aortic aneurysm. The patient denies any chest pain, shortness of breath, presyncope or syncope. No PND, no orthopnea. After having discussion with her primary care physician Dr. Dorado, she notes that the consult was placed secondary to the patient requiring p.o. Lasix several months prior for unclear reasons. REVIEW OF SYSTEMS: All systems were reviewed and are negative except for what has been described in HPI. PAST MEDICAL HISTORY: Peripheral vascular disease, status post mesenteric artery stent at [facility], history of small bowel resection secondary to ischemic bowel back in October of 2021, hypertension, hyperlipidemia, current tobacco abuse. MEDICATIONS: Levothyroxine 25 mg p.o. daily, Protonix 40 mg IV daily, aspirin 81 mg p.o. daily, Plavix 75 mg p.o. daily, lisinopril 20 mg p.o. daily, simvastatin 40 mg p.o. daily. ALLERGIES: PENICILLIN AND HYDROCODONE. PHYSICAL EXAMINATION: VITAL SIGNS: T-max 37.1, heart rate 70s to 80s, respiratory rate 16-18, blood pressure 110-150/58, satting greater than 95% on room air. GENERAL: She is in no acute distress, resting comfortably in the bed. NECK: Soft and supple. No cervical lymphadenopathy or thyromegaly. LUNGS: Clear to auscultation bilaterally. She does have coarse breath sounds in the bilateral lung patel. No airam wheezing, rales or rhonchi noted. CARDIOVASCULAR: Regular rate and rhythm, normal S1, S2. She does have a soft systolic murmur. No gallops or rubs are appreciated. ABDOMEN: Positive bowel sounds, soft, nondistended. She does have some mild tenderness in the left lower quadrant. EXTREMITIES: Warm and well perfused. She has no cyanosis, clubbing or edema. SKIN: No lesions, rashes or ecchymoses are noted. LABS AND IMAGING: Significant for a white blood cell count of 12.9, hematocrit of 22, platelets of 275. Hemoglobin of 6.5. UA is negative. Sodium 142, potassium 3.6, chloride 111, bicarbonate 20, BUN 31, creatinine 0.6. INR is 1.0. EKG has not been obtained. Abdominal pelvic CT, which demonstrates no acute process. Chronic SMA stenting, 3.0 infrarenal aortic dilatation is noted. ASSESSMENT AND PLAN: The patient is a 72-year-old female with the above-mentioned medical problems who presents for evaluation of rectal bleeding and hematemesis. First issue is GI bleed of unclear etiology. BUN is elevated at 31. She reports dark emesis in addition to bright red blood per rectum. I do suspect the nidas for her current presentation is upper GI in nature. She is scheduled for colonoscopy and EGD for evaluation. Agree with 2 units PRBCs for now. Continue to trend hematocrits. Next issue is question of heart failure. Primary care physician reports patient requiring the need for Lasix for unclear reasons. We will send off an EKG today, obtain an echocardiogram, send off BNP as well. No active cardiac concerns at this point in time. If all of those tests checked, I will have her simply follow up with her primary clinical dental technician in the area, either Dr Meredith or Dr. Butt. DISPOSITION: We will continue to follow along and followup studies as mentioned above. Next issue is GI bleed. Recommend holding aspirin and Plavix for now. Would only restart Plavix monotherapy going forward once her GI issue is resolved. Thank you for allowing me to participate in her care. Job ID: [id number] DocumentID: [id number] Dictated Date: 08/09/2022 13:16:19 Business Partner Date: 08/09/2022 13:53:00 Dictated By: MOUNA VERGARA MD
[2022-08-11 16:45] VITALS: BP 166/70
[2022-08-11 19:45] VITALS: BP 164/71
--- NOTE | 2022-08-11 19:53 | Progress Note - Cardiology ---
Cardiology SOAP Progress Note Subjective: Gen weakness and malaise No cp or palp or syncope No n/v No shortness of breath at rest Objective: I&O/Vital Signs 08/11/22 08/11/22 08/11/22 08/11/22 08:00 11:44 16:45 19:45 Temp 36.0 36.6 36.5 Pulse 59 66 66 Resp 18 20 18 B/P (MAP) 173/76 (108) 166/70 (102) 164/71 (102) Pulse Ox 92 98 96 O2 Delivery Room Air Room Air Room Air Room Air 08/10/22 23:59 Intake Total 1490 ml Output Total 2250 ml Balance -760 ml Constitutional: AAO x 3, well-developed, well-nourished Cardiovascular: regular rate-rhythm; No JVD; S1 and S2 Gastrointestional: audible bowel sounds Extremities: no lower extremity edema bilateral Neurologic/Psychiatric: other (moves all limbs) Skin: No rash on exposed areas, No ulcerations on exposed areas Results/Procedures: Labs Laboratory Tests 08/11/22 06:30: White Blood Count 6.1, Red Blood Count 2.95L, Hemoglobin 8.6L, Hematocrit 27L, Mean Corpuscular Volume 92, Mean Corpuscular Hemoglobin 29, Mean Corpuscular Hemoglobin Concent 32, Red Cell Distribution Width 15.9H, Platelet Count 252, Mean Platelet Volume 10.7, Immature Granulocyte % (Auto) 0, Neutrophils (%) (Auto) 72, Lymphocytes (%) (Auto) 15, Monocytes (%) (Auto) 11, Eosinophils (%) (Auto) 2, Basophils (%) (Auto) 1, Neutrophils # (Auto) 4.4, Lymphocytes # (Auto) 0.9L, Monocytes # (Auto) 0.7, Eosinophils # (Auto) 0.1, Basophils # (Auto) 0.0, Immature Granulocyte # (Auto) 0.0, Sodium Level 142, Potassium Level 3.4L, Chloride Level 108H, Carbon Dioxide Level 24, Anion Gap 10, Blood Urea Nitrogen 10, Creatinine 0.64, Estimat Glomerular Filtration Rate 93, BUN/Creatinine Ratio 16, Glucose Level 74, Calcium Level 8.8, Corrected Calcium 9.3, Total Bilirubin 0.7, Aspartate Amino Transf (AST/SGOT) 27, Alanine Aminotransferase (ALT/SGPT) 26, Alkaline Phosphatase 62, Total Protein 5.7L, Albumin 3.4 A/P: Assessment: GIB - management per surgical services Pericardial effusion - History of small pericardial effusion seen on echo of 10-14-21 - followed by Dr. Butt - Echocardiogram of 08-09-[address] Ny showed LVEF 60-65%. PASP 37 mmHg. Mod pericardial effusion without evidence of hemodynamic significance. 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 Patient reporting second attempt on October 30, 2021 reporting that she had a 1 or 2 stents in her mesenteric artery per Dr. Butt's office note Carotid dz - mild bilat dz per u/s of 12-24-[address] Butt History of small infrarenal abdominal aortic aneurysm 2.9 x 2.7. Following with the vascular services at [facility] per Dr. Butt HTN - uncontrolled HL - maintained on statin s/p L hip replacement with Dr. Alonso September 2021 with incisional wound dehiscence secondary to fall, s/p repair. H/O small bowel resection in October [address] Nguyen Abdominal pain, CTA showing occlusion of superior mesenteric artery and near occlusion of celiac artery Small infrarenal AAA noted on CTA measuring 2.9 x2.7cm Generalized debility/weakness, continue with PT/OT. Plan: Suspected GIB - management per surgical services - endo is planned for tomorrow per Dr. Nguyen BP is not well controlled - restart home dose of Lisinopril Monitor lab Further recs will be based on her hospital course OLY GONZALEZ MD FACP FAC CCDS Aug 11, 2022 19:53
[2022-08-11 23:31] VITALS: BP 132/87
[2022-08-12] VITALS (12 sets, daily range): BP systolic 103–172; BP diastolic 53–75
[2022-08-12 05:52] LABS: BASOPHILS % (AUTO) 1 % (0-10); EOSINOPHILS # (AUTO) 0.1 10^3/uL (0.0-0.3); EOSINOPHILS % (AUTO) 2 % (0-10); HEMATOCRIT 25 % (35-52); HEMOGLOBIN 7.9 g/dL (11.5-16.0); LYMPHOCYTES # (AUTO) 0.7 10^3/uL (1.0-4.0); LYMPHOCYTES % (AUTO) 14 % (12-44); MEAN CORPUSCULAR HEMOGLOBIN 29 pg (25-34); MEAN CORPUSCULAR HGB CONC 32 g/dL (32-36); MEAN CORPUSCULAR VOLUME 92 fL (80-99); MEAN PLATELET VOLUME 10.9 fL (9.0-12.2); MONOCYTES # (AUTO) 0.6 10^3/uL (0.0-1.0); MONOCYTES % (AUTO) 12 % (0-12); NEUTROPHILS # (AUTO) 3.7 10^3/uL (1.8-7.8); NEUTROPHILS % (AUTO) 72 % (42-75); PLATELET COUNT 238 10^3/uL (130-400); WHITE BLOOD COUNT 5.1 10^3/uL (4.3-11.0)
[2022-08-12 06:08] LABS: ALBUMIN 3.3 GM/DL (3.2-4.5); POTASSIUM 3.3 MMOL/L (3.6-5.0)
[2022-08-12 06:09] LABS: CALCIUM 8.7 MG/DL (8.5-10.1)
[2022-08-12 06:10] LABS: TOTAL PROTEIN 5.4 GM/DL (6.4-8.2)
[2022-08-12 06:12] LABS: BILIRUBIN,TOTAL 0.7 MG/DL (0.1-1.0)
[2022-08-12 06:14] LABS: CREATININE SERUM 0.61 MG/DL (0.60-1.30)
--- NOTE | 2022-08-12 06:33 | Progress Note - Surgery ---
RADHA BERNALEB 08/12/22 0633: Subjective Date Seen by a Provider: Aug 12, 2022 Time Seen by a Provider: 06:15 Subjective/Events-last exam Pt was doing well laying in bed asleep before interview and exam. Pt states that is she doing well and was able to sleep last night compared to two nights ago. Pt is undergoing EGD/Colonoscopy today and recieved bowel preparation yesterday. Pt's only complaint is that she had passed 3-4 bloody stools last night w/ associated abdominal discomfort in the epigastric region, but when palpated pt admitted to [facility] abdominal tenderness. Discussed with the pt that she will be NPO until the procedure today, and pt seemed to understand and agree to the plan. Other than Abdominal Discomfort and Chronic cough, pt denies MALIK, Dizziness, Chest pain, Palpitations, SOB, numbness and tingling. Review of Systems General: No Chills, No Fatigue HEENT: No Head Aches Pulmonary: No Dyspnea; Cough Cardiovascular: No: Chest Pain, Palpitations Gastrointestinal: Abdominal Pain, Melena; No: Nausea, Vomiting Genitourinary: No Dysuria, No Frequency Neurological: No: Weakness, Numbness Objective Exam Vital Signs Date Time Temp Pulse Resp B/P (MAP) Pulse Ox O2 Delivery O2 Flow Rate FiO2 08/12/22 03:51 37.2 70 16 112/53 (72) 94 Room Air 08/11/22 23:31 36.6 73 16 132/87 (102) 96 Room Air 08/11/22 20:00 Room Air 08/11/22 19:45 36.5 66 18 164/71 (102) 96 Room Air 08/11/22 16:45 36.6 66 20 166/70 (102) 98 Room Air 08/11/22 11:44 36.0 59 18 173/76 (108) 92 Room Air 08/11/22 08:00 Room Air 08/11/22 07:09 36.3 60 18 142/67 (92) 93 Room Air I & O 08/12/22 07:00 Intake Total 5505 ml Output Total 500 ml Balance 5005 ml Capillary Refill : Less Than 3 Seconds General Appearance: No Apparent Distress, Chronically ill HEENT: PERRL/EOMI, Normal ENT Inspection Neck: Normal Inspection, Non Tender Respiratory: Chest Non Tender, No Accessory Muscle Use Cardiovascular: Regular Rate, Rhythm, No JVD Peripheral Pulses: 2+ Radial Pulses (R), 2+ Radial Pulses (L) Gastrointestinal: non tender, soft Extremity: Non Tender, No Calf Tenderness, Swelling (B/l 1+ Pitting Edema ) Neurologic/Psychiatric: Alert, Oriented x3 Skin: Normal Color, Warm/Dry Lymphatic: No Adenopathy Results Lab Laboratory Tests 08/11/22 06:30: White Blood Count 6.1, Red Blood Count 2.95L, Hemoglobin 8.6L, Hematocrit 27L, Mean Corpuscular Volume 92, Mean Corpuscular Hemoglobin 29, Mean Corpuscular Hemoglobin Concent 32, Red Cell Distribution Width 15.9H, Platelet Count 252, Mean Platelet Volume 10.7, Immature Granulocyte % (Auto) 0, Neutrophils (%) (Auto) 72, Lymphocytes (%) (Auto) 15, Monocytes (%) (Auto) 11, Eosinophils (%) (Auto) 2, Basophils (%) (Auto) 1, Neutrophils # (Auto) 4.4, Lymphocytes # (Auto) 0.9L, Monocytes # (Auto) 0.7, Eosinophils # (Auto) 0.1, Basophils # (Auto) 0.0, Immature Granulocyte # (Auto) 0.0, Sodium Level 142, Potassium Level 3.4L, Chloride Level 108H, Carbon Dioxide Level 24, Anion Gap 10, Blood Urea Nitrogen 10, Creatinine 0.64, Estimat Glomerular Filtration Rate 93, BUN/Creatinine Ratio 16, Glucose Level 74, Calcium Level 8.8, Corrected Calcium 9.3, Total Bilirubin 0.7, Aspartate Amino Transf (AST/SGOT) 27, Alanine Aminotransferase (ALT/SGPT) 26, Alkaline Phosphatase 62, Total Protein 5.7L, Albumin 3.4 08/12/22 05:30: White Blood Count 5.1, Red Blood Count 2.73L, Hemoglobin 7.9L, Hematocrit 25L, Mean Corpuscular Volume 92, Mean Corpuscular Hemoglobin 29, Mean Corpuscular Hemoglobin Concent 32, Red Cell Distribution Width 16.2H, Platelet Count 238, Mean Platelet Volume 10.9, Immature Granulocyte % (Auto) 0, Neutrophils (%) (Auto) 72, Lymphocytes (%) (Auto) 14, Monocytes (%) (Auto) 12, Eosinophils (%) (Auto) 2, Basophils (%) (Auto) 1, Neutrophils # (Auto) 3.7, Lymphocytes # (Auto) 0.7L, Monocytes # (Auto) 0.6, Eosinophils # (Auto) 0.1, Basophils # (Auto) 0.0, Immature Granulocyte # (Auto) 0.0, Sodium Level 143, Potassium Level 3.3L, Chloride Level 109H, Carbon Dioxide Level 22, Anion Gap 12, Blood Urea Nitrogen 9, Creatinine 0.61, Estimat Glomerular Filtration Rate 94, BUN/Creatinine Ratio 15, Glucose Level 69L, Calcium Level 8.7, Corrected Calcium 9.3, Total Bilirubin 0.7, Aspartate Amino Transf (AST/SGOT) 22, Alanine Aminotransferase (ALT/SGPT) 20, Alkaline Phosphatase 65, Total Protein 5.4L, Albumin 3.3 Assessment/Plan Assessment/Plan Assessment/Plan Acute GI Bleed- Melena LLQ Abdominal Pain Leukocytosis Anemia Generalized Lower Extremity Edema Bowel Prep; NPO after midnight, plan for EGD/colonoscopy and all other indicated procedure today to ID source of bleed Antiplatelets held; Dr. Ny recommends only restarting plavix after GI issues resolve IV fluids Monitor Hgb; Pt had 3-4 episodes of melena yesterday while she was undergoing bowel prep for EGD/Colonoscopy; today pt's hgb dropped to 7.9 frp, 8.6 yesterday; Blood Transfusion as needed Pt's LLQ abdominal pain is back. States abdominal discomfort was associated with episodes of melena during bowel prep Protonix Patient understands risks and benefits of procedures and wishes to proceed today. Clinical Quality Measures DVT/VTE Risk/Contraindication: Contraindications-Pharm: Other *list below* Other: ALPESH CHAN DO 08/12/22 1309: Subjective Subjective/Events-last exam Patient tolerated prep. She had slight drop in hgb. Having dark blood in stools with prep. Slight llq abd pain. No other complaints. NPO. Denies n/v fever sweats chills shortness of breath or chest pain. Objective Exam General Appearance: No Apparent Distress, Chronically ill HEENT: PERRL/EOMI, Normal ENT Inspection Neck: Normal Inspection, Non Tender Respiratory: Chest Non Tender, No Accessory Muscle Use Cardiovascular: Regular Rate, Rhythm, No JVD Gastrointestinal: non tender, soft Extremity: Non Tender, No Calf Tenderness Neurologic/Psychiatric: Alert, Oriented x3 Skin: Normal Color, Warm/Dry Lymphatic: No Adenopathy Assessment/Plan Assessment/Plan Assessment/Plan Acute GI Bleed Melena LLQ Abdominal Pain Leukocytosis Anemia Generalized Lower Extremity Edema Bowel Prep NPO EGD/Colonoscopy today. Antiplatelets held IV fluids Protonix Patient understands risks and benefits of procedures and wishes to proceed today. Supervisory-Addendum Brief Verification & Attestation Participated in pt care: history, MDM, physical Personally performed: exam, history, MDM, supervision of care Care discussed with: Medical Student Procedures: n/a Results interpretation: Verified all documentation Verification and Attestation of Medical Student E/M Service A medical student performed and documented this service in my presence. I reviewed and verified all information documented by the medical student and made modifications to such information, when appropriate. I personally performed the physical exam and medical decision making. Alpesh Chairez, Aug 12, 2022,13:09 SANTIAGO BERNAL Aug 12, 2022 06:33 ALPESH CHAIREZ DO Aug 12, 2022 13:09
[2022-08-12] MEDS: PANTOPRAZOLE 40 MG (PROTONIX) VIAL IV SCH (08:30)
--- NOTE | 2022-08-12 09:51 | Progress Note - Cardiology ---
Cardiology SOAP Progress Note Subjective: No cp or palp or syncope No shortness of breath No n/v/d No focal weakness Gen weakness present Objective: I&O/Vital Signs 08/11/22 08/12/22 08/12/22 23:31 03:51 07:17 Temp 36.6 37.2 37.1 Pulse 73 70 68 Resp 16 16 18 B/P (MAP) 132/87 (102) 112/53 (72) 142/63 (89) Pulse Ox 96 94 94 O2 Delivery Room Air Room Air Room Air 08/12/22 00:00 Intake Total 5505 ml Output Total 500 ml Balance 5005 ml Constitutional: AAO x 3, well-developed, well-nourished Cardiovascular: regular rate-rhythm; No JVD; S1 and S2 Gastrointestional: audible bowel sounds Extremities: no lower extremity edema bilateral Neurologic/Psychiatric: other (moves all limbs) Skin: No rash on exposed areas, No ulcerations on exposed areas Results/Procedures: Labs Laboratory Tests 08/12/22 05:30: White Blood Count 5.1, Red Blood Count 2.73L, Hemoglobin 7.9L, Hematocrit 25L, Mean Corpuscular Volume 92, Mean Corpuscular Hemoglobin 29, Mean Corpuscular Hemoglobin Concent 32, Red Cell Distribution Width 16.2H, Platelet Count 238, Mean Platelet Volume 10.9, Immature Granulocyte % (Auto) 0, Neutrophils (%) (Auto) 72, Lymphocytes (%) (Auto) 14, Monocytes (%) (Auto) 12, Eosinophils (%) (Auto) 2, Basophils (%) (Auto) 1, Neutrophils # (Auto) 3.7, Lymphocytes # (Auto) 0.7L, Monocytes # (Auto) 0.6, Eosinophils # (Auto) 0.1, Basophils # (Auto) 0.0, Immature Granulocyte # (Auto) 0.0, Sodium Level 143, Potassium Level 3.3L, Chloride Level 109H, Carbon Dioxide Level 22, Anion Gap 12, Blood Urea Nitrogen 9, Creatinine 0.61, Estimat Glomerular Filtration Rate 94, BUN/Creatinine Ratio 15, Glucose Level 69L, Calcium Level 8.7, Corrected Calcium 9.3, Total Bilirubin 0.7, Aspartate Amino Transf (AST/SGOT) 22, Alanine Aminotransferase (ALT/SGPT) 20, Alkaline Phosphatase 65, Total Protein 5.4L, Albumin 3.3 Laboratory Tests 08/10/22 10:21 08/11/22 06:30 08/12/22 05:30 A/P: Assessment: GIB - management per surgical services Pericardial effusion, small to moderate, chronic, w/o any hemodynamic significance - History of small pericardial effusion seen on echo of 10-14-21 - followed by Dr. Butt - Echocardiogram of 08-09-[address] Ny showed LVEF 60-65%. PASP 37 mmHg. Mod pericardial effusion without evidence of hemodynamic significance. 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 Patient reporting second attempt on October 30, 2021 reporting that she had a 1 or 2 stents in her mesenteric artery per Dr. Butt's office note Carotid dz - mild bilat dz per u/s of 12-24-[address] Butt History of small infrarenal abdominal aortic aneurysm 2.9 x 2.7. Following with the vascular services at [facility] per Dr. Butt HTN - uncontrolled HL - maintained on statin s/p L hip replacement with Dr. Alonso September 2021 with incisional wound dehiscence secondary to fall, s/p repair. H/O small bowel resection in October [address] Nguyen Abdominal pain, CTA showing occlusion of superior mesenteric artery and near occlusion of celiac artery Small infrarenal AAA noted on CTA measuring 2.9 x2.7cm Generalized debility/weakness, continue with PT/OT. Plan: * I discussed her CV issues with her and answered questions * Outpt cardiac f/u advised * BP now improved after resuming home meds * Amanda Gomez * Dr Dorado managing GI bleed OLY GONZALEZ MD FACP [facility] CCDS Aug 12, 2022 09:51
--- NOTE | 2022-08-12 09:53 | Physical Therapy Progress Note ---
Therapy Progress Note Patient observed ambulating in hallway with FWW independently. PT to dismiss patient from services at this time. LARRY GLORIA PT Aug 12, 2022 09:53
[2022-08-12] MEDS ORDERED: KCL 20 MEQ TAB (K-DUR) PO ONE (10:00)
[2022-08-12] MEDS ORDERED: NS IV 500 ML 500 ML IV ONE (12:00)
--- NOTE | 2022-08-12 13:07 | Progress Note ---
BENSON KHAN 08/12/22 1307: Subjective Subjective/Events-last exam Jen Murry 72F admitted for Gi bleed with symptomatic anemia. Today she is seen resting in her chair comfortably. She states that after doing her bowel prep for today's endoscopy she began to have several liquid BMs. Initially these were normal in color until her 5th or 6th BM which had dark red blood. Her stools have remained bloody since then. She denies any abdominal pain at my visit but said she did have some pain when the BMs started. She has been NPO since midnight. She is in good spirits and ready to finish the procedures so she has the possibilty of eating. She denies worsening fatigue or lightheadedness. Review of Systems General: No Chills; Appetite (very hungry) Pulmonary: No Dyspnea, No Cough Cardiovascular: No: Chest Pain, Lt Headedness Gastrointestinal: Diarrhea (due to bowel prep, bloody overnight); No: Abdominal Pain Genitourinary: No Dysuria Neurological: No: Confusion Objective Exam Last Set of Vital Signs Vital Signs Date Time Temp Pulse Resp B/P (MAP) Pulse Ox O2 Delivery O2 Flow Rate FiO2 08/12/22 11:54 36.7 70 18 156/70 (98) 95 Room Air Capillary Refill : Less Than 3 Seconds I&O Intake and Output 08/12/22 00:00 Intake Total 6855 ml Output Total 1900 ml Balance 4955 ml Intake Oral 5855 ml IV Total 1000 ml Output Urine Total 1900 ml # Voids 18 # Bowel Movements 20 General: Alert, Oriented X3, Cooperative HEENT: EOMI Lungs: Clear to Auscultation, Normal Air Movement Heart: Regular Rate, No Murmurs Abdomen: Soft, No Tenderness Extremities: No Cyanosis Neuro: Normal Speech Psych/Mental Status: Mental Status NL, Mood NL Results Lab Laboratory Tests 08/12/22 05:30: White Blood Count 5.1, Red Blood Count 2.73L, Hemoglobin 7.9L, Hematocrit 25L, Mean Corpuscular Volume 92, Mean Corpuscular Hemoglobin 29, Mean Corpuscular Hem oglobin Concent 32, Red Cell Distribution Width 16.2H, Platelet Count 238, Mean Platelet Volume 10.9, Immature Granulocyte % (Auto) 0, Neutrophils (%) (Auto) 72, Lymphocytes (%) (Auto) 14, Monocytes (%) (Auto) 12, Eosinophils (%) (Auto) 2, Basophils (%) (Auto) 1, Neutrophils # (Auto) 3.7, Lymphocytes # (Auto) 0.7L, Monocytes # (Auto) 0.6, Eosinophils # (Auto) 0.1, Basophils # (Auto) 0.0, Immature Granulocyte # (Auto) 0.0, Sodium Level 143, Potassium Level 3.3L, Chloride Level 109H, Carbon Dioxide Level 22, Anion Gap 12, Blood Urea Nitrogen 9, Creatinine 0.61, Estimat Glomerular Filtration Rate 94, BUN/Creatinine Ratio 15, Glucose Level 69L, Calcium Level 8.7, Corrected Calcium 9.3, Total Bilirubin 0.7, Aspartate Amino Transf (AST/SGOT) 22, Alanine Aminotransferase (ALT/SGPT) 20, Alkaline Phosphatase 65, Total Protein 5.4L, Albumin 3.3 Assessment/Plan Assessment/Plan Assess & Plan/Chief Complaint GI Bleed Anemia Received 2 units of LRRBCs 08/09. Repeat Hgb today was 7.9 down from 8.6 yesterday Another 1 unit given today before procedure. Clopidogrel and aspirin held. Surgery consulted and planning endoscopy today. IV iron given 08/10. N/V Abdominal pain resolved. Pain control and antiemesis as needed. Not requiring pain medication or zofran at this time. Hypokalemia 3.3 today. will order KCl IV HTN BP has remained elevated today, cardiology started lisinopril 10mgPO . Will continue to monitor. Slight improvement from yesterday in average pressures. HLD 40mgPO atorvastatin PVD s/p stent to SMA Ct ab/pelv showed SMA athersclerosis and 3.2cm infrarenal aneurysm. Hx of stent to SMA. Cardiology recommends CTA to evaluate SMA occlusion and antiplatelet monotherapy after scopes are done. Pericardial effusion chronic and stable without signs of cardiovascular compromise. Cardiology does not recommend pericadiocentesis at this time. Clinical Quality Measures Admission Status Admission Dx GI bleed Anemia 2 units given today, will monitor hemoglobin. Surgery consulted- will likely need upper and lower scope to ID bleed source. Patient is NPO last meal evening of 08/08. Apixaban held LLQ pain improving, pain medication as needed. Continue to monitor BMs for change in color/consistency N/V zofran prn. patient has not vomitted since Tuesday evening DVT/VTE Risk/Contraindication: Contraindications-Pharm: Other *list below* Other: ARPITA RICHARDSON DO 08/13/22 0513: Supervisory-Addendum Brief Verification & Attestation Participated in pt care: history, MDM, physical Personally performed: exam, history, MDM, supervision of care Care discussed with: Medical Student Procedures: n/a Results interpretation: Verified all documentation Verification and Attestation of Medical Student E/M Service A medical student performed and documented this service in my presence. I reviewed and verified all information documented by the medical student and made modifications to such information, when appropriate. I personally performed the physical exam and medical decision making. Arpita Todd, Aug 13, 2022,05:13 BENSON KHAN Aug 12, 2022 13:07 ARPITA TODD DO Aug 13, 2022 05:13
[2022-08-12] MEDS ORDERED: PROPOFOL INJECTION 50 ML IV ONE (13:19)
--- NOTE | 2022-08-12 13:33 | Occupational Ther Daily Note ---
OT Current Status-Daily Note Subjective ambulating in halls without assistance Mental Status/Objective Patient Orientation: Person, Place, Time, Situation ADL-Treatment IADLS simulation Therapy Code Descriptions/Definitions Functional [place] Measure: 0=Not Assessed/NA 4=Minimal Assistance 1=Total Assistance 5=Supervision or Setup 2=Maximal Assistance 6=Modified [place] 3=Moderate Assistance 7=Complete IndependenceSCALE: Activities may be completed with or without assistive devices. 6-Bqhktcvutw-kajrdlw completes the activity by him/herself with no assistance from a helper. 5-Set-up or Clean-up Assistance-helper sets up or cleans up; patient completes activity. [place] assists only prior to or following the activity. 4-Supervision or Touching Assistance-helper provides verbal cues and/or touching/steadying and/or contact guard assistance as patient completes activity. Assistance may be provided throughout the activity or intermittently. 3-Partial/Moderate Assistance-helper does LESS THAN HALF the effort. [place] lifts, holds or supports trunk or limbs, but provides less than half the effort. 2-Substantial/Maximal Assistance-helper does MORE THAN HALF the effort. [place] lifts or holds trunk or limbs and provides more than half the effort. 8-Vpnkfwwct-vzcrrw does ALL the effort. Patient does none of the effort to complete the activity. Or, the assistance of 2 or more helpers is required for the patient to complete the activity. If activity was not attempted, code reason: 7-Patient Refused. 9-Not Applicable-not attempted and the patient did not perform the activity before the current illness, exacerbation or injury. 10-Not Attempted due to Environmental Limitations-(lack of equipment, weather restraints, etc.). 88-Not Attempted due to Medical Conditions or Safety Concerns. Eating (QC): 88 (NPO) Oral Hygiene (QC): 6 Shower/Bathe Self (QC): 6 Upper Body Dressing (QC): 6 Lower Body Dressing (QC): 6 On/Off Footwear: 6 Toileting Hygiene (QC): 6 Toilet Transfer (QC): 6 Other Treatment IADLs simulation, visual scanning with dual tasking Education OT Patient Education: Energy conservation, Exercise program, Rehab process, Safety issues Teaching Recipient: Patient Teaching Methods: Demonstration, Discussion Response to Teaching: Verbalize Understanding, Return Demonstration OT Care Home Goals Care Home Goals Eating (QC): 6 Oral Hygiene (QC): 6 Toileting Hygiene (QC): 6 Shower/Bathe Self (QC): 6 Upper Body Dressing (QC): 6 Lower Body Dressing (QC): 6 On/Off Footwear (QC): 6 1=Demonstrate adherence to instructed precautions during ADL tasks. 2=Patient will verbalize/demonstrate understanding of assistive devices/modifications for ADL. 3=Patient will improve strength/tolerance for activity to enable patient to perform ADL's. OT Education/Plan Discharge Recommendations Plan/Recommendations: Discharge/Goals Met Treatment Plan/Plan of Care Patient would benefit from OT for education, treatment and training to promote independence in ADL's, mobility, safety and/or upper extremity function for ADL's. Plan of Care: ADL Retraining, Concurrent Therapy, Functional Mobility, Group Exercise/Act as Ind, UE Funct Exercise/Act Treatment Duration: Aug 21, 2022 Frequency: 3 times per week (3-5 times per week) Estimated Hrs Per Day: .25 hour per day Agreement: Yes Rehab Potential: Fair Meeting with major account manager in room Time Start Time: 09:04 Stop Time: 09:18 DATE: Aug 12, 2022 Total Time Billed (hr/min): 14 Billed Treatment Time 1 visit ADL1 14 min LINDA HOWARD OT Aug 12, 2022 13:32
[2022-08-12] MEDS ORDERED: EPINEPHrine INJECTION 1 MG/ML AMP ONE (13:38)
[2022-08-12] MEDS ORDERED: LACTATED RINGERS 1,000 ML IV STA (14:14)
[2022-08-12] MEDS ORDERED: HURRICAINE EXT TUBE (BENZOCAINE) XX PRN (14:15)
[2022-08-12] MEDS ORDERED: EPINEPHrine INJECTION 1 MG/ML AMP IV PRN (14:15)
--- NOTE | 2022-08-12 14:20 | Anesthesia-General Post-Op ---
MAC Patient Condition Mental Status/LOC: Same as Preop Cardiovascular: Satisfactory Nausea/Vomiting: Absent Respiratory: Satisfactory Pain: Controlled Complications: Absent Post Op Complications Complications None Follow Up Care/Instructions Patient Instructions None needed. Anesthesiology Discharge Order Discharge Order Patient is doing well, no complaints, stable vital signs, no apparent adverse anesthesia problems. No complications reported per nursing. JOHN OLMSTEAD CRNA Aug 12, 2022 14:19
[2022-08-12] MEDS: amLODIPine 10 MG (NORVASC) TAB PO SCH (15:23)
[2022-08-12] MEDS: lisINopril 10 MG (PRINIVIL) TABLET PO SCH (15:23)
--- NOTE | 2022-08-12 15:47 | OPERATIVE REPORT ---
DATE OF SERVICE: 08/12/2022 PREOPERATIVE DIAGNOSIS: Melena. POSTOPERATIVE DIAGNOSES: Bleeding AVM of the stomach, gastritis, diverticulosis of the colon. PROCEDURE: EGD with biopsy;fulguration of AVM of the stomach and injection of epinephrine for bleeding control. Colonoscopy. SURGEON: Dr. Nguyen. ANESTHESIA: Per GLOBAL SALES MANAGER. ESTIMATED BLOOD LOSS: Scant. COMPLICATIONS: None. INDICATIONS: The patient is a 72-year-old female with melena. She understands risks and benefits of procedure and wishes to proceed. Consent was signed and in chart. DESCRIPTION OF PROCEDURE: The patient was taken to endoscopy suite, placed in left lateral recumbent position. Timeout was performed. Scope was inserted into the mouth, esophagus, stomach, into the duodenum. No polyps, masses or ulcerations within the duodenum except for a submucosal lipoma very small. Scope was retracted back in the stomach where it was further insufflated. No polyps, masses or ulcerations. Old clotted blood diffusely. Gastritis appearance present. Biopsy of the body was obtained. AVM was present, which was bleeding. Used the biopsy forceps to fulgurate, got slightly better control of this, but is still very minimal bleeding. Therefore, I used epinephrine to inject in four locations, 1 mL in each location for a total of 4 mL, 1:100,000 concentration and this controlled bleeding. No other pathology noted. Scope was slowly retracted back into the distal esophagus. No polyps, masses or ulcerations. Scope was slowly retracted back until completely removed, noting no other pathology. Digital rectal exam was performed. No palpable polyps, masses or ulcerations. Scope was returned to the rectum, advanced all the way to the cecum with minimal difficulty. A lot of old dark blood appearance of the colon lots of irrigation and suction was used. No polyps, masses, or ulcerations within the cecum, ascending, transverse, descending and sigmoid colon. Sigmoid colon has some diverticulosis present. Once in the rectum, scope was retroflexed noting no other pathology. Scope was returned to its normal position, slowly withdrawn until completely removed noting no other pathology. The patient tolerated the procedure well, no complications, taken to recovery room in stable condition. RECOMMENDATIONS: The patient continue on clear liquid diet. Monitor hemoglobin. Transfuse as needed. Continue on Protonix. Await biopsy results. If continues to have drop in hemoglobin, would repeat EGD, may need to be place clips or need other intervention. The patient does not need repeat colonoscopy unless symptomatic due to age. Job ID: [id number] DocumentID: [id number] Dictated Date: 08/12/2022 14:26:47 Blood Donor Recruiter Supervisor Date: 08/12/2022 15:44:00 Dictated By: DO PEDRO LE
[2022-08-12] MEDS: POTASSIUM CL 10MEQ/50ML IVPB 50 ML IV SCH ×4 (17:42→21:18)
[2022-08-13 03:40] VITALS: BP 124/58
[2022-08-13 05:21] LABS: BASOPHILS % (AUTO) 1 % (0-10); EOSINOPHILS # (AUTO) 0.1 10^3/uL (0.0-0.3); EOSINOPHILS % (AUTO) 2 % (0-10); HEMATOCRIT 29 % (35-52); HEMOGLOBIN 9.1 g/dL (11.5-16.0); LYMPHOCYTES # (AUTO) 0.9 10^3/uL (1.0-4.0); LYMPHOCYTES % (AUTO) 16 % (12-44); MEAN CORPUSCULAR HEMOGLOBIN 29 pg (25-34); MEAN CORPUSCULAR HGB CONC 32 g/dL (32-36); MEAN CORPUSCULAR VOLUME 91 fL (80-99); MEAN PLATELET VOLUME 10.6 fL (9.0-12.2); MONOCYTES # (AUTO) 0.7 10^3/uL (0.0-1.0); MONOCYTES % (AUTO) 13 % (0-12); NEUTROPHILS % (AUTO) 69 % (42-75); PLATELET COUNT 232 10^3/uL (130-400); WHITE BLOOD COUNT 5.8 10^3/uL (4.3-11.0)
[2022-08-13 05:28] LABS: ALBUMIN 3.3 GM/DL (3.2-4.5)
[2022-08-13 05:29] LABS: POTASSIUM 3.4 MMOL/L (3.6-5.0)
[2022-08-13 05:30] LABS: CALCIUM 8.7 MG/DL (8.5-10.1)
[2022-08-13 05:31] LABS: TOTAL PROTEIN 5.2 GM/DL (6.4-8.2)
[2022-08-13 05:35] LABS: CREATININE SERUM 0.61 MG/DL (0.60-1.30)
--- NOTE | 2022-08-13 07:00 | Progress Note - Surgery ---
SANTIAGO BERNAL 08/13/22 0700: Subjective Date Seen by a Provider: Aug 13, 2022 Time Seen by a Provider: 06:15 Subjective/Events-last exam Pt was sitting up in bed before interview and exam. Pt states that she feels great. She has had 2 small bowel movements w/ darkish blood in it, but seems to be glass cut off supervisor than before; no associated abdominal pain. Pt states nursing staff has explained that this will get better overtime. Slept well last night, and seems too be in good spirit. During EGD/Colonoscopy yesterday, there was presence of gastritis and AVM w/in the stomach. Denies fever, chills, chest pain, palpitations, sob, cough, and abdominal pain. Review of Systems General: No Fatigue; Appetite HEENT: No Head Aches Pulmonary: No Dyspnea, No Cough Cardiovascular: No: Chest Pain, Palpitations Gastrointestinal: No: Nausea, Vomiting, Diarrhea, Constipation Neurological: No: Weakness, Numbness Objective Exam Vital Signs Date Time Temp Pulse Resp B/P (MAP) Pulse Ox O2 Delivery O2 Flow Rate FiO2 08/13/22 03:40 37.2 68 18 124/58 (80) 94 Room Air 08/12/22 23:10 36.9 63 18 135/71 (92) 95 Room Air 08/12/22 20:00 Room Air 08/12/22 19:43 36.8 67 20 103/69 (80) 97 Room Air 08/12/22 17:42 36.4 69 140/67 08/12/22 15:48 37.0 66 18 172/75 (107) 96 Room Air 08/12/22 15:35 37.0 66 18 172/75 08/12/22 15:17 36.4 69 16 150/66 08/12/22 14:20 82 16 99 Room Air 08/12/22 14:15 86 16 100 OxyMask 10.00 08/12/22 14:10 94 16 100 OxyMask 10.00 08/12/22 11:54 36.7 70 18 156/70 (98) 95 Room Air 08/12/22 08:00 92 Room Air 08/12/22 07:17 37.1 68 18 142/63 (89) 94 Room Air I & O 08/13/22 07:00 Intake Total 1851 ml Balance 1851 ml Capillary Refill : Less Than 3 Seconds General Appearance: No Apparent Distress, Chronically ill HEENT: PERRL/EOMI, Normal ENT Inspection Neck: Normal Inspection, Non Tender Respiratory: Chest Non Tender, No Accessory Muscle Use Cardiovascular: Regular Rate, Rhythm, No JVD Peripheral Pulses: 2+ Radial Pulses (R), 2+ Radial Pulses (L) Gastrointestinal: normal bowel sounds, non tender, soft Extremity: Non Tender, No Calf Tenderness Neurologic/Psychiatric: Alert, Oriented x3 Skin: Normal Color, Warm/Dry Lymphatic: No Adenopathy Results Lab Laboratory Tests 08/13/22 05:00: White Blood Count 5.8, Red Blood Count 3.13L, Hemoglobin 9.1L, Hematocrit 29L, Mean Corpuscular Volume 91, Mean Corpuscular Hemoglobin 29, Mean Corpuscular Hemoglobin Concent 32, Red Cell Distribution Width 16.9H, Platelet Count 232, Mean Platelet Volume 10.6, Immature Granulocyte % (Auto) 1, Neutrophils (%) (Auto) 69, Lymphocytes (%) (Auto) 16, Monocytes (%) (Auto) 13H, Eosinophils (%) (Auto) 2, Basophils (%) (Auto) 1, Neutrophils # (Auto) 4.0, Lymphocytes # (Auto) 0.9L, Monocytes # (Auto) 0.7, Eosinophils # (Auto) 0.1, Basophils # (Auto) 0.0, Immature Granulocyte # (Auto) 0.0, Sodium Level 142, Potassium Level 3.4L, Chloride Level 111H, Carbon Dioxide Level 22, Anion Gap 9, Blood Urea Nitrogen 6L, Creatinine 0.61, Estimat Glomerular Filtration Rate 94, BUN/Creatinine Ratio 10, Glucose Level 78, Calcium Level 8.7, Corrected Calcium 9.3, Total Bilirubin 1.0, Aspartate Amino Transf (AST/SGOT) 19, Alanine Aminotransferase (ALT/SGPT) 17, Alkaline Phosphatase 63, Total Protein 5.2L, Albumin 3.3 Assessment/Plan Assessment/Plan Assessment/Plan Acute GI Bleed Melena LLQ Abdominal Pain Leukocytosis Anemia Generalized Lower Extremity Edema Clears Consider advancing to regular diet Antiplatelets held IV fluids Protonix Pt has tolerated clears; If pt is tolerating diet, consider discharge this afternoon or tomorrow Clinical Quality Measures DVT/VTE Risk/Contraindication: Contraindications-Pharm: Other *list below* Other: ALPESH CHAN DO 08/14/22 1036: Subjective Subjective/Events-last exam Doing well. Having minimal dark stool today. Hgb improved. Tolerating clear liquids. No abdominal pain. Denies any new complaints. Objective Exam General Appearance: No Apparent Distress, Chronically ill HEENT: PERRL/EOMI, Normal ENT Inspection Neck: Normal Inspection, Non Tender Respiratory: Chest Non Tender, No Accessory Muscle Use, No Respiratory Distress Cardiovascular: Regular Rate, Rhythm, No JVD Gastrointestinal: non tender, soft Extremity: Non Tender, No Calf Tenderness Neurologic/Psychiatric: Alert, Oriented x3 Skin: Normal Color, Warm/Dry Lymphatic: No Adenopathy Assessment/Plan Assessment/Plan Assessment/Plan Acute GI Bleed- upper from AVM in stomach S/p egd with biospy of body stomach; fulguration and injection of epi to control bleed of AVM, colonoscopy Melena LLQ Abdominal Pain Leukocytosis Anemia Generalized Lower Extremity Edema Clears advance to soft diet hgb stable, follow Antiplatelets held IV fluids Protonix if hgb stable likely home tomorrow. Supervisory-Addendum Brief Verification & Attestation Participated in pt care: history, MDM, physical Personally performed: exam, history, MDM, supervision of care Care discussed with: Medical Student Procedures: n/a Results interpretation: Verified all documentation Verification and Attestation of Medical Student E/M Service A medical student performed and documented this service in my presence. I reviewed and verified all information documented by the medical student and made modifications to such information, when appropriate. I personally performed the physical exam and medical decision making. Alpesh Nguyen, Aug 13, 2022,14:36 SANTIAGO BERNAL Aug 13, 2022 07:00 ALPESH NGUYEN DO Aug 14, 2022 10:36
[2022-08-13 07:35] VITALS: BP 116/71
[2022-08-13] MEDS: amLODIPine 10 MG (NORVASC) TAB PO SCH (09:18)
[2022-08-13] MEDS: lisINopril 10 MG (PRINIVIL) TABLET PO SCH (09:19)
[2022-08-13] MEDS: PANTOPRAZOLE 40 MG (PROTONIX) VIAL IV SCH (09:19)
[2022-08-13 11:27] VITALS: BP 144/73
[2022-08-13] MEDS ORDERED: NON-FORMULARY MEDICATION 1 EA EA (Cholecalciferol (Vitamin D3) (Vitamin D3) 1,250 MCG) PO SCH (11:30)
[2022-08-13] MEDS ORDERED: RT-ALBUTEROL SULF 2.5 MG/3 ML PRE-MIX VIAL INH PRN (11:30)
[2022-08-13] MEDS ORDERED: ACETAMINOPHEN 500 MG TAB (TYLENOL) PO PRN (11:30)
--- NOTE | 2022-08-13 13:13 | Progress Note ---
BILLBENSON 08/13/22 1312: Subjective Subjective/Events-last exam Pt seen today lying comfortably in her bed. She reports that she is feeling well. She denies abdominal pain overnight or this morning. She had two bloody BMs overnight that were less bloody than prior to her procedures. She had no issues with her endoscopy yesterday afternoon and recovered well. Bleeding AVM was found along with gastritis on upper endoscopy. Sigmoid diverticulosis also noted on lower endoscopy. No ulcers or polyps noted. She would like to advance her diet from clear liquids to something more substantive. She received 1 unit of blood yesterday afternoon with a 1.2 improvement of Hgb noted, now at 9.1. She denies any fullness, N/V, chest pain, or syncope. Her energy feels improved. Review of Systems General: No Chills, No Night Sweats HEENT: No Head Aches Pulmonary: No Dyspnea, No Cough Cardiovascular: No: Chest Pain, Palpitations Gastrointestinal: Melena; No: Abdominal Pain Genitourinary: No Dysuria, No Hematuria Neurological: No: Confusion Objective Exam Last Set of Vital Signs Vital Signs Date Time Temp Pulse Resp B/P (MAP) Pulse Ox O2 Delivery O2 Flow Rate FiO2 08/13/22 11:27 36.8 62 18 144/73 (96) 98 Room Air 08/12/22 14:15 10.00 Capillary Refill : Less Than 3 Seconds I&O Intake and Output 08/13/22 00:00 Intake Total 1351 ml Balance 1351 ml Intake Oral 1050 ml IV Total 301 ml # Voids 9 # Bowel Movements 6 General: Alert, Oriented X3, Cooperative HEENT: EOMI Neck: Supple Lungs: Clear to Auscultation, Normal Air Movement Heart: Regular Rate, No Murmurs Abdomen: Soft, No Tenderness Extremities: No Cyanosis Neuro: Normal Speech Psych/Mental Status: Mental Status NL, Mood NL Results Lab Laboratory Tests 08/13/22 05:00: White Blood Count 5.8, Red Blood Count 3.13L, Hemoglobin 9.1L, Hematocrit 29L, Mean Corpuscular Volume 91, Mean Corpuscular Hemoglobin 29, Mean Corpuscular Hemoglobin Concent 32, Red Cell Distribution Width 16.9H, Platelet Count 232, Mean Platelet Volume 10.6, Immature Granulocyte % (Auto) 1, Neutrophils (%) (Auto) 69, Lymphocytes (%) (Auto) 16, Monocytes (%) (Auto) 13H, Eosinophils (%) (Auto) 2, Basophils (%) (Auto) 1, Neutrophils # (Auto) 4.0, Lymphocytes # (Auto) 0.9L, Monocytes # (Auto) 0.7, Eosinophils # (Auto) 0.1, Basophils # (Auto) 0.0, Immature Granulocyte # (Auto) 0.0, Sodium Level 142, Potassium Level 3.4L, Chloride Level 111H, Carbon Dioxide Level 22, Anion Gap 9, Blood Urea Nitrogen 6 L, Creatinine 0.61, Estimat Glomerular Filtration Rate 94, BUN/Creatinine Ratio 10, Glucose Level 78, Calcium Level 8.7, Corrected Calcium 9.3, Total Bilirubin 1.0, Aspartate Amino Transf (AST/SGOT) 19, Alanine Aminotransferase (ALT/SGPT) 17, Alkaline Phosphatase 63, Total Protein 5.2L, Albumin 3.3 Assessment/Plan Assessment/Plan Assess & Plan/Chief Complaint GI Bleed Anemia Received 2 units of LRRBCs 08/09. Repeat Hgb 08/12 was 7.9 down from 8.6. Another 1 unit given 08/12 before procedure, most recent Hgb 9.1. Clopidogrel and aspirin held. 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 Lower endoscopy revealed sigmoid diverticulosis. IV iron given 08/10. B12 ordered for this weekend. Continue to monitor H/H. N/V Abdominal pain resolved. Pain control and antiemesis as needed. Not requiring pain medication or zofran at this time. Hypokalemia 3.4 today. Received K CL IV. Up from 3.3 yesterday. Continue to monitor and replace. HTN BP improved today, cardiology started lisinopril 10mgPO yesterday. Norvasc today as well. Will continue to monitor. HLD 80mgPO simvastatin PVD s/p stent to SMA Ct ab/pelv showed SMA athersclerosis and 3.2cm infrarenal aneurysm. Hx of stent to SMA. Cardiology recommends CTA to evaluate SMA occlusion and antiplatelet monotherapy after scopes are done. Pericardial effusion chronic and stable without signs of cardiovascular compromise. Cardiology does not recommend pericadiocentesis at this time. Clinical Quality Measures Admission Status Admission Dx GI bleed Anemia 2 units given today, will monitor hemoglobin. Surgery consulted- will likely need upper and lower scope to ID bleed source. Patient is NPO last meal evening of 08/08. Apixaban held LLQ pain improving, pain medication as needed. Continue to monitor BMs for change in color/consistency N/V zofran prn. patient has not vomitted since Tuesday evening DVT/VTE Risk/Contraindication: Contraindications-Pharm: Other *list below* Other: ARPITA RICHARDSON DO 08/14/22 0703: Supervisory-Addendum Brief Verification & Attestation Participated in pt care: history, MDM, physical Personally performed: exam, history, MDM, supervision of care Care discussed with: Medical Student Procedures: n/a Results interpretation: Verified all documentation Verification and Attestation of Medical Student E/M Service A medical student performed and documented this service in my presence. I reviewed and verified all information documented by the medical student and made modifications to such information, when appropriate. I personally performed the physical exam and medical decision making. Arpita Todd, Aug 14, 2022,07:03 BENSON KHAN Aug 13, 2022 13:12 ARPITA TODD DO Aug 14, 2022 07:03
[2022-08-13 15:33] VITALS: BP 124/70
--- NOTE | 2022-08-13 16:39 | Progress Note - Cardiology ---
Cardiology SOAP Progress Note Subjective: Gen weakness and malaise No shortness of breath No cp or palp or syncope No n/v/d No focal weakness Objective: I&O/Vital Signs 08/13/22 08/13/22 08/13/22 08/13/22 07:35 08:00 11:27 15:33 Temp 36.8 36.8 36.5 Pulse 62 62 61 Resp 18 18 18 B/P (MAP) 116/71 (86) 144/73 (96) 124/70 (88) Pulse Ox 94 98 98 96 O2 Delivery Room Air Room Air Room Air Room Air 08/13/22 00:00 Intake Total 1351 ml Balance 1351 ml Constitutional: AAO x 3, well-developed, well-nourished Cardiovascular: regular rate-rhythm; No JVD; S1 and S2 Gastrointestional: audible bowel sounds Extremities: no lower extremity edema bilateral Neurologic/Psychiatric: other (moves all limbs) Skin: No rash on exposed areas, No ulcerations on exposed areas Results/Procedures: Labs Laboratory Tests 08/13/22 05:00: White Blood Count 5.8, Red Blood Count 3.13L, Hemoglobin 9.1L, Hematocrit 29L, Mean Corpuscular Volume 91, Mean Corpuscular Hemoglobin 29, Mean Corpuscular Hemoglobin Concent 32, Red Cell Distribution Width 16.9H, Platelet Count 232, Mean Platelet Volume 10.6, Immature Granulocyte % (Auto) 1, Neutrophils (%) (Auto) 69, Lymphocytes (%) (Auto) 16, Monocytes (%) (Auto) 13H, Eosinophils (%) (Auto) 2, Basophils (%) (Auto) 1, Neutrophils # (Auto) 4.0, Lymphocytes # (Auto) 0.9L, Monocytes # (Auto) 0.7, Eosinophils # (Auto) 0.1, Basophils # (Auto) 0.0, Immature Granulocyte # (Auto) 0.0, Sodium Level 142, Potassium Level 3.4L, Chloride Level 111H, Carbon Dioxide Level 22, Anion Gap 9, Blood Urea Nitrogen 6L, Creatinine 0.61, Estimat Glomerular Filtration Rate 94, BUN/Creatinine Ratio 10, Glucose Level 78, Calcium Level 8.7, Corrected Calcium 9.3, Total Bilirubin 1.0, Aspartate Amino Transf (AST/SGOT) 19, Alanine Aminotransferase (ALT/SGPT) 17, Alkaline Phosphatase 63, Total Protein 5.2L, Albumin 3.3 Laboratory Tests 08/12/22 05:30 08/13/22 05:00 A/P: Assessment: GIB - Endoscopy by Dr Nguyen on 08/12/22: bleeding AVM of the stomach (fulgrated), gastritis, diverticulosis of the colon. Pericardial effusion, small to moderate, chronic, w/o any hemodynamic significance - History of small pericardial effusion seen on echo of 10-14-21 - followed by Dr. Butt - Echocardiogram of 08-09-[address] Ny showed LVEF 60-65%. PASP 37 mmHg. Mod pericardial effusion without evidence of hemodynamic significance. 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 Patient reporting second attempt on October 30, 2021 reporting that she had a 1 or 2 stents in her mesenteric artery per Dr. Butt's office note Carotid dz - mild bilat dz per u/s of 12-24-[address] Butt History of small infrarenal abdominal aortic aneurysm 2.9 x 2.7. Following with the vascular services at [facility] per Dr. Butt HTN - uncontrolled HL - maintained on statin s/p L hip replacement with Dr. Alonso September 2021 with incisional wound dehiscence secondary to fall, s/p repair. H/O small bowel resection in October [address] Nguyen Abdominal pain, CTA showing occlusion of superior mesenteric artery and near occlusion of celiac artery Small infrarenal AAA noted on CTA measuring 2.9 x2.7cm Generalized debility/weakness, continue with PT/OT. Plan: * I discussed her CV issues with her and answered questions * Outpt cardiac f/u advised * BP now improved after resuming home meds * OLY Hewitt MD FACP [facility] Aug 13, 2022 16:39
[2022-08-13] MEDS ORDERED: KCL 20 MEQ TAB (K-DUR) PO NR (16:45)
[2022-08-13 19:24] VITALS: BP 126/62
[2022-08-13] MEDS: RT--FLUTICASONE/SALMETEROL 232-14 (AIRDUO RespiCLICK) IH SCH (20:47)
[2022-08-13] MEDS ORDERED: NON-FORMULARY MEDICATION 1 EA EA (Budesonide/Glycopyr/Formoterol (Breztri Aerosphere Inhal IH SCH (21:00)
[2022-08-13 23:34] VITALS: BP 143/66
[2022-08-14 03:41] VITALS: BP 130/62
[2022-08-14 05:19] LABS: BASOPHILS % (AUTO) 1 % (0-10); EOSINOPHILS # (AUTO) 0.1 10^3/uL (0.0-0.3); EOSINOPHILS % (AUTO) 2 % (0-10); HEMATOCRIT 28 % (35-52); LYMPHOCYTES # (AUTO) 0.9 10^3/uL (1.0-4.0); LYMPHOCYTES % (AUTO) 14 % (12-44); MEAN CORPUSCULAR HEMOGLOBIN 29 pg (25-34); MEAN CORPUSCULAR HGB CONC 32 g/dL (32-36); MEAN CORPUSCULAR VOLUME 93 fL (80-99); MEAN PLATELET VOLUME 10.8 fL (9.0-12.2); MONOCYTES # (AUTO) 0.9 10^3/uL (0.0-1.0); MONOCYTES % (AUTO) 14 % (0-12); NEUTROPHILS # (AUTO) 4.3 10^3/uL (1.8-7.8); NEUTROPHILS % (AUTO) 68 % (42-75); PLATELET COUNT 235 10^3/uL (130-400); WHITE BLOOD COUNT 6.3 10^3/uL (4.3-11.0)
[2022-08-14 05:29] LABS: ALBUMIN 3.2 GM/DL (3.2-4.5); POTASSIUM 3.6 MMOL/L (3.6-5.0)
[2022-08-14 05:31] LABS: CALCIUM 8.5 MG/DL (8.5-10.1)
[2022-08-14 05:32] LABS: TOTAL PROTEIN 5.4 GM/DL (6.4-8.2)
[2022-08-14 05:34] LABS: BILIRUBIN,TOTAL 0.7 MG/DL (0.1-1.0)
[2022-08-14 05:35] LABS: CREATININE SERUM 0.59 MG/DL (0.60-1.30)
[2022-08-14] MEDS ORDERED: LEVOTHYROXINE 25 MCG (LEVOTHROID) TAB PO SCH (06:30)
[2022-08-14] MEDS: RT--FLUTICASONE/SALMETEROL 232-14 (AIRDUO RespiCLICK) IH SCH (07:17)
[2022-08-14 07:32] VITALS: BP 123/60
[2022-08-14] MEDS ORDERED: UMECLIDINIUM BROMIDE (INCRUSE ELLIPTA) 7'S IH SCH (08:00)
[2022-08-14] MEDS: PANTOPRAZOLE 40 MG (PROTONIX) VIAL IV SCH (08:03)
[2022-08-14] MEDS: lisINopril 10 MG (PRINIVIL) TABLET PO SCH (08:03)
[2022-08-14] MEDS: amLODIPine 10 MG (NORVASC) TAB PO SCH (08:03)
--- NOTE | 2022-08-14 08:15 | Progress Note - Surgery ---
SANTIAGO BERNAL 08/14/22 0815: Subjective Date Seen by a Provider: Aug 14, 2022 Time Seen by a Provider: 07:00 Subjective/Events-last exam Pt was seen and interviewed today. Pt was doing well, sitting in chair eating breakfast. Pt is on minced and moist diet, and seems to be tolerating. Pt states that she is not in any pain, and she had a diarrhea last night w/o associated symptoms; no blood in bowel movement. Pt denies MALIK, SOB, Cough, Chest Pain, Palpitations, Fever and Chills, and Abdominal Pain. Review of Systems General: No Chills HEENT: No Head Aches Pulmonary: No Dyspnea, No Cough Cardiovascular: No: Chest Pain, Palpitations Gastrointestinal: No: Nausea, Vomiting, Abdominal Pain Neurological: No: Weakness Objective Exam Vital Signs Date Time Temp Pulse Resp B/P (MAP) Pulse Ox O2 Delivery O2 Flow Rate FiO2 08/14/22 07:32 36.5 61 20 123/60 (81) 96 Room Air 08/14/22 07:17 97 Room Air 08/14/22 03:41 36.3 64 18 130/62 (84) 95 Room Air 08/13/22 23:34 36.9 66 18 143/66 (91) 93 Room Air 08/13/22 20:47 95 Room Air 0.00 08/13/22 20:19 98 Room Air 08/13/22 19:24 37.1 63 18 126/62 (83) 98 Room Air 08/13/22 15:33 36.5 61 18 124/70 (88) 96 Room Air 08/13/22 11:27 36.8 62 18 144/73 (96) 98 Room Air I & O 08/14/22 07:00 Intake Total 2040 ml Output Total 15 ml Balance 2025 ml Capillary Refill : Less Than 3 Seconds General Appearance: No Apparent Distress, Chronically ill HEENT: PERRL/EOMI, Normal ENT Inspection Neck: Normal Inspection, Non Tender Respiratory: Chest Non Tender, No Accessory Muscle Use Cardiovascular: Regular Rate, Rhythm, No JVD Peripheral Pulses: 2+ Radial Pulses (R), 2+ Radial Pulses (L) Gastrointestinal: normal bowel sounds, non tender, soft Extremity: Non Tender, No Calf Tenderness Neurologic/Psychiatric: Alert, Oriented x3 Skin: Normal Color, Warm/Dry Lymphatic: No Adenopathy Results Lab Laboratory Tests 08/14/22 05:12: White Blood Count 6.3, Red Blood Count 3.07L, Hemoglobin 9.0L, Hematocrit 28L, Mean Corpuscular Volume 93, Mean Corpuscular Hemoglobin 29, Mean Corpuscular Hemoglobin Concent 32, Red Cell Distribution Width 17.4H, Platelet Count 235, Mean Platelet Volume 10.8, Immature Granulocyte % (Auto) 1, Neutrophils (%) (Auto) 68, Lymphocytes (%) (Auto) 14, Monocytes (%) (Auto) 14H, Eosinophils (%) (Auto) 2, Basophils (%) (Auto) 1, Neutrophils # (Auto) 4.3, Lymphocytes # (Auto) 0.9L, Monocytes # (Auto) 0.9, Eosinophils # (Auto) 0.1, Basophils # (Auto) 0.0, Immature Granulocyte # (Auto) 0.0, Sodium Level 142, Potassium Level 3.6, Chloride Level 112H, Carbon Dioxide Level 20L, Anion Gap 10, Blood Urea Nitrogen 8, Creatinine 0.59L, Estimat Glomerular Filtration Rate 95, BUN/Creatinine Ratio 14, Glucose Level 88, Calcium Level 8.5, Corrected Calcium 9.1, Total Bilirubin 0.7, Aspartate Amino Transf (AST/SGOT) 20, Alanine Aminotransferase (ALT/SGPT) 19, Alkaline Phosphatase 69, Total Protein 5.4L, Albumin 3.2 Assessment/Plan Assessment/Plan Assessment/Plan Acute GI Bleed Melena Secondary to AVM LLQ Abdominal Pain Leukocytosis Anemia Generalized Lower Extremity Edema Minced and Moist Diet Consider advancing to regular diet Antiplatelets held IV fluids Protonix Pt is tolerating Minced and Moist Diet; Pt's Hgb is relatively stable (9.1 yesterday and 9 today) though still low is higher than admission at 7.4; Consider Discharge Today Clinical Quality Measures DVT/VTE Risk/Contraindication: Contraindications-Pharm: Other *list below* Other: ALPESH CHAN DO 08/14/22 1039: Subjective Subjective/Events-last exam Tolerating diet. Hgb stable. Sitting in chair, no abdominal pain. Denies n/v fever sweats chills shortness of breath or chest pain. Objective Exam General Appearance: No Apparent Distress, Chronically ill HEENT: PERRL/EOMI, Normal ENT Inspection Neck: Normal Inspection, Non Tender Respiratory: Chest Non Tender, No Accessory Muscle Use Cardiovascular: Regular Rate, Rhythm, No JVD Gastrointestinal: non tender, soft Extremity: Non Tender, No Calf Tenderness Neurologic/Psychiatric: Alert, Oriented x3 Skin: Normal Color, Warm/Dry Lymphatic: No Adenopathy Assessment/Plan Assessment/Plan Assessment/Plan Acute GI Bleed- upper from AVM in stomach S/p egd with biospy of body stomach; fulguration and injection of epi to control bleed of AVM, colonoscopy Melena LLQ Abdominal Pain Leukocytosis Anemia Generalized Lower Extremity Edema soft diet hgb stable, Protonix Supervisory-Addendum Brief Verification & Attestation Participated in pt care: history, MDM, physical Personally performed: exam, history, MDM, supervision of care Care discussed with: Medical Student Procedures: n/a Results interpretation: Verified all documentation Verification and Attestation of Medical Student E/M Service A medical student performed and documented this service in my presence. I reviewed and verified all information documented by the medical student and made modifications to such information, when appropriate. I personally performed the physical exam and medical decision making. Alpesh Chairez, Aug 14, 2022,10:39 SANTIAGO BERNAL Aug 14, 2022 08:15 ALPESH CHAIREZ DO Aug 14, 2022 10:39
[2022-08-14] MEDS ORDERED: CYANOCOBALAMIN 1,000 MCG (VITAMIN B-12) TABLET PO SCH (09:00)
[2022-08-14] MEDS ORDERED: NON-FORMULARY MEDICATION 1 EA EA (Simvastatin 80 MG) PO SCH (09:00)
[2022-08-14 11:41] VITALS: BP 143/67
[2022-08-14] MEDS ORDERED: AMLO5TAB4 PO (12:06)
[2022-08-14] MEDS ORDERED: PANT40TA2 PO (12:06)
[2022-08-14] MEDS ORDERED: LISI10TA25 PO (12:06)
--- NOTE | 2022-08-14 12:09 | Discharge Summary ---
Diagnosis/Chief Complaint Date of Admission Aug 09, 2022 at 09:35 Date of Discharge Discharge Date: Aug 14, 2022 Discharge Diagnosis GI Bleed Anemia Received 2 units of LRRBCs 08/09. Repeat Hgb 08/12 was 7.9 down from 8.6. Another 1 unit given 08/12 before procedure, most recent Hgb 9.1. Clopidogrel and aspirin held. 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 Lower endoscopy revealed sigmoid diverticulosis. IV iron given 08/10. B12 ordered for this weekend. Continue to monitor H/H. N/V Abdominal pain resolved. Pain control and antiemesis as needed. Not requiring pain medication or zofran at this time. Hypokalemia 3.4 today. Received K CL IV. Up from 3.3 yesterday. Continue to monitor and replace. HTN BP improved today, cardiology started lisinopril 10mgPO yesterday. Norvasc today as well. Will continue to monitor. HLD 80mgPO simvastatin PVD s/p stent to SMA Ct ab/pelv showed SMA athersclerosis and 3.2cm infrarenal aneurysm. Hx of stent to SMA. Cardiology recommends CTA to evaluate SMA occlusion and ant iplatelet monotherapy after scopes are done. Pericardial effusion chronic and stable without signs of cardiovascular compromise. Cardiology does not recommend pericadiocentesis at this time. Reason Hospital Visit Discharge Summary Discharge Physical Examination Allergies: Coded Allergies: Penicillins (Verified Allergy, Unknown, 07/04/20) hydrocodone (Verified Allergy, Unknown, 07/04/20) Uncoded Allergies: LARGE DOSES OF ASPIRIN (Adverse Reaction, Unknown, 10/21/21) LOOP DIURETIC (Adverse Reaction, Unknown, 10/21/21) Vitals & I&Os Vital Signs Date Time Temp Pulse Resp B/P (MAP) Pulse Ox O2 Delivery O2 Flow Rate FiO2 08/14/22 13:25 36.7 61 20 143/67 96 Room Air 0.00 General Appearance: Alert, Oriented X3, Cooperative Respiratory: Clear to Auscultation Cardiovascular: Regular Rate Psych/Mental Status: Mental Status NL Hospital Course Was the Problem List Reviewed?: Yes Uneventful course after she was admitted following GI bleed with severe symptomatic anemia requiring transfusion of 2 units of blood and consulting Dr Nguyen who ultimately performed EGD and C-scope which revealed AVM bleeding. Plavix and ASA held temporarily. Cardiology consulted and recommended holding anti-platelet meds and then choosing ASA or Plavix to resume and not both. She did well but did require another unit of blood. Lungs remained clear. She was stable at [place]. Labs (last 24 hrs) Laboratory Tests 08/09/22 00:47: White Blood Count 13.9H, Red Blood Count 2.67L, Hemoglobin 7.4L, Hematocrit 24L, Mean Corpuscular Volume 91, Mean Corpuscular Hemoglobin 28, Mean Corpuscular Hemoglobin Concent 30L, Red Cell Distribution Width 15.9H, Platelet Count 365, M ryanne Platelet Volume 10.8, Immature Granulocyte % (Auto) 1, Neutrophils (%) (Auto) 84H, Lymphocytes (%) (Auto) 7L, Monocytes (%) (Auto) 8, Eosinophils (%) (Auto) 0, Basophils (%) (Auto) 0, Neutrophils # (Auto) 11.7H, Lymphocytes # (Auto) 1.0, Monocytes # (Auto) 1.1H, Eosinophils # (Auto) 0.0, Basophils # (Auto) 0.1, Immature Granulocyte # (Auto) 0.1, Neutrophils % (Manual) 87, Lymphocytes % (Manual) 7, Monocytes % (Manual) 6, Blood Morphology Comment NORMAL, Prothrombin Time 14.1, INR Comment 1.0, Activated Partial Thromboplast Time 30, Sodium Level 142, Potassium Level 4.0, Chloride Level 110H, Carbon Dioxide Level 20L, Anion Gap 12, Blood Urea Nitrogen 34H, Creatinine 0.69, Estimat Glomerular Filtration Rate 91, BUN/Creatinine Ratio 49, Glucose Level 114H, Calcium Level 9.4, Corrected Calcium 9.6, Total Bilirubin 0.3, Aspartate Amino Transf (AST/SGOT) 19, Alanine Aminotransferase (ALT/SGPT) 27, Alkaline Phosphatase 66, Lactate Dehydrogenase 128, C-Reactive Protein High Sensitivity 0.24, Total Protein 6.0L, Albumin 3.7, Lipase 29 08/09/22 04:22: Urine Color YELLOW, Urine Clarity CLEAR, Urine pH 5.0, Urine Specific [place] 1.015L, Urine Protein NEGATIVE, Urine Glucose (UA) NEGATIVE, Urine Ketones NEGATIVE, Urine Nitrite NEGATIVE, Urine Bilirubin NEGATIVE, Urine Urobilinogen 0.2, Urine Leukocyte Esterase NEGATIVE, Urine RBC (Auto) NEGATIVE, Urine RBC NONE, Urine WBC NONE, Urine Crystals NONE, Urine Bacteria NEGATIVE, Urine Casts NONE, Urine Mucus NEGATIVE, Urine Culture Indicated NO 08/09/22 05:45: White Blood Count 12.9H, Red Blood Count 2.37L, Hemoglobin 6.5*L, Hematocrit 22L , Mean Corpuscular Volume 92, Mean Corpuscular Hemoglobin 27, Mean Corpuscular Hemoglobin Concent 30L, Red Cell Distribution Width 15.9H, Platelet Count 275, Mean Platelet Volume 11.2, Immature Granulocyte % (Auto) 1, Neutrophils (%) (Auto) 83H, Lymphocytes (%) (Auto) 7L, Monocytes (%) (Auto) 9, Eosinophils (%) (Auto) 0, Basophils (%) (Auto) 0, Neutrophils # (Auto) 10.6H, Lymphocytes # (Auto) 0.9L, Monocytes # (Auto) 1.2H, Eosinophils # (Auto) 0.0, Basophils # (Auto) 0.1, Immature Granulocyte # (Auto) 0.1, Sodium Level 142, Potassium Level 3.6, Chloride Level 111H, Carbon Dioxide Level 20L, Anion Gap 11, Blood Urea Nitrogen 31H, Creatinine 0.59L, Estimat Glomerular Filtration Rate 95, BUN/Creatinine Ratio 53, Glucose Level 96, Calcium Level 8.7, Iron Level 23L, B-Type Natriuretic Peptide 12.5, Vitamin B12 Level 515 08/10/22 10:21: White Blood Count 6.7, Red Blood Count 2.81L, Hemoglobin 8.0#L, Hematocrit 26L, Mean Corpuscular Volume 93, Mean Corpuscular Hemoglobin 28, Mean Corpuscular Hemoglobin Concent 31L, Red Cell Distribution Width 15.9H, Platelet Count 245, Mean Platelet Volume 10.8, Immature Granulocyte % (Auto) 0, Neutrophils (%) (Auto) 81H, Lymphocytes (%) (Auto) 9L, Monocytes (%) (Auto) 9, Eosinophils (%) (Auto) 1, Basophils (%) (Auto) 1, Neutrophils # (Auto) 5.4, Lymphocytes # (Auto) 0.6L, Monocytes # (Auto) 0.6, Eosinophils # (Auto) 0.1, Basophils # (Auto) 0.1, Immature Granulocyte # (Auto) 0.0, Sodium Level 140, Potassium Level 3.9, Chlor salo Level 110H, Carbon Dioxide Level 24, Anion Gap 6, Blood Urea Nitrogen 18, Creatinine 0.60, Estimat Glomerular Filtration Rate 94, BUN/Creatinine Ratio 30, Glucose Level 84, Calcium Level 8.4L, Corrected Calcium 9.0, Total Bilirubin 0.7, Aspartate Amino Transf (AST/SGOT) 18, Alanine Aminotransferase (ALT/SGPT) 21, Alkaline Phosphatase 54, Total Protein 5.3L, Albumin 3.3 08/10/22 16:02: Lab Scanned Report Transfusion Reaction Form 08/11/22 06:30: White Blood Count 6.1, Red Blood Count 2.95L, Hemoglobin 8.6L, Hematocrit 27L, Mean Corpuscular Volume 92, Mean Corpuscular Hemoglobin 29, Mean Corpuscular Hemoglobin Concent 32, Red Cell Distribution Width 15.9H, Platelet Count 252, Mean Platelet Volume 10.7, Immature Granulocyte % (Auto) 0, Neutrophils (%) (Auto) 72, Lymphocytes (%) (Auto) 15, Monocytes (%) (Auto) 11, Eosinophils (%) (Auto) 2, Basophils (%) (Auto) 1, Neutrophils # (Auto) 4.4, Lymphocytes # (Auto) 0.9L, Monocytes # (Auto) 0.7, Eosinophils # (Auto) 0.1, Basophils # (Auto) 0.0, Immature Granulocyte # (Auto) 0.0, Sodium Level 142, Potassium Level 3.4L, Chloride Level 108H, Carbon Dioxide Level 24, Anion Gap 10, Blood Urea Nitrogen 10, Creatinine 0.64, Estimat Glomerular Filtration Rate 93, BUN/Creatinine Ratio 16, Glucose Level 74, Calcium Level 8.8, Corrected Calcium 9.3, Total Bilirubin 0.7, Aspartate Amino Transf (AST/SGOT) 27, Alanine Aminotransferase (ALT/SGPT) 26, Alkaline Phosphatase 62, Total Protein 5.7L, Albumin 3.4 08/12/22 05:30: White Blood Count 5.1, Red Blood Count 2.73L, Hemoglobin 7.9L, Hematocrit 25L, Mean Corpuscular Volume 92, Mean Corpuscular Hemoglobin 29, Mean Corpuscular Hemoglobin Concent 32, Red Cell Distribution Width 16.2H, Platelet Count 238, Mean Platelet Volume 10.9, Immature Granulocyte % (Auto) 0, Neutrophils (%) (Auto) 72, Lymphocytes (%) (Auto) 14, Monocytes (%) (Auto) 12, Eosinophils (%) (Auto) 2, Basophils (%) (Auto) 1, Neutrophils # (Auto) 3.7, Lymphocytes # (Auto) 0.7L, Monocytes # (Auto) 0.6, Eosinophils # (Auto) 0.1, Basophils # (Auto) 0.0, Immature Granulocyte # (Auto) 0.0, Sodium Level 143, Potassium Level 3.3L, Chloride Level 109H, Carbon Dioxide Level 22, Anion Gap 12, Blood Urea Nitrogen 9, Creatinine 0.61, Estimat Glomerular Filtration Rate 94, BUN/Creatinine Ratio 15, Glucose Level 69L, Calcium Level 8.7, Corrected Calcium 9.3, Total Bilirubin 0.7, Aspartate Amino Transf (AST/SGOT) 22, Alanine Aminotransferase (ALT/SGPT) 20, Alkaline Phosphatase 65, Total Protein 5.4L, Albumin 3.3 08/13/22 05:00: White Blood Count 5.8, Red Blood Count 3.13L, Hemoglobin 9.1L, Hematocrit 29L, Mean Corpuscular Volume 91, Mean Corpuscular Hemoglobin 29, Mean Corpuscular Hemoglobin Concent 32, Red Cell Distribution Width 16.9H, Platelet Count 232, Mean Platelet Volume 10.6, Immature Granulocyte % (Auto) 1, Neutrophils (%) (Auto) 69, Lymphocytes (%) (Auto) 16, Monocytes (%) (Auto) 13H, Eosinophils (%) (Auto) 2, Basophils (%) (Auto) 1, Neutrophils # (Auto) 4.0, Lymphocytes # (Auto) 0.9L, Monocytes # (Auto) 0.7, Eosinophils # (Auto) 0.1, Basophils # (Auto) 0.0, Immature Granulocyte # (Auto) 0.0, Sodium Level 142, Potassium Level 3.4L, Chloride Level 111H, Carbon Dioxide Level 22, Anion Gap 9, Blood Urea Nitrogen 6L, Creatinine 0.61, Estimat Glomerular Filtration Rate 94, BUN/Creatinine Ratio 10, Glucose Level 78, Calcium Level 8.7, Corrected Calcium 9.3, Total Bilirubin 1.0, Aspartate Amino Transf (AST/SGOT) 19, Alanine Aminotransferase (ALT/SGPT) 17, Alkaline Phosphatase 63, Total Protein 5.2L, Albumin 3.3 08/14/22 05:12: White Blood Count 6.3, Red Blood Count 3.07L, Hemoglobin 9.0L, Hematocrit 28L, Mean Corpuscular Volume 93, Mean Corpuscular Hemoglobin 29, Mean Corpuscular Hemoglobin Concent 32, Red Cell Distribution Width 17.4H, Platelet Count 235, Mean Platelet Volume 10.8, Immature Granulocyte % (Auto) 1, Neutrophils (%) (Auto) 68, Lymphocytes (%) (Auto) 14, Monocytes (%) (Auto) 14H, Eosinophils (%) (Auto) 2, Basophils (%) (Auto) 1, Neutrophils # (Auto) 4.3, Lymphocytes # (Auto) 0.9L, Monocytes # (Auto) 0.9, Eosinophils # (Auto) 0.1, Basophils # (Auto) 0.0, Immature Granulocyte # (Auto) 0.0, Sodium Level 142, Potassium Level 3.6, Chloride Level 112H, Carbon Dioxide Level 20L, Anion Gap 10, Blood Urea Nitrogen 8, Creatinine 0.59L, Estimat Glomerular Filtration Rate 95, BUN/Creatinine Ratio 14, Glucose Level 88, Calcium Level 8.5, Corrected Calcium 9.1, Total Bilirubin 0.7, Aspartate Amino Transf (AST/SGOT) 20, Alanine Aminotransferase (ALT/SGPT) 19, Alkaline Phosphatase 69, Total Protein 5.4L, Albumin 3.2, Thyroid Stimulating Hormone (TSH) 1.97 Pending Labs Laboratory Tests 08/09/22 00:47: White Blood Count 13.9, Red Blood Count 2.67, Hemoglobin 7.4, Hematocrit 24, Mean Corpuscular Volume 91, Mean Corpuscular Hemoglobin 28, Mean Corpuscular Hemoglobin Concent 30, Red Cell Distribution Width 15.9, Platelet Count 365, Mean Platelet Volume 10.8, Immature Granulocyte % (Auto) 1, Neutrophils (%) (Auto) 84, Lymphocytes (%) (Auto) 7, Monocytes (%) (Auto) 8, Eosinophils (%) (Auto) 0, Basophils (%) (Auto) 0, Neutrophils # (Auto) 11.7, Lymphocytes # (Auto) 1.0, Monocytes # (Auto) 1.1, Eosinophils # (Auto) 0.0, Basophils # (Auto) 0.1, Immature Granulocyte # (Auto) 0.1, Neutrophils % (Manual) 87, Lymphocytes % (Manual) 7, Monocytes % (Manual) 6, Blood Morphology Comment NORMAL, Prothrombin Time 14.1, INR Comment 1.0, Activated Partial Thromboplast Time 30, Sodium Level 142, Potassium Level 4.0, Chloride Level 110, Carbon Dioxide Level 20, Anion Gap 12, Blood Urea Nitrogen 34, Creatinine 0.69, Estimat Glomerular Filtration Rate 91, BUN/Creatinine Ratio 49, Glucose Level 114, Calcium Level 9.4, Corrected Calcium 9.6, Total Bilirubin 0.3, Aspartate Amino Transf (AST/SGOT) 19, Alanine Aminotransferase (ALT/SGPT) 27, Alkaline Phosphatase 66, Lactate Dehydrogenase 128, C-Reactive Protein High Sensitivity 0.24, Total Protein 6.0, Albumin 3.7, Lipase 29 08/09/22 04:22: Urine Color YELLOW, Urine Clarity CLEAR, Urine pH 5.0, Urine Specific [place] 1.015, Urine Protein NEGATIVE, Urine Glucose (UA) NEGATIVE, Urine Ketones NEGATIVE, Urine Nitrite NEGATIVE, Urine Bilirubin NEGATIVE, Urine Urobilinogen 0.2, Urine Leukocyte Esterase NEGATIVE, Urine RBC (Auto) NEGATIVE, Urine RBC NONE, Urine WBC NONE, Urine Crystals NONE, Urine Bacteria NEGATIVE, Urine Casts NONE, Urine Mucus NEGATIVE, Urine Culture Indicated NO 08/09/22 05:45: White Blood Count 12.9, Red Blood Count 2.37, Hemoglobin 6.5, Hematocrit 22, Mean Corpuscular Volume 92, Mean Corpuscular Hemoglobin 27, Mean Corpuscular Hemoglobin Concent 30, Red Cell Distribution Width 15.9, Platelet Count 275, Mean Platelet Volume 11.2, Immature Granulocyte % (Auto) 1, Neutrophils (%) (Auto) 83, Lymphocytes (%) (Auto) 7, Monocytes (%) (Auto) 9, Eosinophils (%) (Auto) 0, Basophils (%) (Auto) 0, Neutrophils # (Auto) 10.6, Lymphocytes # (Auto) 0.9, Monocytes # (Auto) 1.2, Eosinophils # (Auto) 0.0, Basophils # (Auto) 0.1, Immature Granulocyte # (Auto) 0.1, Sodium Level 142, Potassium Level 3.6, Chloride Level 111, Carbon Dioxide Level 20, Anion Gap 11, Blood Urea Nitrogen 31, Creatinine 0.59, Estimat Glomerular Filtration Rate 95, BUN/Creatinine Ratio 53, Glucose Level 96, Calcium Level 8.7, Iron Level 23, B-Type Natriuretic Peptide 12.5, Vitamin B12 Level 515 08/10/22 10:21: White Blood Count 6.7, Red Blood Count 2.81, Hemoglobin 8.0, Hematocrit 26, Mean Corpuscular Volume 93, Mean Corpuscular Hemoglobin 28, Mean Corpuscular H emoglobin Concent 31, Red Cell Distribution Width 15.9, Platelet Count 245, Mean Platelet Volume 10.8, Immature Granulocyte % (Auto) 0, Neutrophils (%) (Auto) 81, Lymphocytes (%) (Auto) 9, Monocytes (%) (Auto) 9, Eosinophils (%) (Auto) 1, Basophils (%) (Auto) 1, Neutrophils # (Auto) 5.4, Lymphocytes # (Auto) 0.6, Monocytes # (Auto) 0.6, Eosinophils # (Auto) 0.1, Basophils # (Auto) 0.1, Immature Granulocyte # (Auto) 0.0, Sodium Level 140, Potassium Level 3.9, Chloride Level 110, Carbon Dioxide Level 24, Anion Gap 6, Blood Urea Nitrogen 18, Creatinine 0.60, Estimat Glomerular Filtration Rate 94, BUN/Creatinine Ratio 30, Glucose Level 84, Calcium Level 8.4, Corrected Calcium 9.0, Total Bilirubin 0.7, Aspartate Amino Transf (AST/SGOT) 18, Alanine Aminotransferase (ALT/SGPT) 21, Alkaline Phosphatase 54, Total Protein 5.3, Albumin 3.3 08/10/22 16:02: Lab Scanned Report Transfusion Reaction Form 08/11/22 06:30: White Blood Count 6.1, Red Blood Count 2.95, Hemoglobin 8.6, Hematocrit 27, Mean Corpuscular Volume 92, Mean Corpuscular Hemoglobin 29, Mean Corpuscular Hemoglobin Concent 32, Red Cell Distribution Width 15.9, Platelet Count 252, Mean Platelet Volume 10.7, Immature Granulocyte % (Auto) 0, Neutrophils (%) (Auto) 72, Lymphocytes (%) (Auto) 15, Monocytes (%) (Auto) 11, Eosinophils (%) (Auto) 2, Basophils (%) (Auto) 1, Neutrophils # (Auto) 4.4, Lymphocytes # (Auto) 0.9, Monocytes # (Auto) 0.7, Eosinophils # (Auto) 0.1, Basophils # (Auto) 0.0, Immature Granulocyte # (Auto) 0.0, Sodium Level 142, Potassium Level 3.4, Chloride Level 108, Carbon Dioxide Level 24, Anion Gap 10, Blood Urea Nitrogen 10, Creatinine 0.64, Estimat Glomerular Filtration Rate 93, BUN/Creatinine Ratio 16, Glucose Level 74, Calcium Level 8.8, Corrected Calcium 9.3, Total Bilirubin 0.7, Aspartate Amino Transf (AST/SGOT) 27, Alanine Aminotransferase (ALT/SGPT) 26, Alkaline Phosphatase 62, Total Protein 5.7, Albumin 3.4 08/12/22 05:30: White Blood Count 5.1, Red Blood Count 2.73, Hemoglobin 7.9, Hematocrit 25, Mean Corpuscular Volume 92, Mean Corpuscular Hemoglobin 29, Mean Corpuscular Hemoglobin Concent 32, Red Cell Distribution Width 16.2, Platelet Count 238, Mean Platelet Volume 10.9, Immature Granulocyte % (Auto) 0, Neutrophils (%) (Auto) 72, Lymphocytes (%) (Auto) 14, Monocytes (%) (Auto) 12, Eosinophils (%) (Auto) 2, Basophils (%) (Auto) 1, Neutrophils # (Auto) 3.7, Lymphocytes # (Auto) 0.7, Monocytes # (Auto) 0.6, Eosinophils # (Auto) 0.1, Basophils # (Auto) 0.0, Immature Granulocyte # (Auto) 0.0, Sodium Level 143, Potassium Level 3.3, Chloride Level 109, Carbon Dioxide Level 22, Anion Gap 12, Blood Urea Nitrogen 9, Creatinine 0.61, Estimat Glomerular Filtration Rate 94, BUN/Creatinine Ratio 15, Glucose Level 69, Calcium Level 8.7, Corrected Calcium 9.3, Total Bilirubin 0.7, Aspartate Amino Transf (AST/SGOT) 22, Alanine Aminotransferase (ALT/SGPT) 20, Alkaline Phosphatase 65, Total Protein 5.4, Albumin 3.3 08/13/22 05:00: White Blood Count 5.8, Red Blood Count 3.13, Hemoglobin 9.1, Hematocrit 29, Mean Corpuscular Volume 91, Mean Corpuscular Hemoglobin 29, Mean Corpuscular Hemoglobin Concent 32, Red Cell Distribution Width 16.9, Platelet Count 232, Mean Platelet Volume 10.6, Immature Granulocyte % (Auto) 1, Neutrophils (%) (Auto) 69, Lymphocytes (%) (Auto) 16, Monocytes (%) (Auto) 13, Eosinophils (%) (Auto) 2, Basophils (%) (Auto) 1, Neutrophils # (Auto) 4.0, Lymphocytes # (Auto) 0.9, Monocytes # (Auto) 0.7, Eosinophils # (Auto) 0.1, Basophils # (Auto) 0.0, Immature Granulocyte # (Auto) 0.0, Sodium Level 142, Potassium Level 3.4, Chloride Level 111, Carbon Dioxide Level 22, Anion Gap 9, Blood Urea Nitrogen 6, Creatinine 0.61, Estimat Glomerular Filtration Rate 94, BUN/Creatinine Ratio 10, Glucose Level 78, Calcium Level 8.7, Corrected Calcium 9.3, Total Bilirubin 1.0, Aspartate Amino Transf (AST/SGOT) 19, Alanine Aminotransferase (ALT/SGPT) 17, Alkaline Phosphatase 63, Total Protein 5.2, Albumin 3.3 08/14/22 05:12: White Blood Count 6.3, Red Blood Count 3.07, Hemoglobin 9.0, Hematocrit 28, Mean Corpuscular Volume 93, Mean Corpuscular Hemoglobin 29, Mean Corpuscular Hemoglobin Concent 32, Red Cell Distribution Width 17.4, Platelet Count 235, Mean Platelet Volume 10.8, Immature Granulocyte % (Auto) 1, Neutrophils (%) (Auto) 68, Lymphocytes (%) (Auto) 14, Monocytes (%) (Auto) 14, Eosinophils (%) (Auto) 2, Basophils (%) (Auto) 1, Neutrophils # (Auto) 4.3, Lymphocytes # (Auto) 0.9, Monocytes # (Auto) 0.9, Eosinophils # (Auto) 0.1, Basophils # (Auto) 0.0, Immature Granulocyte # (Auto) 0.0, Sodium Level 142, Potassium Level 3.6, Chloride Level 112, Carbon Dioxide Level 20, Anion Gap 10, Blood Urea Nitrogen 8, Creatinine 0.59, Estimat Glomerular Filtration Rate 95, BUN/Creatinine Ratio 14, Glucose Level 88, Calcium Level 8.5, Corrected Calcium 9.1, Total Bilirubin 0.7, Aspartate Amino Transf (AST/SGOT) 20, Alanine Aminotransferase (ALT/SGPT) 19, Alkaline Phosphatase 69, Total Protein 5.4, Albumin 3.2, Thyroid Stimulating Hormone (TSH) 1.97 Discharge Home Medications: Active Scripts Active Norvasc (Amlodipine Besylate) 5 Mg Tablet 5 Mg PO DAILY Protonix (Pantoprazole Sodium) 40 Mg Tablet.dr 40 Mg PO DAILY Lisinopril 10 Mg Tablet 10 Mg PO DAILY Reported Breztri Aerosphere Inhaler (Budesonide/Glycopyr/Formoterol) 160 Mcg-9 Mcg-4.8 Mcg/Actuation Hfa.aer.ad 2 Puff IH BID Tylenol Extra Strength (Acetaminophen) 500 Mg Tablet 500-1,000 Mg PO Q8H PRN Vitamin B-12 (Cyanocobalamin (Vitamin B-12)) 1,000 Mcg Tablet 1,000 Mcg PO DAILY Simvastatin 80 Mg Tablet 80 Mg PO DAILY Vitamin D3 (Cholecalciferol (Vitamin D3)) 1,250 Mcg (45159 Unit) Capsule 1,250 Mcg PO MO,FR Ventolin Hfa (Albuterol Sulfate) 90 Mcg Hfa.aer.ad 2 Puff INH Q6H PRN Levothyroxine Sodium 25 Mcg Tablet 25 Mcg PO DAILY Instructions to patient/family Please see electronic discharge instructions given to patient. Diagnosis/Problems Diagnosis/Problems (1) GI bleed Status: Acute Qualifiers: Qualified Codes: K92.2 - Gastrointestinal hemorrhage, unspecified (2) Severe anemia (3) Fall Status: Acute Clinical Quality Measures DVT/VTE Risk/Contraindication: Contraindications-Pharm: Other *list below* Other: MONIKA RICHARDSON DO Aug 14, 2022 12:09
[2022-08-14 13:25] VITALS: BP 143/67
== END 2022-08-14 13:23 | disposition home or self-care (01) | DRG 300 ==
LOC: EDUNIT# 00:32 → ER 00:35 → 4TH 03:37 → OBSVTOIN 09:35 → 4TH 08-12 16:42
PROVIDERS: ADMIT Internal Medicine; ATTEND Internal Medicine
PROC: 0DJD8ZZ Inspection of Lower Intestinal Tract, Via Natural or Artificial Opening Endoscopic (ICD-10-PCS; 2022-08-12)
PROC: 0W3P8ZZ Control Bleeding in Gastrointestinal Tract, Via Natural or Artificial Opening Endoscopic (ICD-10-PCS; principal; 2022-08-12 13:14)
PROC: 0DB68ZX Excision of Stomach, Via Natural or Artificial Opening Endoscopic, Diagnostic (ICD-10-PCS; 2022-08-12 13:14)
DX: Q27.33 Arteriovenous malformation of digestive system vessel (principal); I31.39 Other pericardial effusion (noninflammatory); K92.1 Melena; K29.70 Gastritis, unspecified, without bleeding; K57.90 Diverticulosis of intestine, part unspecified, without perforation or abscess without bleeding; E87.6 Hypokalemia; F17.210 Nicotine dependence, cigarettes, uncomplicated; E78.00 Pure hypercholesterolemia, unspecified; I10 Essential (primary) hypertension; E03.9 Hypothyroidism, unspecified; I71.40 Abdominal aortic aneurysm, without rupture, unspecified; D64.9 Anemia, unspecified; R60.0 Localized edema; I73.9 Peripheral vascular disease, unspecified; M19.91 Primary osteoarthritis, unspecified site; Z79.01 Long term (current) use of anticoagulants; Z79.82 Long term (current) use of aspirin; Z88.5 Allergy status to narcotic agent; Z88.0 Allergy status to penicillin; Z96.642 Presence of left artificial hip joint
CPT/HCPCS: 36415; 74177; 80048; 80053; 81000; 82607; 83540; 83615; 83690; 83880; 84443; 85007; 85025; 85027; 85610; 85730; 86141; 86850; 86900; 86901; 86920; 93005; 93306; 94640; 94664; 94760; 96361; 96374; 96375; G0378